=== PATIENT | female | born 1950 | race Caucasian/White ===

== ENCOUNTER 2018-05-28 09:29 | Outpatient (CLI) | payer OTHER, SELFPAY ==
[2018-05-28 10:07] LABS: Hemoglobin A1C 6.4 % (4.5-6.2)
[2018-05-28 11:22] LABS: Anion Gap 9.5 mmol/L (3-11); BUN 13 mg/dL (7-18); CO2 28.5 mmol/L (21.0-32.0); CREATININE 0.69 mg/dL (0.55-1.02); Calcium 9.1 mg/dL (8.5-10.1); Chloride 101 mmol/L (98-107); Cholesterol 228 mg/dL (50-200); Glucose 140 mg/dL (70-100); HDL Cholesterol 50 mg/dL (40-60); LDL CHOLESTEROL 138 mg/dL (<100); Sodium 139 mmol/L (136-145); Triglyceride 241 mg/dL (30-150)
[2018-05-28 11:40] LABS: FREE T4 1.01 ng/dL (0.76-1.46)
[2018-05-30 16:13] LABS: TSH 1.83 uIU/mL (0.358-3.74)
== END 2018-05-28 09:49 ==
PROVIDERS: PCP Nurse Practitioner Family; Visit Provider Nurse Practitioner Family
DX: I10 Essential (primary) hypertension (principal); E78.5 Hyperlipidemia, unspecified; E03.9 Hypothyroidism, unspecified; E11.9 Type 2 diabetes mellitus without complications
CPT/HCPCS: 36415; 80048; 80061; 83721; 83036; 84439; 84443

== ENCOUNTER 2018-05-31 00:29 | Outpatient (CLI) | payer OTHER, SELFPAY ==
--- NOTE | 2018-05-31 14:27 | DI.RAD_ITS ---
SYMPTOMS/DIAGNOSIS: OSTEOPOROSIS SCREENING, ASYMPTOMATIC POSTMENOPAUSAL STATE, Z78.0, Z13.820 DEXA SCAN: Routine examination. Evaluation of the lateral spine shows no compression deformities. Evaluation of the left hip shows a total T score of 0.8 and a Z score of 2.0. This is within normal limits. Evaluation of the lumbar spine shows a total T score of 0.9 and a Z score of 2.7. This is also within normal limits. No evidence of osteoporosis is seen. IMPRESSION: No evidence of osteopenia or osteoporosis.
--- NOTE | 2018-05-31 14:55 | DI.MAMMO_ITS ---
SYMPTOM/DIAGNOSIS: SCREENING, Z12.31 MAMMOGRAMS: Mammograms were interpreted according to the usual protocol including computer analysis with CAD system, tomosynthesis and C view imaging. The breast tissue is of moderate radiodensity. There is no evidence of a mass. There are no suspicious calcifications. There has been no significant interval change when compared with prior images. SUMMARY: No evidence of malignancy, category 1. Yearly screening mammography is recommended. Breast density, category B. SA ASSESSMENT OF FINDINGS: Negative. Category 1. Patient will receive a letter notifying them of these results. BI-RADS category B. There are scattered areas of fibroglandular density.
== END 2018-05-31 00:49 ==
PROVIDERS: PCP Nurse Practitioner Family; Visit Provider Nurse Practitioner Family
DX: Z12.31 Encounter for screening mammogram for malignant neoplasm of breast (principal); Z13.820 Encounter for screening for osteoporosis; Z78.0 Asymptomatic menopausal state
CPT/HCPCS: 77063; 77067; 77080

== ENCOUNTER 2018-06-13 00:36 | Outpatient (CLI) | payer OTHER, SELFPAY ==
--- NOTE | 2018-06-13 07:35 | DI.US_ITS ---
SYMPTOMS/DIAGNOSIS: NUMBNESS, TINGLING AT RIGHT LOWER EXTREMITY, R20.2, PARESTHESIA, R20.0 BILATERAL DUPLEX CAROTID ULTRASOUND: Duplex evaluation of the carotid circulation was performed according to the usual protocol. There is little if any visible plaque formation in the carotid circulation. The common, internal and external carotid arteries show normal flow velocities on Doppler evaluation bilaterally. CONCLUSION: No evidence of a hemodynamically significant carotid stenosis. Vertebral arteries show antegrade flow bilaterally.
== END 2018-06-13 00:56 ==
PROVIDERS: PCP Nurse Practitioner Family; Visit Provider Nurse Practitioner Family
DX: R20.2 Paresthesia of skin (principal); R20.0 Anesthesia of skin
CPT/HCPCS: 93880

== ENCOUNTER 2018-06-18 00:12 | Outpatient (CLI) | payer OTHER, SELFPAY ==
--- NOTE | 2018-06-18 06:29 | MERGEMPI_ITS ---
*[facility]* [address] [place] [address] Myocardial Perfusion Imaging - SPECT Luis protocol Date of study: 06/18/2018 *PATIENT PRESENTATION* Height: 165.1cm (65in) Blood Pressure: Weight: 106.8kg (235lb) BSA: 2.27m^2 Referring physician: Pancho Hartman MD Ordering physician: Kamla Zamora Impressions: Normal perfusion by Tc99m Sestamibi Imaging. Summary: 1. Myocardial perfusion imaging: No myocardial perfusion defects noted. 2. The calculated left ventricular ejection fraction after stress: 67%. No left ventricular regional motion abnormality. Indication: R07.9. History: Back , rated 8 out of 10. REASON FOR TESTING: SEEN AT DOCTOR'S FOR NUMBNESS AND TINGLING OF RIGHT UPPER EXTREMITY, WELL INTERMITTANT JAW PAIN. THESE SX HAVE NOT OCCURED TOGETHER.. PMH: HYPERLIPIDEMIA, DIABETES, HYPERTENSION, HYPOTHYROIDISM, GENERALIZED ANXIETY SIDOPRDER, MAJOR DEPRESSIVE DISORDER, ADHD, ESSENTIAL TREMOR, DIVERTICULOSIS OF AND POLYP OF COLON, BINGE EATING DISORDER, ARTHRITIS, CATARACT. FAMILY HX: CAD IN GRANDPARENTS ONLY. SMOKING: NEVER. EXCERCISE: NO REGULAR EXCERCISE. Risk factors: Hypertension. Diabetes mellitus. Obesity. Dyslipidemia. Cholesterol: 234mg/dl. HDL: 138mg/dl. LDL: 50mg/dl. Triglycerides: 241mg/dl. ALLERGIES: NKDA. MEDICATIONS: SERTRALINE 35 MG DIRECTED, PROPRANOLOL 10 MG BID, OMEGA-3 FATTY ACIDS 1 DAILY, MOMETASONE 30 ML TOPICALLY DAILY PRN, LEVOTHYROXINE 50 MCG DAILY, HYDROCHLOROTHIAZIDE 25 MG DAILY, RRMQYMQ-FNQFR-YFM COMPLEX 2 DAILY, CLOTRIMAZOLE 45 GM TOPICAL BID, CHOLECALCIFEROL 1000 UNITS DAILY, CLACIUM MAGNESIUM 1 DAILY. Imaging Technique: Protocol: Luis protocol. Acquisition: Gated SPECT; 1 day - rest/stress. The patient was imaged in the supine position. Attenuation correction used. Isotope administration: - Rest. Tc[99m]-sestamibi. Dose: 12.4mCi. Injection time: 08:40 AM. Injection to stress time: 00:45. - Stress. Tc[99m]-sestamibi. Dose: 36.4mCi. Injection time: 10:55 AM. 1-2 min before end of exercise Baseline ECG: LAST EKG 05/30/18- SINUS RHYTHM, HR 71. TODAY'S EKG-SINUS RHYTHM, HR 85 Stress protocol: + +---+ + !Stage !HR !BP (mmHg) ! + +---+ + !Baseline supine !85 !122/84 (97) ! + +---+ + !Baseline standing !80 !140/92 (108)! + +---+ + !Stage I; 1.7mph, 10degrees; 3 min !115!134/88 (103)! + +---+ + !Stage II; 2.5mph, 12degrees; 3 min!140!182/92 (122)! + +---+ + !Recovery; 1 min !132!180/84 (116)! + +---+ + !Recovery; 3 min !94 !170/88 (115)! + +---+ + !Recovery; 6 min !92 !128/78 (95) ! + +---+ + * Stress results: The rate-pressure product for the peak heart rate and blood pressure was 42579oh Hg/min. Stress ECG: EXCERCISE TESING ENDED IN 5 MINS, 29 SECS DUE TO FATIGUE. MAX HR WAS 141, 91% OF TARGET. BLOOD PRESSURE RESPONSE: HYPERTENSIVE REPONSE. METS: 7.05 ECTOPY: NONE NOTED ANGINA: NO CHEST PAIN OR PRESSURE REPORTED. ISCHEMIA: MINIMAL, TRANSIENT ST CHANGES NOTED, ALL RESOLVED TO BASELINE BY END OF RECOVERY. FUNCTIONAL CAPACITY: AVERAGE CAPACITY. Myocardial perfusion: Imaging information: gated. No myocardial perfusion defects noted. Ventricular Function (Wall Motion): The calculated left ventricular ejection fraction after stress: 67%. No left ventricular regional motion abnormality. Study data: Pancho Hartman MD supervised and was readily available during the procedure. This study was interpreted by [facility]. Study status: Routine. Consent: The risks, benefits, and alternatives to the procedure were explained to the patient and informed consent was obtained. Procedure: Initial setup. A baseline ECG was recorded. Surface ECG leads and manual cuff blood pressure measurements were monitored. Heart sounds: Normal. Lung sounds: Normal. Treadmill exercise testing was performed using the Luis protocol. Study completion: All catheters inserted during the procedure were removed. The patient tolerated the procedure well and was discharged from the lab. Discharge: The patient left the laboratory in stable condition. Birthdate: Patient birthdate: 1950. Sex: Gender: female. Study date: Study date: 06/18/2018. Study time: 06:29 AM. Electronically signed by Pancho Hartman MD 06/18/2018 17:56
== END 2018-06-18 00:32 ==
PROVIDERS: PCP Nurse Practitioner Family; Visit Provider Nurse Practitioner Family
DX: R07.9 Chest pain, unspecified (principal); I10 Essential (primary) hypertension; E03.9 Hypothyroidism, unspecified; E78.5 Hyperlipidemia, unspecified; E11.9 Type 2 diabetes mellitus without complications
CPT/HCPCS: 78452; 93016; 93018; 93017

== ENCOUNTER 2018-08-24 01:05 | Outpatient (CLI) | payer OTHER, SELFPAY ==
[2018-08-24 09:52] LABS: Hemoglobin A1C 7.1 % (4.5-6.2)
[2018-08-24 10:25] LABS: Anion Gap 7.6 mmol/L (3-11); BUN 16 mg/dL (7-18); CO2 29.4 mmol/L (21.0-32.0); CREATININE 0.78 mg/dL (0.55-1.02); Calcium 9.3 mg/dL (8.5-10.1); Chloride 102 mmol/L (98-107); Cholesterol 140 mg/dL (50-200); Glucose 163 mg/dL (70-100); HDL Cholesterol 52 mg/dL (40-60); LDL CHOLESTEROL 66 mg/dL (<100); Potassium 4.3 mmol/L (3.5-5.1); Sodium 139 mmol/L (136-145); TSH 2.48 uIU/mL (0.358-3.74); Triglyceride 169 mg/dL (30-150)
== END 2018-08-24 01:25 ==
PROVIDERS: PCP Nurse Practitioner Family; Visit Provider Nurse Practitioner Family
DX: E03.9 Hypothyroidism, unspecified (principal); E78.5 Hyperlipidemia, unspecified; E11.9 Type 2 diabetes mellitus without complications
CPT/HCPCS: 36415; 80048; 80061; 83721; 83036; 84443

== ENCOUNTER 2018-10-01 15:15 | Outpatient (CLI) | payer OTHER, SELFPAY ==
--- NOTE | 2018-10-01 15:09 | DI.RAD_ITS ---
SYMPTOM/DIAGNOSIS: LT KNEE PAIN LEFT KNEE: Comparison is made with 03/18/13. There is now moderate narrowing of the medial femoral tibial joint space. Radha-articular spurring is now seen throughout. There appears to be severe degenerative changes of the patellofemoral joint with some worsening when compared with the previous exam. IMPRESSION: Increased degenerative changes throughout the knee.
== END 2018-10-01 15:35 ==
PROVIDERS: PCP Nurse Practitioner Family; Visit Provider Physician Assistant
DX: M25.562 Pain in left knee (principal); M17.12 Unilateral primary osteoarthritis, left knee
CPT/HCPCS: 73562

== ENCOUNTER 2018-12-27 08:37 | Outpatient (CLI) | payer OTHER, SELFPAY ==
--- NOTE | 2018-12-27 11:34 | DI.RAD_ITS ---
SYMPTOMS/DIAGNOSIS: SURGICAL PLANNING LT TKA LEG LENGTH: The left leg measures 87 cm. The right leg measures 89 cm. There is bilateral DJD involving the knees more advanced on the left side.
--- NOTE | 2018-12-27 13:24 | HPE_ITS ---
Date of service: 12/27/18 Assessment and Plan (1) Primary osteoarthritis of left knee: Current visit: Yes Status: Chronic Left total knee replacement. Details of surgery were discussed with patient as well as risks and pertinent anatomy. All questions were answered. History of Present Illness Chief Complaint: Left knee pain Narrative: Cheryl is a 68-year-old female who comes in today for a preoperative visit for a left total knee replacement. She has had knee pain for more than 5 years, in fact went to go see [facility] 5 years ago for x-rays and evaluation. She states that she has been slowly decreasing her activity over time likely because of her knee pain, but is really she is dealing with flareups of her knee pain that occur a few times a year. She states that she is starting to develop a limp, and in fact her left knee does not straighten all the way. She also states that she is developing increasing back pain as well due to her gait. She states that she has pretty significant difficulty going up and down stairs. She avoids squatting due to knee pain. She previously walked for exercise, but is unable to do so now because of her knee pain. She has never tried an injection in the knee, but she does know that she has some arthritis in the knee which likely is going to be need of a knee replacement. Because of her significant decrease in activity she would like to discuss moving forward with a knee replacement versus other options. She denies any numbness and tingling down the leg. She does state that she has some there bilateral hip pain that occurs on the lateral aspect of both hips. This also coincides with her left knee flareups. She has had x-rays done which show pretty significant arthritis in all 3 compartments of her knee, with decreased joint space both medially and laterally. She also has pretty significant bone spurring throughout including the patellofemoral joint. She recently had an injection in the left knee, and she got very good relief but only for about 10 days. Now her left knee pain is back to where it was prior to the injection. At this point, since conservative treatment is not working, she would like to move forward with a left total knee replacement. Pertinent Surgical Information Cheryl does relate to me today that she has been told that she is very sensitive to anesthetic medications, and does not require much medication for anesthesia. She also states that she took a little longer to wake up at her previous surgery. Patient denies history of hypertension, CVA, NE, angina, asthma, COPD, renal or liver disorders, hepatitis, bleeding disorders, diabetes, immune or thyroid disorders. No complications from anesthesia. Review of Systems Constitutional Denies fever(s) ENT Denies dizziness and Denies sore throat Cardiovascular Denies chest pain, Denies palpitations and Denies dyspnea Respiratory Denies cough and Denies dyspnea Gastrointestinal Denies abdominal pain, Denies melena, Denies hematochezia, Denies diarrhea, Denies nausea and Denies vomiting Genitourinary Denies hematuria and Denies dysuria Neurologic Denies dizziness Endocrine Denies palpitations ON LICENSE OF [facility] Medical History Primary osteoarthritis of left knee (Chronic) Type 2 diabetes mellitus (Chronic ~04/2017) Essential hypertension (Chronic 06/14/13) Hyperlipidemia (Chronic 03/13/13) Hypothyroidism (Chronic 03/13/13) Generalized anxiety disorder (Chronic) Major depressive disorder (Chronic) ADHD, predominantly inattentive type (Chronic) Essential tremor (Chronic 03/02/15) Diverticulosis of colon (Chronic) Binge eating disorder (Inactive 10/05/15) Cataract, nuclear (Resolved 08/14/17) Polyp of colon (Resolved 06/29/06) Surgical History Hx of vaginal hysterectomy (Acute) Appendectomy Bilateral salpingectomy with oophorectomy Cervical Procedure Colonoscopy - IV Sedation (06/14/16) Extraction of cataract Family History Mother Colon cancer Father No problems noted. Sister No problems noted. Brother Pancreatic cancer metastasized to liver Brother Low back pain Alcohol abuse Son No problems noted. Daughter No problems noted. Daughter No problems noted. Daughter Type 1 diabetes mellitus Bipolar disorder Maternal Grandmother Stroke Maternal Grandfather Heart disease Myocardial infarction Paternal Grandfather No problems noted. 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 Pets and animals: No What type of physical activity do you participate in: none Mamie/Mosque: [facility] [place] Home Medications Medication Instructions Recorded Confirmed Type cholecalciferol (vitamin D3) 1,000 unit PO DAILY 03/25/15 12/27/18 History [Vitamin D3] Calcium Magnesium 1 ea PO DAILY #3 03/30/16 12/27/18 History One-Per-Day [place]-3 1 ea PO DAILY #1 03/30/16 12/27/18 History mometasone [Elocon] 1 % TOPICAL DAILY PRN #1 script 06/10/16 12/27/18 History dtrppdup-anciq-owa7-C-delbert-bor 2 ea PO DAILY #1 05/10/17 12/27/18 History [Woxtapr-Aapfq-Fxg Complex Cplt] garlic tablet 100 mg PO ONCE 05/14/18 12/27/18 History hydrochlorothiazide 25 mg tablet 25 mg PO DAILY #90 tab 09/13/18 12/27/18 Rx levothyroxine 50 mcg tablet 50 mcg PO DAILY #90 tab-cap 09/13/18 12/27/18 Rx propranolol 10 mg tablet 20 mg PO BID #360 tab 09/13/18 12/27/18 Rx escitalopram 10 mg tablet 15 mg PO DAILY #145 tab 11/19/18 12/27/18 Rx calcium carbonate [Tums] 200 mg PO PRN PRN 12/27/18 12/27/18 History clotrimazole 45 gm TOPICAL BID PRN 12/27/18 12/27/18 History ibuprofen [Advil] 400 mg PO HS 12/27/18 12/27/18 History Allergies Allergy/AdvReac Type Severity Reaction Status Date / Time milk AdvReac Intermediate Diarrhea Verified 12/27/18 11:40 sertraline AdvReac Intermediate per pt Verified 12/27/18 11:40 tingling in arm and jaw pain multivitamin AdvReac Intermediate causes Uncoded 12/27/18 11:40 chest pressure Exam HENMS Head: normocephalic and atraumatic General nose exam: no nasal discharge Throat: uvula midline and no uvular edema Other: soft palate rises symmetrically, no erythema Eyes Conjunctivae: conjunctivae normal Sclera: sclerae normal Pupils: PERRL Resp Effort & Inspection: normal respiratory effort Auscultation: clear to auscultation bilaterally and no wheezes Cardio Rate: regular rate Rhythm: regular rhythm Heart Sounds: S1 normal, S2 normal and no murmurs GI Palpation: soft, no hepatosplenomegaly and nontender Auscultation: normal bowel sounds
== END 2018-12-27 08:57 ==
PROVIDERS: PCP Nurse Practitioner Family; Visit Provider Physician Assistant
DX: M17.0 Bilateral primary osteoarthritis of knee (principal); M21.70 Unequal limb length (acquired), unspecified site
CPT/HCPCS: NC; 77073

== ENCOUNTER 2018-12-27 09:06 | Outpatient (CLI) | payer OTHER, SELFPAY ==
[2018-12-27 10:56] LABS: HCT 38.7 % (36.0-46.0); HGB 13.3 g/dL (12.0-15.5); Mean Corp. HGB Concentration 34.4 g/dL (32.0-36.0); Mean Corpuscular Hemoglobin 29.9 pg (27.0-33.0); Mean Platelet Volume 9.2 fL (8.0-11.0); Platelet Count 233 x1000/uL (130-400); RBC 4.45 m/cumm (4.00-5.20); RBC Distribution Width 12.6 % (11.7-14.6); White Blood Cell Count 6.05 k/cumm (4.4-10.8)
[2018-12-27 11:38] LABS: Anion Gap 11.3 mmol/L (3-11); BUN 15 mg/dL (7-18); CO2 27.7 mmol/L (21.0-32.0); CREATININE 0.88 mg/dL (0.55-1.02); Calcium 9.3 mg/dL (8.5-10.1); Chloride 100 mmol/L (98-107); Glucose 140 mg/dL (70-100); Potassium 3.9 mmol/L (3.5-5.1); Sodium 139 mmol/L (136-145)
== END 2018-12-27 09:26 ==
PROVIDERS: PCP Nurse Practitioner Family; Visit Provider Student in an Organized Health Care Education/Training Program
DX: M25.562 Pain in left knee (principal); M17.12 Unilateral primary osteoarthritis, left knee; Z01.818 Encounter for other preprocedural examination; Z01.812 Encounter for preprocedural laboratory examination; E11.9 Type 2 diabetes mellitus without complications
CPT/HCPCS: 36415; 80048; 85027

== ENCOUNTER 2019-01-01 08:23 | Inpatient (IN) | payer OTHER, SELFPAY ==
[2019-01-01] VITALS (18 sets, daily range): BP systolic 85–138; BP diastolic 42–80; PULSE 63–79; RESP 7–20; TEMP 36.2–36.7; O2SAT 93–97
[2019-01-01] MEDS: Celecoxib 200 MG CAP 400 MG PO (09:01)
[2019-01-01] MEDS: Acetaminophen 500 MG TAB 1000 MG PO ×3 (09:01→20:20)
[2019-01-01] MEDS: Gabapentin 300 MG CAP PO ×2 (09:02→21:32)
[2019-01-01] MEDS: Lactated Ringers 1,000 ML 80 ML IV ×3 (09:02→15:02)
[2019-01-01] MEDS: oxyCODONE-CR 10 MG TABCR PO (09:02)
[2019-01-01] MEDS: Bupivacaine LIPOSOME/PF 133 MG/10 ML VIAL IJ ×2 (10:35→11:36)
[2019-01-01] MEDS: ceFAZolin 2 GM/50 ML BAG IVPB (11:10)
[2019-01-01] MEDS: Ketorolac 30 MG/ML VIAL (11:36)
[2019-01-01] MEDS: Bupivacaine 0.25% Pres-Free 30 ML VIAL (11:36)
[2019-01-01] MEDS: Normal Saline 20 ML VIAL (11:36)
--- NOTE | 2019-01-01 13:38 | ROE_ITS ---
Date of service: 01/01/19 Time of Service: 13:35 Operative Note DATE OF PROCEDURE: 01/01/19 PRE-OP DIAGNOSIS: Left knee osteoarthritis POST-OP DIAGNOSIS: same PROCEDURE: Left Total Knee Replacement SURGEON: Virgilio Pederson DATA COMMUNICATIONS SOFTWARE CONSULTANT: Skye Bauman ANESTHESIA: regional and spinal ESTIMATED BLOOD LOSS: 100 PATHOLOGY: none sent TOURNIQUET TIME: 33 COMPLICATIONS: None Patient was transported to: PACU Patient's condition: stable Implants: 1. Depuy Attune Posterior Stabilized Femoral Component, Size 5 2. Depuy Attune Fixed Platform Tibial Component, Size 4 3. Depuy Attune 5 x 6mm fixed, Stabilized Poly 4. Depuy Attune Patellar Component, Size 32 mm Indications: I have seen Anna in clinic for symptoms of left knee arthritis, confirmed with radiographic findings. She has exhausted nonoperative methods and was having significant limitations in daily function and desired better function and less pain. I discussed the technical details of a knee replacement. I explained the risks of the procedure to include, but not limited to, bleeding, infection, pain, stiffness, fracture, damage to nerves and vessels, damage to muscles and tendons, loosening, need for repeat procedure, blood clot and cardiopulmonary demise. Despite these risks, she elected to proceed. Findings: There was significant signs of arthritis throughout the knee. All 3 compartments were involved. Osteophytes are present on each. There was more lateral disease anticipated. Procedure Description: Anna was greeted in the preoperative holding area where the correct side was identified and marked. The consent was reviewed with the patient and signed. The history and physical was updated. All questions were answered. Preoperative mediacations were administered: Acetaminophen 1000mg, Celebrex 400mg, Gabapentin 300mg, and Oxycontin 10mg. An adductor canal block was then administered by the anesthesia team in the PACU. She was taken back to the operating room. A spinal anesthestic was then administered. The patient was placed into the supine position on the operating room table. A nonsterile tourniquet was placed high onto the leg but only used for cementing. Posts were placed for positioning during the procedure. All bony prominences were well padded. Prophylactic antibiotics in the form of cefazolin were administered. 1g of Tranxemic Acid was given intravenously within 30 minutes of incision. The left leg was then prepped with Chloraprep and draped in a standard fashion with impervious stockinette and extremity drape with Iodine impregnated skin protection. A timeout to confirm correct identity, side and site, procedure, allergies, anesthesia, and medical concerns was performed. With the knee in some flexion, a midline incision was made overlying the knee. Full thickness skin flaps were raised once the extensor mechanism was encountered. These were raised medially and laterally. Any bleeding was controlled with electrocautery. Once the extensor mechanism was fully exposed, a medial parapatellar arthrotomy was performed in a flexed position. All bleeding from the arthrotomy and the geniculate arteries was coagulated. A medial subperiosteal peel was performed with electrocautery to the midcoronal plane. Due to the significant varus deformity the entire medial tibial plateau was exposed. The fat pad was removed while keeping the patellar tendon protected. The anterior distal femur synovium was removed for later visualization. The ACL and PCL were resected and the anterior horn of the lateral meniscus was transected. The knee was then flexed with the patella everted. Large osteophytes from the tibia were removed. Large osteophytes from the femur were removed. Using a step drill, and based on preoperative templating, the femoral canal was entered. This was done with a step drill without any difficulty. The intramedullary distal femoral cut guide was inserted, set to a 6 degree valgus cut and 9mm cut thickness. There was some hypoplasia of the lateral femoral condyle and any remnant cartilage of the medial femoral condyle was removed for appropriate thickness. The distal femoral cut guide was then held in position and pinned. With the soft tissues protected, the distal cut was performed. This was passed over a few times to ensure a planar cut. I then turned attention to the tibia. The extramedullary guide was placed onto the leg. The distal aspect was slid medial to adjust for position of center of ankle and stay in line with shaft of the tibia. Approximately 3-5 degrees of posterior slope was kept in the proximal cutting guide. The center of the guide was aligned with the PCL. The stylus was used to assess cut thickness. The medial side, most involved side, was set for a 4mm cut. This was then held in position and pinned into place with 2 additional pins and a cross pin for stability. The medial and lateral collateral ligaments were protected and the cut was performed. With this completed, it was assessed and noted to be of appropriate dimensions. The guide was removed. A spacer block was inserted and the knee was brought into extension. The 6mm spacer block provided full extension, without hyperextension and with stability of both the medial and lateral collateral ligaments was assessed. The pins from the femur and the tibia were then removed. The distal femur was then sized. The anterior stylus was placed onto the lateral ridge of the anterior femur. This indicated a size 5 femur. The external rotation of the guide was adjusted to 3 degrees to match the epicondylar axis, perpendicular to James?s line. The 4-in-1 cutting guide was the placed. The posterior medial femur cut was evaluated and appeared of good thickness. The spacer block was inserted underneath the cutting guide and stability was confirmed in 90 degrees of flexion. An jose wing was used to confirm appropriate position of the anterior cut to avoid notching. This cutting guide was ensured to be flush on the cut surface and then pinned into place with headed pins. While protecting the soft tissues, quad tendon, and collateral ligaments, the anterior and posterior cuts were performed with a saw. The central two pins were removed and the posterior and anterior chamfers were cut next. The notch-cutting guide was placed. This was pinned to lateralize the femoral component as much as possible while keeping it flush on the cut surface. This was then pinned into position. A reciprocating saw was used to make the notch cut. A rasp smoothed the cut surfaces. A trial posterior stabilized femoral component was then inserted, impacted down to the cut surfaces, and the lug holes were drilled. A provisional trial tibial component was placed and the knee was brought through range of motion. There was noted to be excellent extension and flexion. There was no significant instability. The patella was tracking without thumbs. The tibial cut surface was fully exposed. The medial and lateral menisci were r emoved. The tibia was then sized as a 4. The tibia had been previously marked during trialing to correspond to the center of the tibial component to help with rotation. The trial was aligned to this skye, approximately rotated to the medial 1/3rd of the tibial tubercle. The trial was pinned into place. The tibia was prepared with a reamer and a keel punch. The knee was then brought into extension and the patella was measured as 25 mm. Using the patellar clamp and cut guide, this was resected to a flat surface with at least 13mm of thickness remaining. The size 32 patella fit the best. This was oriented and then clamped into position. The lugs were drilled. The trial components were removed. The final components, except for the polyethylene were opened on the back table. The periosteal and capsular tissues, especially posteriorly, around the knee were then systematically injected with a periarticular cocktail consisting of 50cc 0.25% Marcaine, 30mg Ketorolac, 20cc of Exparal and 50cc of injectable saline. The tourniquet was then inflated to 275mmHg. The knee was thoroughly irrigated with a pulse lavage and dried. On the back table, with the implants opened, the cement was mixed. 2 batches of antibiotic laden cement were prepared with vacuum assistance. After the cement was ready a small amount was placed on to the back side of the tibial component at the keel. A small amount was placed onto the posterior flange of the femur. Cement was manual pressurized and impregnated into the cut surface of the tibia. The tibial component was then inserted into the cut surface and impacted into position. Excess cement was removed and the component was reimpacted. Again, excess cement was removed and our attention was then turned to the femur. The femoral cut surface was once again dried and cement was manually impacted into the cut surface. The femoral component was lined with the lug holes and impacted. Excess cement was removed. It was ensured to be down against the cut surface. The trial polyethylene was then inserted and the leg was brought out into full extension for the duration of the cement curing process, approximately 15min. Cement was lastly manually impacted into the cut surface of the patella and the patellar button was clamped into position and held. During this process attention was turned to the gutters of the knee and for all interfaces for any excess cement. After the cement had finally cured, approximately 15min, the clamp was removed from the patella and the knee was taken through range of motion. A size 6mm p olyethylene component provided the best range of motion and stability with less than 2mm gapping with medial and lateral stress and full extension without significant hyperextension. The patella was tracking with a no-thumbs technique. The trial poly was removed and once again the knee was checked for any loose, excess, or errant cement. The poly component was then inserted and impacted into position after cleaning and drying the tibial tray. The capsule was then reapproximated with a No. 1 Vicryl at multiple locations. The capsule was finally closed with a No. 2 Stratafix, barbed suture. The tourniquet was then released and the arthrotomy appeared watertight without significant bleeding. The second dosing of 1g TXA was started. Deep tissues were then reapproximated with 0 Vicryl and 2-0 Vicryl. The skin was closed with a running 3-0 Monocryl in a subcuticular fashion. This was reinforced with skin glue. A Mepilex silver dressing was applied along with a [id number] RICKEY wrap. A CryoCuff was applied. Anna was transferred to the hospital bed without difficulty an suffering no apparent complication. Anna has a good prognosis. Physical therapy will start today and without restrictions, weight-bearing as tolerated. Aspirin 81mg BID will be used for DVT prophylaxis.
--- NOTE | 2019-01-01 15:44 | NUR.NOTE ---
Nursing Note:01/01/19@1430-Admited from PACU to room 225 via stretcher. Hover mat used for transfer to bed. Well tolerated by patient. Oriented to room and call wan system. LS clear. Enc to take deep breaths & cough. Denies pain or nausea. BS +. Sipping on clears. Ordonez to gravity drainage. Abd large, soft & non tender. Small amount of clear urine in bag. LLE tony wrap in use over LTK dressing. No drainage noted on mepilex dressing. Cryo cuff in use for comfort. RLE No edema noted. Tomasz in use & SCD applied. PP+. Able to wiggle feet bilat, but has limited feeling in them from block. See VS and IV intervention.
--- NOTE | 2019-01-01 16:18 | PT.INIE ---
Date of service: 01/01/19 Time of Service: 15:50 PT Notes Inpatient Physical Therapy Evaluation Date: 01/01/19 Referring Doctor: Dr. Pederson PT Orders: PT CONSULT: s/p L TKA Precautions: fall, standard Patient Profile/Admitting Diagnosis: Patient admitted status post left TKA performed earlier today PMHX: Type 2 diabetes; hypertension; hypothyroidism; anxiety; depression; ADHD Social History/Home Situation: Patient lives independently in a multilevel home, where she cares for her 94-year-old father. 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 She has 3 steps to enter her home, and a full flight to her bedroom. She has had a bad move downstairs, where she can remain in the short-term. Her sister has also traveled up to assist with care for both Cheryl and her father for the next month. Her sister expresses concerns about a low toilet seat in the downstairs bathroom, questioning need for commode versus elevated seat. Equipment Owned/DME: None Subjective: Cheryl states that she is feeling groggy, but has no pain. She is agreeable to PT consult. Objective: General Observation: Resting in bed with IV in right upper extremity, Fermin wrap and Cryo/Cuff to left knee, Ordonez catheter in place. Mental Status: A and O x3 Pain: 0/10 ROM: Right Upper Extremity: WFL Left Upper Extremity: WFL Right Lower Extremity: WFL Left Lower Extremity: Patient demonstrates 0 to 80 degrees of knee flexion actively during functional movement. Strength: Right Upper Extremity: Grossly WFL Left Upper Extremity: Grossly WFL Right Lower Extremity: Hip flexion 5/5. Quads 5/5. Knee flexion 5/5. Ankle dorsiflexion 5/5. Left Lower Extremity: Patient is functionally able to demonstrate SLR without extension lag. Knee extension assessed in sitting is at least 3/5, although no resistance was applied due to postoperative status. Ankle dorsiflexion is 3/5 or greater. Sensation: Intact distally Bed Mobility/Transfers: supine->sit: supervision with HOB at 30 degrees sit->stand: supervision stand->sit: supervision bed->chair: CG with FWW Gait: Patient able to ambulate 6' with FWW. Balance: Static Sitting: Normal Dynamic Sitting: Normal Static Standing: Good Dynamic Standing: Fair Special Tests: Mobility Limitations Standardized Measure [employer] AM-PAC 6 clicks Basic Mobility Inpatient Short Form: Raw Score: 20 CMS Score: 36% deficit Informed Consent/Education: Patient instructed in purpose of PT consult and plan of care. Patient was instructed in quad setting activities for completion between PT sessions. Assessment: Patient is a 68 year old female referred to physical therapy services with the diagnosis of left knee OA, s/p TKA performed earlier today. Patient presents with clinical signs and symptoms consistent with post-op diagnosis, as demonstrated by the following impairment level findings: 1. Decreased left knee ROM 2. Decreased LLE strength 3. Decreased activity tolerance Impairments are contributing to the following functional limitations: 1. Decreased independence with bed mobility 2. Decreased independence with transfers 3. Decreased tolerance to household distance ambulation 4. Unable to manage stairs Patient is assessed as Low [id number] complexity based on the following: History: 68 year old female on post-op day 0 from left TKA Examination: functional limitations as noted above Presentation: evolving Decision Making: low complexity Goals: Goals X1 week 1. Supine-Sit : independent 2. Sit-Supine : independent 3. Sit-Stand: independent 4. Stand-Sit : independent 5. Bed-Chair : independent with FWW 6. Chair-Bed : independent with FWW 7. Gait : supervision with FWW x 100' 8. Stairs : supervision with FWW x 3 steps Plan of Care/Treatment Plan: 1-2x/day, 7 days/week x 1 week. Plan of care has been reviewed with the PRESCRIPTION CLERK providing the service under Physical Therapy direction. Initiate Physical Therapy intervention for strengthening, bed mobility, transfers, gait, stairs, balance training, use of assistive device. DISCHARGE RECOMMENDATIONS: home with FWW TREATMENT CODE/TIME: 3:50-4:10 ([id number]) Antonette Basilio, PT, DPT [facility]
--- NOTE | 2019-01-01 16:34 | IN_ITS ---
Date of service: 01/01/19 Time of Service: 15:50 PT Notes Inpatient Physical Therapy Evaluation Date: 01/01/19 Referring Doctor: Dr. Pederson PT Orders: PT CONSULT: s/p L TKA Precautions: fall, standard Patient Profile/Admitting Diagnosis: Patient admitted status post left TKA performed earlier today PMHX: Type 2 diabetes; hypertension; hypothyroidism; anxiety; depression; ADHD Social History/Home Situation: Patient lives independently in a multilevel home, where she cares for her 94-year-old father. 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 She has 3 steps to enter her home, and a full flight to her bedroom. She has had a bad move downstairs, where she can remain in the short-term. Her sister has also traveled up to assist with care for both Cheryl and her father for the next month. Her sister expresses concerns about a low toilet seat in the downstairs bathroom, questioning need for commode versus elevated seat. Equipment Owned/DME: None Subjective: Cheryl states that she is feeling groggy, but has no pain. She is agreeable to PT consult. Objective: General Observation: Resting in bed with IV in right upper extremity, Fermin wrap and Cryo/Cuff to left knee, Ordonez catheter in place. Mental Status: A and O x3 Pain: 0/10 ROM: Right Upper Extremity: WFL Left Upper Extremity: WFL Right Lower Extremity: WFL Left Lower Extremity: Patient demonstrates 0 to 80 degrees of knee flexion actively during functional movement. Strength: Right Upper Extremity: Grossly WFL Left Upper Extremity: Grossly WFL Right Lower Extremity: Hip flexion 5/5. Quads 5/5. Knee flexion 5/5. Ankle dorsiflexion 5/5. Left Lower Extremity: Patient is functionally able to demonstrate SLR without extension lag. Knee extension assessed in sitting is at least 3/5, although no resistance was applied due to postoperative status. Ankle dorsiflexion is 3/5 or greater. Sensation: Intact distally Bed Mobility/Transfers: supine->sit: supervision with HOB at 30 degrees sit->stand: supervision stand->sit: supervision bed->chair: CG with FWW Gait: Patient able to ambulate 6' with FWW. Balance: Static Sitting: Normal Dynamic Sitting: Normal Static Standing: Good Dynamic Standing: Fair Special Tests: Mobility Limitations Standardized Measure [employer] AM-PAC 6 clicks Basic Mobility Inpatient Short Form: Raw Score: 20 CMS Score: 36% deficit Informed Consent/Education: Patient instructed in purpose of PT consult and plan of care. Patient was instructed in quad setting activities for completion between PT sessions. Assessment: Patient is a 68 year old female referred to physical therapy services with the diagnosis of left knee OA, s/p TKA performed earlier today. Patient presents with clinical signs and symptoms consistent with post-op diagnosis, as demonstrated by the following impairment level findings: 1. Decreased left knee ROM 2. Decreased LLE strength 3. Decreased activity tolerance Impairments are contributing to the following functional limitations: 1. Decreased independence with bed mobility 2. Decreased independence with transfers 3. Decreased tolerance to household distance ambulation 4. Unable to manage stairs Patient is assessed as Low [id number] complexity based on the following: History: 68 year old female on post-op day 0 from left TKA Examination: functional limitations as noted above Presentation: evolving Decision Making: low complexity Goals: Goals X1 week 1. Supine-Sit : independent 2. Sit-Supine : independent 3. Sit-Stand: independent 4. Stand-Sit : independent 5. Bed-Chair : independent with FWW 6. Chair-Bed : independent with FWW 7. Gait : supervision with FWW x 100' 8. Stairs : supervision with FWW x 3 steps Plan of Care/Treatment Plan: 1-2x/day, 7 days/week x 1 week. Plan of care has been reviewed with the SALES FACILITATOR providing the service under Physical Therapy direction. Initiate Physical Therapy intervention for strengthening, bed mobility, transfers, gait, stairs, balance training, use of assistive device. DISCHARGE RECOMMENDATIONS: home with FWW TREATMENT CODE/TIME: 3:50-4:10 ([id number]) Antonette Basilio, PT, DPT [facility]
[2019-01-01] MEDS: Celecoxib 200 MG CAP PO (20:19)
[2019-01-01] MEDS: Aspirin E.C. 81 MG TABEC PO (20:19)
[2019-01-01] MEDS: Calcium Carbonate *TUMS* 500 MG CHEW PO (20:20)
[2019-01-01] MEDS: Propranolol 20 MG TAB PO (20:20)
[2019-01-02 04:08] VITALS: BP 122/79; PULSE 68; RESP 17; TEMP 36.4; O2SAT 98
[2019-01-02] MEDS: Lactated Ringers 1,000 ML 80 ML IV (04:14)
[2019-01-02] MEDS: Levothyroxine 50 MCG TAB PO (06:11)
[2019-01-02 06:39] VITALS: O2SAT 95
[2019-01-02 07:23] VITALS: BP 124/76; PULSE 68; RESP 15; TEMP 35.5; O2SAT 95
[2019-01-02] MEDS: Celecoxib 200 MG CAP PO (08:24)
[2019-01-02] MEDS: Acetaminophen 500 MG TAB 1000 MG PO ×2 (08:25→13:16)
[2019-01-02] MEDS: Calcium Carbonate *TUMS* 500 MG CHEW PO (08:25)
[2019-01-02] MEDS: Cholecalciferol (Vitamin D3) 1,000 UNIT TAB 1000 UNITS PO (08:25)
[2019-01-02] MEDS: Aspirin E.C. 81 MG TABEC PO (08:26)
[2019-01-02] MEDS: hydroCHLOROthiazide 25 MG TAB PO (08:26)
[2019-01-02] MEDS: Escitalopram 10 MG TAB 15 MG PO (08:26)
[2019-01-02] MEDS: Propranolol 20 MG TAB PO (08:26)
[2019-01-02] MEDS: Normal Saline Flush 10 ML SYR IV (09:46)
[2019-01-02 09:50] VITALS: O2SAT 95
--- NOTE | 2019-01-02 10:41 | PT.INTREAT ---
Date of service: 01/02/19 Time of Service: 10:41 PT Notes Inpatient Physical Therapy Treatment Note [facility] Date: 01/02/19 PRECAUTIONS: WBAT on L SUBJECTIVE: Anna states that she is feeling good this morning, although a little stiff in the L knee. OBJECTIVE: PAIN: No c/o pain BED MOBILITY/TRANSFERS Supine-sit: I with HOB flat Sit-supine: I with HOB flat Sit-stand: I Stand-sit: I GAIT Assistive Device: FWW Weight bearing: WBAT on L Assist: S Distance: 150' Deviation: Cueing for FWW mechanics THEREX: Patient completed a LE strengthening and stabilization program, as per flow sheet. She is able to perform active SLR x10. ASSESSMENT: Patient tolerated session without complaint. She was able to tolerate a progression in gait distance with FWW support and supervision, as well as cueing for FWW mechanics. Patient demonstrates independnece with transfers and bed mobility at this time. PLAN: Continue with PT's POC TREATMENT CODE/TIME: 30 minutes; [id number], [id number]
--- NOTE | 2019-01-02 11:24 | CHAPLAIN ---
Cheryl was sitting up in her chair when I visited. She said she had slept well and may be discharged today. She is a member of the [employer] and her field marketing coordinator is aware that she is here.
[2019-01-02 12:09] VITALS: BP 133/84; PULSE 71; RESP 15; TEMP 36.7; O2SAT 95
--- NOTE | 2019-01-02 12:52 | DSE_ITS ---
Date of service: 01/02/19 Time of Service: 12:51 DS: Diagnosis Discharge Diagnosis (1) Primary osteoarthritis of left knee: Status: Chronic Discharge Plan Disposition Patient Disposition: HOME Condition: Good Discharge Details Reason For Visit: LEFT KNEE DJD Admit Date/Time: 01/01/19 08:23 Admit Provider: Virgilio Pederson Attending Provider: Virgilio Pederson Primary Care Provider: Kamla Zamora [facility] Course Hospital Course: Patient was admitted to the medical/surgical floor following the procedure. It was tolerated well without any notable medical, surgical, or anesthetic complications. Mobilization began postoperatively. The lorenzo catheter was removed and voiding spontaneously. Vitals were stable. Physical therapy worked with the patient and was cleared for discharge home. No acute medical issues. Home Meds and New Rx's Prescriptions: New celecoxib 200 mg capsule 200 mg PO BID PRN (Reason: pain) Qty: 60 RF: 1 aspirin 81 mg tablet,delayed release (DR/EC) 81 mg PO BID Qty: 60 RF: 0 acetaminophen 500 mg tablet 1,000 mg PO Q8H PRN (Reason: pain) Qty: 90 RF: 3 pantoprazole 40 mg tablet,delayed release (DR/EC) 40 mg PO DAILY Qty: 30 RF: 0 oxycodone 5 mg tablet 2.5 - 5 mg PO Q4H Qty: 8 RF: 0 Continued garlic tablet 100 mg PO DAILY RF: 0 escitalopram oxalate 10 mg tablet 15 mg PO DAILY Qty: 145 RF: 0 cholecalciferol (vitamin D3) [Vitamin D3] 1,000 UNIT capsule 1,000 unit PO DAILY RF: 0 One-Per-Day [place]-3 1 EACH capsule,delayed release(DR/EC) 1 ea PO DAILY Qty: 1 RF: 0 Calcium Magnesium 1 EACH tablet 1 ea PO DAILY Qty: 3 RF: 0 mometasone [Elocon] 30 ML solution 1 % Topical DAILY PRNQty: 1 RF: 0 Melkrkhuedn-Jmprf-UCN Complex 1 EACH tablet 2 ea PO DAILY Qty: 1 RF: 0 hydrochlorothiazide 25 mg tablet 25 mg PO DAILY Qty: 90 RF: 4 levothyroxine 50 mcg tablet 50 mcg PO DAILY Qty: 90 RF: 4 propranolol 10 mg tablet 20 mg PO BID Qty: 360 RF: 4 ibuprofen [Advil] 200 mg Tablet 400 mg PO HS RF: 0 clotrimazole 45 GM cream 45 gm Topical BID PRNRF: 0 calcium carbonate [Tums] 200 mg calcium (500 mg) Tablet,Chewable 200 mg PO BID RF: 0 Discharge Instructions Additional Instructions: Dr. Pederson?s Total Knee Discharge Instructions Activity: The most important activity is to walk. You should try to take short walks a few times a day. It is important that when resting you work on keeping the knee straight. Avoid putting a pillow behind the knee as this will encourage flexion. Work on range of motion exercises as provided by Physical Therapy. - Start outpatient physical therapy within 2 weeks. - You should wear the APURVA hose on both legs for 2 weeks. Dressing: Keep the surgical dressing in place for at least one week. After the first week it may be removed and replace with light gauze and tape or nothing. It may get wet after 3 days but avoid soaking the dressing. If it gets wet, just lightly pat dry. Medications: - You should take Tylenol and anti-inflammatory (Celebrex) as your primary pain control medications - You have been prescribed a stronger pain medication (Oxycodone) for breakthrough pain, take as needed as prescribed. - You will be taking Aspirin 81mg twice a day for DVT prevention unless instructed otherwise. - You have Pantoprazole prescribed for stomach acid prevention while taking these newer post-operative medications. - If you have constipation you should take Colace or Miralax (both [id number]). It takes most people 3-4 days to have a bowel movement. Follow-up: 2 weeks Referrals: Virgilio Pederson MD [ [facility] STAFF PHYSICIAN] - Activity:: Activity as Tolerated Equipment/Supplies:: Walker Diet:: Carb Counting Discharge Orders Discharge Orders: Discharge Order (Routine); Ordered 01/02/19 Ordered By: Virgilio Pederson DS: Data Vitals/I&O Vitals and I&O: Vital Signs Temperature 36.7 C 01/02/19 12:09 Temperature Source Tympanic 01/02/19 12:09 Pulse 71 01/02/19 12:09 Pulse Rhythm Regular 01/02/19 08:00 Respiratory Rate 15 01/02/19 12:09 Respiratory Effort Non-Labored 01/02/19 08:00 Respiratory Depth Normal 01/02/19 08:00 Respiratory Pattern Normal 01/02/19 08:00 Blood Pressure 133/84 01/02/19 12:09 Pulse Oximetry 95 01/02/19 12:09 Respiratory End-tidal CO2 42 01/01/19 14:20 Oxygen Delivery Method Room Air 01/02/19 12:09 Oxygen Flow Rate 0 01/02/19 12:09 Pain Level 3 01/02/19 12:09 Intake & Output 01/01/19 01/02/19 01/02/19 23:59 11:59 23:59 Intake Total 2019.333 / 2129.333 1144.000 / 1144.000 Output Total 1250 / 1250 1600 / 1600 Balance 769.333 / 879.333 -456.000 / -456.000 Intake: IV 1779.333 / 1889.333 904.000 / 904.000 Oral 240 / 240 240 / 240 Output: Urine 1150 / 1150 1600 / 1600 Estimated Blood Loss 100 / 100 Other: Urine Color Yellow Yellow Urine Appearance Clear Cloudy Emesis Description None [facility] Medical History Primary osteoarthritis of left knee (Chronic) Type 2 diabetes mellitus (Chronic ~04/2017) Essential hypertension (Chronic 06/14/13) Hyperlipidemia (Chronic 03/13/13) Hypothyroidism (Chronic 03/13/13) Generalized anxiety disorder (Chronic) Major depressive disorder (Chronic) ADHD, predominantly inattentive type (Chronic) Essential tremor (Chronic 03/02/15) Diverticulosis of colon (Chronic) Binge eating disorder (Inactive 10/05/15) Cataract, nuclear (Resolved 08/14/17) Polyp of colon (Resolved 06/29/06) Surgical History Hx of vaginal hysterectomy (Acute) Appendectomy Bilateral salpingectomy with oophorectomy Cervical Procedure Colonoscopy - IV Sedation (06/14/16) Extraction of cataract Family History Mother Colon cancer Father No problems noted. Sister No problems noted. Brother Pancreatic cancer metastasized to liver Brother Low back pain Alcohol abuse Son No problems noted. Daughter No problems noted. Daughter No problems noted. Daughter Type 1 diabetes mellitus Bipolar disorder Maternal Grandmother Stroke Maternal Grandfather Heart disease Myocardial infarction Paternal Grandfather No problems noted. 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
--- NOTE | 2019-01-02 13:46 | INDS_ITS ---
Date of service: 01/02/19 Time of Service: 11:25 PT Notes Date: 01/02/19 Referring Doctor: Dr. Pederson PT Orders: PT CONSULT: s/p L TKA Precautions: WBAT (L) LE Treatment Dates: 01/01/2019 ? Patient Profile/Admitting Diagnosis: Patient admitted status post left TKA performed 01/01/2019 PMHX: Type 2 diabetes; hypertension; hypothyroidism; anxiety; depression; ADHD Social History/Home Situation: Patient lives independently in a multilevel home, where she cares for her 94-year-old father. 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 She has 3 steps to enter her home, and a full flight to her bedroom. She has had a bad move downstairs, where she can remain in the short-term. Her sister has also traveled up to assist with care for both Cheryl and her father for the next month. Her sister expresses concerns about a low toilet seat in the downstairs bathroom, questioning need for commode versus elevated seat. Equipment Owned/DME: None Subjective: Cheryl states that she is feeling good and is looking forward to going home later today. Objective: General Observation: Resting in recliner with cryocuff on (L) knee. Mental Status: A and O x3 Pain: 0/10 while resting, 4/10 while ambulating on level surfaces ROM: Right Upper Extremity: WFL Left Upper Extremity: WFL Right Lower Extremity: WFL Left Lower Extremity: Patient demonstrates 0 to 80 degrees of knee flexion actively during functional movement. Strength: Right Upper Extremity: Grossly WFL Left Upper Extremity: Grossly WFL Right Lower Extremity: Hip flexion 5/5. Quads 5/5. Knee flexion 5/5. Ankle dorsiflexion 5/5. Left Lower Extremity: Patient is functionally able to demonstrate SLR without extension lag. Knee extension assessed in sitting is at least 3+/5, although no resistance was applied due to postoperative status. Ankle dorsiflexion is 5/5. Sensation: Intact distally Bed Mobility/Transfers: supine->sit: Independent with HOB flat Sit ? supine: Independent with HOB flat sit->stand: Independent stand->sit: Independent bed->chair: Mod Independent with FWW Gait: Patient able to ambulate 200? with FWW and supervision, demonstrating a step-to gait pattern. Stairs: Patient declines stair training, stating she does not plan to manage stairs at home. Balance: Static Sitting: Normal Dynamic Sitting: Normal Static Standing: Good Dynamic Standing: Fair Special Tests: Mobility Limitations Standardized Measure [facility] AM-PAC 6 clicks Basic Mobility Inpatient Short Form: Raw Score: 22 CMS Score: 21% deficit Assessment: Patient is a 68 year old female referred to physical therapy services with the diagnosis of left knee OA, s/p TKA performed earlier today. Since surgery on 01/01/2019, pt participated in 3 PT sessions. She demonstrated improvements in functional activity tolerance including bed mobility, transfers, and gait. Pt is now safe for PT d/c from acute care setting due to good progress. Goals: Goals X1 week 1. Supine-Sit : independent (Met) 2. Sit-Supine : independent (Met) 3. Sit-Stand: independent (Met) 4. Stand-Sit : independent (Met) 5. Bed-Chair : independent with FWW (Met) 6. Chair-Bed : independent with FWW (Met) 7. Gait : supervision with FWW x 100' (Met) 8. Stairs : supervision with FWW x 3 steps (Goal eliminated- patient declines stair training, stating she has an alternate entrance to home without stairs) Plan of Care/Treatment Plan: Pt will be d/c from PT services today after participating through 3 PT sessions and making significant progress toward reaching set goals and returning to independent PLOF. Pt was provided information on where to purchase a commode for home use since pt expressed concern over low height of toilet seat. Requires FWW prior to D/C. DISCHARGE RECOMMENDATIONS: Home with FWW. TREATMENT CODE/TIME: 30 mins (11:25-11:50am) [id number], [id number] Cristin Ontiveros, SPT, under direct supervision of Antonette Basilio, PT, DPT
--- NOTE | 2019-01-02 16:08 | PDOC.CMPRO ---
Care Management Progress Note Cheryl resides with her father in [place], [place]. She reports her son is an elderly man, 94 years old. She shares he does well and manages most of his own care and utilizes a rollator at baseline and uses no prescription medication. Cheryl reports her sister, Gabriela came to [place] from [place] to support Cheryl and their father during Cheryl's recovery. She shares that she has prepared a space for herself so she is able to remain on one floor once she returns home. 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 She describes herself as semi-retired and reports she will likely never retire as she loves working with people and providing care. CM reviewed DME options for FWW and Cheryl opted to have CM fill prescription through [facility]. CM also reviewed commode options and cost recommendations. CM faxed orders to [facility] and provided FWW to Cheryl who shared no additional concerns at this time. She will transport home via private vehicle with her sister, Gabriela.
--- NOTE | 2019-01-02 16:35 | CMPROGNOTE_ITS ---
Care Management Progress Note Cheryl resides with her father in [place], [place]. She reports her son is an elderly man, 94 years old. She shares he does well and manages most of his own care and utilizes a rollator at baseline and uses no prescription medication. Cheryl reports her sister, Gabriela came to [place] from [place] to support Cheryl and their father during Cheryl's recovery. She shares that she has prepared a space for herself so she is able to remain on one floor once she returns home. 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 She describes herself as semi-retired and reports she will likely never retire as she loves working with people and providing care. CM reviewed DME options for FWW and Cheryl opted to have CM fill prescription through [facility]. CM also reviewed commode options and cost recommendations. CM faxed orders to [facility] and provided FWW to Cheryl who shared no additional concerns at this time. She will transport home via private vehicle with her sister, Gabriela.
== END 2019-01-02 14:39 | disposition home or self-care (01) | DRG 470 ==
LOC: PDS 08:25 → MS 13:38
PROVIDERS: Admitting Provider Student in an Organized Health Care Education/Training Program; PCP Nurse Practitioner Family; Visit Provider Student in an Organized Health Care Education/Training Program
PROC: 0SRD0J9 Replacement of Left Knee Joint with Synthetic Substitute, Cemented, Open Approach (ICD-10-PCS; CPT 27447; principal; 2019-01-01 11:15)
DX: M17.12 Unilateral primary osteoarthritis, left knee (principal); Z96.652 Presence of left artificial knee joint; G89.18 Other acute postprocedural pain; E11.9 Type 2 diabetes mellitus without complications; I10 Essential (primary) hypertension; E03.9 Hypothyroidism, unspecified; F41.8 Other specified anxiety disorders
CPT/HCPCS: 27447; 76942; 97110; 97161; 97530; NC; J0131; J0690; J1100; J1885; J2250; J2405; J3010

== ENCOUNTER 2019-01-06 16:49 | Emergency (ER) | payer OTHER, SELFPAY ==
[2019-01-06 16:52] VITALS: BP 151/93; PULSE 77; RESP 14; TEMP 36.6; O2SAT 95
--- NOTE | 2019-01-06 17:16 | W.ED.GENAD ---
Discharge Plan Disposition Patient Disposition: HOME Condition: Improving Discharge Details Chief Complaint: Orthopedic Clinical Impression: Status post knee replacement Primary Care Provider: Kamla Zamora ED Provider: Sean Edwards Home Meds and New Rx's Prescriptions: Continued garlic tablet 100 mg PO DAILY RF: 0 escitalopram oxalate 10 mg tablet 15 mg PO DAILY Qty: 145 RF: 0 cholecalciferol (vitamin D3) [Vitamin D3] 1,000 UNIT capsule 1,000 unit PO DAILY RF: 0 One-Per-Day [place]-3 1 EACH capsule,delayed release(DR/EC) 1 ea PO DAILY Qty: 1 RF: 0 Calcium Magnesium 1 EACH tablet 1 ea PO DAILY Qty: 3 RF: 0 mometasone [Elocon] 30 ML solution 1 % Topical DAILY PRNQty: 1 RF: 0 Sxkaajnxswc-Ckifv-NOM Complex 1 EACH tablet 2 ea PO DAILY Qty: 1 RF: 0 hydrochlorothiazide 25 mg tablet 25 mg PO DAILY Qty: 90 RF: 4 levothyroxine 50 mcg tablet 50 mcg PO DAILY Qty: 90 RF: 4 propranolol 10 mg tablet 20 mg PO BID Qty: 360 RF: 4 ibuprofen [Advil] 200 mg Tablet 400 mg PO HS RF: 0 clotrimazole 45 GM cream 45 gm Topical BID PRNRF: 0 calcium carbonate [Tums] 200 mg calcium (500 mg) Tablet,Chewable 200 mg PO BID RF: 0 celecoxib 200 mg capsule 200 mg PO BID PRN (Reason: pain) Qty: 60 RF: 1 aspirin 81 mg tablet,delayed release (DR/EC) 81 mg PO BID Qty: 60 RF: 0 acetaminophen 500 mg tablet 1,000 mg PO Q8H PRN (Reason: pain) Qty: 90 RF: 3 pantoprazole 40 mg tablet,delayed release (DR/EC) 40 mg PO DAILY Qty: 30 RF: 0 oxycodone 5 mg tablet 2.5 - 5 mg PO Q4H Qty: 8 RF: 0 Discharge Instructions Additional Instructions: I have ordered an outpatient ultrasound of your left leg to be performed tomorrow. Please call radiology tomorrow morning at 8 AM for an appointment time. The number is [phone] If unable to be seen in orthopedics clinic for recheck please return to the ER for results. Elevate the leg above the level of the heart to reduce pain and swelling. Continue all of your regular medications. Return sooner if you develop a fever, chest pain, shortness of breath, or any other concerns. Medical Decision Making 68-year-old female who is postop day #5 from left knee replacement. She has been sleeping primarily in a recliner with her legs below the level of the waist. She presents today with left knee swelling. She does not have pain. There is no numbness or tingling. No chest pain or shortness of breath. Her vital signs are unremarkable. She has been taking aspirin twice daily for DVT prophylaxis. Most likely this is swelling and edema secondary to her increased use of the joint over the past 2 days and subsequent edema secondary to it being dependent as she has been sleeping with her feet down. Must exclude DVT and will order outpatient ultrasound for tomorrow morning. We will ask the patient return to the ER following ultrasound if unable to be seen in orthopedic clinic for recheck. HPI General Mode of arrival: ambulatory. Date/Time Provider Initiated Documentation: 01/06/19 16:53. Limitations to Documentation: no limitations. Information obtained by: patient. History of Present Illness 68 year old F presents to the emergency department with the chief complaint of Left knee swelling over 24 hours, postop day 5 from knee replacement, described as mild, Quality is described as dull and constant, Patient reports no radiation. Patient started experiencing this hour(s) and it has been constant. No relieving factors improve symptom(s), No exacerbating factors reported . Patient notes no other symptoms.. Patient did receive the following treatments prior to arrival, none Related Data Home Medications Medication Instructions Recorded Confirmed cholecalciferol (vitamin D3) 1,000 unit PO DAILY 03/25/15 01/06/19 [Vitamin D3] Calcium Magnesium 1 ea PO DAILY #3 03/30/16 01/06/19 One-Per-Day [place]-3 1 ea PO DAILY #1 03/30/16 01/06/19 mometasone [Elocon] 1 % TOPICAL DAILY PRN #1 script 06/10/16 01/06/19 Qjsdnouuqaj-Ccwij-TEJ Complex 2 ea PO DAILY #1 05/10/17 01/06/19 garlic tablet 100 mg PO DAILY 05/14/18 01/06/19 hydrochlorothiazide 25 mg tablet 25 mg PO DAILY #90 tab 09/13/18 01/06/19 levothyroxine 50 mcg tablet 50 mcg PO DAILY #90 tab-cap 09/13/18 01/06/19 propranolol 10 mg tablet 20 mg PO BID #360 tab 09/13/18 01/06/19 escitalopram 10 mg tablet 15 mg PO DAILY #145 tab 11/19/18 01/06/19 calcium carbonate [Tums] 200 mg PO BID 12/27/18 01/06/19 clotrimazole 45 gm TOPICAL BID PRN 12/27/18 01/06/19 ibuprofen [Advil] 400 mg PO HS 12/27/18 01/06/19 acetaminophen 1,000 mg PO Q8H PRN #90 tab 01/02/19 01/06/19 aspirin 81 mg PO BID #60 tab 01/02/19 01/06/19 celecoxib 200 mg PO BID PRN #60 cap 01/02/19 01/06/19 oxycodone 2.5 - 5 mg PO Q4H #8 tab 01/02/19 01/06/19 pantoprazole 40 mg PO DAILY #30 tab 01/02/19 01/06/19 Previous Rx's Medication Instructions Recorded hydrochlorothiazide 25 mg tablet 25 mg PO DAILY #90 tab 09/13/18 levothyroxine 50 mcg tablet 50 mcg PO DAILY #90 tab-cap 09/13/18 propranolol 10 mg tablet 20 mg PO BID #360 tab 09/13/18 escitalopram 10 mg tablet 15 mg PO DAILY #145 tab 11/19/18 acetaminophen 1,000 mg PO Q8H PRN #90 tab 01/02/19 aspirin 81 mg PO BID #60 tab 01/02/19 celecoxib 200 mg PO BID PRN #60 cap 01/02/19 oxycodone 2.5 - 5 mg PO Q4H #8 tab 01/02/19 pantoprazole 40 mg PO DAILY #30 tab 01/02/19 Allergies Allergy/AdvReac Type Severity Reaction Status Date / Time milk AdvReac Intermediate Diarrhea Verified 01/06/19 16:57 sertraline AdvReac Intermediate per pt Verified 01/06/19 16:57 tingling in arm and jaw pain multivitamin AdvReac Intermediate causes Uncoded 01/06/19 16:57 chest pressure General Stated Complaint: Orthopedic BRIDGET: 3 Review of Systems Review of Systems No knee pain, no chest pain or shortness of breath. 6 systems reviewed and otherwise negative PENDING SALE TO [facility] Medical History Primary osteoarthritis of left knee (Chronic) Type 2 diabetes mellitus (Chronic ~04/2017) Essential hypertension (Chronic 06/14/13) Hyperlipidemia (Chronic 03/13/13) Hypothyroidism (Chronic 03/13/13) Generalized anxiety disorder (Chronic) Major depressive disorder (Chronic) ADHD, predominantly inattentive type (Chronic) Essential tremor (Chronic 03/02/15) Diverticulosis of colon (Chronic) Binge eating disorder (Inactive 10/05/15) Cataract, nuclear (Resolved 08/14/17) Polyp of colon (Resolved 06/29/06) Surgical History Appendectomy (Inactive) Bilateral salpingectomy with oophorectomy (Inactive) Cervical Procedure (Inactive) Colonoscopy - IV Sedation (Inactive 06/14/16) Extraction of cataract (Inactive) Hx of vaginal hysterectomy (Inactive) Status post total left knee replacement (Inactive 01/01/19) Family History Mother Colon cancer Father No problems noted. Sister No problems noted. Brother Pancreatic cancer metastasized to liver Brother Low back pain Alcohol abuse Son No problems noted. Daughter No problems noted. Daughter No problems noted. Daughter Type 1 diabetes mellitus Bipolar disorder Maternal Grandmother Stroke Maternal Grandfather Heart disease Myocardial infarction Paternal Grandfather No problems noted. 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 Pleasant, well groomed, interactive. HEAD: Normocephalic, atraumatic ENT: Mucous membranes moist, oropharynx unremarkable, External ear exam unremarkable EYES: PERRL, EOMI NECK: Full ROM, no THONY, no menigismus CHEST/RESP: Nontender, clear to auscultation bilateral, no wheeze/rhonchi/rales CARDIOVASCULAR: RRR, no murmur, rub halina. 2+ Rad pulse bilateral EXT: 5 out of 5 motor in the bilateral lower extremity. Left 2+ femoral pulse palpable. The left knee is ecchymotic and swollen there is anterior surgical site that is clean dry and intact and dressed. Neuro: Grossly normal neurologic exam, conversant, interactive. Psych: Speech fluent, thoughts congruent, affect normal Course Vital Signs Temperature 36.6 C 01/06/19 16:52 Pulse 77 01/06/19 16:52 Respiratory Rate 14 01/06/19 16:52 Blood Pressure 151/93 H 01/06/19 16:52 Pulse Oximetry 95 01/06/19 16:52 Temperature 36.6 C 01/06/19 16:52 Temperature Source Temporal Artery Scan 01/06/19 16:52 Pulse 77 01/06/19 16:52 Respiratory Rate 14 01/06/19 16:52 Respiratory Effort Non-Labored 01/06/19 16:55 Blood Pressure 151/93 H 01/06/19 16:52 Blood Pressure Position Sitting 01/06/19 16:52 Pulse Oximetry 95 01/06/19 16:52 Oxygen Delivery Method Room Air 01/06/19 16:52 Oxygen Flow Rate 0 01/06/19 16:52 Pain Level 1 01/06/19 16:52
--- NOTE | 2019-01-06 17:21 | ED.GENADUL_ITS ---
Discharge Plan Disposition Patient Disposition: HOME Condition: Improving Discharge Details Chief Complaint: Orthopedic Clinical Impression: Status post knee replacement Primary Care Provider: Kmala Zamora ED Provider: Sean Edwards Home Meds and New Rx's Prescriptions: Continued garlic tablet 100 mg PO DAILY RF: 0 escitalopram oxalate 10 mg tablet 15 mg PO DAILY Qty: 145 RF: 0 cholecalciferol (vitamin D3) [Vitamin D3] 1,000 UNIT capsule 1,000 unit PO DAILY RF: 0 One-Per-Day [place]-3 1 EACH capsule,delayed release(DR/EC) 1 ea PO DAILY Qty: 1 RF: 0 Calcium Magnesium 1 EACH tablet 1 ea PO DAILY Qty: 3 RF: 0 mometasone [Elocon] 30 ML solution 1 % Topical DAILY PRNQty: 1 RF: 0 Lkscpsaifne-Qzdcv-UDN Complex 1 EACH tablet 2 ea PO DAILY Qty: 1 RF: 0 hydrochlorothiazide 25 mg tablet 25 mg PO DAILY Qty: 90 RF: 4 levothyroxine 50 mcg tablet 50 mcg PO DAILY Qty: 90 RF: 4 propranolol 10 mg tablet 20 mg PO BID Qty: 360 RF: 4 ibuprofen [Advil] 200 mg Tablet 400 mg PO HS RF: 0 clotrimazole 45 GM cream 45 gm Topical BID PRNRF: 0 calcium carbonate [Tums] 200 mg calcium (500 mg) Tablet,Chewable 200 mg PO BID RF: 0 celecoxib 200 mg capsule 200 mg PO BID PRN (Reason: pain) Qty: 60 RF: 1 aspirin 81 mg tablet,delayed release (DR/EC) 81 mg PO BID Qty: 60 RF: 0 acetaminophen 500 mg tablet 1,000 mg PO Q8H PRN (Reason: pain) Qty: 90 RF: 3 pantoprazole 40 mg tablet,delayed release (DR/EC) 40 mg PO DAILY Qty: 30 RF: 0 oxycodone 5 mg tablet 2.5 - 5 mg PO Q4H Qty: 8 RF: 0 Discharge Instructions Additional Instructions: I have ordered an outpatient ultrasound of your left leg to be performed tomorrow. Please call radiology tomorrow morning at 8 AM for an appointment time. The number is [phone] If unable to be seen in orthopedics clinic for recheck please return to the ER for results. Elevate the leg above the level of the heart to reduce pain and swelling. Continue all of your regular medications. Return sooner if you develop a fever, chest pain, shortness of breath, or any other concerns. Medical Decision Making 68-year-old female who is postop day #5 from left knee replacement. She has been sleeping primarily in a recliner with her legs below the level of the waist. She presents today with left knee swelling. She does not have pain. There is no numbness or tingling. No chest pain or shortness of breath. Her vital signs are unremarkable. She has been taking aspirin twice daily for DVT prophylaxis. Most likely this is swelling and edema secondary to her increased use of the joint over the past 2 days and subsequent edema secondary to it being dependent as she has been sleeping with her feet down. Must exclude DVT and will order outpatient ultrasound for tomorrow morning. We will ask the patient return to the ER following ultrasound if unable to be seen in orthopedic clinic for recheck. HPI General Mode of arrival: ambulatory . Date/Time Provider Initiated Documentation: 01/06/19 16:53 . Limitations to Documentation: no limitations . Information obtained by: patient . History of Present Illness 68 year old F presents to the emergency department with the chief complaint of Left knee swelling over 24 hours, postop day 5 from knee replacement, described as mild, Quality is described as dull and constant, Patient reports no radiation. Patient started experiencing this hour(s) and it has been constant. No relieving factors improve symptom(s), No exacerbating factors reported . Patient notes no other symptoms.. Patient did receive the following treatments prior to arrival, none Related Data Home Medications Medication Instructions Recorded Confirmed cholecalciferol (vitamin D3) 1,000 unit PO DAILY 03/25/15 01/06/19 [Vitamin D3] Calcium Magnesium 1 ea PO DAILY #3 03/30/16 01/06/19 One-Per-Day [place]-3 1 ea PO DAILY #1 03/30/16 01/06/19 mometasone [Elocon] 1 % TOPICAL DAILY PRN #1 script 06/10/16 01/06/19 Klvpzujrghq-Hjxgw-RGL Complex 2 ea PO DAILY #1 05/10/17 01/06/19 garlic tablet 100 mg PO DAILY 05/14/18 01/06/19 hydrochlorothiazide 25 mg tablet 25 mg PO DAILY #90 tab 09/13/18 01/06/19 levothyroxine 50 mcg tablet 50 mcg PO DAILY #90 tab-cap 09/13/18 01/06/19 propranolol 10 mg tablet 20 mg PO BID #360 tab 09/13/18 01/06/19 escitalopram 10 mg tablet 15 mg PO DAILY #145 tab 11/19/18 01/06/19 calcium carbonate [Tums] 200 mg PO BID 12/27/18 01/06/19 clotrimazole 45 gm TOPICAL BID PRN 12/27/18 01/06/19 ibuprofen [Advil] 400 mg PO HS 12/27/18 01/06/19 acetaminophen 1,000 mg PO Q8H PRN #90 tab 01/02/19 01/06/19 aspirin 81 mg PO BID #60 tab 01/02/19 01/06/19 celecoxib 200 mg PO BID PRN #60 cap 01/02/19 01/06/19 oxycodone 2.5 - 5 mg PO Q4H #8 tab 01/02/19 01/06/19 pantoprazole 40 mg PO DAILY #30 tab 01/02/19 01/06/19 Previous Rx's Medication Instructions Recorded hydrochlorothiazide 25 mg tablet 25 mg PO DAILY #90 tab 09/13/18 levothyroxine 50 mcg tablet 50 mcg PO DAILY #90 tab-cap 09/13/18 propranolol 10 mg tablet 20 mg PO BID #360 tab 09/13/18 escitalopram 10 mg tablet 15 mg PO DAILY #145 tab 11/19/18 acetaminophen 1,000 mg PO Q8H PRN #90 tab 01/02/19 aspirin 81 mg PO BID #60 tab 01/02/19 celecoxib 200 mg PO BID PRN #60 cap 01/02/19 oxycodone 2.5 - 5 mg PO Q4H #8 tab 01/02/19 pantoprazole 40 mg PO DAILY #30 tab 01/02/19 Allergies Allergy/AdvReac Type Severity Reaction Status Date / Time milk AdvReac Intermediate Diarrhea Verified 01/06/19 16:57 sertraline AdvReac Intermediate per pt Verified 01/06/19 16:57 tingling in arm and jaw pain multivitamin AdvReac Intermediate causes Uncoded 01/06/19 16:57 chest pressure General Stated Complaint: Orthopedic BRIDGET: 3 Review of Systems Review of Systems No knee pain, no chest pain or shortness of breath. 6 systems reviewed and otherwise negative FOR[facility]LY [facility] Medical History Primary osteoarthritis of left knee (Chronic) Type 2 diabetes mellitus (Chronic ~04/2017) Essential hypertension (Chronic 06/14/13) Hyperlipidemia (Chronic 03/13/13) Hypothyroidism (Chronic 03/13/13) Generalized anxiety disorder (Chronic) Major depressive disorder (Chronic) ADHD, predominantly inattentive type (Chronic) Essential tremor (Chronic 03/02/15) Diverticulosis of colon (Chronic) Binge eating disorder (Inactive 10/05/15) Cataract, nuclear (Resolved 08/14/17) Polyp of colon (Resolved 06/29/06) Surgical History Appendectomy (Inactive) Bilateral salpingectomy with oophorectomy (Inactive) Cervical Procedure (Inactive) Colonoscopy - IV Sedation (Inactive 06/14/16) Extraction of cataract (Inactive) Hx of vaginal hysterectomy (Inactive) Status post total left knee replacement (Inactive 01/01/19) Family History Mother Colon cancer Father No problems noted. Sister No problems noted. Brother Pancreatic cancer metastasized to liver Brother Low back pain Alcohol abuse Son No problems noted. Daughter No problems noted. Daughter No problems noted. Daughter Type 1 diabetes mellitus Bipolar disorder Maternal Grandmother Stroke Maternal Grandfather Heart disease Myocardial infarction Paternal Grandfather No problems noted. 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 Pleasant, well groomed, interactive. HEAD: Normocephalic, atraumatic ENT: Mucous membranes moist, oropharynx unremarkable, External ear exam unremarkable EYES: PERRL, EOMI NECK: Full ROM, no THONY, no menigismus CHEST/RESP: Nontender, clear to auscultation bilateral, no wheeze/rhonchi/rales CARDIOVASCULAR: RRR, no murmur, rub halina. 2+ Rad pulse bilateral EXT: 5 out of 5 motor in the bilateral lower extremity. Left 2+ femoral pulse palpable. The left knee is ecchymotic and swollen there is anterior surgical site that is clean dry and intact and dressed. Neuro: Grossly normal neurologic exam, conversant, interactive. Psych: Speech fluent, thoughts congruent, affect normal Course Vital Signs Temperature 36.6 C 01/06/19 16:52 Pulse 77 01/06/19 16:52 Respiratory Rate 14 01/06/19 16:52 Blood Pressure 151/93 H 01/06/19 16:52 Pulse Oximetry 95 01/06/19 16:52 Temperature 36.6 C 01/06/19 16:52 Temperature Source Temporal Artery Scan 01/06/19 16:52 Pulse 77 01/06/19 16:52 Respiratory Rate 14 01/06/19 16:52 Respiratory Effort Non-Labored 01/06/19 16:55 Blood Pressure 151/93 H 01/06/19 16:52 Blood Pressure Position Sitting 01/06/19 16:52 Pulse Oximetry 95 01/06/19 16:52 Oxygen Delivery Method Room Air 01/06/19 16:52 Oxygen Flow Rate 0 01/06/19 16:52 Pain Level 1 01/06/19 16:52
[2019-01-06 17:30] VITALS: BP 151/93; PULSE 77; RESP 14; O2SAT 95
== END 2019-01-06 17:30 | disposition home or self-care (01) ==
PROVIDERS: Emergency Provider Emergency Medicine; PCP Nurse Practitioner Family
DX: R22.42 Localized swelling, mass and lump, left lower limb (principal); R60.0 Localized edema; Z79.82 Long term (current) use of aspirin; Z96.652 Presence of left artificial knee joint; I10 Essential (primary) hypertension; E11.9 Type 2 diabetes mellitus without complications
CPT/HCPCS: 99283

== ENCOUNTER 2019-01-07 13:15 | Outpatient (CLI) | payer OTHER, SELFPAY ==
--- NOTE | 2019-01-07 09:04 | DI.US_ITS ---
SYMPTOM/DIAGNOSIS: SWELLING, ? DVT, S/P LT TKA LEFT LOWER EXTREMITY ULTRASOUND: The deep veins of the left lower extremity show normal compression, augmentation and color flow. There is no evidence of a deep venous thrombus. No focal fluid collection is seen in the left lower extremity. IMPRESSION: No evidence of a left lower extremity deep venous thrombus.
== END 2019-01-07 13:35 ==
PROVIDERS: PCP Nurse Practitioner Family; Visit Provider Emergency Medicine
DX: M79.89 Other specified soft tissue disorders (principal); Z96.652 Presence of left artificial knee joint
CPT/HCPCS: 93971

== ENCOUNTER 2019-01-16 14:52 | Outpatient (CLI) | payer OTHER, SELFPAY ==
--- NOTE | 2019-01-16 14:49 | DI.RAD_ITS ---
SYMPTOMS/DIAGNOSIS: S/P LEFT TOTAL KNEE ARTHROPLASTY LEG LENGTH STUDY: The left leg measures 89 cm. The right leg measures 90 cm. Note is made of a left knee prosthesis in place. There are mild to moderate degenerative changes involving the right knee. LEFT KNEE: A single weightbearing lateral projection of the left knee reveals a TKA, the prosthesis in good position, surrounding bone intact.
== END 2019-01-16 15:12 ==
PROVIDERS: PCP Family Medicine; Visit Provider Student in an Organized Health Care Education/Training Program
DX: M17.12 Unilateral primary osteoarthritis, left knee (principal); Z96.652 Presence of left artificial knee joint; Z47.1 Aftercare following joint replacement surgery; M17.11 Unilateral primary osteoarthritis, right knee
CPT/HCPCS: 73560; 77073

== ENCOUNTER 2019-03-06 12:24 | Outpatient (CLI) | payer OTHER, SELFPAY ==
--- NOTE | 2019-03-06 12:44 | DI.RAD_ITS ---
SYMPTOMS/DIAGNOSIS: ACUTE ON CHRONIC LOW BACK PAIN, M54.5. G89.29 LUMBAR SPINE: The vertebral bodies are well maintained in height. There is a mild levoscoliosis. There is moderate narrowing of the L 4 - 5 disc space. There is prominent facet degenerative changes at this level causing mild spondylolisthesis. There is severe narrowing of the L 5 - S 1 disc space. The remaining disc spaces are well maintained. There are small endplate osteophytes, greater on the right side at L 3 - 4 through L 5 - S1. IMPRESSION: Degenerative changes greatest at L 4 - 5 and L 5 - S 1.
== END 2019-03-06 12:44 ==
PROVIDERS: PCP Family Medicine; Visit Provider Family Medicine
DX: M54.5 Low back pain (principal); G89.29 Other chronic pain; M51.37 Other intervertebral disc degeneration, lumbosacral region; M43.17 Spondylolisthesis, lumbosacral region; M47.817 Spondylosis without myelopathy or radiculopathy, lumbosacral region
CPT/HCPCS: 72110

== ENCOUNTER 2019-03-15 12:00 | Outpatient (CLI) | payer OTHER, SELFPAY ==
[2019-03-15 13:04] LABS: Hemoglobin A1C 6.8 % (4.5-6.2)
[2019-03-15 14:25] LABS: Calculated LDL 144 mg/dL; Cholesterol 256 mg/dL (50-200); HDL Cholesterol 46 mg/dL (40-60); Triglyceride 333 mg/dL (30-150)
[2019-03-15 14:33] LABS: Anion Gap 10.4 mmol/L (3-11); BUN 9 mg/dL (7-18); CO2 28.6 mmol/L (21.0-32.0); CREATININE 0.66 mg/dL (0.55-1.02); Calcium 9.4 mg/dL (8.5-10.1); Chloride 102 mmol/L (98-107); Glucose 126 mg/dL (70-100); Potassium 4.2 mmol/L (3.5-5.1); Sodium 141 mmol/L (136-145)
== END 2019-03-15 12:20 ==
PROVIDERS: Nurse Practitioner Family; PCP Family Medicine; Visit Provider Family Medicine
DX: E11.9 Type 2 diabetes mellitus without complications (principal); R73.9 Hyperglycemia, unspecified
CPT/HCPCS: 36415; 80048; 80061; 83721; 83036

== ENCOUNTER 2019-07-12 00:19 | Outpatient (CLI) | payer OTHER, SELFPAY ==
[2019-07-12 13:40] LABS: ALT 34 U/L (14-59); AST 37 U/L (15-37); Albumin 4.3 g/dL (3.4-5.0); Alkaline Phosphatase 61 U/L (46-116); Anion Gap 10.9 mmol/L (3-11); BUN 16 mg/dL (7-18); Bilirubin, Total 0.6 mg/dL (0.2-1.0); CO2 27.1 mmol/L (21.0-32.0); CREATININE 0.65 mg/dL (0.55-1.02); Calcium 9.2 mg/dL (8.5-10.1); Calculated LDL 73 mg/dL; Chloride 101 mmol/L (98-107); Cholesterol 170 mg/dL (<200); Glucose 133 mg/dL (74-106); HDL Cholesterol 47 mg/dL (40-60); Sodium 139 mmol/L (136-145); Total Protein 7.2 g/dL (6.4-8.2); Triglyceride 254 mg/dL (<150)
[2019-07-12 13:42] LABS: Hemoglobin A1C 6.5 % (4.5-6.2)
== END 2019-07-12 00:39 ==
PROVIDERS: PCP Family Medicine; Visit Provider Family Medicine
DX: E11.9 Type 2 diabetes mellitus without complications (principal); E78.5 Hyperlipidemia, unspecified
CPT/HCPCS: 36415; 80053; 80061; 83036

== ENCOUNTER 2019-08-19 00:46 | Outpatient (CLI) | payer OTHER, SELFPAY ==
--- NOTE | 2019-08-19 09:48 | DI.MAMMO_ITS ---
EXAM: MAMMO SCREENING CLINICAL HISTORY: screening, Z12.31 TECHNIQUE: Mammograms were interpreted according to the usual protocol including computer analysis w Location CAD system, tomosynthesis and C-view imaging. FINDINGS: The breasts are of moderate density with fairly symmetrical distribution of fibroglandular tissue. N o dominant mass or clumped microcalcification is identified in either breast. Current examination is compared with previous examinations including May 2018 and there has been no gross interval batsheva nge in appearance in comparison iwith the previous studies. IMPRESSION: No specific evidence of malignancy at this time. Routine screening examinations are suggested at year ly intervals in this age group according to the ACS ACR guidelines. Category 1. Breast density, cat egory B. BI-RADS Cat 1 - Negative. Breast Density - Category B - Scattered areas of fibroglandular density.
== END 2019-08-19 01:06 ==
PROVIDERS: PCP Family Medicine; Visit Provider Family Medicine
DX: Z12.31 Encounter for screening mammogram for malignant neoplasm of breast (principal)
CPT/HCPCS: 77063; 77067

== ENCOUNTER 2019-09-17 13:02 | Outpatient (CLI) | payer OTHER, SELFPAY ==
[2019-09-17 13:13] VITALS: BP 127/80; PULSE 83; RESP 17; TEMP 37.3; O2SAT 95
--- NOTE | 2019-09-17 13:13 | PDOC.PAIN_ITS ---
Pain Clinic Procedure Note Procedure Note Procedure Note: Lumbar/Sacral Medial Branch Blocks ROMEL BANERJEE has been referred to the [facility] for lumbar/sacral medial branch blocks. Pre-operative diagnosis: lumbar spondylosis Post-operative diagnosis: same as above COMMENTS: patient was evaluated by Ms Jonathon RIZZO in our pain clinic. patient has chronic axial back pain that is made worse with lumbar extension. She is referred for a trial of diagnostic lumbar medial branch nerve block. Patient was interviewed and the medical record reviewed. There were no medical, pharmacologic, radiographic or other structural contraindications to attempting fluoroscopically guided local anesthetic lumbar/sacral medial branch blocks. Risks and expected side effects as well as potential benefit of the procedure were reviewed and voiced concerns addressed. The printed consent form was signed and witnessed. Standard time-out procedure was performed. Patient was placed in the prone position on the fluoroscopy table and automated blood pressure cuff and pulse oximeter applied. The skin entry points for approaching the anatomic target points of the segmental medial branches of bilateral L3, L4, L5-DR were identified with anfluoroscopy and marked. Following thorough Chlorhexadine preparation of the skin and draping and 1% lidocaine infiltration of the skin entry points and subcutaneous tissues, a 22 gauge 5'' spinal needle was placed under fluoroscopic guidance down on to the target point for each respective segmental medial branch.Position was confirmed in A/P, oblique and lateral views with 0.25ml of omnipaque 240. Coult be this method .5ml 0.5% Bupivacaine was injected. Vital signs were stable throughout the procedure and were as recorded in the docflowsheet by the nursing staff. Follow up plans and appointments were discussed and was instructed to keep careful note of how the usual pain was modified by these injections. Specifically was asked to keep a pain diary for the next 24 hours using a numeric pain scale of 0-10 and report these results at the follow-up visit. Post procedure instruction was given as documented in the nursing documentation and having met discharge criteria. [facility] Based on the medial branches blocked today, if the patient has adequate relief and we are able to proceed to radiofrequency ablation, the treatment should result in the denervation of the bilateral L4-5 and L5-S1. We would expect to denervate a total of 4 facets during the radiofrequency ablation. COMMENTS:patient tolerated procedure well. due to body habitus, initial 25 gauge 3.5'' spinal needle was used for L5-DR with 5 degree caudal tilt, target was reached but needle was at hub, then needles was switched to 22 gauge 5'' spinal needle. Abelardo Prince MD Pain Management CC: Adeel Robertson MD
--- NOTE | 2019-09-17 13:50 | DI.RAD_ITS ---
EXAM: XR PAIN CLINIC LUMBAR SP 2V CLINICAL HISTORY: Dx: Lumbar Spondylosis TECHNIQUE: Realtime digital imaging was performed. CONTRAST MATERIAL: COMPARISON: No exams were available for comparison FINDINGS: Fluoroscopy was utilized by Dr. Prince during the performance of a lumbar medial branch block. Please re javier to the procedure report for complete details. IMPRESSION:
[2019-09-17 13:54] VITALS: BP 138/89; PULSE 83; RESP 19; O2SAT 95
[2019-09-17] MEDS: Bupivacaine 0.5% Pres-Free 10 ML VIAL IJ (14:04)
[2019-09-17] MEDS: Omnipaque 240 MG/ML 50 ML BTL IJ (14:04)
== END 2019-09-17 13:22 ==
PROVIDERS: PCP Family Medicine; Visit Provider Internal Medicine
DX: M47.816 Spondylosis without myelopathy or radiculopathy, lumbar region (principal)
CPT/HCPCS: 64493; 64494; 72100; Q9967

== ENCOUNTER 2019-10-15 01:52 | Outpatient (CLI) | payer OTHER, SELFPAY ==
--- NOTE | 2019-10-15 09:45 | DI.MRI_ITS ---
EXAM: MR LUMBAR SPINE WO CLINICAL HISTORY: DEGENERATIVE SPONDYLOLISTHESIS,chronic low back pain TECHNIQUE: Multiplanar multisequence MRI was performed. COMPARISON: No exams were available for comparison FINDINGS: The conus medullaris has a normal appearance and location. At L5-S1, there is disc desiccation. Degenerative changes of the facets are noted. There is a small central disc herniation. No significant central spinal canal stenosis is present. There is mild na rrowing of the neural foramen bilaterally. At L4-L5, there is grade 1 pseudo spondylolisthesis. There is disc desiccation. Hypertrophic change s of the facets and ligamentum flavum are noted. These all contribute to cause moderate central spin al canal stenosis. There is also vhzc-lx-rvhxmxlo bilateral neural foraminal narrowing. At L3-L4, there is a right paracentral disc herniation. There are hypertrophic changes of the facets and ligamentum flavum. There is disc desiccation. These all contribute to cause moderately severe central spinal canal stenosis. There is moderate right neural foraminal stenosis. No significant le ft neural foraminal stenosis is seen. There is compression of the right L4 nerve root. At L2-L3, there is disc desiccation. Degenerative changes of the facets are noted. Mild narrowing o f the central spinal canal is noted. No significant neural foraminal stenosis is seen. At L1-L2, there is disc desiccation. No focal disc herniation, central spinal canal or neural forami nal stenosis is present. Marrow signal is within normal limits given the degenerative changes. IMPRESSION: 1. Right paracentral disc herniation at L3-L4. This, in addition to the degenerative changes, causes moderately severe central spinal canal stenosis and moderate right neural foraminal stenosis. There is compression of the right L4 nerve root. 2. Multilevel degenerative changes throughout the lumbar spine resulting in central spinal canal and neural foraminal stenosis as described above. DATA REPOSITORY:
== END 2019-10-15 02:12 ==
PROVIDERS: PCP Family Medicine; Visit Provider Nurse Practitioner Family
DX: M54.5 Low back pain (principal); M43.17 Spondylolisthesis, lumbosacral region; M51.17 Intervertebral disc disorders with radiculopathy, lumbosacral region; M48.07 Spinal stenosis, lumbosacral region
CPT/HCPCS: 72148

== ENCOUNTER 2020-02-12 01:26 | Outpatient (CLI) | payer OTHER, SELFPAY ==
[2020-02-12 10:13] LABS: Hemoglobin A1C 6.9 % (3.8-5.6)
[2020-02-12 10:51] LABS: ALT 32 U/L (14-59); AST 38 U/L (15-37); Albumin 4.4 g/dL (3.4-5.0); Alkaline Phosphatase 61 U/L (46-116); Anion Gap 12.9 mmol/L (3-11); BUN 13 mg/dL (7-18); Bilirubin, Total 0.8 mg/dL (0.2-1.0); CO2 27.1 mmol/L (21.0-32.0); CREATININE 0.71 mg/dL (0.55-1.02); Calcium 10.1 mg/dL (8.5-10.1); Chloride 98 mmol/L (98-107); Glucose 179 mg/dL (74-106); Potassium 3.5 mmol/L (3.5-5.1); Sodium 138 mmol/L (136-145); TSH 2.36 uIU/mL (0.36-3.74); Total Protein 7.3 g/dL (6.4-8.2)
== END 2020-02-12 01:46 ==
PROVIDERS: PCP Family Medicine; Visit Provider Family Medicine
DX: E03.9 Hypothyroidism, unspecified (principal); E11.9 Type 2 diabetes mellitus without complications; I10 Essential (primary) hypertension; R53.83 Other fatigue
CPT/HCPCS: 36415; 80053; 83036; 84443

== ENCOUNTER 2020-08-21 02:47 | Outpatient (CLI) | payer OTHER, SELFPAY ==
[2020-08-21 13:49] LABS: COMMENT (LAB VIEW ONLY) 249.15 mg/dL; Microalb ug/mg Crea 16.3 ug/mg Cr
[2020-08-21 14:06] LABS: ALT 30 U/L (14-59); AST 28 U/L (15-37); Albumin 4.3 g/dL (3.4-5.0); Alkaline Phosphatase 61 U/L (46-116); Anion Gap 11.3 mmol/L (3-11); BUN 11 mg/dL (7-18); Bilirubin, Total 0.6 mg/dL (0.2-1.0); CO2 26.7 mmol/L (21.0-32.0); CREATININE 0.69 mg/dL (0.55-1.02); Calcium 9.1 mg/dL (8.5-10.1); Calculated LDL 72 mg/dL (<100); Chloride 101 mmol/L (98-107); Cholesterol 178 mg/dL (<200); Glucose 118 mg/dL (74-106); HDL Cholesterol 49 mg/dL (40-60); Sodium 139 mmol/L (136-145); TSH 2.09 uIU/mL (0.36-3.74); Total Protein 7.5 g/dL (6.4-8.2); Triglyceride 288 mg/dL (<150)
== END 2020-08-21 03:07 ==
PROVIDERS: PCP Family Medicine; Visit Provider Family Medicine
DX: E03.9 Hypothyroidism, unspecified (principal); E11.9 Type 2 diabetes mellitus without complications; E78.5 Hyperlipidemia, unspecified
CPT/HCPCS: 36415; 80053; 80061; 82043; 82570; 84443

== ENCOUNTER 2020-08-25 02:02 | Outpatient (CLI) | payer OTHER, SELFPAY ==
--- NOTE | 2020-08-25 07:15 | DI.MAMMO_ITS ---
EXAM: MAMMO SCREENING CLINICAL HISTORY: screening,Z12.31 TECHNIQUE: Mammograms were interpreted according to the usual protocol including computer analysis w [employer] CAD system, tomosynthesis and C-view imaging. COMPARISON: 2010 through 2019 FINDINGS: The breasts are composed of scattered fibroglandular densities, Breast Density category B. No suspicious masses or suspicious microcalcifications are seen. No skin thickening or abnormal axillary lymph nodes are seen. There has been no significant change from prior exams. IMPRESSION: BI-RADS Category 1, Negative mammogram Yearly screening mammography is recommended. Breast Density - Category B, scattered fibroglandular densities. A negative radiographic report should not delay biopsy if a dominant or clinically suspicious mass is present. Up to ten percent of cancers are not identified on mammography. A negative report may reinforce clinical impression. Adenosis and dense breasts may obscure an underlying neoplasm. False positive reports average 6 to 10%. Patient will receive a letter notifying them of these results.
== END 2020-08-25 02:22 ==
PROVIDERS: PCP Family Medicine; Visit Provider Family Medicine
DX: Z12.31 Encounter for screening mammogram for malignant neoplasm of breast (principal)
CPT/HCPCS: 77063; 77067

== ENCOUNTER → 2021-06-22 08:51 | Outpatient (BNVA) | payer OTHER, SELFPAY | PROVIDERS: PCP Student in an Organized Health Care Education/Training Program; Referring Provider Student in an Organized Health Care Education/Training Program; Visit Provider Psychiatry & Neurology Neurology | DX: G56.22 Lesion of ulnar nerve, left upper limb (principal); G56.03 Carpal tunnel syndrome, bilateral upper limbs; G25.0 Essential tremor; I10 Essential (primary) hypertension; E11.9 Type 2 diabetes mellitus without complications | CPT/HCPCS: 95910; 99213 ==

== ENCOUNTER → 2021-08-05 11:03 | Outpatient (BNVA) | payer MEDICARE, SELFPAY | PROVIDERS: PCP Student in an Organized Health Care Education/Training Program; Referring Provider Nurse Practitioner Family; Visit Provider Physical Therapy Assistant | DX: Z12.11 Encounter for screening for malignant neoplasm of colon (principal); Z80.0 Family history of malignant neoplasm of digestive organs; I10 Essential (primary) hypertension; E11.9 Type 2 diabetes mellitus without complications ==

== ENCOUNTER 2021-08-18 01:55 | Outpatient (CLI) | payer MEDICARE, SELFPAY ==
[2021-08-18 11:57] LABS: Source Nasal/Nares
[2021-08-18 16:14] LABS: COVID-19 PCR Negative (Negative)
== END 2021-08-18 01:56 | disposition home or self-care (01) ==
LOC: LBO 01:55
PROVIDERS: PCP Student in an Organized Health Care Education/Training Program; Visit Provider Surgery
DX: Z20.822 Contact with and (suspected) exposure to COVID-19 (principal)
CPT/HCPCS: 87635

== ENCOUNTER 2021-08-20 10:10 | Day surgery (SDC) | payer MEDICARE, SELFPAY ==
--- NOTE | 2021-08-19 18:35 | W.COLOREPORT ---
Colonoscopy Report Date of procedure: 08/20/21 Pre-op diagnosis general: mother had rectal CA Post-op diagnosis procedure note: other (polyps and diverticula) Surgeon: Judy Kim Anesthesia Type: General:No Airway Estimated blood loss (mL): 1 Pathology: other Complications: None Disposition: same day Prep: Miralax/Dulcolax Retraction Time: 15 Procedure Description: After informed consent was obtained the patient was taken to the procedure room and placed in a left decubitous position. Monitors were applied and a time out was done. The patients name, date of , procedure, allergies to medications and metal in their body was reviewed. The patient was then sedated. Once sedated and comfortable a rectal exam was done. External exam was normal. Internal exam revealed a normal sphincter tone and no palpable masses. The scope was then introduced and retrofelexed. She had 3 either internal hemorrhoidal remnants or hypertrophy papilla present. The scope was then advanced to the cecum w/out difficulty. The TI and appendiceal orifice were identified. The prep was good. The scope was then slowly retracted over 15 minutes back into the rectum. She had moderate diverticula confined to the sigmoid colon with no signs of active bleeding or infection. She had 3 polyps that we removed. The first 1 was a 1.3 cm pedunculated polyp at 90 cm. This was removed with a hot snare. All specimen is retrieved and no bleeding is noted. A clip is placed over the defect. She had x2 5 mm flat polyps that are removed with a cold forcep. 1 in the rectum and one at 20 cm. All specimen is retrieved and no bleeding is noted.. The scope was removed and the patient was woken up and taken back to Same day surgery in stable condition. The patient tolerated the procedure well and there were no immediate complications. Follow up: The patient should follow up in 5 years, path pending, unless they develop changes in bowel habits or other new gastrointestinal complaints.
--- NOTE | 2021-08-19 18:36 | PDOC.DSDIS_ITS ---
Discharge Plan Disposition Patient Disposition: HOME Condition: Good Discharge Details Reason For Visit: colon scope Attending Provider: Judy Kim Primary Care Provider: April Mason Meds and New Rx's Prescriptions: Continued garlic tablet 100 mg PO DAILY RF: 0 clotrimazole 1 % cream 1 applic Topical BID PRN (Reason: tessy dermatitis) Qty: 90 RF: 0 propranolol 160 mg capsule,extended release 24 hr 160 mg PO DAILY Qty: 90 RF: 3 (DME) blood-glucose meter Misc See Rx Instructions .ROUTE .MEDSUPPLY Qty: 1 RF: 0 (DME) Blood Glucose Test Strip See Rx Instructions .ROUTE .MEDSUPPLY Qty: 200 RF: 3 (DME) lancets 30 gauge misc See Rx Instructions .ROUTE .MEDSUPPLY Qty: 200 RF: 0 levothyroxine 50 mcg tablet 50 mcg PO DAILY Qty: 90 RF: 4 hydrochlorothiazide 25 mg tablet 25 mg PO DAILY Qty: 90 RF: 4 (DME) pen needle, diabetic [Comfort EZ Pen [place]] 32 gauge x 5/32 needle See Rx Instructions .ROUTE .MEDSUPPLY Qty: 50 RF: 0 liraglutide 0.6 mg/0.1 mL (18 mg/3 mL) pen injector 1.2 mg subcut DAILY 90 Days Qty: 27 RF: 3 metformin 500 mg tablet extended release 24 hr 500 mg PO DAILY Qty: 90 RF: 4 mometasone 0.1 % solution 1 applic Topical DAILY PRN (Reason: skin irritation) Qty: 1 RF: 1 cholecalciferol (vitamin D3) [Vitamin D3] 1,000 UNIT capsule 1,000 unit PO DAILY RF: 0 One-Per-Day [place]-3 1 EACH capsule,delayed release(DR/EC) 1 ea PO DAILY Qty: 1 RF: 0 Calcium Magnesium 1 EACH tablet 1 ea PO DAILY Qty: 3 RF: 0 rosuvastatin 5 mg tablet 5 mg PO DAILY Qty: 90 RF: 3 venlafaxine 75 mg capsule,extended release 24hr 75 mg PO DAILY Qty: 90 RF: 3 Discontinued bisacodyl [Dulcolax (bisacodyl)] 5 mg tablet,delayed release (DR/EC) 5 mg PO ONCE Qty: 4 RF: 0 polyethylene glycol 3350 17 gram/dose powder 17 g PO ONCE Qty: 238 RF: 0 Discharge Instructions Additional Instructions: DSU Colonoscopy Post- Op Instructions Instructions for Everyone who is given Anesthesia: For your safety, please do the following for the next twenty-four (24) hours: *Do Not operate a motor vehicle (car, truck, motorcycle, etc.) *Do Not drink alcoholic beverages or use any recreational drugs for the first 24 hours or while taking pain medications. The medications in your body may have a reaction that can be dangerous. *Do Not make any important decisions or sign any important papers. Findings:polyps x3 diverticula Follow up: My office will send a letter in 3 weeks time detailing as to what types of polyps they were, and when we want you to repeat the colonoscopy. Most likely again,in 5 years time. 1. No lifting over 20 pounds or strenuous activity for the first 24 hours after your procedure. After 24 hours there are no restrictions on your activity but you may feel fatigued for a few days. 2. After you arrive home you may have a light meal and return to your normal diet as you can tolerate it without feeling sick to your stomach. 3. You may have a bloated, gaseous feeling in your belly (abdomen) after a colonoscopy. Passing gas and belching will help. Walking or lying down on your left side with your knees flexed may relieve the discomfort. Call the office at [phone] (Office) or [phone] (Hospital) right away if you notice any of the following: a.Vomiting of blood or ?coffee ground stools?. b.Rectal bleeding 1Tbsp, blood clots or continuous bleeding. c.Severe belly (abdominal) pain. d.A hard distended belly (abdomen) and an inability to pass gas. 4. Please don?t expect to have a normal BM (bowel movement) for 2-3 days after your procedure. 5. If there are questions regarding the findings of your procedure, please contact your doctor 6. If you are unable to contact your doctor with a problem, contact the hospital at [phone]. 7. Continue all your regular medications unless directed otherwise. I understand the above instructions and have no questions. Signature of Patient or Adult Escort Name of Responsible Adult Escort Signature of Nurse Date/Time Activity:: see above Diet:: see above Discharge Orders Discharge Orders: Discharge Order (Routine); Ordered 08/20/21 Ordered By: Judy Kim DS: Diagnosis Discharge Diagnosis (1) Weight loss: Status: Acute (2) Colon cancer screening: Status: Acute (3) Diverticulosis of colon: Status: Chronic
[2021-08-20 10:27] VITALS: BP 113/98; PULSE 83; RESP 17; TEMP 36.4; O2SAT 96
--- NOTE | 2021-08-20 10:35 | W.ANESPRE ---
General Info Date of Service Date Performed: 08/20/21 Height: 5 ft 3 in Weight: 105.8 kg Body Mass Index (BMI): 41.3 Surgical Procedure: Operation Date: 08/20/21 11:05 Proposed Procedures Side Surgeon silverio Kim, DO Meds Allergies and Home Medications Allergies Allergy/AdvReac Type Severity Reaction Status Date / Time milk AdvReac Intermediate Diarrhea Verified 08/20/21 10:38 sertraline AdvReac Intermediate per pt Verified 08/20/21 10:38 tingling in arm and jaw pain multivitamin AdvReac Intermediate causes Uncoded 08/20/21 10:38 chest pressure Home Medication Medication Instructions Recorded cholecalciferol (vitamin D3) 1,000 unit PO DAILY 03/25/15 [Vitamin D3] Calcium Magnesium 1 ea PO DAILY #3 03/30/16 One-Per-Day [place]-3 1 ea PO DAILY #1 03/30/16 garlic 100 mg PO DAILY 05/14/18 clotrimazole 1 % topical cream 1 applic TOPICAL BID PRN #90 gm 07/16/19 Blood Glucose Test #200 each NS 10/29/19 blood-glucose meter #1 each 10/29/19 lancets 30 gauge #200 each 10/29/19 hydrochlorothiazide 25 mg tablet 25 mg PO DAILY #90 tab 07/01/20 levothyroxine 50 mcg tablet 50 mcg PO DAILY #90 tab-cap 07/01/20 pen needle, diabetic 32 gauge x #50 ea 07/01/20 liraglutide 0.6 mg/0.1 mL (18 mg/3 1.2 mg SUBCUT DAILY 90 Days #27 ml 12/17/20 mL) subcutaneous pen injector metformin 500 mg tablet,extended 500 mg PO DAILY #90 tab 12/17/20 release 24 hr mometasone 0.1 % topical solution 1 applic TOPICAL DAILY PRN #1 ml 04/23/21 rosuvastatin 5 mg tablet 5 mg PO DAILY #90 tab 06/20/21 venlafaxine 75 mg capsule,extended 75 mg PO DAILY #90 cap 06/20/21 release 24 hr propranolol 160 mg capsule,24 160 mg PO DAILY #90 cap 06/22/21 hr,extended release bisacodyl 5 mg tablet,delayed 5 mg PO ONCE #4 tab 08/05/21 release polyethylene glycol 3350 17 17 g PO ONCE #238 g 08/05/21 gram/dose oral powder Current Visit Medications: Current Medications Generic Name Dose Route Start Last Admin Trade Name Freherve PRN Reason Stop Dose Admin Ringer's Solution 1,000 mls @ 80 mls/hr 08/20/21 06:00 IV 08/30/21 23:59 INFUSION ALESSANDRO IV Miscellaneous Supplies 1 each 08/20/21 06:00 Iv Access IV 08/30/21 23:59 DIRECTED ALESSANDRO Sodium Chloride 0 ml 08/20/21 06:00 Normal Saline Flush 10 Ml Syr IV 08/30/21 23:59 PRN PRN Sodium Chloride 0 ml 08/20/21 06:00 Normal Saline 10 Ml Vial IJ 08/30/21 23:59 DIRECTED PRN Sterile Water 0 ml 08/20/21 06:00 Water,Injection,Sterile 10 Ml Vial IJ 08/30/21 23:59 DIRECTED PRN PFSH Active Problems Active Problems: Problem Status Onset Code Weight loss R63.4 Colon cancer screening Z12.11 Family history of colon cancer in mother Z80.0 Type 2 diabetes mellitus ~04/2017 E11.9 Essential hypertension 06/14/13 I10 Generalized anxiety disorder F41.1 Major depressive disorder F32.9 ADHD, predominantly inattentive type F90.0 Diverticulosis of colon K57.30 Medical History Medical History Actinic keratosis (~06/2021) 07/14/21 liquid nitrogen treament - forearms,R taoism,face Carpal tunnel syndrome of left wrist Carpal tunnel syndrome of right wrist Chronic low back pain Diabetic retinopathy of right eye (04/29/21) History of skin cancer in adulthood Hx lesion removed from cheek, [ ] notes/path. Hyperlipidemia (03/13/13) Hypothyroidism (03/13/13) Medication side effects SNRI increase (2020) seems to have brought on halluc (visual/audit).. [ ] add antipsych? mood stblzr? Multiple benign nevi 12/ Occipital headache New headache .. due to back pain? pillow? Pilar cyst Seborrheic keratoses Spinal stenosis of lumbar region MRI shows yarelis @ L3-L4, with mod-sev CTL SP CANAL STENOSIS (09/2019).. Rt L4 nerve root compression. Tremor Ulnar neuropathy at elbow of left upper extremity Surgical History Surgical History S/P appendectomy S/P cataract surgery (08/14/17) S/P colonoscopy (06/14/16) S/P FREDY-BSO (total abdominal hysterectomy and bilateral salpingo-oophorectomy) Status post total left knee replacement (01/01/19) Tobacco Smoking/Tobacco Use Status: Never Passive smoking exposure: No Second hand exposure: Yes Alcohol Alcohol Intake: never Substance Use Substance use: Never Substance use type: does not use Vital Signs and Lab Results Vital Signs Most Recent Vital Signs in EMR: Most Recent Vital Signs Temp Pulse Resp BP Pulse Ox 36.4 C L 83 17 113/98 H 96 08/20/21 10:27 08/20/21 10:27 08/20/21 10:27 08/20/21 10:27 08/20/21 10:27 Lab Results Blood Type / Crossmatch: No Data to Display Complete Blood Count: No Data to Display Complete Metabolic Panel: No Data to Display Liver Function Panel: No Data to Display Coagulation Panel: No Data to Display Cardiac Panel: No Data to Display Arterial Blood Gas: No Data to Display Venous Blood Gas: No Data to Display Pancreas Panel: No Data to Display Thyroid Panel: No Data to Display Infectious Disease: Coronavirus (COVID-19)(PCR) Negative (Negative) 08/18/21 09:27 08/18/21 Coronavirus 2019 Source Nasal/Nares 08/18/21 09:27 08/18/21 Blood Cultures: No Data to Display Toxicology Panel: No Data to Display Imaging and Studies Imaging and Studies Study information below may be from another EMR and interpreted by another provider. Please see original notes in EMR for more complete details. Stress Test Summary: Impressions: Normal perfusion by Tc99m Sestamibi Imaging. Summary: 1. Myocardial perfusion imaging: No myocardial perfusion defects noted. 2. The calculated left ventricular ejection fraction after stress: 67%. No left ventricular regional motion abnormality. 06/18/18 Carotid Artery Summary:: CONCLUSION: No evidence of a hemodynamically significant carotid stenosis. Vertebral arteries show antegrade flow bilaterally. 06/13/18 Anesthesia Assessment and Plan Anesthesia History Personal History: No History of Anesthesia Complications Family History: No Family History of Anesthesia Complications Exercise Tolerance Exercise Tolerance: Metabolic Equivalents>4 Pertinent Negatives Pertinent Negatives: No Symptoms of GERD, No Major Cardiovascular Symptoms or Complaints, No Major Pulmonary Symptoms or Complaints and No History of CVA/TIA Cardiac & Pulmonary Exam Cardiac Exam: Normal S1/S2 Heart Sounds Pulmonary Exam: Clear Bilateral Breath Sounds Implantable Cardiac Device Does patient have a Pacemaker or an ICD?: No Airway Exam Known Difficult Airway: No Mallampati Class: 2 Mouth Opening: Normal (> 3cm) Thyromental Distance: Greater than 3 cm Neck Range of Motion: Full ROM Neck Circumference: Normal Teeth Condition: Normal Dentition ASA Classification ASA Score: ASA 3 Emergency Case?: No NPO Status NPO Status: NPO Clears >2 hours, Solids >8 hours Anesthesia Plan Resuscitation Status: Full Code Anesthesia Technique: General Anesthesia Airway Planned: Natural Airway Monitors Used: Standard Monitors Preoperative Comments:: Blood sugar 178
[2021-08-20] MEDS: Lactated Ringers 1,000 ML 80 ML IV (10:51)
[2021-08-20 10:55] VITALS: BMI 41.3
--- NOTE | 2021-08-20 11:10 | BOWEL_PTH ---
PATIENT: Cheryl Zarate LOC: [facility] U#:[id number] AGE/SX: 71/F ROOM: RE08/20/[address]: Judy Kim : 1950 BED: DIS: 08/20/2021 SPEC #: [id number] RECD: 08/20/21 12:31 STATUS: JEROMY RE #: [id number] CHASTITY: 08/20/21 11:[address]: Judy Kim DEPT: Surgical Specimen RECD BY: Rafia Zaragoza ENTERED: 08/20/21 12:32 SP TYPE: Bowel OTHR DR: April Mason DO Tissues: 1 - BIOPSY BOWEL 2 - BIOPSY BOWEL 3 - BIOPSY BOWEL Procedures: GROSS AND MICRO LEVEL 4 Comments: [id number]
[2021-08-20 11:50] VITALS: BP 124/76; PULSE 78; RESP 16; TEMP 35.6; O2SAT 96
--- NOTE | 2021-08-20 12:21 | W.ANESPOSTOP ---
Postoperative Evaluation Date, Time and Location Date Performed: 08/20/21 Time Performed: 11:50 Patient Location: Day [facility] Unit Vital Signs Most Recent Imported Vital Signs: Most Recent Vital Signs Temp Pulse Resp BP Pulse Ox 35.6 C L 78 16 124/76 96 08/20/21 11:50 08/20/21 11:50 08/20/21 11:50 08/20/21 11:50 08/20/21 11:50 Pain Score Most Recent Pain Score: Most Recent Pain Score Pain Level 0 08/20/21 11:50 Assessment Mental Status: Awake (Alert & Oriented to Patient Baseline) Airway and Respiratory Function: Patent airway with normal (patient baseline) respiratory exam Cardiovascular Function: Hemodynamically Stable Hydration Status: Adequately Hydrated Nausea & Vomiting: No Nausea or Vomiting Pain: Pt. Denies Any Pain Peripheral Nerve Block: Patient did not receive a nerve block
[2021-08-20 12:52] VITALS: BP 133/75; PULSE 72; RESP 20; TEMP 35.9; O2SAT 96
== END 2021-08-20 12:40 | disposition home or self-care (01) ==
LOC: SUR 10:10
PROVIDERS: PCP Student in an Organized Health Care Education/Training Program; Visit Provider Surgery
PROC: 0DJD8ZZ Inspection of Lower Intestinal Tract, Via Natural or Artificial Opening Endoscopic (ICD-10-PCS; CPT 45378; principal; 2021-08-20 11:00)
DX: Z12.11 Encounter for screening for malignant neoplasm of colon (principal); K63.5 Polyp of colon; K62.1 Rectal polyp; K57.30 Diverticulosis of large intestine without perforation or abscess without bleeding; E11.319 Type 2 diabetes mellitus with unspecified diabetic retinopathy without macular edema; E78.5 Hyperlipidemia, unspecified; K51.40 Inflammatory polyps of colon without complications; Z80.0 Family history of malignant neoplasm of digestive organs
CPT/HCPCS: 45380; 88305; J2001; J2704

== ENCOUNTER → 2021-08-31 08:01 | Outpatient (BNVA) | payer MEDICARE, SELFPAY | PROVIDERS: PCP Student in an Organized Health Care Education/Training Program; Referring Provider Student in an Organized Health Care Education/Training Program; Visit Provider Student in an Organized Health Care Education/Training Program | DX: G56.03 Carpal tunnel syndrome, bilateral upper limbs (principal); G56.22 Lesion of ulnar nerve, left upper limb; E11.9 Type 2 diabetes mellitus without complications | CPT/HCPCS: 99214 ==

== ENCOUNTER 2021-09-27 02:14 | Outpatient (CLI) | payer MEDICARE, SELFPAY ==
[2021-09-27 10:48] LABS: Source Nasal/Nares
[2021-09-27 14:08] LABS: COVID-19 PCR Negative (Negative)
== END 2021-09-27 02:15 | disposition home or self-care (01) ==
LOC: LBO 02:15
PROVIDERS: PCP Student in an Organized Health Care Education/Training Program; Visit Provider Student in an Organized Health Care Education/Training Program
DX: Z20.822 Contact with and (suspected) exposure to COVID-19 (principal); Z01.818 Encounter for other preprocedural examination
CPT/HCPCS: 87635; U0005

== ENCOUNTER 2021-09-28 06:22 | Day surgery (SDC) | payer MEDICARE, SELFPAY ==
--- NOTE | 2021-09-28 06:14 | ANES.PREOP_ITS ---
General Info Date of Service Date Performed: 09/28/21 Height: 5 ft 3 in Weight: 107.955 kg Body Mass Index (BMI): 42.1 Surgical Procedure: Operation Date: 09/28/21 07:40 Proposed Procedure Side Surgeon p Wrist ECTR Left Virgilio Pederson MD Meds Allergies and Home Medications Allergies Allergy/AdvReac Type Severity Reaction Status Date / Time milk AdvReac Intermediate Diarrhea Verified 09/28/21 06:58 sertraline AdvReac Intermediate per pt Verified 09/28/21 06:58 tingling in arm and jaw pain multivitamin AdvReac Intermediate causes Uncoded 09/28/21 06:58 chest pressure Home Medication Medication Instructions Recorded cholecalciferol (vitamin D3) 25 1,000 unit PO DAILY 03/25/15 mcg (1,000 unit) capsule (Vitamin D3) calcium carb-Ca gluc 500 mg 1 ea PO DAILY #3 03/30/16 calcium-magnesium ox-Mg gluc 250 mg tablet (Calcium Magnesium) omega-3 fatty acids-fish oil 684 1 ea PO DAILY #1 03/30/16 mg-1,200 mg capsule,delayed release (One-Per-Day [place]-3) garlic 100 mg PO DAILY 05/14/18 clotrimazole 1 % topical cream 1 applic TOPICAL BID PRN #90 gm 07/16/19 Blood Glucose Test (blood sugar #200 each NS 10/29/19 diagnostic) blood-glucose meter #1 each 10/29/19 lancets 30 gauge #200 each 10/29/19 hydrochlorothiazide 25 mg tablet 25 mg PO DAILY #90 tab 07/01/20 levothyroxine 50 mcg tablet 50 mcg PO DAILY #90 tab-cap 07/01/20 pen needle, diabetic 32 gauge x #50 ea 07/01/20 (Comfort EZ Pen [place]) metformin 500 mg tablet,extended 500 mg PO DAILY #90 tab 12/17/20 release 24 hr mometasone 0.1 % topical solution 1 applic TOPICAL DAILY PRN #1 ml 04/23/21 rosuvastatin 5 mg tablet 5 mg PO DAILY #90 tab 06/20/21 venlafaxine 75 mg capsule,extended 75 mg PO DAILY #90 cap 06/20/21 release 24 hr propranolol 160 mg capsule,24 160 mg PO DAILY #90 cap 06/22/21 hr,extended release Current Visit Medications: Current Medications Generic Name Dose Route Start Last Admin Trade Name Farheen PRN Reason Stop Dose Admin Ringer's Solution 1,000 mls @ 80 mls/hr 09/28/21 06:00 IV 10/27/21 23:59 INFUSION ALESSANDRO Cefazolin Sodium/Dextrose 2 gm in 50 mls @ 100 mls/hr 09/28/21 06:00 Ancef Duplex IVPB 10/27/21 23:59 PREOP ALESSANDRO IV Miscellaneous Supplies 1 each 09/28/21 06:00 Iv Access IV 10/27/21 23:59 DIRECTED ALESSANDRO Sodium Chloride 0 ml 09/28/21 06:00 Normal Saline Flush 10 Ml Syr IV 10/27/21 23:59 PRN PRN Sodium Chloride 0 ml 09/28/21 06:00 Normal Saline 10 Ml Vial IJ 10/27/21 23:59 DIRECTED PRN Sterile Water 0 ml 09/28/21 06:00 Water,Injection,Sterile 10 Ml Vial IJ 10/27/21 23:59 DIRECTED PRN PFSH Active Problems Active Problems: Problem Status Onset Code Hyperplastic colon polyp K63.5 Cubital tunnel syndrome on left G56.22 Bilateral carpal tunnel syndrome G56.03 Melanoma in situ of back 07/2021 D03.59 Weight loss R63.4 Colon cancer screening Z12.11 Family history of colon cancer in mother Z80.0 Type 2 diabetes mellitus ~04/2017 E11.9 Essential hypertension 06/14/13 I10 Generalized anxiety disorder F41.1 Major depressive disorder F32.9 ADHD, predominantly inattentive type F90.0 Diverticulosis of colon K57.30 Medical History Medical History Actinic keratosis (~06/2021) 07/14/21 liquid nitrogen treament - forearms,R taoist,face Carpal tunnel syndrome of left wrist Carpal tunnel syndrome of right wrist Chronic low back pain Diabetic retinopathy of right eye (04/29/21) History of skin cancer in adulthood Hx lesion removed from cheek, [ ] notes/path. Hyperlipidemia (03/13/13) Hypothyroidism (03/13/13) Medication side effects SNRI increase (2020) seems to have brought on halluc (visual/audit).. [ ] add antipsych? mood stblzr? Multiple benign nevi 12/ Occipital headache New headache .. due to back pain? pillow? Pilar cyst Seborrheic keratoses Spinal stenosis of lumbar region MRI shows yarelis @ L3-L4, with mod-sev CTL SP CANAL STENOSIS (09/2019).. Rt L4 nerve root compression. Tremor Ulnar neuropathy at elbow of left upper extremity Surgical History Surgical History H/O melanoma excision (08/24/21) right upper back S/P appendectomy S/P cataract surgery (08/14/17) S/P colonoscopy (08/20/21) 06/14/16 S/P FREDY-BSO (total abdominal hysterectomy and bilateral salpingo-oophorectomy) Status post total left knee replacement (01/01/19) Tobacco Smoking/Tobacco Use Status: Never Passive smoking exposure: No Second hand exposure: Yes Alcohol Alcohol Intake: never Substance Use Substance use: Never Substance use type: does not use Vital Signs and Lab Results Vital Signs Most Recent Vital Signs in EMR: Temp Pulse Resp BP Pulse Ox 36.1 C L 75 16 141/88 H 97 09/28/21 06:42 09/28/21 06:42 09/28/21 06:42 09/28/21 06:42 09/28/21 06:42 Lab Results Blood Type / Crossmatch: No Data to Display Complete Blood Count: No Data to Display Complete Metabolic Panel: No Data to Display Liver Function Panel: No Data to Display Coagulation Panel: No Data to Display Cardiac Panel: No Data to Display Arterial Blood Gas: No Data to Display Venous Blood Gas: No Data to Display Pancreas Panel: No Data to Display Thyroid Panel: No Data to Display Infectious Disease: Coronavirus (COVID-19)(PCR) Negative (Negative) 09/27/21 09:29 09/27/21 Coronavirus 2019 Source Nasal/Nares 09/27/21 09:29 09/27/21 Blood Cultures: No Data to Display Toxicology Panel: No Data to Display Imaging and Studies Imaging and Studies Study information below may be from another EMR and interpreted by another provider. Please see original notes in EMR for more complete details. Stress Test Summary: Impressions: Normal perfusion by Tc99m Sestamibi Imaging. Summary: 1. Myocardial perfusion imaging: No myocardial perfusion defects noted. 2. The calculated left ventricular ejection fraction after stress: 67%. No left ventricular regional motion abnormality. 06/18/18 Carotid Artery Summary:: CONCLUSION: No evidence of a hemodynamically significant carotid stenosis. Vertebral arteries show antegrade flow bilaterally. 06/13/18 Anesthesia Assessment and Plan Anesthesia History Personal History: No History of Anesthesia Complications Family History: No Family History of Anesthesia Complications Exercise Tolerance Exercise Tolerance: Metabolic Equivalents>4 Cardiac & Pulmonary Exam Cardiac Exam: Normal S1/S2 Heart Sounds Pulmonary Exam: Clear Bilateral Breath Sounds Implantable Cardiac Device Does patient have a Pacemaker or an ICD?: No Airway Exam Known Difficult Airway: No Mallampati Class: 2 Mouth Opening: Normal (> 3cm) Thyromental Distance: Greater than 3 cm Neck Range of Motion: Full ROM Neck Circumference: Normal Teeth Condition: Normal Dentition ASA Classification ASA Score: ASA 3 Emergency Case?: No NPO Status NPO Status: NPO Clears >2 hours, Solids >8 hours Anesthesia Plan Resuscitation Status: Full Code Anesthesia Technique: General Anesthesia Airway Planned: Natural Airway Monitors Used: Standard Monitors Preoperative Comments:: 71 yo female for ECTR. Sig PMHx: DM2, anxiety/depression, never smoker, HTN (HCTZ), hypothyroid (on replacment) Previous Anes: without issues.
[2021-09-28 06:42] VITALS: BP 141/88; PULSE 75; RESP 16; TEMP 36.1; O2SAT 97
--- NOTE | 2021-09-28 06:57 | W.PREOPHP ---
Assessment and Plan Assessment and plan (1) Bilateral carpal tunnel syndrome: Status: Acute Assessment and plan: Anna is a 71-year-old female who has bilateral carpal tunnel syndrome, left side worse. She has failed nonoperative treatment given severity of no conduction studies I recommend carpal tunnel release. We will start the left side today follow-up with the right side at later date. Once again, I reviewed carpal tunnel release with her. I discussed the technical details of carpal tunnel release. I also discussed the risks of the procedure to include, but not limited to, bleeding, infection, palmar pain, stiffness, damage to nerves, damage to vessels, damage to tendons, weakness, recurrence, and incomplete release. Given these risks, Cheryl desires to proceed. History of Present Illness Narrative: Cheryl is a 71-year-old female who has known bilateral carpal tunnel syndrome diagnosed severe on the left and moderately severe on the right. Her left side bothers her the most. She also has cubital tunnel syndrome which does not seem to be clinically symptomatic. She was seen previously in the office for that pathology and treatment options were discussed with her. Please see the previous office note for complete detailed history. She is here today for carpal tunnel release on the left side, to be followed soon by the right side. She denies any acute medical changes. No chest pain or shortness of breath. She is COVID-19 negative. Review of Systems All systems reviewed & are unremarkable except as noted in HPI and below PFSH All Active Problems Hyperplastic colon polyp (Acute) Cubital tunnel syndrome on left (Acute) Bilateral carpal tunnel syndrome (Acute) Melanoma in situ of back (Acute 07/2021) Weight loss (Acute) Colon cancer screening (Acute) Mo rectal ca @ 60yo. Family history of colon cancer in mother (Acute) Type 2 diabetes mellitus (Chronic ~04/2017) Essential hypertension (Chronic 06/14/13) Generalized anxiety disorder (Chronic) Major depressive disorder (Chronic) ADHD, predominantly inattentive type (Chronic) Diverticulosis of colon (Chronic) Medical History Actinic keratosis (~06/2021) 07/14/21 liquid nitrogen treament - forearms,R holiness,face Carpal tunnel syndrome of left wrist Carpal tunnel syndrome of right wrist Chronic low back pain Diabetic retinopathy of right eye (04/29/21) History of skin cancer in adulthood Hx lesion removed from cheek, [ ] notes/path. Hyperlipidemia (03/13/13) Hypothyroidism (03/13/13) Medication side effects SNRI increase (2020) seems to have brought on halluc (visual/audit).. [ ] add antipsych? mood stblzr? Multiple benign nevi 12/ Occipital headache New headache .. due to back pain? pillow? Pilar cyst Seborrheic keratoses Spinal stenosis of lumbar region MRI shows yarelis @ L3-L4, with mod-sev CTL SP CANAL STENOSIS (09/2019).. Rt L4 nerve root compression. Tremor Ulnar neuropathy at elbow of left upper extremity Surgical History H/O melanoma excision (08/24/21) right upper back S/P appendectomy S/P cataract surgery (08/14/17) S/P colonoscopy (08/20/21) 06/14/16 S/P FREDY-BSO (total abdominal hysterectomy and bilateral salpingo-oophorectomy) Status post total left knee replacement (01/01/19) Family History Mother , at 58 Colon cancer Hypertension Father Depression Sister Alcohol abuse Brother , at 58 Pancreatic cancer metastasized to liver Brother Low back pain Alcohol abuse Son No problems noted. Daughter No problems noted. Daughter No problems noted. Daughter Type 1 diabetes mellitus Bipolar disorder Maternal Grandmother , at 80 Stroke Heart disease Maternal Grandfather , at 53 Heart disease Myocardial infarction Paternal Grandfather , at 87 No problems noted. Paternal Grandmother , at 80 of P.E. Pulmonary embolism Rheumatoid arthritis Maternal Aunt Colon cancer Diabetes Social History Smoking/Tobacco Use Status: Never Second Hand Exposure: Yes Smoking risk assessment performed?: Yes Alcohol Intake: never Drug use: Never Substance use type: does not use Adopted: No Caregiver/Support person: No Foster care: No Household members: family and other Details: 2 Housing: house Number of Children: 4 number of grandchildren: 9 Communication Needs: None Education Level: college Details: Bachelor's Degree Do you need help understanding health information?: Rarely current occupation: Retired Pets and animals: Yes Pets and animals: cat(s) Sexually active: No Do you think of yourself as: straight/heterosexual Current gender identity: female What is your relationship status?: How often do you talk on the phone with friends or family?: twice per week How often do you get together with friends or relatives?: once per week How often do you attend samaritan or judaism services?: 4 or more times per year Do you belong to any clubs or organized social groups?: yes Panel score (0-1 are the most socially isolated patients): 3 What type of physical activity do you participate in: none Frequency: does not exercise Mamie/Anabaptism: Muslim Special mamie needs: No Seatbelt use: sometimes Drive 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 w/intox auto 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: No Do you feel safe at home: Yes Do you feel safe in your relationship?: Yes Victim of physical abuse: No Victim of emotional abuse: Yes Victim of sexual abuse: No Would you like helpful sources: No Meds Allergies and Home Medications Allergies Allergy/AdvReac Type Severity Reaction Status Date / Time milk AdvReac Intermediate Diarrhea Verified 09/28/21 06:58 sertraline AdvReac Intermediate per pt Verified 09/28/21 06:58 tingling in arm and jaw pain multivitamin AdvReac Intermediate causes Uncoded 09/28/21 06:58 chest pressure Home Medications Medication Instructions Recorded Confirmed Type cholecalciferol (vitamin D3) 25 1,000 unit PO DAILY 03/25/15 09/27/21 History mcg (1,000 unit) capsule (Vitamin D3) calcium carb-Ca gluc 500 mg 1 ea PO DAILY #3 03/30/16 09/27/21 History calcium-magnesium ox-Mg gluc 250 mg tablet (Calcium Magnesium) omega-3 fatty acids-fish oil 684 1 ea PO DAILY #1 03/30/16 09/27/21 History mg-1,200 mg capsule,delayed release (One-Per-Day [place]-3) garlic 100 mg PO DAILY 05/14/18 09/27/21 History clotrimazole 1 % topical cream 1 applic TOPICAL BID PRN #90 gm 07/16/19 09/27/21 Rx Blood Glucose Test (blood sugar #200 each NS 10/29/19 08/31/21 Rx diagnostic) blood-glucose meter #1 each 10/29/19 08/31/21 Rx lancets 30 gauge #200 each 10/29/19 08/31/21 Rx hydrochlorothiazide 25 mg tablet 25 mg PO DAILY #90 tab 07/01/20 09/27/21 Rx levothyroxine 50 mcg tablet 50 mcg PO DAILY #90 tab-cap 07/01/20 09/27/21 Rx pen needle, diabetic 32 gauge x #50 ea 07/01/20 08/31/21 Rx /32 (Comfort EZ Pen [place]ball) metformin 500 mg tablet,extended 500 mg PO DAILY #90 tab 12/17/20 09/27/21 Rx release 24 hr mometasone 0.1 % topical solution 1 applic TOPICAL DAILY PRN #1 ml 04/23/21 09/27/21 Rx rosuvastatin 5 mg tablet 5 mg PO DAILY #90 tab 06/20/21 09/27/21 Rx venlafaxine 75 mg capsule,extended 75 mg PO DAILY #90 cap 06/20/21 09/27/21 Rx release 24 hr propranolol 160 mg capsule,24 160 mg PO DAILY #90 cap 06/22/21 09/27/21 Rx hr,extended release Exam Resp Auscultation: clear to auscultation bilaterally Cardio Rate: regular rate Rhythm: regular rhythm Results Last Vital Signs Temp 36.1 C L 09/28/21 06:42 Pulse 75 09/28/21 06:42 Resp 16 09/28/21 06:42 BP 141/88 H 09/28/21 06:42 Pulse Ox 97 09/28/21 06:42
[2021-09-28] MEDS: Lactated Ringers 1,000 ML 80 ML IV (07:12)
[2021-09-28 07:15] VITALS: BMI 42.1
--- NOTE | 2021-09-28 07:18 | PDOC.DSDIS_ITS ---
Discharge Plan Disposition Patient Disposition: HOME Condition: Good Discharge Details Reason For Visit: Left carpal tunnel syndrome Attending Provider: Virgilio Pederson Primary Care Provider: April Mason Meds and New Rx's Prescriptions: New hydrocodone-acetaminophen 5-325 mg tablet 1 tab PO Q6H PRN (Reason: severe pain) Qty: 4 0RF Rx Instructions: Take one tablet up to every 6 hours as needed for severe postoperative pain acetaminophen 500 mg tablet 500 mg PO Q6H PRN (Reason: pain) Qty: 60 2RF ibuprofen 600 mg tablet 600 mg PO TID PRN (Reason: pain) Qty: 60 0RF Continued garlic tablet 100 mg PO DAILY 0RF clotrimazole 1 % cream 1 applic Topical BID PRN (Reason: tessy dermatitis) Qty: 90 0RF Rx Instructions: Apply dime sized amount to left breast fold twice a day propranolol 160 mg capsule,extended release 24 hr 160 mg PO DAILY Qty: 90 3RF (DME) blood-glucose meter Misc See Rx Instructions .ROUTE .MEDSUPPLY Qty: 1 0RF Rx Instructions: As directed (DME) Blood Glucose Test Strip See Rx Instructions .ROUTE .MEDSUPPLY Qty: 200 3RF Rx Instructions: Twice daily (DME) lancets 30 gauge misc See Rx Instructions .ROUTE .MEDSUPPLY Qty: 200 0RF Rx Instructions: Twice daily levothyroxine 50 mcg tablet 50 mcg PO DAILY Qty: 90 4RF hydrochlorothiazide 25 mg tablet 25 mg PO DAILY Qty: 90 4RF (DME) pen needle, diabetic [Comfort EZ Pen [place]] 32 gauge x 5/32 needle See Rx Instructions .ROUTE .MEDSUPPLY Qty: 50 0RF Rx Instructions: Once daily metformin 500 mg tablet extended release 24 hr 500 mg PO DAILY Qty: 90 4RF mometasone 0.1 % solution 1 applic Topical DAILY PRN (Reason: skin irritation) Qty: 1 1RF cholecalciferol (vitamin D3) [Vitamin D3] 1,000 UNIT capsule 1,000 unit PO DAILY 0RF One-Per-Day [place]-3 1 EACH capsule,delayed release(DR/EC) 1 ea PO DAILY Qty: 1 0RF Calcium Magnesium 1 EACH tablet 1 ea PO DAILY Qty: 3 0RF rosuvastatin 5 mg tablet 5 mg PO DAILY Qty: 90 3RF venlafaxine 75 mg capsule,extended release 24hr 75 mg PO DAILY Qty: 90 3RF Discharge Instructions Stand Alone Forms: Bg Olmos Tunnel Release Referrals: Virgilio Pederson MD [ [facility] STAFF PHYSICIAN] - Activity:: Elevate Remove Dressings/Wound Care:: 72 hours Shower/Bathe:: 72 hours Diet:: As Tolerated Discharge Orders Discharge Orders: Discharge Order (Routine); Ordered 09/28/21 Ordered By: Judy Pena DS: Diagnosis Discharge Diagnosis (1) Bilateral carpal tunnel syndrome: Status: Acute
[2021-09-28] MEDS: ceFAZolin 2 GM/50 ML BAG IVPB (07:21)
[2021-09-28] MEDS: Sodium Bicarbonate 50 MEQ/50 ML VIAL (07:36)
[2021-09-28 07:42] VITALS: BP 114/72; PULSE 77; RESP 16; TEMP 36.2; O2SAT 95
--- NOTE | 2021-09-28 07:43 | ROE_ITS ---
Operative Note Operative Note PRE-OP DIAGNOSIS: Left Carpal Tunnel Syndrome POST-OP DIAGNOSIS: same PROCEDURE: Left Endoscopic Carpal Tunnel Release SURGEON: Virgilio Pederson ANESTHESIA TYPE: General:No Airway Refer to Anesthesia Record ESTIMATED BLOOD LOSS: 0 PATHOLOGY: none sent TOURNIQUET TIME: 5 COMPLICATIONS: None Patient was transported to: same day Patient's condition: stable Indications: I have seen Cheryl in clinic for symptoms of carpal tunnel syndrome. The numbness, tingling, and pain limited function. Clinical exam findings with nerve conduction tests confirmed the diagnosis of carpal tunnel syndrome. Nonoperative measures such as bracing, time, activity modifications had been tried but disability and pain persisted. I discussed carpal tunnel release with the patient. I reviewed the risks of the procedure to include, but not limited to, bleeding, infection, pain, stiffness, incomplete release, damage to nerves or vessels, persistent numbness, recurrence. Despite these risks, the patient elected to proceed. Findings: There was tightened carpal tunnel. This was dilated and released successfully with the endoscopic with increased space within the tunnel. The antebrachial fascia was released proximally freeing the median nerve at the wrist. Procedure Description: Cheryl was greeted in the preoperative holding area where the correct side was identified and marked. The consent was reviewed with the patient and signed. The history and physical was updated. All questions were answered. She was taken back to the operating room. The patient was placed into the supine position on the operating room table with the left arm on an arm board. A nonsterile tourniquet was placed high onto the arm. All bony prominences were well padded. Prophylactic antibiotics in the form of Cefazolin were administered. The left arm was then prepped with Chloraprep and draped in a standard fashion with stockinette and extremity drape. A timeout to confirm correct identity, side and site, procedure, allergies, anesthesia, and medical concerns was performed. The surgical site was marked in the volar wrist creases in line with the radial border of the fourth ray. This area was anesthetized with approximately 6cc of 1% Lidocaine. The limb was then exsanguinated with an Esmarch. The skin was incised with a 15 blade, approximately 1cm. The skin only was cut and the deeper tissue was dissected bluntly with a tenotomy scissor, avoiding passing nerve and venous structures. The fascia was penetrated and opened bluntly. A two-prong skin hook was placed under this proximal fascial edge. A series of hamate finders were used to identify and dilate the carpal tunnel. Synovial elevator was used to free synovial attachments to the underside of the transverse carpal ligament. My thumb was kept in the palm to skye the distal extent of the carpal tunnel and correctly position the hand. The Microaire endoscope was inserted without difficulty and without resistance. Excellent visualization showed horizontally running fibers of the transverse carpal liga ment (TCL). The distal extent of the TCL was visualized and the end of the scope palpated with the thumb. The blade was elevated and withdrawn from distal to proximal. The TCL was split into two flaps. The endoscope was reinserted to confirm complete release and any remnant ligament was incised. The scope was withdrawn and the proximal aspect of the carpal tunnel was grossly inspected and appeared release with the median nerve visible. The antebrachial fascia at the level of the wrist was then freed from the overlying skin and then the underlying median nerve with blunt dissection. This was transected longitudinally for about 3cm proximal to the wrist incision. The wound was then irrigated with easy flow of irrigant distally and proximally. The incision was closed with a single 4-0 Nylon suture. The wound was dressed with Xeroform, Gauze, Kerlix and Fermin. The tourniquet was deflated with the initial dressing and held with some pressure. Blood flow returned easily to all digits with capillary refill less than 2 seconds. The patient tolerated the procedure well and was returned to the Same Day Surgery area in a stable condition suffering no known complication.
--- NOTE | 2021-09-28 07:52 | W.ANESPOSTOP ---
Postoperative Evaluation Date, Time and Location Date Performed: 09/28/21 Time Performed: 07:53 Patient Location: Day Surgery Unit Vital Signs Most Recent Imported Vital Signs: Most Recent Vital Signs Temp Pulse Resp BP Pulse Ox 36.2 C L 77 16 114/72 95 09/28/21 07:42 09/28/21 07:42 09/28/21 07:42 09/28/21 07:42 09/28/21 07:42 Pain Score Most Recent Pain Score: Most Recent Pain Score Pain Level 0 09/28/21 07:42 Assessment Mental Status: Awake (Alert & Oriented to Patient Baseline) Airway and Respiratory Function: Patent airway with normal (patient baseline) respiratory exam Cardiovascular Function: Hemodynamically Stable Hydration Status: Adequately Hydrated Nausea & Vomiting: No Nausea or Vomiting Pain: Pt. Denies Any Pain Peripheral Nerve Block: Patient did not receive a nerve block
[2021-09-28 08:13] VITALS: BP 128/81; PULSE 66; RESP 16; TEMP 36.4; O2SAT 99
== END 2021-09-28 08:50 | disposition home or self-care (01) ==
PROVIDERS: PCP Student in an Organized Health Care Education/Training Program; Visit Provider Student in an Organized Health Care Education/Training Program
PROC: 01N54ZZ Release Median Nerve, Percutaneous Endoscopic Approach (ICD-10-PCS; CPT 29848; principal; 2021-09-28 07:30)
DX: G56.03 Carpal tunnel syndrome, bilateral upper limbs (principal); E11.9 Type 2 diabetes mellitus without complications; I10 Essential (primary) hypertension; F41.1 Generalized anxiety disorder; K57.30 Diverticulosis of large intestine without perforation or abscess without bleeding
CPT/HCPCS: 29848; J0690; J1100; J2001; J2405

== ENCOUNTER → 2021-10-07 09:21 | Outpatient (BNVA) | payer MEDICARE, SELFPAY | PROVIDERS: PCP Student in an Organized Health Care Education/Training Program; Referring Provider Student in an Organized Health Care Education/Training Program; Visit Provider Student in an Organized Health Care Education/Training Program | DX: G56.02 Carpal tunnel syndrome, left upper limb (principal) ==

== ENCOUNTER 2021-10-11 01:12 | Outpatient (CLI) | payer MEDICARE, SELFPAY ==
[2021-10-11 12:32] LABS: Source Nasal/Nares
[2021-10-11 18:06] LABS: COVID-19 PCR Negative (Negative)
== END 2021-10-11 01:13 | disposition home or self-care (01) ==
LOC: LBO 01:12
PROVIDERS: PCP Student in an Organized Health Care Education/Training Program; Visit Provider Student in an Organized Health Care Education/Training Program
DX: Z20.822 Contact with and (suspected) exposure to COVID-19 (principal); Z01.818 Encounter for other preprocedural examination
CPT/HCPCS: 87635

== ENCOUNTER → 2021-10-14 07:48 | Outpatient (BNVA) | payer MEDICARE, SELFPAY | PROVIDERS: PCP Student in an Organized Health Care Education/Training Program; Referring Provider Student in an Organized Health Care Education/Training Program; Visit Provider Psychiatry & Neurology Neurology | DX: G25.0 Essential tremor (principal) | CPT/HCPCS: 99443 ==

== ENCOUNTER 2021-10-25 03:19 | Outpatient (CLI) | payer MEDICARE, SELFPAY ==
[2021-10-25 10:35] LABS: Anion Gap 10.4 mmol/L (3-11); BUN 10 mg/dL (7-18); CO2 25.6 mmol/L (21.0-32.0); CREATININE 0.7 mg/dL (0.55-1.02); Calcium 9.1 mg/dL (8.5-10.1); Calculated LDL 68 mg/dL (<100); Chloride 105 mmol/L (98-107); Cholesterol 185 mg/dL (<200); Glucose 171 mg/dL (74-106); HDL Cholesterol 46 mg/dL (40-60); Potassium 4.3 mmol/L (3.5-5.1); Sodium 141 mmol/L (136-145); TSH (W/Ref FT4) 1.89 uIU/mL (0.36-3.74); Triglyceride 356 mg/dL (<150)
== END 2021-10-25 03:20 | disposition home or self-care (01) ==
PROVIDERS: PCP Student in an Organized Health Care Education/Training Program; Referring Provider Student in an Organized Health Care Education/Training Program; Visit Provider Student in an Organized Health Care Education/Training Program
DX: E11.9 Type 2 diabetes mellitus without complications (principal); I10 Essential (primary) hypertension
CPT/HCPCS: 36415; 80048; 80061; 84443

== ENCOUNTER → 2022-01-10 14:56 | Outpatient (BNVA) | payer MEDICARE, SELFPAY | PROVIDERS: PCP Student in an Organized Health Care Education/Training Program; Referring Provider Student in an Organized Health Care Education/Training Program; Visit Provider Psychiatry & Neurology Neurology | DX: G25.0 Essential tremor (principal); M48.062 Spinal stenosis, lumbar region with neurogenic claudication; G89.29 Other chronic pain; R51.9 Headache, unspecified | CPT/HCPCS: 99215 ==

== ENCOUNTER → 2022-02-03 01:23 | Outpatient (CLI) | payer MEDICARE, SELFPAY ==
--- NOTE | 2022-02-03 07:00 | DI.MRI_ITS ---
Exam(s) MR LUMBAR SPINE WO EXAM: MR LUMBAR SPINE WO CLINICAL HISTORY: neurogenic claudication,LUMBAR STENOSIS, M48.062. TECHNIQUE: Multiplanar multisequence MRI of the Lumbar spine was performed. COMPARISON: CR XR lumbar spine complete from 03/06/2019 MR MR LUMBAR SPINE WO from 10/15/2019 FINDINGS: Plain film films of February 2019 were reviewed. Also reviewed prior MRI September 2019 Conus medullaris is at normal level. There is no evidence of conus mass nor subjacent clumping of in trathecal nerve roots to suggest arachnoiditis. The distal thecal sac is at lower S2 level. 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 Bones:There are no fractures nor ominous osseous lesions in the lumbar vertebral bodies and visualize d sacrum. With respect to the individual levels... T12-L1: Unremarkable L1-2: Normal disc height and signal. No disc herniation nor central canal stenosis.No foraminal steno sis L2-3: Normal disc height. Relatively symmetrical annular bulging. No dominant disc herniation. Cent ral canal dimensions are lower.No foraminal stenosis.No prominent facet arthropathy. L3-4: Normal disc height. There is again noted a large central and right-sided disc herniation at th is level. This significantly compresses the thecal sac resulting in significant canal stenosis. Thi s has slightly increased in size. This disc protrusion extends posteriorly 5 millimeters and is appr oximately 2.4 cm wide, extending into the floor of the exiting right neural foramen. There is mild f oraminal stenosis on the right side at at this level. No foraminal stenosis on the left side. Modera te degenerative changes in the facet joints bilaterally at this level. L4-5: Preserved disc height. Degenerative anterolisthesis of L4 upon L5 again noted with approximate ly 4 millimeters unchanged anterolisthesis L4 upon L5. This listhesis is related to advanced facet a rthropathy bilaterally. There is severe central spinal canal stenosis at this level noted due to the degenerative listhesis. There is no significant foraminal stenosis on the left side. Mild foramina l stenosis on the right side due to mild annular bulging at this level. These findings at this level are unchanged from the prior study. L5-S1: Advanced disc space narrowing is again noted at this level. There is unchanged small central subligamentous disc protrusion which contacts the anterior aspect of the thecal sac. However, centra l canal dimensions are lower normal at this level. There is mild bilateral vertical foraminal stenos is which also appears unchanged. Mild degenerative facet arthropathy. Soft tissues: paraspinal soft tissues appear unremarkable. IMPRESSION: 1. Compared to the prior MRI study of September 2019 there is again noted a large disc herniation at L3-4 level which causes significant spinal canal stenosis and extends into the exiting right neural wu en resulting in element of right-sided foraminal stenosis. The size of this disc protrusion as perha ps slightly further increased from prior study. 2. There is severe spinal canal stenosis at L4-5 level again noted. This is due to degenerative ante rolisthesis of L4 upon L5. Severe degenerative changes in both facet joints. 3. Small unchanged central subligamentous disc protrusion again evident evident at L5-S1 level. DATA REPOSITORY:
== END ==
PROVIDERS: PCP Student in an Organized Health Care Education/Training Program; Visit Provider Psychiatry & Neurology Neurology
DX: M48.062 Spinal stenosis, lumbar region with neurogenic claudication (principal); M51.27 Other intervertebral disc displacement, lumbosacral region; M43.16 Spondylolisthesis, lumbar region; M47.817 Spondylosis without myelopathy or radiculopathy, lumbosacral region
CPT/HCPCS: 72148

== ENCOUNTER → 2022-03-24 00:37 | Outpatient (CLI) | payer MEDICARE, SELFPAY ==
--- NOTE | 2022-03-24 07:45 | DI.MRI_ITS ---
Exam(s) MR BRAIN WO EXAM: MR BRAIN WO MR BRAIN WO is CLINICAL HISTORY: new onset headaches,R51.9 TECHNIQUE: Multiplanar multisequence MRI of the brain was performed. COMPARISON: No exams were available for comparison FINDINGS: The ventricular system is normal in appearance. No signal abnormality identified in the brain. The orbital and temporal bone structures appear intact as does the pituitary. Diffusion weighted imaging shows no evidence of infarction. Susceptibility weighted imaging shows no evidence of intracranial hemorrhage. There is normal flow void in the wrangell of Krueger vasculature. IMPRESSION: Normal brain MRI. DATA REPOSITORY:
== END ==
PROVIDERS: PCP Student in an Organized Health Care Education/Training Program; Visit Provider Psychiatry & Neurology Neurology
DX: R51.9 Headache, unspecified (principal)
CPT/HCPCS: 70551

== ENCOUNTER 2022-04-08 01:23 | Outpatient (CLI) | payer MEDICARE, SELFPAY ==
--- OUTSIDE RECORDS SUMMARY | 2022-04-08 01:26 | XMS_ITS | Encounter Summary ---
:1950 Author Organization [facility] Address [address] [place] [address] Care Team Providers Name Role Phone Unavailable Primary Care Provider Unavailable Encounter Details Date Type Department Care Team Description 01/03/2011 Results Only [facility] Mark Grossman MD Laboratory Services - [address] [place] [address] [place] [address] [place] [address] [phone] Social History Tobacco Use Types Packs/Day Years Used Date Never Assessed Sex Assigned at Date Recorded Not on file documented as of this encounter Plan of Treatment Not on filedocumented as of this encounter Procedures Procedure Name Priority Date/Time Associated Diagnosis [facility] SURGICAL PATHOLOGY Routine 01/03/2011 0:00 EDT Re sults for this procedure are i n the results section. documented in this encounter Results SURGICAL PATHOLOGY (01/03/2011 0:00 EDT) Pathology Report: SURGICAL PATHOLOGY REPORT ? [facility] Reports generated via electr EventCombo interface contain original data; ? LAB however they are lacking the format of the original report. ? Caution should be taken when reading/interpreting unformatted reports. ? Name: ? ELLIOT, ROMEL A ? Accession #: ? [id number] ? : ? 1950 (Age: 60) ??F ? Collec t Date: ? 01/03/2011 ? Location: ? [facility] ? R eceive Date: ? 01/03/2011 ? Provider: MARK WALKO MD ? Copy to: DEMARCUS POWELL MD ? Final Pathologic Diagnosis: ? A. ?Colon, asce nding, polyp, biopsy: ? 1. ?? Colonic mucosa with no specific histopathologic features. ??See ? comment. ? B. ?Colon, sigm oid, polyp, biopsy: ? 1. ?? Colonic mucosa with lymphoid aggregate. ??See comment. ? Comment: ? Deeper levels were ex amined on parts (A) and (B). ??(Dr. Erickson)/lgk ? Document reviewed and electr onically signed by: ? PATRICIA SOLIS MBCHB ? Report ??Date: 01/05/2011 15 :42 ? By the signature above, the attending physician certifies that he/she has ? personally conducted a gross and/or microscopic examination of the described ? specimens and rendered or co nfirmed the above diagnosis. ? Specimen(s) Received: ? A. ?Ascending colon polyp vs lymphoid aggregate (#1) ? B. ?Sigmoid polyp (#2) ? Clinical History: ? H/O colon adenoma, F/ H colon cancer ? Gross Description: ? Received in formalin labelled Elliot, Romel and #1 ? ascending colon ?? polyp vs lymphoid aggregate is a light vilchis biopsy measuring 0.3 x 0.2 x 0.2 cm. The specimen is submitted i ntact as (A). ? Received in formalin aileen d Elliot, Romel and #2 ? sigmoid polyp is a ? light vilchis biopsy measuring 0 .4 x 0.3 x 0.2 cm. ??The specimen is submitted intact as (B). ([place] Ac)/mpl ? End of Report ? Specimen Performing Organization Address City/State/ZIP Code Phon e Number [facility] [address] [place] [address] [facility] [address] [place] [address] documented in this encounter Visit Diagnoses Not on filedocumented in this encounter
--- OUTSIDE RECORDS SUMMARY | 2022-04-08 01:26 | XMS_ITS | Encounter Summary ---
:1950 Author Organization [place] [address] Care Team Providers Name Role Phone April Mason DO Primary Care Provider Encounter Details Date Type Department Care Team Description 08/26/2021 Telephone Dermatology at [facility] Candi Moreno MD [address] [facility] [place] [address] [facility] [phone] [place], [place] [address] (Wo rk) Social History Tobacco Use Types Packs/Day Years Used Date Never Smoker Smokeless Tobacco: Never Used Sex Assigned at Date Recorded Not on file documented as of this encounter Miscellaneous Notes Telephone Encounter - Mechelle Hart LPN - 08/27/2021 11:43 AM EST I called and confirmed with pt about and appt for today at 2:45. Pt declined and will wait it out. She said she feels it looks better. She will follow up with a photo and call or message with photo on how she is doing on Monday. She is using Vaseline to the area. She had a brief fever or so she thinkslast evening, Very little to no drainage. Needle type of pain when moves a certain way. Message from Dr. Suh below. I reviewed the picture and I do not see evidence of infection however I am more than happy to see her today if she would like to confirm this before we hit the weekend. It looks like she is having somereaction to the bandage and sutures. However, I don???t like the pain she is having. Mechelle, would you mind reaching out to her to ask if she has any fevers or if there is any drainage or other concernsthat would suggest otherwise? Also can you make sure she is only using Vaseline and not Neosporin/bacitracin? She can take acetaminophen (follow instructions on label) for her pain and use a cold compress as needed. Telephone Encounter - Mechelle Hart LPN - 08/27/2021 11:31 AM EST Called and spoke with Cheryl. She mentioned the dressing was changed today and it looks better. I mentioned to her there is still no photo's yet. She said she sent it to the [employer] site. Nothing in the media of the chart as of this time and day. Telephone Encounter - Mechelle Hart LPN - 08/26/2021 2:00 PM EST Reached out to Cheryl. She mentioned her cousin came over and they changed the dressing on her backand a photo was taken. She said the area is sore when moving it is high on the # scale from 0-10. She does not get bothered with it when sitting. She did say it is red and slightly swollen. There is nodrainage. She is going to send in the photo though the [employer] site. Telephone Encounter - Sada Valdez - 08/26/2021 1:29 PM EST Cheryl Zarate called to let Dr Suh know that her incision is sore, red and very swollen was told to call with concerns. Best number to reach the patient back is [phone]. documented in this encounter Plan of Treatment Upcoming Encounters Date Type Specialty Care Team Description 04/26/2022 Office Visit Dermatology Cnadi Suh MD [facility] DERMATOLOGY [place], [place] [address] (Wo rk) 07/19/2022 Office Visit Dermatology Candi Suh MD [facility] DERMATOLOG[facility] [place], [place] [address] (Wo rk) documented as of this encounter Visit Diagnoses Not on filedocumented in this encounter Care Teams Coding Compliance Specialist Relationship Specialty Start Date End Date April Mason DO PCP - General Family Medicine 05/01/[address] [place] [address] documented as of this encounter
--- OUTSIDE RECORDS SUMMARY | 2022-04-08 01:26 | XMS_ITS | Encounter Summary ---
:1950 Author Organization [facility] Address [address] [place] [address] Care Team Providers Name Role Phone Sada Martinez MD Primary Care Provider Encounter Details Date Type Department Care Team Description 08/20/2021 Lab Requisition [facility] Judy Kim for Pathology & M, DO screening for Laboratory Medicine - [address] neoplasm [facility] [address] colon [address] [place] [phone] Social History Tobacco Use Types Packs/Day Years Used Date Never Assessed Sex Assigned at Date Recorded Not on file documented as of this encounter Plan of Treatment Not on filedocumented as of this encounter Procedures Procedure Name Priority Date/Time Associated Diagnosis Comme nts SURGICAL PATHOLOGY Today 08/20/2021 11:10 Encounter for Resu lts for this EST screening for procedure are in malignant neoplasm the resul ts of colon section. documented in this encounter Results SURGICAL PATHOLOGY (08/20/2021 11:10 EST) Note to Patient The following [facility] MEDICAL pathology results CENTER have been interpreted LABORATORY by your pathologist SERVICES and may be available to you before your health provider has had the opportunity to review them. Please allow time for your provider to receive these results and explore management options, if applicable. Final Diagnosis A. RECTUM, POLYP, BIOPSY: [facility] MEDICAL - Hyperplastic polyp. CENTER LABORATORY B. COLON, 20 CMS, POLYP, BIOPSY: SERVICES - Hyperplastic polyp. C. COLON, 90 CMS, POLYP, BIOPSY: - Inflammatory polyp, completely excised. - Mild epithelial inflammatory atypia; negative for dy splasia. Attestation By the signature [facility] MEDICAL Electronica lly below, the attending CENTER signed by Kam Weldon, physician certifies LABORATORY Taty Encinas MD on that they have 1) SERVICES 08/24/2021 at 0923 personally conducted a gross and/or microscopic examination of the described specimen(s), and/or personally interpreted the results of laboratory testing of the described specimen(s), and 2) personally rendered or confirmed the above diagnosis. Clinical History Family history of [facility] colon cancer; CENTER screening; gibbs LABORATORY diverticula SERVICES Gross Description A. [facility] MED[facility] Received in formalin aileen d with proper patient identification (initials D, C) and rectal polyp is a vilchis nodular tissue, 0.3 x 0.2 x 0.1 cm. Entirely submitted in A1. CENTER LABORATORY B. SERVICES Received in formalin aileen d with proper patient identification (initials D, C) and 20 cm polyp is a vilchis elongated tissue, 0.8 x 0.1 x 0.1 cm. Entirely submitted in B1. C. Received in formalin aileen d with proper patient identification (initials D, C) and 90 cm polyp are two vilchis red polyps, 0.3 x 0.2 x 0.2 cm and 0.5 x 0.4 x 0.4 cm. Entirely submitted in C1. CHAZ BERMEO(ASCP) 08/20/2021 16:35 Performing Lab [facility] SERVICES Scanned Images [facility] SERVICES Specimen Tissue - Entire colon (body structure) Tissue specimen (specimen) - Entire colo n (body structure) Tissue specimen (specimen) - Entire colo n (body structure) Performing Organization Address City/State/ZIP Code Phon e Number [facility] [address] [place] [address] SERVICES documented in this encounter Visit Diagnoses Diagnosis Encounter for screening for malignant ne oplasm of colon Special screening for malignant neoplasm s, colon documented in this encounter Care Teams Quill Cleaner Relationship Specialty Start Date End Date Sada Martinez MD PCP - General 01/05/11 [address] [place], [place] [address] documented as of this encounter
--- OUTSIDE RECORDS SUMMARY | 2022-04-08 01:26 | XMS_ITS | Clinical Summary ---
:1950 Author Organization [place] [address] Care Team Providers Name Role Phone Isabella April B DO Primary Care Provider Allergies Active Allergy Reactions Severity Noted Date Comments Milk Containing Products 08/24/2021 Medications Medication Sig Dispensed Refills Start Date End Date Status levothyroxine (SYNTHROID) Take 75 mcg by 0 Active 75 mcg tablet mouth daily. hydrochlorothiazide Take 25 mg by 0 Active (HYDRODIURIL) 25 mg tablet mouth daily. propranolol (INDERAL) 20 Take 120 mg by 0 Active mg tablet mouth daily. VYVANSE 10 mg Capsule 0 09/08/2015 Active OneTouch Verio test strips TEST TWO TIMES 0 10/30/19 20 Active Strip A DAY OneTouch Verio Flex meter TEST TWO TIMES 0 0 Active Misc A DAY DIRECTED celecoxib (CeleBREX) 200 TAKE 1 CAPSULE 0 01/16/2020 Active mg Capsule BY MOUTH TWICE DAILY NEEDED FOR PAIN OneTouch Delica Plus TEST TWO TIMES 0 10/30/2019 Active Lancet 33 gauge Misc A DAY metFORMIN XR (Glucophage daily. 0 03/23/2020 Active XR) 500 mg Tablet Sustained Release 24 hr rosuvastatin (Crestor) 5 0 03/12/2020 Active mg Tablet venlafaxine XR daily. 0 2020 Acti ve (Effexor-XR) 75 mg Capsule, Sust. Release 24 hr Victoza 3-Frankie 0.6 mg/0.1 daily. 0 07/05/2021 Active mL (18 mg/3 mL) Pen Injector fish oil-omega-3 fatty Take by mouth. 0 Active acids 500 mg Capsule Active Problems Problem Noted Date Intertrigo 03/27/2018 Seborrheic keratosis 04/07/2014 History of basal cell carcinoma 04/07/2014 Nevus 04/07/2014 Visit for suture removal 07/16/2012 Basal cell carcinoma 07/03/2012 Skin lesion of chest wall 05/15/2012 Seborrheic keratosis, inflamed 05/15/2012 AK (actinic keratosis) 05/15/2012 Encounters Date Type Specialty Care Team Description 03/24/2022 Ancillary Procedure Radiology April Mason, DO 02/03/2022 Ancillary Procedure Radiology April Mason, DO 01/21/2022 Office Visit Dermatology Candi Suh, Encounter for cosmetic procedure; MD Bety mcfadden 01/21/2022 Office Visit Dermatology Candi Suh, History o f melanoma; History of basa l cell carcinoma (BCC); Bety enamorado tosis; Skin tag; Huntley angioma; Melanocytic nev us, unspecified location; Lentigines; Pilar cyst; Seborrheic derm atitis; Skin cancer scr eening from Last 3 Months Social History Tobacco Use Types Packs/Day Years Used Date Never Smoker Smokeless Tobacco: Never Used Sex Assigned at Date Recorded Not on file Last Filed Vital Signs Vital Sign Reading Time Taken Comments Blood Pressure 133/92 08/24/2021 10:37 AM EST Pulse 86 08/24/2021 10:37 AM EST Temperature - - Respiratory Rate - - Oxygen Saturation - - Inhaled Oxygen Concentration - - Weight - - Height - - Body Mass Index - - Plan of Treatment Upcoming Encounters Date Type Specialty Care Team Description 04/26/2022 Office Visit Dermatology Candi Suh MD [facility] [address] [place], [place] [address] (Wo rk) 07/19/2022 Office Visit Dermatology Candi Suh MD [facility] [address] [place], [place] [address] (Wo rk) Health Maintenance Due Date Last Done Comments Covid-19 Vaccine (#1) 1957 Hepatitis C Screening 1970 Tdap adult 1971 Tetanus vaccine 1971 Breast Cancer Share Decision Needed 1992 Colonoscopy 1997 Breast Cancer screening 2002 Zoster vaccine (1 of 2) 2002 Advance Directive 2007 Bone Density Scan 2017 Pneumoccocal Vaccine: 65+ (1 - PCV) 2017 Influenza (Flu) vaccine (1 of 1 - Influenza standard 03/31/2022 series) Procedures Procedure Name Priority Date/Time Associated Diagnosis Comme nts FILM LIBRARY Routine 03/24/2022 4:27 PM Results f or this STORAGE ONLY MR EDT procedure ar e in HEAD the results section. MRI/MRA SCAN 03/24/2022 12:00 AM Results for this EDT procedure are i n the results section. FILM LIBRARY Routine 02/03/2022 12:00 AM Results for this STORAGE ONLY MR EDT procedure ar e in SPINE the results section. from Last 3 Months Results Film Library- Storage Only MR Head (03/24/2022 4:27 PM EDT) Specimen (Source) Anatomical Location Collection Method / Collectio n Time Received Time / Laterality Volume Narrative RAD - 03/24/2022 4:27 PM EDT This exam is auto-finalizing. It's purpo se is for storage only. April Mason DO [facility] FILM LIBRARY ORDERABLES Performing Organization Address City/[facility]/ZIP Code Phon e Number [place], [place] SCAN DOC: MRI/MRA (03/24/2022 12:00 AM EDT) Narrative 03/24/2022 12:00 AM EDT This result has an attachment that is no t available. Ordered by an unspecified provider. Scanning Provider MEDIA MGR SCAN EXT ORDR/RSLT Film Library- Storage Only MR Spine (02/03/2022 12:00 AM EDT) Specimen (Source) Anatomical Location Collection Method / Collectio n Time Received Time / Laterality Volume Narrative RAD - 02/08/2022 10:12 AM EDT This exam is auto-finalizing. It's purpo se is for storage only. April Mason DO IMG FILM LIBRARY ORDERABLES Performing Organization Address City/State/ZIP Code Phon e Number RAD [place], [place] from Last 3 Months Insurance Payer Benefit Plan / Subscriber ID Effective Dates Phone Addre ss Type Group MVP MANAGED MVP MANAGED [id number] 2021-Jimmy [phone] [address] MEDICARE MEDICARE nt [address] [place] [address] Care Teams Network Systems Integrator Relationship Specialty Start Date End Date April Mason DO PCP - General Family Medicine 05/01/[address] [place] [address]
--- OUTSIDE RECORDS SUMMARY | 2022-04-08 01:26 | XMS_ITS | Encounter Summary ---
:1950 Author Organization [facility] [place] [address] Care Team Providers Name Role Phone April Mason Primary Care Provider Encounter Details Date Type Department Care Team Description 09/07/2021 Clinical Support Dermatology at [facility] Candi Suh Visit for be Villeda MD removal [address] [facility] [address] DERMATOLOGY [phone] [place] [address] Social History Tobacco Use Types Packs/Day Years Used Date Never Smoker Smokeless Tobacco: Never Used Sex Assigned at Date Recorded Not on file documented as of this encounter Progress Notes Tonya Mora LPN - 09/07/2021 11:45 AM EST Images from the original note were not included. DEPARTMENT OF DERMATOLOGY Procedural Dermatology Clinic Provider: Candi Suh MD at Dermatology at [facility] History of Present Illness: Cheryl Zarate is 71 y.o. and here for the following: ??? Suture removal. No complaints. Healing well. Date of Procedure 08/24/2021 Medications: Reviewed in eD-H Allergies: Reviewed in eD-H Skin Examination Well developed, well-nourished in no apparent distress, alert and oriented to time, person, place and situation. Focused examination of the skin of the right upper back significant for the following: Exam Findings/Assessment/Plan Wound Check / Suture Removal Healing well with no evidence of infection, hematoma or dehiscence. Sutures intact. [x] Sutures removed [] Steristrips placed. ? ? Wound care: vaseline or antibiotic ointment & bandaid or bandage once or twice a day for a few more days. Allow soapy water to wash over wound daily. Remove steristrips, if still present in 7 days, remove remaining steristrips. Follow-up: as previously discussed. Return sooner as needed for suspicious lesion, new or worsening dermatitis. [x] Recall placed [] Forwarded to fundraising sale representative [] Patient scheduled before exiting Figure 1 Photo(s) taken and charted with patient's verbal consent. Note initiated and completed by Tonya Mora LPN Reviewed and signed by: Candi Suh MD Dermatology [facility] documented in this encounter Plan of Treatment Upcoming Encounters Date Type Specialty Care Team Description 04/26/2022 Office Visit Dermatology Candi Suh MD [facility] DERMATOLOGY [place], [place] [address] (Wo rk) 07/19/2022 Office Visit Dermatology Candi Suh MD [facility] DERMATOLOGY [place], [place] [address] (Wo rk) documented as of this encounter Visit Diagnoses Diagnosis Visit for suture removal Encounter for removal of sutures documented in this encounter Care Teams Public Relations Assistant Relationship Specialty Start Date End Date April Mason DO PCP - General Family Medicine 05/01/[address] [place] [id number] documented as of this encounter
--- OUTSIDE RECORDS SUMMARY | 2022-04-08 01:26 | XMS_ITS | Encounter Summary ---
:1950 Author Organization [facility] [place] [address] Care Team Providers Name Role Phone April Mason DO Primary Care Provider Encounter Details Date Type Department Care Team Description 09/03/2021 Telephone Dermatology at [facility] Candi Suh MD [address] [facility] [place] [address] DERMATOLOGY [phone] [place], [place] [address] (Wo rk) Social History Tobacco Use Types Packs/Day Years Used Date Never Smoker Smokeless Tobacco: Never Used Sex Assigned at Date Recorded Not on file documented as of this encounter Miscellaneous Notes Telephone Encounter - Candi Suh MD - 09/03/2021 11:12 AM EST Called patient to check in post-operatively and report excision pathology (below). No further tx needed. Patient reports small amount of redness at excision site but no pain, drainage, or warmth. Priorsymptoms have resolved. Scheduled for suture removal 09/07 and FSE 10/26. [id number] ? Location: HDM The signing pathologist has (i) examined the relevant preparation(s) for the specimen(s) and (ii) rendered or confirmed the diagnosis(es). ? Surgical Pathology DIAGNOSIS Right upper back, skin excision: - Negative for residual melanoma - Dermal scar and procedure site changes documented in this encounter Plan of Treatment Upcoming Encounters Date Type Specialty Care Team Description 04/26/2022 Office Visit Dermatology Candi Suh MD [facility] [address] [place], [place] [address] (Wo rk) 07/19/2022 Office Visit Dermatology Candi Suh MD [facility] [address] [place], [place] [address] (Wo rk) documented as of this encounter Visit Diagnoses Not on filedocumented in this encounter Care Teams Carriage Rider Relationship Specialty Start Date End Date April Mason DO PCP - General Family Medicine 05/01/[address] [place] [address] documented as of this encounter
--- OUTSIDE RECORDS SUMMARY | 2022-04-08 01:26 | XMS_ITS | Encounter Summary ---
:1950 Author Organization [facility] [place] [address] Care Team Providers Name Role Phone April Mason Primary Care Provider Encounter Details Date Type Department Care Team Description 01/[facility] for [facility] procedure; Deon SUMNER Seborrheic keratosis [address] [place] [address] DERMATOLOGY [place], [place] [address] Social History Tobacco Use Types Packs/Day Years Used Date Never Smoker Smokeless Tobacco: Never Used Sex Assigned at Date Recorded Not on file documented as of this encounter Progress Notes Candi Suh MD - 01/21/2022 3:45 PM EDT Dermatology Cosmetic visit: SK & Skin tag Removal Patient here for cosmetic treatment of SKs. Location: Neck - Discussed cosmetic removal with cryotherapy. Patient was quoted $100 for removal of 1-10, which was paid at the time of checkout. - Liquid Nitrogen Procedure - two freeze thaw cycles Number of lesions - 10 The patient's consent for liquid nitrogen was obtained. Risks and benefits were explained. The possible need for additional liquid nitrogen was reviewed. Risks of increased pigmentation, decreased pigmentation, blister formation, infection, pain, and recurrence were all discussed. The patient tolerated the procedure well. Wound care was reviewed. - Call within 30 days if not resolved for no charge touch up visit Note initiated by JARETT Nicole LPN has performed the documentation for this encounter in the presence of and acting as a scribe for Dr. Candi Suh. I performed the above scribed service and agree with the accuracy of the documentation in this encounter. Reviewed and signed by: Candi Suh MD Dermatology [facility] documented in this encounter Plan of Treatment Upcoming Encounters Date Type Specialty Care Team Description 04/26/2022 Office Visit Dermatology Candi Suh MD [facility] DERMATOLOGY [place], [place] [address] (Wo rk) 07/19/2022 Office Visit Dermatology Candi Suh MD [facility] DERMATOLOGY [place], [place] [address] (Wo rk) documented as of this encounter Visit Diagnoses Diagnosis Encounter for cosmetic procedure Seborrheic keratosis Other seborrheic keratosis documented in this encounter Care Teams Tufting Machine Operator Single Needle Relationship Specialty Start Date End Date April Mason DO PCP - General Family Medicine 05/01/21 [address] [facility] [place] [address] documented as of this encounter
--- OUTSIDE RECORDS SUMMARY | 2022-04-08 01:26 | XMS_ITS | Encounter Summary ---
:1950 Author Organization [facility] Address [address] [place] [address] Care Team Providers Name Role Phone April Mason Primary Care Provider Encounter Details Date Type Department Care Team Description 08/24/2021 Clinical Support Dermatology at Candi Suh for [facility] Deon Villeda MD preoperative [address] [facility] examination for [place], [place] [facility]ENTER DR general surgical [phone] DERMATOLOGY procedure [phone] [place] [address] Social History Tobacco Use Types Packs/Day Years Used Date Never Smoker Smokeless Tobacco: Never Used Sex Assigned at Date Recorded Not on file documented as of this encounter Last Filed Vital Signs Vital Sign Reading Time Taken Comments Blood Pressure 133/92 08/24/2021 10:37 AM EST Pulse 86 08/24/2021 10:37 AM EST Temperature - - Respiratory Rate - - Oxygen Saturation - - Inhaled Oxygen Concentration - - Weight - - Height - - Body Mass Index - - documented in this encounter Progress Notes Lluvia Muhammad CCMA - 08/24/2021 10:00 AM EST Pre Procedure Nurse Intake: Provider: Candi Suh MD Cheryl Zarate is a 71 y.o. female presents to the clinic today for a procedure visit. Pre surgery Vital signs: Patient Vitals for the past 24 hrs: Pulse BP 08/24/21 1037 86 (!) 133/92 Reviewed surgery expectations and after visit wound care instructions with patient. Patient verbalized understanding. Confirmed location with patient. Prepared patient for surgery. Candi Suh MD documented in this encounter Plan of Treatment Upcoming Encounters Date Type Specialty Care Team Description 04/26/2022 Office Visit Dermatology Candi Suh MD [facility] [address] [place], [place] [address] (Wo rk) 07/19/2022 Office Visit Dermatology Candi Suh MD [facility] DERMATOLOGY [place], [place] [address] (Wo rk) documented as of this encounter Visit Diagnoses Diagnosis Encounter for preoperative examination f or general surgical procedure documented in this encounter Care Teams Skate Maker Relationship Specialty Start Date End Date April Mason DO PCP - General Family Medicine 05/01/21 [address] [place] [address] documented as of this encounter
--- OUTSIDE RECORDS SUMMARY | 2022-04-08 01:26 | XMS_ITS | Encounter Summary ---
:1950 Author Organization [facility] [place] [address] Care Team Providers Name Role Phone TinoHerlinda fatimajoshua Ponce DO Primary Care Provider Encounter Details Date Type Department Care Team Description 03/24/2022 Ancillary Procedure Radiology Library at Doug Mason [facility] B, DO [facility] [address] [place] [phone] (Wo rk) Social History Tobacco Use Types Packs/Day Years Used Date Never Smoker Smokeless Tobacco: Never Used Sex Assigned at Date Recorded Not on file documented as of this encounter Plan of Treatment Upcoming Encounters Date Type Specialty Care Team Description 04/26/2022 Office Visit Dermatology Candi Suh MD [facility] [address] [place], [place] [address] (Wo rk) 07/19/2022 Office Visit Dermatology Candi Suh MD [facility] [address] [place], [place] [address] (Wo rk) documented as of this encounter Procedures Procedure Name Priority Date/Time Associated Diagnosis Comme nts FILM LIBRARY Routine 03/24/2022 4:27 PM Results f or this STORAGE ONLY MR EDT procedure ar e in HEAD the results section. documented in this encounter Results Film Library- Storage Only MR Head (03/24/2022 4:27 PM EDT) Specimen (Source) Anatomical Location Collection Method / Collectio n Time Received Time / Laterality Volume Narrative RAD - 03/24/2022 4:27 PM EDT This exam is auto-finalizing. It's purpo se is for storage only. April Mason DO IM FILM LIBRARY ORDERABLES Performing Organization Address City/State/ZIP Code Phon e Number [place], [place] documented in this encounter Visit Diagnoses Not on filedocumented in this encounter Care Teams Sewer System Supervisor Relationship Specialty Start Date End Date April Mason DO PCP - General Family Medicine 05/01/[address] [place] [address] [place] [address] documented as of this encounter
--- OUTSIDE RECORDS SUMMARY | 2022-04-08 01:26 | XMS_ITS | Encounter Summary ---
:1950 Author Organization [facility] Address [address] [place] [address] Care Team Providers Name Role Phone April Mason DO Primary Care Provider Encounter Details Date Type Department Care Team Description 01/[facility] of [facility]; Deon SUMNER History of basal cell carcinoma (BCC); [address] [facility] Seborrheic keratosis; [place] [address] [address] Skin tag; [phone] DERMATOLOGY Hunt[place] angioma; [place], [place] [address] Melanocytic nevus, unspecified location; [phone] Lentigines; (Work) Pilar cyst; Seborrhei c dermatitis; Skin cancer scr eening Social History Tobacco Use Types Packs/Day Years Used Date Never Smoker Smokeless Tobacco: Never Used Sex Assigned at Date Recorded Not on file documented as of this encounter Progress Notes Candi Suh MD - 01/21/2022 3:30 PM EDT Images from the original note were not included. DEPARTMENT OF DERMATOLOGY Medical D[facility]atology [facility] Provider: Candi Suh MD Patient's preferred name Cheryl Preferred contact method for results [x]??Phone []??myD-H []??Letter Detailed phone message OK? Yes Are there any other people with whom we may discuss your care? Son, Vasquez Zarate ?? Past Medical History Date, location, treatment Melanoma 07/14/2021, Right upper back, Melanoma, predominantly ??in situ, with focal superficial invasion, 0.3 mm; WLE 08/24/21 Dysplastic nevi N SCC N BCC Right forearm and chest - BCC AKs Y UV Exposure & Protection N ?? N Family History Details Melanoma N NMSC N Other relevant family history N Social History Occupation: Hobbies: Other: ?? Pre-Procedure Questions Details Allergy to lidocaine, epinephrine, Dermabond, chlorhexidine, or adhesives N Bleeding disorder or blood thinners N Pacemaker, defibrillator, deep brain stimulator, cochlear implant N History of Present Illness: Cheryl Zarate is a 71 y.o. Patient returns to clinic today for a full skin cancer screening. Patient denies any specific skin concerns today; no lesions that are new, changing or symptomatic. Last visit at Dermatology: 10/26/2021 Last visit with this provider: 10/26/2021 Medications: Reviewed in eD-H Allergies: Reviewed in eD-H Skin Examination: Full skin examination: Patient asked to undress to their comfort level. Verbalized that the provider's preference is that patient remove all clothing and that the provider will not examine areas patient elects to keep covered. Examination of the scalp, hair, head, face, ears, neck, chest, axillae, abdomen, back, buttocks, and upper and lower extremities was normal with the exception of the findings below. Genitalia not examined. - Lymph nodes: no occipital, pre- or post auricular, cervical, submandibular, submental, supraclavicular, axillary LAD Assessment/Plan # Seborrheic keratoses - vilchis/brown waxy stuck-on papules and plaques on the trunk and extremities. - Reassured of the benign nature of these lesions - No treatment needed # Skin Tags - skin colored pedunculated papules on the neck -Advised benign lesions, no tx needed # Huntley angiomas - scattered on the trunk and extremities are bright red smooth papules. - Reassured of the benign nature of these lesions. No treatment needed. # Melanocytic nevi - Scattered medium-brown macules and papules on the head, trunk, and extremities. - Morphology reassuring for benign nevi. - Reassured of benign appearance on exam today. - Reviewed warning signs of skin cancer - Recommend daily sun protection with protective clothing and SPF 30+ # Solar lentigines - 0.3-0.6cm light-brown evenly pigmented, well-demarcated macules in a photodistributed pattern on the face, trunk and extremities. - Recommend diligent sun protection (hats/shade/clothing/sunscreen) - Discussed warning signs of skin cancer # Seborrheic dermatitis - scattered yellow greasy scaly patches on the scalp & ears -advised this is a chronic condition 2nd to [place]. [place] that can be controlled. If worsens or becomes more symptomatic can offer alternative treatments - Rec: Head & Shoulder with Zinc pyrithione or Selsun Blue with Selinum sulfide, leave on for 5 minutes prior to rinsing - OK to uset Rx: mometasone apply topically to scalp & ears for up to 2 weeks during flares, then reduce to 1-2 times per week as needed for maintenance (pt has script at home) ?? # Pilar Cyst -??Soft subcutaneous??nodule??measuring 2cm??on the left occipital??scalp - Discussed benign nature of cyst. No further intervention required unless symptomatic - Pt will call to be??scheduled for surgery??if she??would like to have cyst excised. # History of BCC - Well healed scar(s) as listed above. - NER; will continue to clinically monitor # History of Melanoma - Well healed scar on the right upper back with NER and no LAD as above - Continue diligent sun protection - Continue clinical monitoring with 3 month full skin exams. Other: ??? Sun protection discussed (protective clothing and SPF30+ broad-spectrum sunscreen) RTC: 3 month FSE or PRN []Note routed to traveling secretary []Recall placed in scheduling system [x]Appointment scheduled at checkout Scribe attestation: Tonya Mora LPN performed the documentation for this encounter in the presence of and acting as a scribe for Candi Suh MD. I performed the above scribed service and agree with the accuracy of the documentation in this encounter. Reviewed and signed by: Candi Suh MD Dermatology [facility] documented in this encounter Plan of Treatment Upcoming Encounters Date Type Specialty Care Team Description 04/26/2022 Office Visit Dermatology Candi Suh MD [facility] [address] [place], [place] [address] (Wo rk) 07/19/2022 Office Visit Dermatology Candi Suh MD [facility] DERMATOLOGY [place], [place] [address] (Wo rk) documented as of this encounter Visit Diagnoses Diagnosis History of melanoma Personal history of malignant melanoma o f skin History of basal cell carcinoma (BCC) Seborrheic keratosis Other seborrheic keratosis Skin tag Unspecified hypertrophic and atrophic co ndition of skin Huntley angioma Nevus, non-neoplastic Melanocytic nevus, unspecified location Lentigines Other dyschromia Pilar cyst Seborrheic dermatitis Seborrheic dermatitis, unspecified Skin cancer screening Screening for malignant neoplasm of the skin documented in this encounter Care Teams Stretch Box Tender Relationship Specialty Start Date End Date April Mason DO PCP - General Family Medicine 05/01/[address] [place] [place] [address] documented as of this encounter
--- OUTSIDE RECORDS SUMMARY | 2022-04-08 01:26 | XMS_ITS | Clinical Summary ---
:1950 Author Organization [facility] Address [address] [place] [id number] Care Team Providers Name Role Phone Sada Martinez MD Primary Care Provider Social History Tobacco Use Types Packs/Day Years Used Date Never Assessed Sex Assigned at Date Recorded Not on file Plan of Treatment Health Maintenance Due Date Last Done Comments Hepatitis C Screen 1950 COVID-19 Vaccine (1) 1957 Fall Risk Screening 2017 Insurance Payer Benefit Plan / Subscriber ID Effective Dates Phone Addre ss Type Group MVP MVP [facility] [id number] 2021-Present [phone] [id number] [place] [address] Cheryl Zarate Personal/Family Self 1950 [address] [place] [address] Cheryl Zarate Personal/Family Self 1950 [address] [place] [address] Care Teams Machine Operator Slitter Technician Relationship Specialty Start Date End Date Sada Martinez MD PCP - General 01/05/11 [address] [place] [address]
--- OUTSIDE RECORDS SUMMARY | 2022-04-08 01:27 | XMS_ITS | Encounter Summary ---
:1950 Author Organization [facility] [place] [place] [address] Care Team Providers Name Role Phone Adeel Robertson MD Primary Care Provider Reason for Visit Reason Comments Skin Check Encounter Details Date Type Department Care Team Description 03/31/2020 Office Visit Dermatology at [facility], History of SCC (squamous cell carcinoma) of skin; Zafar SUMNER Seborrheic keratosis [address] [facility] Faizan B DERMATOLOGY [place], [place] [id number] [phone] Social History Tobacco Use Types Packs/Day Years Used Date Never Smoker Smokeless Tobacco: Never Used Sex Assigned at Date Recorded Not on file documented as of this encounter Progress Notes [facility] Moncada MD - 03/31/2020 10:15 AM EDT Problem: 1. Skin lesion of concern left antecubital fossa 2. 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 It is been red and has not healed now for many months. Physical examination shows excellent healing and no evidence of recurrence at the right mid dorsal forearm SCCA treatment site from February 2018. This came back as a squamous cell carcinoma in site 2. She has an elongated erythematous linear macule on the left antecubital fossa 3 x 7 mm in size which might also represent squamous of carcinoma in situ. Otherwise examination of the head and neck the chest the back the hands the arms forearms is benign. Assessment plan: Rule out SCC in situ left antecubital fossa 1. After obtaining full consent site was anesthetized and removed shave biopsy C&D x3 2. Triple antibiotic ointment and Band-Aid placed. After curettage site measured 8 mm in diameter. 3. Wound care instructions given 4. Return to clinic PRN for new lesions concerns. History of prior non-melanoma cutaneous malignancies 1. No evidence of recurrence at the above-noted prior treatment sites. CC: Adeel Robertson MD documented in this encounter Plan of Treatment Upcoming Encounters Date Type Specialty Care Team Description 04/26/2022 Office Visit Dermatology Candi Suh MD [facility] DERMATOLOGY [place], [place] [address] (Wo rk) 07/19/2022 Office Visit Dermatology Candi Suh MD [facility] DERMATOLOGY [place], [place] [address] (Wo rk) documented as of this encounter Visit Diagnoses Diagnosis History of SCC (squamous cell carcinoma) of skin Personal history of other malignant neop lasm of skin Seborrheic keratosis Other seborrheic keratosis documented in this encounter Care Teams Space Technologist Relationship Specialty Start Date End Date Adeel Robertson MD PCP - General General Internal Medicine 03/31/[address] [place] [address] documented as of this encounter
--- OUTSIDE RECORDS SUMMARY | 2022-04-08 01:27 | XMS_ITS | Encounter Summary ---
:1950 Author Organization [facility] Address [address] [place] [address] Care Team Providers Name Role Phone April Mason DO Primary Care Provider Reason for Visit Consultation (Routine) - Authorized Specialty Diagnoses / Procedures Referred By Contact Refer red To Contact Dermatology Diagnoses Personal history of other malignant neoplasm of skin SKIN EVAL, HX REMOVAL OF LESION AT CHEEK April Mason DO [facility] Dermatology [address] [place] [id number] Referral ID Status Reason Start Expiration Visits Visits Date Date Requested Authorized [id number] Authorized Consult, 04/26/2021 04/26/2022 6 6 [facility] PCP Updated and/or Approved Encounter Details Date Type Department Care Team Description 07/14/2021 Office Visit Dermatology at Candi Diaz, History of nonmelanoma skin cancer; Deon SUMNER Pilar cyst; [address] [facility] Seborrheic keratoses; [place] [address] Multiple benign nevi of upper extremity, lower extremity, and trunk; [phone] DERMATOLOGY Neoplasm of unspecified behavior of bone , soft tissue, and skin; [place], [place] [address] Actinic keratoses; [phone] Inflamed seborr heic keratosis; (Work) Skin cancer screening Social History Tobacco Use Types Packs/Day Years Used Date Never Smoker Smokeless Tobacco: Never Used Sex Assigned at Date Recorded Not on file documented as of this encounter Progress Notes Candi Suh MD - 07/14/2021 9:30 AM EST Images from the original note were not included. DEPARTMENT OF DERMATOLOGY Medical Dermatology Clinic Provider: Candi Suh MD Patient's preferred name Cheryl Preferred contact method for results [x]Phone []myD-H []Letter Detailed phone message OK? Yes Are there any other people with whom we may discuss your care? Son, Vasquez Zarate Past Medical History Date, location, treatment Melanoma N Dysplastic nevi N SCC N BCC Right forearm and chest - BCC AKs N UV Exposure & Protection N N Family History Details Melanoma N NMSC N Other relevant family history N Social History Occupation: Hobbies: Other: History of Present Illness: Cheryl Zarate is a 71 y.o. Patient is referred to the clinic at the request of April Mason for a full skin exam. - Spot on the scalp that has been present for quite a while however she believes it is growing in size which applies pressure. - Scaly spots on bilateral temples. Review of Systems: General: Feeling well. Skin: No other skin concerns. Medications: Reviewed in eD-H Allergies: Reviewed in eD-H Skin Examination: Waist-up skin examination: Patient was asked to disrobe to the level of their comfort. Patient elected to remain clothed below the waist. Examination of the scalp, hair, face, ears, neck, back, chest, abdomen, and upper extremities was normal with the exception of the findings below. - Lymph nodes: no occipital, pre- or post auricular, cervical, submandibular, submental, supraclavicular, axillary LAD Assessment/Plan #. Pilar Cyst - Soft subcutaneous nodule measuring 2cm on the left occipital scalp - Discussed benign nature of cyst. No further intervention required unless symptomatic - Pt will call to be scheduled for surgery if she would like to have cyst excised. # Seborrheic keratoses - vilchis/brown waxy stuck-on papules and plaques on the trunk and arms. - Reassured of the benign nature of these lesions - No treatment needed; discussed cosmetic treatment if desired; quoted $100 for tx of 1-10 lesions; $200 for tx of 11-20 lesions # Benign nevi - Scattered medium-brown macules and papules on the head, trunk, and extremities. - Reassured of benign appearance on exam today. - Reviewed warning signs of skin cancer - Recommend daily sun protection with protective clothing and SPF 30+ #. Actinic keratoses - ill-defined scaly pink papules on the right forearm x 1, left forearm x 1, left brow x 1, nose x 3, right tenriism x 2, upper cutaneous lip x 2. - Reviewed diagnosis with patient, premalignant potential, and treatment options including clinical monitoring (risks include progression), LN2 (risks including discoloration, discomfort, and possible recurrence) - Joint decision to proceed with LN2. - Procedure: Liquid Nitrogen Cryotherapy Number of lesions - 10 The patient's verbal consent for liquid nitrogen treatment was obtained. Risks and benefits were explained. The possible need for additional liquid nitrogen was reviewed. Risks of discoloration, blister formation, discomfort, and recurrence discussed. Lesions were treated with LN2 x15-30 second freeze-thaw cycle. The patient tolerated the procedure well. Wound care was reviewed. # Inflamed seborrheic keratosis - stuck-on brown/amaya waxy papule with erythema located on the left forehead x 1 - Reassured of the benign nature of these lesions - Given irritated nature, joint decision to proceed with treatment with LN2 today - Procedure: Destruction with Liquid Nitrogen Cryotherapy Number of lesions - 1 The patient's verbal consent for liquid nitrogen was obtained. Risks and benefits were explained. The possible need for additional liquid nitrogen was reviewed. Lesion(s) were treated with LN2 x15-30 second freeze-thaw cycle. The patient tolerated the procedure well. Wound care was reviewed. # Neoplasm of uncertain behavior of skin (Figure 1) - 1.1cm bright pink and brown irregular plaque - DDx: Irritated Nevus rule out Atypia - Joint decision to pursue shave biopsy today - Shave biopsy procedure note: Location: Right upper back The patient's consent was obtained. Risk of incomplete removal, scarring, bleeding, infection, and pain were reviewed. Alcohol preparation was used. Anesthesia was obtained with 1.0% lidocaine with epinephrine. A shave biopsy was obtained and the specimen was sent to pathology for histologic evaluation. Hemostasis was obtained with AlCl and/or electrocautery. Vaseline and bandage were applied. Wound care was reviewed. There were no complications; the patient tolerated the procedure well. # Hx NMSC - at site(s) listed above, well-healed scar(s) with no evidence of recurrence - continue regular skin exams and diligent sun protection Figure 1 Photo(s) taken and charted with patient's verbal consent. Other: ??? N/A RTC: Return in about 1 year (around 07/14/2022), or if symptoms worsen or fail to improve, for FSE. []Note routed to audio visual secretary [x]Recall placed in scheduling system []Appointment scheduled at checkout Scribe attestation: Lluvia Muhammad [facility]anksha has performed the documentation for this encounter in the presence of and acting as a scribe for Candi Suh MD. I performed the above scribed service and agree with the accuracy of the documentation in this encounter. Reviewed and signed by: Candi Suh MD Dermatology [facility] documented in this encounter Plan of Treatment Upcoming Encounters Date Type Specialty Care Team Description 04/26/2022 Office Visit Dermatology Candi Suh MD [facility] DERMATOLOGY [place], [place] [address] (Wo rk) 07/19/2022 Office Visit Dermatology Candi Suh MD [facility] DERMATOLOGY [place], [place] [address] (Wo rk) documented as of this encounter Procedures Procedure Name Priority Date/Time Associated Diagnosis Comme nts SPECIMEN TO Routine 07/14/2021 10:09 AM Neoplasm of Results for this PATHOLOGY EST unspecified behavior procedu re are in of bone, soft the results tissue, and skin section. SURGICAL PATHOLOGY Routine 07/14/2021 9:57 AM Res ults for this REPORT EST procedure are i n the results section. documented in this encounter Results Specimen to Pathology (07/14/2021 10:09 AM EST) Specimen Anatomical Collection Method Collection Time Receive d Time (Source) Location / / Volume Laterality AP Specimen 07/14/2021 10:09 07/14/2021 AM EST 10:09 AM EST Narrative [facility] - 07/14/2021 10:09 AM EST Specimen requisition ordered. ??Separate Pathology report to follow Candi Suh MD PATHOLOGY/CYTOLOGY ORDERABLE S Performing Organization Address City/State/[place] [address] Surgical Pathology Report (07/14/2021 9:57 AM EST) Component Value Ref Test Analysis Performed At [facility] gist Range Method Time Signature Surgical [id number] ? Location: [facility] Report The signing pathologist has (i) examined the relevant preparation(s) for the [facility] specimen(s) and (ii) rendered or confirmed the diagnosis(es) . HOSPITAL LABORATORY . ?Surgic al Pathology DIAGNOSIS Right upper back, skin shave biopsy: - ??Melanoma, predominantly ??in situ, with focal superficial invasion, 0.3 mm, without ulceration (see synoptic) - Associated features of compound dysplastic nevus Electronically signed by: ?Laura Gordon MD Verified: ??07/27/2021 12:16 ??Dermatopathologist Performed at: ??-[facility] Dept. of Pathology, [place], [place] SYNOPTIC Specimen ? Procedure: ??Biopsy, shave ? Specimen Laterality: ??Right Tumor ? Tumor Site: ??Skin of trunk - Right upper back ? Histologic Type: ??Superficial spreading type ? Maximum Tumor (Breslow) Thickness (Millimeters) : ??0.3 mm ? Ulceration: ??Not identified ? Regression: Present ? Mitotic Rate: ??None identified ? Microsatellite(s): ??Cannot be determined ? Lymphovascular Invasion: ??Not identified ? Neurotropism: ??Not identified ? Margins ?Margin Status for Invasive Melanoma: ??Not involved ?Margin Sta tus for Melanoma in situ: ??Atypical junctional melanocytes with ? PRAME exp ression focally extend to the peripheral tissue edge ? Pathologic Stage Classification (pTNM, AJCC 8th Edition) ?pT Category: ??pT1a CAP eCC December 2020 Release ADDITIONAL STUDIES Interpretation of multiple s tep-leveled slide sections, a Melan-A stain and a PRAME stain confirms the diagnosi s above. ?? Lesional ??melanocytes show positive staining with PRAME. SPECIMEN(S) SUBMITTED A - Right upper back, skin shave biopsy (1) CLINICAL INFORMATION 1.1 cm bright pink and brown irregular p laque. DDX: Irritated nevus R/O atypia SPECIMEN PROCESSING A - Labeled/Fixative: Patient demographics, formalin. Quantity/Size: ??Single, 1.3 x 1.0 cm. Tissue Description: Nonoriented, ovoid white skin shave of a 0.8 x 0.7 cm vilchis irregular macule with scattered, peripheral 0.1 c m foci of darker brown pigmentation. Sections/Processing: Inked, serially sectioned and entirely submitted in 2 osmar ettes as follows: ?A1: ??Tips . SPECIMEN PROCESSING ?A2: ??Central macule ??shb Specimen (Source) Anatomical Collection Method Collection Time Re ceived Time Location / / Volume Laterality 07/14/2021 9:57 AM EST Candi Suh MD PATHOLOGY/CYTOLOGY ORDERABLE S Performing Organization Address City/State/[place] [address] documented in this encounter Visit Diagnoses Diagnosis History of nonmelanoma skin cancer Personal history of other malignant neop lasm of skin Pilar cyst Seborrheic keratoses Multiple benign nevi of upper extremity, lower extremity, and trunk Neoplasm of unspecified behavior of bone , soft tissue, and skin Actinic keratoses Actinic keratosis Inflamed seborrheic keratosis Skin cancer screening Screening for malignant neoplasm of the skin documented in this encounter Care Teams High Density Finishing Operator Relationship Specialty Start Date End Date April Mason DO PCP - General Family Medicine 05/01/[address] [place] [address] documented as of this encounter
--- OUTSIDE RECORDS SUMMARY | 2022-04-08 01:27 | XMS_ITS | Encounter Summary ---
:1950 Author Organization [facility] [place] [address] Care Team Providers Name Role Phone Sada Martinez MD Primary Care Provider Reason for Visit Reason Comments Follow-up Encounter Details Date Type Department Care Team Description 07/16/2012 Office Visit Dermatology Farhad Moncada, Visit for suture [address] [facility] MD removal (Primary Dx) [address] [place], [place] DERMATOLOGY [address] [place] [address] [phone] (Wo rk) Social History Tobacco Use Types Packs/Day Years Used Date Never Smoker Sex Assigned at Date Recorded Not on file documented as of this encounter Progress Notes Farhad Moncada MD - 07/16/2012 3:16 PM EST Problem: Followup for suture removal and biopsy results. Cheryl follows up and the biopsy showed no residual BCCA. Physical examination shows good healing of this site. Assessment and Plan: History of sclerosing BCCA, right upper chest, status post re-excision. a. Sutures removed. b. Steri-Strips placed. c. May resume aspirin, ibuprofen. d. Return to clinic p.r.n. for new lesions/concerns. Copy: Sada Martinez M.D. documented in this encounter Plan of Treatment Upcoming Encounters Date Type Specialty Care Team Description 04/26/2022 Office Visit Dermatology Candi Suh MD [facility] DERMATOLOGY [place], [place] [address] (Wo rk) 07/19/2022 Office Visit Dermatology Candi Suh MD [facility] DERMATOLOGY [place], [place] [address] (Wo rk) documented as of this encounter Visit Diagnoses Diagnosis Visit for suture removal - Primary Encounter for removal of sutures documented in this encounter Care Teams Fountain Supervisor Relationship Specialty Start Date End Date Sada Martinez MD PCP - General 08/25/10 09/23/15 [address] [place] [address] documented as of this encounter
--- OUTSIDE RECORDS SUMMARY | 2022-04-08 01:27 | XMS_ITS | Encounter Summary ---
:1950 Author Organization [facility] Address [facility] [address] [place] [address] Care Team Providers Name Role Phone Sada Martinez MD Primary Care Provider Reason for Visit Reason Comments Follow-up Encounter Details Date Type Department Care Team Description 07/03/2012 Office Visit Dermatology Farhad Moncada, Basal cell carcinoma [address] [facility] (Primary Dx) [address] [place], [place] DERMATOLOGY [address] [place] [address] [phone] (Wo rk) Social History Tobacco Use Types Packs/Day Years Used Date Never Smoker Sex Assigned at Date Recorded Not on file documented as of this encounter Progress Notes Farhad Moncada MD - 07/03/2012 1:53 PM EST Problem: Skin lesion of concern. Cheryl follows up with me today after seeing Dr. Rehan Damon on May 15 and having had a suspicious lesion on the right upper chest biopsy. It came back showing BCCA, sclerosing. At the time of that same visit, she had an actinic treated on the right upper lip, and that has resolved. The patient's exam is otherwise benign. Physical examination reveals a 1-cm erythematous plaque on the right upper chest, the site of the biopsy-proven sclerosing BCCA. She has numerous seborrheic keratoses on her back. No evidence of actinic keratosis recurring on the right upper lip nor does she have any other lesions of concern on examination from the waist up. Assessment and Plan: BCCA, right upper chest. a. We will schedule a 30-minute appointment for excision of this in the near future. b. Discussed the procedure with patient and asked her not to take aspirin or ibuprofen/NSAIDs a week prior to procedure. c. Reassured about remainder of benign skin examination. Copy: Sada Martinez M.D. documented in this encounter Plan of Treatment Upcoming Encounters Date Type Specialty Care Team Description 04/26/2022 Office Visit Dermatology Candi Suh MD [facility] DERMATOLOGY [place], [place] [address] (Wo rk) 07/19/2022 Office Visit Dermatology Candi Suh MD [facility] DERMATOLOGY [place], [place] [address] (Wo rk) documented as of this encounter Visit Diagnoses Diagnosis Basal cell carcinoma - Primary Basal cell carcinoma of skin, site unspe cified documented in this encounter Care Teams Marketing Project Specialist Relationship Specialty Start Date End Date Sada Martinez MD PCP - General 08/25/10 09/23/15 [address] [place] [address] documented as of this encounter
--- OUTSIDE RECORDS SUMMARY | 2022-04-08 01:27 | XMS_ITS | Encounter Summary ---
:1950 Author Organization [facility] [place] [address] Care Team Providers Name Role Phone Ulisesjob Diamond Encinas APRN Primary Care Provider Reason for Visit Reason Comments Follow-up Skin Check Encounter Details Date Type Department Care Team Description 03/27/2018 Office Visit Dermatology at Farhad Moncada, Seborrh eic keratosis, inflamed; Zafar SUMNER History of basal cell carcinoma; [address] [facility] Faizan B DERMATOLOGY [place], [place] [id number] [phone] Social History Tobacco Use Types Packs/Day Years Used Date Never Smoker Smokeless Tobacco: Never Used Sex Assigned at Date Recorded Not on file documented as of this encounter Progress Notes Farhad Moncada MD - 03/27/2018 3:30 PM EDT Problem: 1. Skin lesion of concern 2. 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 Lesion of concern right arm Cheryl follows up and is concerned about a growing erythematous patch in the right mid dorsal forearm. She reminds me that she had a sclerosing BCCA some 6 years ago on her upper chest. This area remains well-healed Physical examination reveals a pleasant 67-year-old woman who has an erythematous somewhat ill-defined 1 cm patch on the right dorsal forearm at about the midpoint. Otherwise examination of the head and neck the face the chest and the back hands arms and forearms is benign. She is numerous seborrheic areas on her back. She is a slight irritant breast dermatitis underneath her left breast which is exacerbated by several seborrheic keratoses in this location. She been using clotrimazole cream for about 5 weeks to this with only partial improvement Assessment plan: Rule out SCC versus BCCA superficial type right dorsal forearm 1. After obtaining informed consent site was anesthetized and shave biopsy C&D performed 2. Size of treatment site after curettage was 1 cm 3. Wound care instructions supplies given 4. Return to clinic prn. History of SCCA with sclerosing features right upper chest March 2012 1. No evidence of recurrence 2. Patient reassured Left submammary breast intertrigo 1. Add 1% hydrocortisone cream to this area along with clotrimazole Seborrheic dermatitis facial 1. Continue use of medicated shampoo and hydrocortisone cream for scalp and facial involvement. Cc: Diamond Hahn [employer] PORTF[employer]IO LEADER documented in this encounter Plan of Treatment Upcoming Encounters Date Type Specialty Care Team Description 04/26/2022 Office Visit Dermatology Candi Suh MD [facility] DERMATOLOGY [place], [place] [address] (Wo rk) 07/19/2022 Office Visit Dermatology Candi Suh MD [facility] DERMATOLOGY [place], [place] [address] (Wo rk) documented as of this encounter Visit Diagnoses Diagnosis Seborrheic keratosis, inflamed Inflamed seborrheic keratosis History of basal cell carcinoma Personal history of other malignant neop lasm of skin Intertrigo Other specified erythematous condition documented in this encounter Care Teams Grainer Machine Relationship Specialty Start Date End Date Diamond Hahn APRN PCP - General Family Medicine 09/24/15 03/30/20 documented as of this encounter
--- OUTSIDE RECORDS SUMMARY | 2022-04-08 01:27 | XMS_ITS | Encounter Summary ---
:1950 Author Organization [facility] [place] [address] Care Team Providers Name Role Phone Sada Martinez MD Primary Care Provider Reason for Visit Reason Comments Procedure Encounter Details Date Type Department Care Team Description 05/19/2014 Office Visit Dermatology at Farhad Moncada Nevus ( Primary Dx) Zafar SUMNER [address] Faizan B DERMATOLOGY [place], [place] [id number] [phone] Social History Tobacco Use Types Packs/Day Years Used Date Never Smoker Sex Assigned at Date Recorded Not on file documented as of this encounter Progress Notes Farhad Moncada MD - 05/19/2014 2:38 PM EDT Clinical Impression: Nevus, often irritated, left malar prominence. Size: 7 mm. Deep suture: 5-0 Vicryl. Surface suture: 5-0 Ethilon. Followup: In one week for suture removal and biopsy results. Indications for surgery, possible adverse outcomes, and activity restrictions were discussed. Informed verbal consent was obtained. Skin surface was prepared with 4% chlorhexidine and draped in the usual sterile manner. Local anesthesia with 1% lidocaine, 1:100,000 epinephrine, and 0.1 mEq/mL bicarbonate. Using a #15 blade, and 1 mm margins, an elliptical excision was carried out around the new lesion. Undermining performed peripherally. Hemostasis with electrodesiccation. Layered closure performed, with specimen to Pathology. Wound dressed, wound care reviewed. End length of suture line was 1.2 cm. Follow up in one week for suture removal by Dr. Moncada in [place]. COPY: Sada Martinez M.D. documented in this encounter Plan of Treatment Upcoming Encounters Date Type Specialty Care Team Description 04/26/2022 Office Visit Dermatology Candi Suh MD [facility] DERMATOLOGY [place], [place] [address] (Wo rk) 07/19/2022 Office Visit Dermatology Candi Suh MD [facility] DERMATOLOGY [place], [place] [address] (Wo rk) documented as of this encounter Visit Diagnoses Diagnosis Nevus - Primary Benign neoplasm of skin, site unspecifie d documented in this encounter Care Teams Inclusion Special Educator Relationship Specialty Start Date End Date Sada Martinez MD PCP - General 08/25/10 09/23/15 [address] [place] [address] documented as of this encounter
--- OUTSIDE RECORDS SUMMARY | 2022-04-08 01:27 | XMS_ITS | Encounter Summary ---
:1950 Author Organization [facility] [place] [address] Care Team Providers Name Role Phone April Mason Primary Care Provider Encounter Details Date Type Department Care Team Description 08/24/2021 Procedure visit Dermatology at Candi Diaz Malignant melanoma, Deon Villeda MD unspecified site [address] [facility] [address] DERMATOLOGY [phone] [place], [place] [address] Social History Tobacco Use Types Packs/Day Years Used Date Never Smoker Smokeless Tobacco: Never Used Sex Assigned at Date Recorded Not on file documented as of this encounter Patient Instructions Patient Sylvester Flores CCMA - 08/24/2021 10:30 AM EST Post-Operative Instructions Wound care: The bandage applied today should remain dry and intact for approximately 48 hours. When it is time to remove the bandage, wash your hands, wet the area, and gently remove the dressing. Afterward perform the following daily wound care: 1. Clean the wound with mild soap and warm water, and gently pat dry. 2. Apply Vaseline, Aquaphor or another brand of plain petroleum jelly. Do NOT use peroxide or antibiotic ointment/cream (Neosporin or Bacitracin) on the wound. 3. Cover the wound with a new bandage, such as non-stick Telfa pad and paper tape, or a Band-Aid. 4. Repeat this regimen every day until your sutures are removed. A small amount of yellow drainage is part of the normal healing process. The wound is not consideredhealed until the drainage stops. It may take up to 3-4 weeks depending on the surgical site. Signs of infection include: increasing redness, drainage, swelling, tenderness, or pain. If you notice any of those symptoms, please contact the clinic. For bleeding or discomfort: If bleeding should occur, hold firm, constant pressure against the wound for 15- 20 minutes (with no peeking). If bleeding continues, repeat for another 15-20 minutes. If that does not stop the bleeding, call the clinic or go to your local emergency department. For discomfort, you may take acetaminophen (Tylenol), according to package directions. For the first48 hours, avoid aspirin and ibuprofen (Advil, Motrin), as they increase the risk of bleeding. After 48 hours, it is okay to switch to aspirin or ibuprofen as needed. Activity restrictions: It is important that you avoid strenuous and/or vigorous activities, heavy lifting (more than 5-10 pounds, the equivalent of 1 gallon of milk) and bending for a period of 3 weeks. Suture removal: The sutures should be removed in 12-14 days. Contact information: If you have any questions or concerns, please call the clinic at [phone] on weekdays from 8 AM to 5 PM After 5 PM, and on weekends and holidays, please call the hospital at [phone] and ask for the Electrical Maintenance Technician On-Call. Provider: Candi Suh MD Career Manager: DIANA Verdugo documented in this encounter Progress Notes Candi Suh MD - 08/24/2021 10:30 AM EST Images from the original note were not included. Dermatologic Surgery Operative Report (Procedure: Excision with Intermediate Layered Closure) Patient Name: Cheryl Zarate Date of : 1950 Visit date: 08/24/2021 STAFF SURGEON: Candi Suh MD, SIRI ASSISTANTS: Sylvester Gonzales Preoperative Diagnosis: Melanoma, predominantly ??in situ, with focal superficial invasion, 0.3 mm, without??ulceration (see prior bx [id number]) Postoperative Diagnosis: Same as above Pathology: Submitted for permanent pathology. Pending. Lesion Site (location): Right upper back Pre-operative size (cm): 1.2 x 1 cm Circumferential Margins Obtained: 1 cm Final Defect size or Total Excision Diameter (the lesion plus margins): 3.2 cm x 3 cm Final Length of closure: 9 cm Total anesthesia volume used for today: 10 cc INDICATION REMOVAL. PROCEDURE >Excision with intermediate layered closure. PREOPERATIVE MEDICATION: [x] None Prior to the procedure, final verification of the patient identity and correct marked surgical site was performed. Timeout was performed. Anesthesia used was 1% lidocaine with 1:100,000 epinephrine. The skin was prepped in a sterile fashion with with 2% chlorhexidine. The lesion was excised with clinically tumor-free margins in a fusiform fashion through the skin and through the subcutaneous tissue. The specimen was tagged with suture at the superior tip. The wound edges were trimmed as needed, and hemostasis was obtained with electrocoagulation. Due to wound size, the wound edges were closed in a layered fashion with 3-0 PDS and 3-0 monocryl subcutaneous sutures and 4-0 prolene skin sutures. Postoperative length: 9 cm. Estimated blood loss: Minimal. Complications: None. Wound care: Routine. Specimen sent to Dermatopathology. Pathology report is pending. Suture removal in 14 days. POST-OPERATIVE MEDICATIONS: [x] NONE Photo(s) were taken and charted with patient consent: Candi Suh MD, SIRI Department of Dermatology [facility] documented in this encounter Plan of Treatment Upcoming Encounters Date Type Specialty Care Team Description 04/26/2022 Office Visit Dermatology Candi Suh MD [facility] MEDICAL [facility] [address] [place], [place] [address] (Wo melanie) 07/19/2022 Office Visit Dermatology Candi Suh MD [facility] MEDICAL [facility] [address] [place], [place] [address] (Wo rk) documented as of this encounter Procedures Procedure Name Priority Date/Time Associated Diagnosis Comme nts SPECIMEN TO Routine 08/24/2021 11:50 AM Malignant melanoma, R esults for this PATHOLOGY EST unspecified site procedure a re in the results section. SURGICAL PATHOLOGY Routine 08/24/2021 10:30 AM Re sults for this REPORT EST procedure are i n the results section. documented in this encounter Results Specimen to Pathology (08/24/2021 11:50 AM EST) Specimen Anatomical Collection Method Collection Time Receive d Time (Source) Location / / Volume Laterality AP Specimen 08/24/2021 11:50 08/24/2021 AM EST 11:50 AM EST Narrative [facility] - 08/24/2021 11:50 AM EST Specimen requisition ordered. ??Separate Pathology report to follow Candi Suh MD PATHOLOGY/CYTOLOGY ORDERABLE S Performing Organization Address City/State/ZIP [place] [address] Surgical Pathology Report (08/24/2021 10:30 AM EST) Component Value Ref Test Analysis Performed At [facility] gist Range Method Time Signature Surgical [id number] ? Location: [facility] Report The signing pathologist has (i) examined the relevant preparation(s) for the [facility] specimen(s) and (ii) rendered or confirmed the diagnosis(es) . HOSPITAL LABORATORY . ?Surgic al Pathology DIAGNOSIS Right upper back, skin excision: - Negative for residual melanoma - ??Dermal scar and procedure site changes Electronically signed by: ?Nga SUMNER, Adan Hicks Verified: ??08/31/2021 13:48 ??Dermatopathologist Performed at: ??-[facility] [place]. [place], [place], [place] SPECIMEN(S) SUBMITTED A - Right upper back, skin excision (1) CLINICAL INFORMATION Healing biopsy scar of melanoma (see previous path [id number]) SPECIMEN PROCESSING A - Labeled/Fixative: Patient demographics, formalin. Quantity/Size: ??Single, 7.5 x 2.3 x 1.4 cm. Tissue Description: Wrinkled , vilchis-white, unoriented elliptical skin excision with a 0.8 x 0.5 x 0.2 cm centrally brown an d crusted scar/previous biopsy site. A single suture is present at one end. No designation for the suture is provided, and subsequently prosector designated as 12 o'clock. Inkin-3-6 o'clock is marked black. ??6-9-12 o'clock is marked blue. Sections/Processing: Serially sectioned and entirely submitted in 14 cassettes as follows: ?A1: ??12 o'clock tip ?A2-A13: ??Body, 12-6 o 'clock (A6-A10 = central scar/previous biopsy site) ?A14: ??6 o'clock tip ??shb Specimen (Source) Anatomical Collection Method Collection Time Re ceived Time Location / / Volume Laterality 08/24/2021 10:30 AM EST Candi Suh MD PATHOLOGY/CYTOLOGY ORDERABLE S Performing Organization Address City/State/[place] [address] documented in this encounter Visit Diagnoses Diagnosis Malignant melanoma, unspecified site documented in this encounter Care Teams Live Source Operator Relationship Specialty Start Date End Date April Mason DO PCP - General Family Medicine 05/01/21 [address] [place] [address] documented as of this encounter
--- OUTSIDE RECORDS SUMMARY | 2022-04-08 01:27 | XMS_ITS | Encounter Summary ---
:1950 Author Organization [facility] [place] [address] Care Team Providers Name Role Phone Sada Martinez MD Primary Care Provider Encounter Details Date Type Department Care Team Description 08/25/2010 Office Visit Dermatology Farhad Moncada MD [address] [facility] [address] DERMATOLOGY [place], [place] [address] [place] [address] [phone] (Wo rk) Social History Tobacco Use Types Packs/Day Years Used Date Never Assessed Sex Assigned at Date Recorded Not on file documented as of this encounter Plan of Treatment Upcoming Encounters Date Type Specialty Care Team Description 04/26/2022 Office Visit Dermatology Candi Suh MD [facility] MEDICAL [facility] DERMATOLOGY [place], [place] [address] (Wo rk) 07/19/2022 Office Visit Dermatology Candi Suh MD [facility] ER DERMATOLOGY [place], [place] [address] (Wo rk) documented as of this encounter Visit Diagnoses Not on filedocumented in this encounter Care Teams Director Appointment Relationship Specialty Start Date End Date Sada Martinez MD PCP - General 08/25/10 09/23/15 [address] [place] [address] documented as of this encounter
--- OUTSIDE RECORDS SUMMARY | 2022-04-08 01:27 | XMS_ITS | Encounter Summary ---
:1950 Author Organization [facility] [place] [address] Care Team Providers Name Role Phone Diamond Hahn Huang RIZZO Primary Care Provider Encounter Details Date Type Department Care Team Description 10/16/2015 Procedure visit Dermatology at Farhad Moncada Sebo rrheic [place] MD keratosis, inflamed [address] [facility] [address] [place], [place] DERMATOLOGY [address] [place], [place] [phone] Social History Tobacco Use Types Packs/Day Years Used Date Never Smoker Sex Assigned at Date Recorded Not on file documented as of this encounter Patient Instructions Patient InstructionsCoteRafia LPN - 10/16/2015 9:48 AM EDT Treatment and Wound Care Instructions Your treatment today: You have had an Electrodessication and Curretage (ED&C) of your skin, which is a method to remove seborrheic keratoses Allow 2-4 weeks for the wound to heal. If bleeding occurs, hold firm pressure against the wound for 15 minutes. If bleeding continues, calls the office or go to your local emergency room. Wound Care Instructions: You will need to keep the dressing placed over the wound dry and intact for 24 hours. Afterwards, perform the following wound care daily: ?? Wash your hands before changing the dressing. ?? Remove the bandage and clean the area with mild soap and water, then gently pat the area dry. ?? Apply a small amount of Antibiotic ointment to the area, then cover the wound with a band-aid. Change your dressing daily until the wound is fully healed. ?? A small amount of yellow drainage is part of normal healing. The area might appear as a small depression with redness around the edge of the wound. This is normal. ?? Please contact the office you you notice any of the following signs of infection: increased tenderness, pain, drainage, or redness that becomes hot or hard around the wound. If you have further questions or concerns, please call the office at [phone]. documented in this encounter Progress Notes Farhad Moncada MD - 10/16/2015 10:05 AM EDT Problem: 1. Irritated seborrheic keratoses. 2. 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 Cheryl follows up and is here today to have numerous seborrheic keratoses removed. They itch and bother her. They are often irritated. Physical examination reveals numerous seborrheic keratoses, the largest on her upper back, several on the upper shoulders as well. Assessment and Plan: Seborrheic keratoses, irritated. a. Today sites were anesthetized and removed with light C and D, and the smaller sites were removed with liquid nitrogen. b. Patient tolerated well. c. Wound care instructions and supplies given. d. Recommend return to clinic p.r.n. for new lesions/concerns. COPY: Scar SchwartzP.R.NMarie documented in this encounter Plan of Treatment Upcoming Encounters Date Type Specialty Care Team Description 04/26/2022 Office Visit Dermatology Candi Suh MD [facility] [address] [place], [place] [address] (Wo rk) 07/19/2022 Office Visit Candi Cheng MD [facility] [address] [place] [address] (Wo rk) documented as of this encounter Visit Diagnoses Diagnosis Seborrheic keratosis, inflamed Inflamed seborrheic keratosis documented in this encounter Care Teams Area Coordinator Relationship Specialty Start Date End Date Diamond Hahn APRN PCP - General Family Medicine 09/24/15 03/30/20 documented as of this encounter
--- OUTSIDE RECORDS SUMMARY | 2022-04-08 01:27 | XMS_ITS | Encounter Summary ---
:1950 Author Organization [facility] Address [address] [place] [address] Care Team Providers Name Role Phone Diamond Hahn SO Primary Care Provider Reason for Visit Reason Comments Skin Check Consultation (Routine) - Closed Specialty Diagnoses / Procedures Referred By Contact Refer red To Contact Dermatology Diagnoses Keratosis on back - CA? Skin lesions concerning for non-melanoma skin cancer Semi urgent (within 2 weeks) - past pt Pt has seen Dr. Moncada before - please schedule with him. Lucius Ness MD Hammer, Charles J, MD [address] [place], [place] [address] [place] [address] Phone: Fax: Referral ID Status Reason Start Date Expiration Date Visits V isits Requested Authorized [id number] Closed Consult, 09/08/2015 09/07/2016 1 1 [facility] Encounter Details Date Type Department Care Team Description 09/24/2015 Office Visit Dermatology at Farhad Moncada, Seborrh eic keratosis Zafar SUMNER [address] [facility] [address] DERMATOLOGY [place], [place] [id number] [phone] Social History Tobacco Use Types Packs/Day Years Used Date Never Smoker Sex Assigned at Date Recorded Not on file documented as of this encounter Progress Notes Farhad Moncada MD - 09/24/2015 3:36 PM EST Problem: 1. Skin lesions on back. 2. History of sclerosing BCCA, right upper chest, excised with clear margins, March 2012. Cheryl follows up and is developing numerous seborrheic keratoses. Many of these itch and bother her. She wonders if they can be removed. Physical examination reveals some large hyperkeratotic ones on her back, one or two left and right, and probably a total of 25 in all on her upper back, mostly above the bra strap. Most of these are relatively small and asymptomatic. She also has a number that are more hyperkeratotic on the upper shoulders and around the base of the neck, left and right, or laterally, and bilaterally symmetrically. She has a number of skin tags there, too. Assessment and Plan: 1. Irritated seborrheic keratoses and tags, back and lateral neck. a. Recommend that patient set aside a half an hour appointment for light C and D removal of these in the near future. b. Discussed procedure with patient. Discussed the need for postoperative wound care, and discussed patient expectations. c. Discussed the possibility of recurrence following their removal. d. We will only be removing symptomatic lesions, and patient understands that. Return to clinic at her convenience for a half an hour appointment. COPY: Diamond Hahn N.P. documented in this encounter Plan of Treatment Upcoming Encounters Date Type Specialty Care Team Description 04/26/2022 Office Visit Dermatology Candi Suh MD [facility] DERMATOLOGY [place], [place] [address] (Wo rk) 07/19/2022 Office Visit Dermatology Candi Suh MD [facility] [address], [place] [address] (Wo rk) documented as of this encounter Visit Diagnoses Diagnosis Seborrheic keratosis Other seborrheic keratosis documented in this encounter Care Teams Parasitology Teacher Relationship Specialty Start Date End Date Diamond Hahn APRN PCP - General Family Medicine 09/24/15 03/30/20 documented as of this encounter
--- OUTSIDE RECORDS SUMMARY | 2022-04-08 01:27 | XMS_ITS | Encounter Summary ---
:1950 Author Organization [facility] [place] [address] Care Team Providers Name Role Phone Sada Martinez MD Primary Care Provider Encounter Details Date Type Department Care Team Description 04/07/2014 Office Visit Dermatology at Farhad Olivas, Seborrh eic keratosis (Primary Dx); Zafar SUMNER History of basal cell carcinoma; [address] DERMATOLOGY [place], [place] [id number] [phone] Social History Tobacco Use Types Packs/Day Years Used Date Never Smoker Sex Assigned at Date Recorded Not on file documented as of this encounter Progress Notes Farhad Olivas MD - 04/07/2014 2:38 PM EDT Problem: 1. Mole check. 2. History of sclerosing BCCA, right upper chest, excised with clear margins June 2012. Cheryl follows up and would like to have a general check. Also she has a growing mole on the left malar prominence that she would like to have excised. Physical examination reveals a pleasant 64-year-old woman who has a number of small seborrheic keratoses present about the base of her neck and on the left and right base of her neck. She has several seborrheic keratoses over her back. She has a 7-mm fleshy compound versus intradermal nevus of the left medial cheek. There is no evidence of recurrent sclerosing BCCA on the right upper chest. Assessment and Plan: 1. History of sclerosing BCCA, right upper chest. a. No evidence of recurrence. b. Patient reassured. 2. Seborrheic keratoses. a. Patient reassured about benign nature. b. As these are asymptomatic, no treatment was requested nor provided today for these. 3. Growing changing nevus, left malar prominence. a. We will schedule a 30-minute appointment for excision of this in the near future. b. Discussed procedure with patient. Answered questions. COPY: Sada Martinez M.D. documented in this encounter Miscellaneous Notes Addendum Note - Farhad Olivas MD - 04/08/2014 5:55 PM EDT Addended by: FARHAD OLIVAS on: 04/08/2014 05:55 PM Modules accepted: Level of Service documented in this encounter Plan of Treatment Upcoming Encounters Date Type Specialty Care Team Description 04/26/2022 Office Visit Dermatology Candi Suh MD [facility] DERMATOLOGY [place], [place] [address] (Wo rk) 07/19/2022 Office Visit Dermatology Candi Suh MD [facility] DERMATOLOGY [place], [place] [address] (Wo rk) documented as of this encounter Visit Diagnoses Diagnosis Seborrheic keratosis - Primary Other seborrheic keratosis History of basal cell carcinoma Personal history of other malignant neop lasm of skin Nevus Benign neoplasm of skin, site unspecifie d documented in this encounter Care Teams Communications Intern Relationship Specialty Start Date End Date Sada Martinez MD PCP - General 08/25/10 09/23/15 [address] [place] [address] documented as of this encounter
--- OUTSIDE RECORDS SUMMARY | 2022-04-08 01:27 | XMS_ITS | Encounter Summary ---
:1950 Author Organization [facility] [place] [address] Care Team Providers Name Role Phone Diamond Hahn SO Primary Care Provider Encounter Details Date Type Department Care Team Description 10/15/2019 Ancillary Procedure Radiology Library at Doug Mason [facility], DO [facility] [address] [place] [address] [phone] (Wo rk) Social History Tobacco Use Types Packs/Day Years Used Date Never Smoker Smokeless Tobacco: Never Used Sex Assigned at Date Recorded Not on file documented as of this encounter Plan of Treatment Upcoming Encounters Date Type Specialty Care Team Description 04/26/2022 Office Visit Dermatology Candi Suh MD [facility] [address] [place], [place] [address] (Wo rk) 07/19/2022 Office Visit Dermatology Candi Suh MD [facility] [address] [place], [place] [address] (Wo rk) documented as of this encounter Procedures Procedure Name Priority Date/Time Associated Diagnosis Comme nts FILM LIBRARY Routine 10/15/2019 12:00 AM Results for this STORAGE ONLY MR EDT procedure ar e in SPINE the results section. documented in this encounter Results Film Library- Storage Only MR Spine (10/15/2019 12:00 AM EDT) Specimen (Source) Anatomical Location Collection Method / Collectio n Time Received Time / Laterality Volume Narrative DH RAD - 02/08/2022 10:06 AM EDT This exam is auto-finalizing. It's purpo se is for storage only. April Mason DO IMG FILM LIBRARY ORDERABLES Performing Organization Address City/State/ZIP Code Phon e Number [place], [place] documented in this encounter Visit Diagnoses Not on filedocumented in this encounter Care Teams Boiler Repairman Relationship Specialty Start Date End Date Diamond Hahn, SO PCP - General Family Medicine 09/24/15 documented as of this encounter
--- OUTSIDE RECORDS SUMMARY | 2022-04-08 01:27 | XMS_ITS | Encounter Summary ---
:1950 Author Organization [facility] [place] [address] Care Team Providers Name Role Phone Sada Martinez MD Primary Care Provider Reason for Visit Reason Comments Follow-up Encounter Details Date Type Department Care Team Description 07/09/2012 Office Visit Dermatology Farhad Moncada, Basal cell carcinoma [address] [facility] (Primary Dx) [address] [place], [place] DERMATOLOGY [address] [place] [address] [phone] (Wo rk) Social History Tobacco Use Types Packs/Day Years Used Date Never Smoker Sex Assigned at Date Recorded Not on file documented as of this encounter Progress Notes Farhad Moncada MD - 07/09/2012 3:42 PM EST Clinical impression is sclerosing BCCA, right upper presternal chest. Size is 1.5 cm. Deep suture is 3-0 Vicryl. Surface suture is 4-0 Ethilon. Followup will be in one week for suture removal and biopsy results. Indications for surgery, possible adverse outcomes, and activity restrictions discussed. Informed verbal consent was obtained. The skin surface was prepared with 4% chlorhexidine and draped in the usual sterile manner. Local anesthesia with 1% lidocaine, 1:100,000 epinephrine, and 0.1 mEq/mL bicarbonate. Using a #15 blade and 3-mm margins, an elliptical excision was carried out around the lesion. Undermining performed peripherally. Layered closure performed with specimen to Pathology. Wound dressed, wound care reviewed. End length of suture line was 3 cm. Follow up in seven days for suture removal by Dr. Moncada in [facility]. documented in this encounter Procedure Notes Provider, Scanning - 07/17/2012 9:45 AM ESTAssociated Order(s): SCAN DOC: SURGICAL PATHOLOGY documented in this encounter Plan of Treatment Upcoming Encounters Date Type Specialty Care Team Description 04/26/2022 Office Visit Dermatology Candi Suh MD [facility] DERMATOLOGY [place], [place] [address] (Wo rk) 07/19/2022 Office Visit Dermatology Candi Suh MD [facility] ER [address], [place] [address] (Wo rk) documented as of this encounter Procedures Procedure Name Priority Date/Time Associated Diagnosis Comme nts SURGICAL PATHOLOGY 07/17/2012 9:45 AM Res ults for this SCAN EST procedure are i n the results section. documented in this encounter Results SCAN DOC: SURGICAL PATHOLOGY (07/17/2012 9:45 AM EST) Narrative This result has an attachment that is no t available. Transcriptions Provider, Scanning - 07/17/2012 9:45 AM EST Scanning Provider MEDIA MGR SCAN EXT ORDR/RSLT documented in this encounter Visit Diagnoses Diagnosis Basal cell carcinoma - Primary Basal cell carcinoma of skin, site unspe cified documented in this encounter Care Teams Press [employer] B[employer] Machine Tender Relationship Specialty Start Date End Date Sada Martinez MD PCP - General 08/25/10 09/23/15 [address] [place] [address] documented as of this encounter
[2022-04-08 11:17] LABS: Anion Gap 11.6 mmol/L (3-11); BUN 14 mg/dL (7-18); CO2 25.4 mmol/L (21.0-32.0); CREATININE 0.7 mg/dL (0.55-1.02); Calcium 8.9 mg/dL (8.5-10.1); Calculated LDL 58 mg/dL (<100); Chloride 104 mmol/L (98-107); Cholesterol 146 mg/dL (<200); Estimated GFR 92.98 (mL/min/1.73m2); Glucose 144 mg/dL (74-106); HDL Cholesterol 54 mg/dL (40-60); Potassium 4.1 mmol/L (3.5-5.1); Sodium 141 mmol/L (136-145); Triglyceride 170 mg/dL (<150)
== END 2022-04-08 01:24 | disposition home or self-care (01) ==
PROVIDERS: PCP Student in an Organized Health Care Education/Training Program; Visit Provider Student in an Organized Health Care Education/Training Program
DX: R79.89 Other specified abnormal findings of blood chemistry (principal)
CPT/HCPCS: 36415; 80048; 80061

== ENCOUNTER → 2022-04-25 11:00 | Outpatient (BNVA) | payer MEDICARE, SELFPAY | PROVIDERS: PCP Student in an Organized Health Care Education/Training Program; Referring Provider Student in an Organized Health Care Education/Training Program; Visit Provider Psychiatry & Neurology Neurology | DX: G89.29 Other chronic pain (principal); I10 Essential (primary) hypertension; G25.0 Essential tremor; M48.062 Spinal stenosis, lumbar region with neurogenic claudication; R51.9 Headache, unspecified | CPT/HCPCS: 99214 ==

== ENCOUNTER → 2022-05-30 01:51 | Outpatient (CLI) | payer MEDICARE, SELFPAY ==
--- NOTE | 2022-05-30 07:00 | DI.RAD_ITS ---
Exam(s) XR SACROILIAC JOINTS EXAM: XR SACROILIAC JOINTS CLINICAL HISTORY: eval SI Joint Space (lumb surg vs SI injection),si joint dysfunction,lumbar. TECHNIQUE: 2D digital imaging was performed. COMPARISON: MR MR LUMBAR SPINE WO from 02/03/2022 FINDINGS: Bones: No fracture is present. No bony destructive lesion is seen. Alignment is satisfactory. SI Joint: No fusion or erosions are seen. No SI joint widening. Mild spurring at the SI joints. En thesophytes are noted at the iliac wings. There is severe narrowing of the L5-S1 disc space and mild narrowing of the L4-5 disc space. Soft Tissue: Normal. IMPRESSION: Mild degenerative changes of the SI joints. DATA REPOSITORY: RADIATION DOSE DELIVERED:
== END ==
PROVIDERS: PCP Student in an Organized Health Care Education/Training Program; Visit Provider Student in an Organized Health Care Education/Training Program
DX: M53.3 Sacrococcygeal disorders, not elsewhere classified (principal); M48.062 Spinal stenosis, lumbar region with neurogenic claudication
CPT/HCPCS: 72202

== ENCOUNTER → 2022-06-20 09:37 | Outpatient (BNVA) | payer MEDICARE, SELFPAY | PROVIDERS: PCP Student in an Organized Health Care Education/Training Program; Referring Provider Student in an Organized Health Care Education/Training Program; Visit Provider Student in an Organized Health Care Education/Training Program | DX: G56.02 Carpal tunnel syndrome, left upper limb (principal); G56.01 Carpal tunnel syndrome, right upper limb | CPT/HCPCS: 99213 ==

== ENCOUNTER 2022-07-10 09:12 | Emergency (ER) | payer MEDICARE, SELFPAY ==
--- NOTE | 2022-07-10 09:15 | DI.CT_ITS ---
Exam(s) CT ABDOMEN PELVIS W EXAM: CT ABDOMEN PELVIS W CLINICAL HISTORY: left sided abdominal pain TECHNIQUE: Imaging Protocol: Axial computed tomography images with coronal and sagittal reformatted images were created and reviewed CONTRAST MATERIAL: Intravenous: Omnipaque 350 Contrast volume:100 mL Oral: No COMPARISON: No exams were available for comparison FINDINGS: ABDOMEN: Lung Bases: Coronary artery calcifications are present. Pulmonary nodules are present. There is a l obulated 2.7 x 1.9 cm mass in the left lower lobe. There is a 5 mm nodule in the right lower lobe. Liver: Normal density. No measurable mass. Portal, Superior Mesenteric, and Splenic Veins: Unremarkable. Gallbladder and Biliary Tract: Cholelithiasis is present. There is no biliary ductal dilatation. Pancreas: Normal density, no abnormal calcifications or inflammatory process. Spleen: Normal. Adrenals: No masses seen. Kidneys: Normal size, contour and axis. No radiodense stones or obstructive uropathy. No masses seen. Abdominal Aorta: Abdominal portion non-dilated. Atherosclerosis is present. Bowel: There is diverticulosis seen throughout the colon. There is bowel wall thickening seen in the distal descending colon near the sigmoid junction. Inflammatory changes are seen in the surrounding soft tissues. Findings are suggestive of acute diverticulitis. No evidence of appendicitis. Peritoneal Cavity: No ascites, collection or mesenteric inflammatory response. No free air. Lymph Nodes: Within normal limits. Bones: Within normal limits for the patient's age. Soft Tissues: Unremarkable. PELVIS: Bladder: Symmetric distention, no gross wall thickening. Reproductive Organs: Status post hysterectomy. Lymph Nodes: Within normal limits. Bones: Within normal limits for the patient's age. IMPRESSION: 1. Findings suspicious for acute diverticulitis involving the descending colon. No abscess or free a ir. A CT scan following treatment should be obtained to document resolution and exclude possible lakesha plasm. 2. 2.7 cm left lower lobe mass and 5 mm right lower lobe pulmonary nodule. There are no priors for c omparison. If there are priors at an outside institution, they may be submitted and an addendum will be issued. PET-CT and/or biopsy, otherwise should be considered in this patient. 3. Cholelithiasis. 4. Findings were discussed with Dr. Puri at 11 a.m. on 07/10/2022. RADIATION DOSE DELIVERED: 1,470.74mGy.cm Total DLP DATA REPOSITORY: All CT scans at this facility are submitted to the National Radiology Data Registry (NRDR) Dose Index Registry (DIR) with the [employer] (ACR). RADIATION OPTIMIZATION: All CT scans at this facility use at least one of these dose optimization te chniques: automated exposure control; mA and/or kV adjustment per patient size (includes targeted exa ms where dose is matched to clinical indication); or iterative reconstruction.
[2022-07-10 09:19] VITALS: BP 172/94; PULSE 83; RESP 18; TEMP 36.7; O2SAT 96
--- NOTE | 2022-07-10 09:27 | ED.GENADUL_ITS ---
Discharge Plan Disposition Patient Disposition: Home Condition: Stable Discharge Details Clinical Impression: Abdominal pain, Diverticulitis Primary Care Provider: April Mason ED Provider: Pancho Puri [place] Meds and New Rx's Prescriptions: New amoxicillin-pot clavulanate 875-125 mg tablet 1 tab PO BID Qty: 14 0RF Continued clotrimazole 1 % cream 1 applic Topical BID PRN (Reason: tessy dermatitis) Qty: 90 0RF Rx Instructions: Apply dime sized amount to left breast fold twice a day levothyroxine 50 mcg tablet 50 mcg PO DAILY Qty: 90 3RF paroxetine HCl 10 mg tablet 10 mg PO DAILY Qty: 90 1RF Rx Instructions: Retrial (DME) pen needle, diabetic [Comfort EZ Pen [place]] 31 gauge x 5/16 needle See Rx Instructions .Route Qty: 100 3RF Rx Instructions: to administer victoza injections daily, please use only needle pt prefers or insurance pays for. DX DM E11.9 (DME) blood-glucose meter Misc See Rx Instructions .ROUTE .MEDSUPPLY Qty: 1 0RF Rx Instructions: As directed (DME) lancets 30 gauge misc See Rx Instructions .ROUTE .MEDSUPPLY Qty: 200 0RF Rx Instructions: Twice daily mometasone 0.1 % solution 1 applic Topical DAILY PRN (Reason: skin irritation) Qty: 1 1RF (DME) Blood Glucose Test Strip See Rx Instructions .ROUTE .MEDSUPPLY Qty: 200 3RF Rx Instructions: Twice daily propranolol 160 mg capsule,extended release 24 hr 160 mg PO DAILY Qty: 90 3RF cholecalciferol (vitamin D3) [Vitamin D3] 1,000 UNIT capsule 1,000 unit PO DAILY One-Per-Day Rule-3 1 EACH capsule,delayed release(DR/EC) 1 ea PO DAILY Qty: 1 Calcium Magnesium 1 EACH tablet 1 ea PO DAILY Qty: 3 liraglutide 0.6 mg/0.1 mL (18 mg/3 mL) pen injector 1.8 mg subcut DAILY Qty: 27 3RF Rx Instructions: Increasing dose, due to good initial results and tolerance. losartan 25 mg tablet 25 mg PO DAILY Qty: 90 1RF Rx Instructions: Continue rosuvastatin 5 mg tablet See Rx Instructions .ROUTE .COMPLEX Qty: 90 3RF Dose Instruction: TAKE 1 TABLET DAILY Rx Instructions: TAKE 1 TABLET DAILY acetaminophen 500 mg tablet 500 mg PO Q6H PRN (Reason: pain) Qty: 60 2RF ibuprofen 600 mg tablet 600 mg PO TID PRN (Reason: pain) Qty: 60 0RF Discharge Instructions Instructions: Diverticulitis (ED) Additional Instructions: Your cat scan showed you have diverticulitis. You also had nodules in your lung which you should make your primary care provider aware of as you will need additional testing to follow up on these. You should follow up with your primary care provider within 1-2 weeks if you develop severe worsening pain, persistent vomiting or feel more ill return to the emergency department Medical Decision Making 72 yo female with hx of dm, htn, hld comes in with 3 days of constant left lower abdomen pain. She also reports diarrhea, denies fevers, chills, n/v, urinry symptoms. Denies having pain like this in the past. She can't think of anything that makes it better or worse. She arrives stable and appears well in no d istress. She has no upper abdominal tenderness or rlq, has tenderness to deep palpation in the llq, no guarding or rebound. Given location of pain suspect diverticulitis, will obtain cbc, cmp, lipase and ct abd/pelvis. Pain is not out of proportion to exam so doubt mesenteric ischemia. labs unremarkable, ct shows simple diverticulitis, will place on augmentin, she is feeling better not requiring pain medicine and tolerating po. Received call from Dr. Kwon and advised patient does have lung nodules which she will need to f/u with her pcp for and she was told this. She is stable for d/c, advised to f/u with pcp and return precautions given Differential Diagnosis Differential Diagnosis: diverticulitis, colitis, pancreatitis Medical Records Medical records reviewed: Yes I reviewed the patient's medical records. Imaging Data Radiologic Study: Attestation: I personally reviewed and interpreted this imaging study as follows: Imaging: CT Scan My impression: Radiologist's impression: diverticulitis Lab Data Lab results reviewed: Yes I reviewed the patient's lab results. Sign Out No HPI General Mode of arrival: ambulatory . Date/Time Provider Initiated Documentation: 07/10/22 09:15 . Limitations to Documentation: no limitations . Information obtained by: patient . History of Present Illness 72 year old F presents to the emergency department with the chief complaint of left lower abdominal pain, described as moderate, Quality is described as stabbing, and is localized to the abdomen. Patient reports no radiation. Patient started experiencing this day(s) (3) and it has been constant. No relieving factors improve symptom(s), No exacerbating factors reported . Patient notes other (diarrhea). Patient did receive the following treatments prior to arrival, none Related Data Home Medications Medication Instructions Recorded Confirmed cholecalciferol (vitamin D3) 25 1,000 unit PO DAILY 03/25/15 07/10/22 mcg (1,000 unit) capsule (Vitamin D3) calcium carb-Ca gluc 500 mg 1 ea PO DAILY ##3 03/30/16 07/10/22 calcium-magnesium ox-Mg gluc 250 mg tablet (Calcium Magnesium) omega-3 fatty acids-fish oil 684 1 ea PO DAILY ##1 03/30/16 07/10/22 mg-1,200 mg capsule,delayed release (One-Per-Day Rule-3) clotrimazole 1 % topical cream 1 applic topical BID PRN tessy 07/16/19 07/10/22 dermatitis #90 grams blood-glucose meter #1 ea 10/29/19 07/10/22 lancets 30 gauge #200 ea 10/29/19 07/10/22 mometasone 0.1 % topical solution 1 applic topical DAILY PRN skin 04/23/21 07/10/22 irritation #1 mL acetaminophen 500 mg tablet 500 mg PO Q6H PRN pain #60 tabs 09/28/21 07/10/22 ibuprofen 600 mg tablet 600 mg PO TID PRN pain #60 tabs 09/28/21 07/10/22 levothyroxine 50 mcg tablet 50 mcg PO DAILY #90 tab-caps 10/01/21 07/10/22 Blood Glucose Test (blood sugar #200 ea 10/29/21 07/10/22 diagnostic) propranolol 160 mg capsule,24 160 mg PO DAILY #90 caps 04/25/22 07/10/22 hr,extended release paroxetine HCl 10 mg tablet 10 mg PO DAILY #90 tabs 05/05/22 07/10/22 liraglutide 0.6 mg/0.1 mL (18 mg/3 1.8 mg (0.3 mL) subcut DAILY for 10/07/22 12/11/22 mL) subcutaneous pen injector DM, E11.9, to maintain A1C < 8 #27 mL losartan 25 mg tablet 25 mg PO DAILY #90 tabs 05/12/22 07/10/22 pen needle, diabetic 31 gauge x #100 ea 06/10/22 07/10/22 5/16 (Comfort EZ Pen [place]) rosuvastatin 5 mg tablet See Rx Instructions .Route 07/02/22 07/10/22 .COMPLEX #90 tabs amoxicillin 875 mg-potassium 1 tab PO BID #14 tabs 07/10/22 clavulanate 125 mg tablet Previous Rx's Medication Instructions Recorded clotrimazole 1 % topical cream 1 applic topical BID PRN tessy 07/16/19 dermatitis #90 grams blood-glucose meter #1 ea 10/29/19 lancets 30 gauge #200 ea 10/29/19 mometasone 0.1 % topical solution 1 applic topical DAILY PRN skin 04/23/21 irritation #1 mL acetaminophen 500 mg tablet 500 mg PO Q6H PRN pain #60 tabs 09/28/21 ibuprofen 600 mg tablet 600 mg PO TID PRN pain #60 tabs 09/28/21 levothyroxine 50 mcg tablet 50 mcg PO DAILY #90 tab-caps 10/01/21 Blood Glucose Test (blood sugar #200 ea 10/29/21 diagnostic) propranolol 160 mg capsule,24 160 mg PO DAILY #90 caps 04/25/22 hr,extended release paroxetine HCl 10 mg tablet 10 mg PO DAILY #90 tabs 05/05/22 liraglutide 0.6 mg/0.1 mL (18 mg/3 1.8 mg (0.3 mL) subcut DAILY for 05/06/22 mL) subcutaneous pen injector DM, E11.9, to maintain A1C < 8 #27 mL losartan 25 mg tablet 25 mg PO DAILY #90 tabs 05/12/22 pen needle, diabetic 31 gauge x #100 ea 06/10/22 5/16 (Comfort EZ Pen [place]) rosuvastatin 5 mg tablet See Rx Instructions .Route 07/02/22 .COMPLEX #90 tabs amoxicillin 875 mg-potassium 1 tab PO BID #14 tabs 07/10/22 clavulanate 125 mg tablet Allergies Allergy/AdvReac Type Severity Reaction Status Date / Time venlafaxine Allergy Verified 07/10/22 09:23 milk AdvReac Intermediate Diarrhea Verified 07/10/22 09:23 sertraline AdvReac Intermediate per pt Verified 07/10/22 09:23 tingling in arm and jaw pain goldenrod Allergy Uncoded 07/10/22 09:23 multivitamin AdvReac Intermediate causes Uncoded 07/10/22 09:23 chest pressure General Stated Complaint: Abd Prob BRIDGET: 3 Review of Systems All systems reviewed & are unremarkable except as noted in HPI and below Constitutional Constitutional: Denies chills, Denies fever(s) and Denies weakness Cardiovascular Cardiovascular: Denies chest pain and Denies dyspnea Respiratory Respiratory: Denies cough and Denies dyspnea Gastrointestinal Gastrointestinal: Denies nausea and Denies vomiting Integumentary/Breasts Skin/Breast: Denies rash Neurologic Neurologic: Denies weakness PFSH All Active Problems (Updated 07/10/22 @ 11:08 by Pancho Puri MD) Abdominal pain (Acute) Diverticulitis (Chronic) Nail dystrophy (Acute) Spinal stenosis of lumbar region (Acute) MRI shows yarelis @ L3-L4, with mod-sev CTL SP CANAL STENOSIS (09/2019).. Rt L4 nerve root compression. Lumbar stenosis with neurogenic claudication (Acute) Sacroiliac joint dysfunction of both sides (Acute) Impairment of speech discrimination (Acute) Asymmetrical sensorineural hearing loss (Acute) Impacted cerumen, bilateral (Acute) New onset headache (Acute) Frequent headaches (Acute) Hypothyroidism (Chronic 03/13/13) Occipital headache (Acute) New headache .. due to back pain? pillow? 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 Cubital tunnel syndrome on left (Acute) Bilateral carpal tunnel syndrome (Acute) Left CTR. [ ] Rt CTR?? Melanoma in situ of back (Acute 07/2021) Weight loss (Acute) Diverticulosis of colon (Chronic) Hyperplastic colon polyp (Acute) Family history of colon cancer in mother (Acute) Mo rectal ca @ 60yo... Generalized anxiety disorder (Chronic) Major depressive disorder (Chronic) ADHD, predominantly inattentive type (Chronic) Medical History (Updated 07/10/22 @ 11:08 by Pancho Puri MD) Actinic keratitis Left forehead, nose .. s/p Cryo. Blistered, but improving. Actinic keratosis (~06/2021) 07/14/21 liquid nitrogen treament - forearms,R protestant,face Carpal tunnel syndrome of right wrist Chronic low back pain Conductive hearing loss, external ear (10/03/13) Diabetic retinopathy of right eye (04/29/21) History of basal cell carcinoma (BCC) History of skin cancer in adulthood Hx lesion removed from cheek, [ ] notes/path. History of multiple benign nevi Hyperlipidemia (03/13/13) Independent for activity Cheryl values her independence .. discussed @ 10/01/21 OV 2' CTR surgery (urged her to cont with plan for rt hand now that lft is done.. mild, so she was wondering) .. back pain with (+) mri findings show eval/Tx is worthwhile earlier than later .. Exercising despite pain (stairs ok) helps DM, Vasc, HTN ++ Medication side effects SNRI increase (2020) seems to have brought on halluc (visual/audit).. [ ] add antipsych? mood stblzr? Pilar cyst SARS-CoV-2 positive (~12/03/21) Seborrheic keratoses Tremor Ulnar neuropathy at elbow of left upper extremity Surgical History Carpal tunnel syndrome of left wrist s/p left ECTR DOS: 09/28/2021 H/O melanoma excision (08/24/21) right upper back S/P appendectomy S/P cataract surgery (08/14/17) S/P colonoscopy (08/20/21) 06/14/16 S/P FREDY-BSO (total abdominal hysterectomy and bilateral salpingo-oophorectomy) Status post total left knee replacement (01/01/19) Family History Mother , at 58 Colon cancer Hypertension Father Depression Sister Alcohol abuse Brother , at 58 Pancreatic cancer metastasized to liver Brother Low back pain Alcohol abuse Son No problems noted. Daughter No problems noted. Daughter No problems noted. Daughter Type 1 diabetes mellitus Bipolar disorder Maternal Grandmother , at 80 Stroke Heart disease Maternal Grandfather , at 53 Heart disease Myocardial infarction Paternal Grandfather , at 87 No problems noted. Paternal Grandmother , at 80 of P.E. Pulmonary embolism Rheumatoid arthritis Maternal Aunt Colon cancer Diabetes Social History Smoking/Tobacco Use Status: Never Second Hand Exposure: Yes Smoking risk assessment performed?: Yes Alcohol Intake: never Drug use: Never Substance use type: does not use Adopted: No Caregiver/Support person: No Foster care: No Household members: family and other Details: 2 Housing: house Number of Children: 4 number of grandchildren: 9 Communication Needs: None Education Level: college Details: Bachelor's Degree Do you need help understanding health information?: Rarely current occupation: Retired Pets and animals: Yes Pets and animals: cat(s) Sexually active: No Do you think of yourself as: straight/heterosexual Current gender identity: female What is your relationship status?: How often do you talk on the phone with friends or family?: twice per week How often do you get together with friends or relatives?: once per week How often do you attend pentecostal or episcopal services?: 4 or more times per year Do you belong to any clubs or organized social groups?: yes Panel score (0-1 are the most socially isolated patients): 3 What type of physical activity do you participate in: none Frequency: does not exercise Mamie/Anabaptism: Jainism Special mamie needs: No Seatbelt use: sometimes Drive 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 w/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 motorcycle driver: No Do you feel safe at home: Yes Do you feel safe in your relationship?: Yes Victim of physical abuse: No Victim of emotional abuse: Yes Victim of sexual abuse: No Would you like helpful sources: No Exam Const General: no acute distress Orientation: alert [facility] Head: normal to inspection Ears: external ears normal General nose exam: external nose normal Mouth: moist mucous membranes Eyes General: appearance normal, both eyes and all related structures Neck Neck: normal visual inspection Resp Effort & Inspection: normal respiratory effort and able to speak in complete sentences Cardio Rate: regular rate GI Palpation: soft, no guarding and tender Skin General skin exam: no rashes or lesions noted Neuro General: patient alert and patient oriented x3 Extrem General: normal to inspection Psych Mental Status: mental status grossly normal Course Vital Signs Vital signs: Vital Signs Temperature 36.7 C 07/10/22 09:19 Pulse 83 07/10/22 09:19 Respiratory Rate 18 07/10/22 09:19 Blood Pressure 172/94 H 07/10/22 09:19 Pulse Oximetry 96 07/10/22 09:19 Temperature 36.7 C 07/10/22 09:19 Temperature Source Oral 07/10/22 09:19 Pulse 83 07/10/22 09:19 Respiratory Rate 18 07/10/22 09:19 Blood Pressure 172/94 H 07/10/22 09:19 Blood Pressure Position Sitting 07/10/22 09:19 Pulse Oximetry 96 07/10/22 09:19 Oxygen Delivery Method Room Air 07/10/22 09:19 Oxygen Flow Rate 0 07/10/22 09:19
[2022-07-10] MEDS: Normal Saline 1,000 ML 1000 ML IV (09:35)
[2022-07-10 09:40] LABS: Abs Immature Grans 0.04 10^3/uL (0.0-0.06); Absolute Basophil Count 0.09 10^3/uL (0.0-0.2); Absolute Eosinophil Count 0.22 10^3/uL (0.0-0.7); Absolute Lymphocyte Count 2.56 10^3/uL (1.2-3.4); Absolute Monocyte Count 0.78 10^3/uL (0.1-0.8); Absolute Neutrophil Count 7.11 10^3/uL (1.2-6.7); Basophils % 0.8; HCT 42.6 % (36.0-46.0); HGB 14.2 g/dL (11.2-15.7); Immature Grans % 0.4; Lymphocytes % 23.7; MCH 28.4 pg (27.0-33.0); MCHC 33.3 % (32.0-36.0); MCV 85 fL (80-95); MPV 9.1 fL (8.0-11.0); Monocytes % 7.2; Neutrophils % 65.9; Platelet Count 236 10^3/uL (130-400); RDW-SD 36.9 fL
[2022-07-10 09:55] LABS: ALT 28 U/L (14-59); AST 27 U/L (15-37); Albumin 4.2 g/dL (3.4-5.0); Alkaline Phosphatase 89 U/L (46-116); Anion Gap 8.4 mmol/L (3-11); BUN 12 mg/dL (7-18); Bilirubin, Total 1.1 mg/dL (0.2-1.0); CO2 28.6 mmol/L (21.0-32.0); CREATININE 0.7 mg/dL (0.55-1.02); Calcium 9.5 mg/dL (8.5-10.1); Chloride 99 mmol/L (98-107); Estimated GFR 92.98 (mL/min/1.73m2); Glucose 163 mg/dL (74-106); Lipase 101 U/L (73-393); Potassium 4.1 mmol/L (3.5-5.1); Sodium 136 mmol/L (136-145); Total Protein 7.9 g/dL (6.4-8.2)
[2022-07-10] MEDS: Normal Saline - Diluent 50 ML VIAL IV ×2 (10:07→10:08)
[2022-07-10] MEDS: Omnipaque 350 MG/ML 100 ML BTL IJ (10:07)
[2022-07-10] MEDS: Normal Saline Flush 10 ML SYR IVP (10:09)
--- NOTE | 2022-07-10 10:47 | DI.VRAD_ITS ---
PROCEDURE INFORMATION: Exam: CT Abdomen And Pelvis With Contrast Exam date and time: 07/10/2022 9:58 AM Age: 72 years old Clinical indication: Other: Left sided abdominal pain TECHNIQUE: Imaging protocol: Computed tomography of the abdomen and pelvis with contrast. Radiation optimization: All CT scans at this facility use at least one of these dose optimization techniques: automated exposure control; mA and/or kV adjustment per patient size (includes targeted exams where dose is matched to clinical indication); or iterative reconstruction. Contrast material: OMNIPAQUE 350; Contrast volume: 100 ml; Contrast route: INTRAVENOUS (IV); COMPARISON: XR SACROILIAC JOINTS 05/30/2022 11:18 AM FINDINGS: Liver: Normal. No mass. Gallbladder and bile ducts: There are layering gallstones in the gallbladder. Pancreas: Normal. No ductal dilation. Spleen: Normal. No splenomegaly. Adrenal glands: Normal. No mass. Kidneys and ureters: Normal. No hydronephrosis. Stomach and bowel: There are multiple diverticula throughout the colon. In the distal descending colon, there is significant wall thickening and pericolonic inflammatory change, representing acute diverticulitis. Appendix: No evidence of appendicitis. Intraperitoneal space: There is no intra-abdominal free air. There is no extraluminal fluid collection. Vasculature: Unremarkable. No abdominal aortic aneurysm. Lymph nodes: Unremarkable. No enlarged lymph nodes. Urinary bladder: Unremarkable as visualized. Reproductive: The uterus is surgically absent. Bones/joints: There are multilevel degenerative changes of the visualized thoracolumbar spine. The there is a 7 mm grade 1 anterolisthesis of L4 on L5. There is no acute osseous pathology. Soft tissues: Unremarkable. IMPRESSION: 1. Findings consistent with acute diverticulitis. No evidence of free intraperitoneal air or loculated extraluminal fluid collection to suggest perforation or abscess. 2. Cholelithiasis. 3. Post hysterectomy. 4. Degenerative changes, L4-L5 spondylolisthesis. Dictated and Authenticated by: Grover Kan MD. Ordering:GEORGINA Deleon MD
[2022-07-10 11:33] VITALS: BP 140/74; PULSE 71; RESP 18; TEMP 37.1; O2SAT 95
== END 2022-07-10 11:39 | disposition home or self-care (01) ==
PROVIDERS: Emergency Provider Emergency Medicine; PCP Student in an Organized Health Care Education/Training Program
DX: K57.92 Diverticulitis of intestine, part unspecified, without perforation or abscess without bleeding (principal); I10 Essential (primary) hypertension; E78.5 Hyperlipidemia, unspecified; E11.319 Type 2 diabetes mellitus with unspecified diabetic retinopathy without macular edema; Z86.16 Personal history of COVID-19
CPT/HCPCS: 36415; 80053; 83690; 96360; 99285; 74177; 85025; 99284; J3490

== ENCOUNTER 2022-07-29 06:19 | Day surgery (SDC) | payer MEDICARE, SELFPAY ==
[2022-07-29 06:20] VITALS: BP 129/92; PULSE 91; RESP 18; TEMP 36.4; O2SAT 96
[2022-07-29] MEDS: Lactated Ringers 1,000 ML 80 ML IV (06:35)
--- NOTE | 2022-07-29 06:44 | ANES.PREOP_ITS ---
General Info Date of Service Date Performed: 07/29/22 Height: 5 ft 4 in Weight: 107.9 kg Body Mass Index (BMI): 40.8 Surgical Procedure: Operation Date: 07/29/22 07:40 Proposed Procedure Side Surgeon p Wrist ECTR Right Virgilio Pederson MD Meds Allergies and Home Medications Allergies Allergy/AdvReac Type Severity Reaction Status Date / Time venlafaxine Allergy Verified 07/29/22 06:26 milk AdvReac Intermediate Diarrhea Verified 07/29/22 06:26 sertraline AdvReac Intermediate per pt Verified 07/29/22 06:26 tingling in arm and jaw pain goldenrod Allergy Uncoded 07/29/22 06:26 multivitamin AdvReac Intermediate causes Uncoded 07/29/22 06:26 chest pressure Home Medication Medication Instructions Recorded cholecalciferol (vitamin D3) 25 1,000 unit PO DAILY 03/25/15 mcg (1,000 unit) capsule (Vitamin D3) calcium carb-Ca gluc 500 mg 1 ea PO DAILY ##3 03/30/16 calcium-magnesium ox-Mg gluc 250 mg tablet (Calcium Magnesium) omega-3 fatty acids-fish oil 684 1 ea PO DAILY ##1 03/30/16 mg-1,200 mg capsule,delayed release (One-Per-Day [place]-3) clotrimazole 1 % topical cream 1 applic topical BID PRN tessy 07/16/19 dermatitis #90 grams blood-glucose meter #1 ea 10/29/19 lancets 30 gauge #200 ea 10/29/19 mometasone 0.1 % topical solution 1 applic topical DAILY PRN skin 04/23/21 irritation #1 mL acetaminophen 500 mg tablet 500 mg PO Q6H PRN pain #60 tabs 09/28/21 ibuprofen 600 mg tablet 600 mg PO TID PRN pain #60 tabs 09/28/21 levothyroxine 50 mcg tablet 50 mcg PO DAILY #90 tab-caps 10/01/21 Blood Glucose Test (blood sugar #200 ea 10/29/21 diagnostic) propranolol 160 mg capsule,24 160 mg PO DAILY #90 caps 04/25/22 hr,extended release pen needle, diabetic 31 gauge x #100 ea 06/10/2212/13 (Comfort EZ Pen [place]) rosuvastatin 5 mg tablet See Rx Instructions .Route 07/02/22 .COMPLEX #90 tabs insulin glargine 100 unit/mL (3 10 unit (0.1 mL) subcut DAILY #15 07/15/22 mL) subcutaneous pen mL garlic 300 mg tablet 300 mg PO DAILY 07/27/22 liraglutide 0.6 mg/0.1 mL (18 mg/3 1.8 mg subcut DAILY for DM, E11.9, 07/27/22 mL) subcutaneous pen injector to maintain A1C < 8 (Victoza 2-Frankie) losartan 25 mg tablet 25 mg PO HS 07/27/22 Current Visit Medications: Current Medications Generic Name Dose Route Start Last Admin Trade Name Freq PRN Reason Stop Dose Admin Ringer's Solution 1,000 mls @ 80 mls/hr 07/29/22 06:00 IV 08/27/22 23:59 INFUSION ALESSANDRO Cefazolin Sodium/Dextrose 2 gm in 50 mls @ 100 mls/hr 07/29/22 06:00 Ancef Duplex IVPB 08/27/22 23:59 PREOP ALESSANDRO IV Miscellaneous Supplies 1 each 07/29/22 06:00 Iv Access IV 08/27/22 23:59 DIRECTED ALESSANDRO Sodium Chloride 0 ml 07/29/22 06:00 Normal Saline Flush 10 Ml Syr IV 08/27/22 23:59 PRN PRN Sodium Chloride 0 ml 07/29/22 06:00 Normal Saline 10 Ml Vial IJ 08/27/22 23:59 DIRECTED PRN Sterile Water 0 ml 07/29/22 06:00 Water,Injection,Sterile 10 Ml Vial IJ 08/27/22 23:59 DIRECTED PRN PFSH Active Problems Active Problems: Problem Status Onset Code Lung nodule seen on imaging study R91.1 Abdominal pain R10.9 Diverticulitis K57.92 Nail dystrophy L60.3 Spinal stenosis of lumbar region M48.061 Lumbar stenosis with neurogenic claudication M48.062 Sacroiliac joint dysfunction of both sides M53.3 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0 Medical History Medical History Actinic keratitis Left forehead, nose .. s/p Cryo. Blistered, but improving. Actinic keratosis (~06/2021) 07/14/21 liquid nitrogen treament - forearms,R quaker,face Carpal tunnel syndrome of right wrist Chronic low back pain Conductive hearing loss, external ear (10/03/13) Diabetic retinopathy of right eye (04/29/21) History of basal cell carcinoma (BCC) History of skin cancer in adulthood Hx lesion removed from cheek, [ ] notes/path. History of multiple benign nevi Hyperlipidemia (03/13/13) Independent for activity Cheryl values her independence .. discussed @ 10/01/21 OV 2' CTR surgery (urged her to cont with plan for rt hand now that lft is done.. mild, so she was wondering) .. back pain with (+) mri findings show eval/Tx is worthwhile earlier than later .. Exercising despite pain (stairs ok) helps DM, Vasc, HTN ++ Medication side effects SNRI increase (2020) seems to have brought on halluc (visual/audit).. [ ] add antipsych? mood stblzr? Pilar cyst SARS-CoV-2 positive (~12/03/21) Seborrheic keratoses Tremor Ulnar neuropathy at elbow of left upper extremity Medical History Comments:: Medication sensitive Surgical History Surgical History Carpal tunnel syndrome of left wrist s/p left ECTR DOS: 09/28/2021 H/O melanoma excision (08/24/21) right upper back S/P appendectomy S/P cataract surgery (08/14/17) S/P colonoscopy (08/20/21) 06/14/16 S/P FREDY-BSO (total abdominal hysterectomy and bilateral salpingo-oophorectomy) Status post total left knee replacement (01/01/19) Tobacco Smoking/Tobacco Use Status: Never Passive smoking exposure: No Second hand exposure: Yes Alcohol Alcohol Intake: never Substance Use Substance use: Never Substance use type: does not use Vital Signs and Lab Results Vital Signs Most Recent Vital Signs in EMR: Most Recent Vital Signs Temp Pulse Resp BP Pulse Ox 36.4 C L 91 H 18 129/92 H 96 07/29/22 06:20 07/29/22 06:20 07/29/22 06:20 07/29/22 06:20 07/29/22 06:20 Point of Care Results Point of Care Results: Finger Stick Blood Glucose 152 07/29/22 06:35 Lab Results Blood Type / Crossmatch: No Data to Display Complete Blood Count: White Blood Count 10.80 10^3/uL (4.4-10.8) 07/10/22 09:30 Red Blood Count 5.00 10^6/uL (3.93-5.22) 07/10/22 09:30 Hemoglobin 14.2 g/dL (11.2-15.7) 07/10/22 09:30 Hematocrit 42.6 % (36.0-46.0) 07/10/22 09:30 Platelet Count 236 10^3/uL (130-400) 07/10/22 09:30 Complete Metabolic Panel: Sodium 136 mmol/L (136-145) 07/10/22 09:30 Potassium 4.1 mmol/L (3.5-5.1) 07/10/22 09:30 Chloride 99 mmol/L (98-107) 07/10/22 09:30 Carbon Dioxide 28.6 mmol/L (21.0-32.0) 07/10/22 09:30 BUN 12 mg/dL (7-18) 07/10/22 09:30 Creatinine 0.7 mg/dL (0.55-1.02) 07/10/22 09:30 Est GFR (CKD-EPI 2020) 92.98 (mL/min/1.73m2) 07/10/22 09:30 Calcium 9.5 mg/dL (8.5-10.1) 07/10/22 09:30 Albumin 4.2 g/dL (3.4-5.0) 07/10/22 09:30 Glucose 163 mg/dL (74-106) H 07/10/22 09:30 Liver Function Panel: Alanine Aminotransferase (ALT/SGPT) 28 U/L (14-59) 07/10/22 09: 30 Aspartate Amino Transf (AST/SGOT) 27 U/L (15-37) 07/10/22 09:30 Coagulation Panel: No Data to Display Cardiac Panel: No Data to Display Arterial Blood Gas: No Data to Display Venous Blood Gas: No Data to Display Pancreas Panel: Lipase 101 U/L (73-393) 07/10/22 09:30 Thyroid Panel: No Data to Display Infectious Disease: No Data to Display Blood Cultures: No Data to Display Toxicology Panel: No Data to Display Imaging and Studies Imaging and Studies Study information below may be from another EMR and interpreted by another provider. Please see original notes in EMR for more complete details. Stress Test Summary: Impressions: Normal perfusion by [id number] Sestamibi Imaging. Summary: 1. Myocardial perfusion imaging: No myocardial perfusion defects noted. 2. The calculated left ventricular ejection fraction after stress: 67%. No left ventricular regional motion abnormality. 06/18/18 Carotid Artery Summary:: CONCLUSION: No evidence of a hemodynamically significant carotid stenosis. Vertebral arteries show antegrade flow bilaterally. 06/13/18 Anesthesia Assessment and Plan Anesthesia History Personal History: No History of Anesthesia Complications Family History: No Family History of Anesthesia Complications Exercise Tolerance Exercise Tolerance: Metabolic Equivalents>4 Pertinent Negatives Pertinent Negatives: No Symptoms of GERD, No Major Cardiovascular Symptoms or Complaints, No Major Pulmonary Symptoms or Complaints and No History of CVA/TIA Cardiac & Pulmonary Exam Cardiac Exam: Normal S1/S2 Heart Sounds Pulmonary Exam: Clear Bilateral Breath Sounds Implantable Cardiac Device Does patient have a Pacemaker or an ICD?: No Airway Exam Known Difficult Airway: No Mallampati Class: 2 Mouth Opening: Normal (> 3cm) Thyromental Distance: Greater than 3 cm Neck Range of Motion: Full ROM Neck Circumference: Normal Teeth Condition: Normal Dentition ASA Classification ASA Score: ASA 3 Emergency Case?: No NPO Status NPO Status: NPO Clears >2 hours, Solids >8 hours Anesthesia Plan Resuscitation Status: Full Code Anesthesia Technique: General Anesthesia Airway Planned: Natural Airway Monitors Used: Standard Monitors
[2022-07-29 07:16] VITALS: BMI 40.8
--- NOTE | 2022-07-29 07:20 | W.PREOPHP ---
Assessment and Plan Assessment and plan (1) Bilateral carpal tunnel syndrome: Status: Acute Assessment and plan: Cheryl is a 72-year-old with right-sided carpal tunnel syndrome. She is here today for carpal tunnel release. I discussed the technical details of carpal tunnel release and that I perform an endoscopic release, but would make a larger, open, incision if necessary for visualization. I discussed the risks of the procedure to include, but not limited to, bleeding, infection, palmar pain, stiffness, damage to nerves, damage to vessels, damage to tendons, weakness, recurrence, and incomplete release. Given these risks, Cheryl desires to proceed. History of Present Illness History of Present Illness Chief Complaint: Right carpal tunnel syndrome Narrative: Cheryl presents today for her right carpal tunnel. See the previous office note on 1120 for complete detailed history. She has study proven carpal tunnel syndrome on the right side. She has failed other nonoperative options. She is here today for carpal tunnel release. Her initial surgical date was postponed due to a bout of suspected diverticulitis which has resolved. She has completed antibiotics. She has no further abdominal pain she has no fevers no chills. She has no shortness of breath or chest pain. She continues have numbness and tingling about the median nerve distribution of the right hand. Review of Systems All systems reviewed & are unremarkable except as noted in HPI and below PFSH All Active Problems Lung nodule seen on imaging study (Acute) Abdominal pain (Acute) Diverticulitis (Chronic) Nail dystrophy (Acute) Spinal stenosis of lumbar region (Acute) MRI shows yarelis @ L3-L4, with mod-sev CTL SP CANAL STENOSIS (09/2019).. Rt L4 nerve root compression. Lumbar stenosis with neurogenic claudication (Acute) Sacroiliac joint dysfunction of both sides (Acute) Impairment of speech discrimination (Acute) Asymmetrical sensorineural hearing loss (Acute) Impacted cerumen, bilateral (Acute) New onset headache (Acute) Frequent headaches (Acute) Hypothyroidism (Chronic 03/13/13) Occipital headache (Acute) New headache .. due to back pain? pillow? 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 Cubital tunnel syndrome on left (Acute) Bilateral carpal tunnel syndrome (Acute) Left CTR. [ ] Rt CTR?? Melanoma in situ of back (Acute 07/2021) Weight loss (Acute) Diverticulosis of colon (Chronic) Hyperplastic colon polyp (Acute) Family history of colon cancer in mother (Acute) Mo rectal ca @ 58yo... Generalized anxiety disorder (Chronic) Major depressive disorder (Chronic) ADHD, predominantly inattentive type (Chronic) Medical History Actinic keratitis Left forehead, nose .. s/p Cryo. Blistered, but improving. Actinic keratosis (~06/2021) 07/14/21 liquid nitrogen treament - forearms,R congregation,face Carpal tunnel syndrome of right wrist Chronic low back pain Conductive hearing loss, external ear (10/03/13) Diabetic retinopathy of right eye (04/29/21) History of basal cell carcinoma (BCC) History of skin cancer in adulthood Hx lesion removed from cheek, [ ] notes/path. History of multiple benign nevi Hyperlipidemia (03/13/13) Independent for activity Cheryl values her independence .. discussed @ 10/01/21 OV 2' CTR surgery (urged her to cont with plan for rt hand now that lft is done.. mild, so she was wondering) .. back pain with (+) mri findings show eval/Tx is worthwhile earlier than later .. Exercising despite pain (stairs ok) helps DM, Vasc, HTN ++ Medication side effects SNRI increase (2020) seems to have brought on halluc (visual/audit).. [ ] add antipsych? mood stblzr? Pilar cyst SARS-CoV-2 positive (~12/03/21) Seborrheic keratoses Tremor Ulnar neuropathy at elbow of left upper extremity Surgical History Carpal tunnel syndrome of left wrist s/p left ECTR DOS: 09/28/2021 H/O melanoma excision (08/24/21) right upper back S/P appendectomy S/P cataract surgery (08/14/17) S/P colonoscopy (08/20/21) 06/14/16 S/P FREDY-BSO (total abdominal hysterectomy and bilateral salpingo-oophorectomy) Status post total left knee replacement (01/01/19) Family History Mother , at 58 Colon cancer Hypertension Father Depression Sister Alcohol abuse Brother , at 58 Pancreatic cancer metastasized to liver Brother Low back pain Alcohol abuse Son No problems noted. Daughter No problems noted. Daughter No problems noted. Daughter Type 1 diabetes mellitus Bipolar disorder Maternal Grandmother , at 80 Stroke Heart disease Maternal Grandfather , at 53 Heart disease Myocardial infarction Paternal Grandfather , at 87 No problems noted. Paternal Grandmother , at 80 of P.E. Pulmonary embolism Rheumatoid arthritis Maternal Aunt Colon cancer Diabetes Social History Smoking/Tobacco Use Status: Never Second Hand Exposure: Yes Smoking risk assessment performed?: Yes Alcohol Intake: never Drug use: Never Substance use type: does not use Adopted: No Caregiver/Support person: No Foster care: No Household members: family and other Details: 2 Housing: house Number of Children: 4 number of grandchildren: 9 Communication Needs: None Education Level: college Details: Bachelor's Degree Do you need help understanding health information?: Rarely current occupation: Retired Pets and animals: Yes Pets and animals: cat(s) Sexually active: No Do you think of yourself as: straight/heterosexual Current gender identity: female What is your relationship status?: How often do you talk on the phone with friends or family?: twice per week How often do you get together with friends or relatives?: once per week How often do you attend christian or holiness services?: 4 or more times per year Do you belong to any clubs or organized social groups?: yes Panel score (0-1 are the most socially isolated patients): 3 What type of physical activity do you participate in: none Frequency: does not exercise Mamie/Shinto: Episcopal Special mamie needs: No Seatbelt use: sometimes 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: No Do you feel safe at home: Yes Do you feel safe in your relationship?: Yes Victim of physical abuse: No Victim of emotional abuse: Yes Victim of sexual abuse: No Would you like helpful sources: No Meds Allergies and Home Medications Allergies Allergy/AdvReac Type Severity Reaction Status Date / Time venlafaxine Allergy Verified 07/29/22 06:26 milk AdvReac Intermediate Diarrhea Verified 07/29/22 06:26 sertraline AdvReac Intermediate per pt Verified 07/29/22 06:26 tingling in arm and jaw pain goldenrod Allergy Uncoded 07/29/22 06:26 multivitamin AdvReac Intermediate causes Uncoded 07/29/22 06:26 chest pressure Home Medications Medication Instructions Recorded Confirmed Type cholecalciferol (vitamin D3) 25 1,000 unit PO DAILY 03/25/15 07/29/22 History mcg (1,000 unit) capsule (Vitamin D3) calcium carb-Ca gluc 500 mg 1 ea PO DAILY ##3 03/30/16 07/29/22 History calcium-magnesium ox-Mg gluc 250 mg tablet (Calcium Magnesium) omega-3 fatty acids-fish oil 684 1 ea PO DAILY ##1 03/30/16 07/29/22 History mg-1,200 mg capsule,delayed release (One-Per-Day [place]-3) clotrimazole 1 % topical cream 1 applic topical BID PRN tessy 07/16/19 07/29/22 Rx dermatitis #90 grams blood-glucose meter #1 ea 10/29/19 07/27/22 Rx lancets 30 gauge #200 ea 10/29/19 07/27/22 Rx mometasone 0.1 % topical solution 1 applic topical DAILY PRN skin 04/23/21 07/29/22 Rx irritation #1 mL acetaminophen 500 mg tablet 500 mg PO Q6H PRN pain #60 tabs 09/28/21 07/29/22 Rx ibuprofen 600 mg tablet 600 mg PO TID PRN pain #60 tabs 09/28/21 07/29/22 Rx levothyroxine 50 mcg tablet 50 mcg PO DAILY #90 tab-caps 10/01/21 07/29/22 Rx Blood Glucose Test (blood sugar #200 ea 10/29/21 07/27/22 Rx diagnostic) propranolol 160 mg capsule,24 160 mg PO DAILY #90 caps 04/25/22 07/29/22 Rx hr,extended release pen needle, diabetic 31 gauge x #100 ea 11/11/22 12/28/22 Rx 5/16 (Comfort EZ Pen [place]) rosuvastatin 5 mg tablet See Rx Instructions .Route 07/02/22 07/29/22 Rx .COMPLEX #90 tabs insulin glargine 100 unit/mL (3 10 unit (0.1 mL) subcut DAILY #15 07/15/22 07/15/22 Rx mL) subcutaneous pen mL garlic 300 mg tablet 300 mg PO DAILY 07/27/22 07/29/22 History liraglutide 0.6 mg/0.1 mL (18 mg/3 1.8 mg subcut DAILY for DM, E11.9, 07/27/22 07/29/22 History mL) subcutaneous pen injector to maintain A1C < 8 (Victoza 2-Frankie) losartan 25 mg tablet 25 mg PO HS 07/27/22 07/29/22 History Exam Const General: cooperative, healthy appearing, comfortable and no acute distress Resp Auscultation: clear to auscultation bilaterally Cardio Rate: regular rate Rhythm: regular rhythm Results Last Vital Signs Temp 36.4 C L 07/29/22 06:20 Pulse 91 H 07/29/22 06:20 Resp 18 07/29/22 06:20 BP 129/92 H 07/29/22 06:20 Pulse Ox 96 07/29/22 06:20
--- NOTE | 2022-07-29 07:22 | W.PM.DSUDISC ---
Date of service: 07/29/22 Time of Service: 07:23 Discharge Plan Disposition Patient Disposition: Home Condition: Good Discharge Details Reason For Visit: Right carpal tunnel syndrome Attending Provider: Virgilio Pederson Primary Care Provider: April Mason Home Meds and New Rx's Prescriptions: Continued clotrimazole 1 % cream 1 applic Topical BID PRN (Reason: tessy dermatitis) Qty: 90 0RF Rx Instructions: Apply dime sized amount to left breast fold twice a day levothyroxine 50 mcg tablet 50 mcg PO DAILY Qty: 90 3RF (DME) pen needle, diabetic [Comfort EZ Pen [place]] 31 gauge x 5/16 needle See Rx Instructions .Route Qty: 100 3RF Rx Instructions: to administer victoza injections daily, please use only needle pt prefers or insurance pays for. DX DM E11.9 insulin glargine 100 unit/mL (3 mL) insulin pen 10 unit subcut DAILY Qty: 15 1RF (DME) blood-glucose meter Misc See Rx Instructions .ROUTE .MEDSUPPLY Qty: 1 0RF Rx Instructions: As directed (DME) lancets 30 gauge misc See Rx Instructions .ROUTE .MEDSUPPLY Qty: 200 0RF Rx Instructions: Twice daily mometasone 0.1 % solution 1 applic Topical DAILY PRN (Reason: skin irritation) Qty: 1 1RF (DME) Blood Glucose Test Strip See Rx Instructions .ROUTE .MEDSUPPLY Qty: 200 3RF Rx Instructions: Twice daily propranolol 160 mg capsule,extended release 24 hr 160 mg PO DAILY Qty: 90 3RF cholecalciferol (vitamin D3) [Vitamin D3] 1,000 UNIT capsule 1,000 unit PO DAILY One-Per-Day [place]-3 1 EACH capsule,delayed release(DR/EC) 1 ea PO DAILY Qty: 1 Calcium Magnesium 1 EACH tablet 1 ea PO DAILY Qty: 3 rosuvastatin 5 mg tablet See Rx Instructions .ROUTE .COMPLEX Qty: 90 3RF Dose Instruction: TAKE 1 TABLET DAILY Rx Instructions: TAKE 1 TABLET DAILY acetaminophen 500 mg tablet 500 mg PO Q6H PRN (Reason: pain) Qty: 60 2RF ibuprofen 600 mg tablet 600 mg PO TID PRN (Reason: pain) Qty: 60 0RF Victoza 2-Frankie 0.6 mg/0.1 mL (18 mg/3 mL) pen injector 1.8 mg subcut DAILY Rx Instructions: Increasing dose, due to good initial results and tolerance. garlic 300 mg Tablet 300 mg PO DAILY losartan 25 mg tablet 25 mg PO HS Rx Instructions: Continue Discharge Instructions Stand Alone Forms: Bg Olmos Tunnel Release Referrals: Virgilio Pederson MD [ [facility] STAFF PHYSICIAN] - Activity:: Elevate Remove Dressings/Wound Care:: 48 hours Shower/Bathe:: 48 hours Diet:: As Tolerated Discharge Orders Discharge Orders: Discharge Order (Routine); Ordered 07/29/22 Ordered By: Judy Pena
[2022-07-29] MEDS: ceFAZolin 2 GM/50 ML BAG IVPB (07:26)
[2022-07-29] MEDS: Lidocaine 1% Pres-Free W/EPI 1/200,000 10 ML VIAL (07:33)
[2022-07-29 07:43] VITALS: BP 114/76; PULSE 86; RESP 20; TEMP 36.4; O2SAT 94
--- NOTE | 2022-07-29 08:23 | W.ANESPOSTOP ---
Postoperative Evaluation Date, Time and Location Date Performed: 07/29/22 Time Performed: 08:15 Patient Location: Day Surgery Unit Vital Signs Most Recent Imported Vital Signs: Most Recent Vital Signs Temp Pulse Resp BP Pulse Ox 36.4 C L 86 20 114/76 94 07/29/22 07:43 07/29/22 07:43 07/29/22 07:43 07/29/22 07:43 07/29/22 07:43 Pain Score Most Recent Pain Score: Most Recent Pain Score Pain Level 0 07/29/22 07:43 Assessment Mental Status: Awake (Alert & Oriented to Patient Baseline) Airway and Respiratory Function: Patent airway with normal (patient baseline) respiratory exam Cardiovascular Function: Hemodynamically Stable Hydration Status: Adequately Hydrated Nausea & Vomiting: No Nausea or Vomiting Pain: Pt. Denies Any Pain Peripheral Nerve Block: Patient did not receive a nerve block
[2022-07-29 08:30] VITALS: BP 124/83; PULSE 82; RESP 18; TEMP 36.4; O2SAT 95
--- NOTE | 2022-07-29 11:24 | ROE_ITS ---
Date of service: 07/29/22 Time of Service: 11:24 Operative Note Operative Note DATE OF PROCEDURE: 07/29/22 PRE-OP DIAGNOSIS: Right Carpal Tunnel Syndrome POST-OP DIAGNOSIS: same PROCEDURE: Right Endoscopic Carpal Tunnel Release SURGEON: Virgilio Pederson ANESTHESIA TYPE: General:No Airway Refer to Anesthesia Record ESTIMATED BLOOD LOSS: 0 PATHOLOGY: none sent TOURNIQUET TIME: 6 COMPLICATIONS: None Patient was transported to: same day Patient's condition: stable Indications: I have seen Cheryl in clinic for symptoms of carpal tunnel syndrome. The numbness, tingling, and pain limited function. Clinical exam findings with nerve conduction tests confirmed the diagnosis of carpal tunnel syndrome. Nonoperative measures such as bracing, time, activity modifications had been tried but disability and pain persisted. I discussed carpal tunnel release with the patient. I reviewed the risks of the procedure to include, but not limited to, bleeding, infection, pain, stiffness, incomplete release, damage to nerves or vessels, persistent numbness, recurrence. Despite these risks, the patient elected to proceed. Findings: There was tightened carpal tunnel. This was dilated and released successfully with the endoscopic with increased space within the tunnel. The antebrachial fascia was released proximally freeing the median nerve at the wrist. Procedure Description: Cheryl was greeted in the preoperative holding area where the correct side was identified and marked. The consent was reviewed with the patient and signed. The history and physical was updated. All questions were answered. She was taken back to the operating room. The patient was placed into the supine position on the operating room table with the right arm on an arm board. A nonsterile tourniquet was placed high onto the arm. All bony prominences were well padded. Prophylactic antibiotics in the form of Cefazolin were administered. The right arm was then prepped with Chloraprep and draped in a standard fashion with stockinette and extremity drape. A timeout to confirm correct identity, side and site, procedure, allergies, anesthesia, and medical concerns was performed. The surgical site was marked in the volar wrist creases in line with the radial border of the fourth ray. This area was anesthetized with approximately 6cc of 1% Lidocaine. The limb was then exsanguinated with an Esmarch. The skin was incised with a 15 blade, approximately 1cm. The skin only was cut and the deeper tissue was dissected bluntly with a tenotomy scissor, avoiding passing nerve and venous structures. The fascia was penetrated and opened bluntly. A two-prong skin hook was placed under this proximal fascial edge. A series of hamate finders were used to identify and dilate the carpal tunnel. Synovial elevator was used to free synovial attachments to the underside of the transverse carpal ligament. My thumb was kept in the palm to skye the distal extent of the carpal tunnel and correctly position the hand. The Microaire e ndoscope was inserted without difficulty and without resistance. Excellent visualization showed horizontally running fibers of the transverse carpal ligament (TCL). The distal extent of the TCL was visualized and the end of the scope palpated with the thumb. The blade was elevated and withdrawn from distal to proximal. The TCL was split into two flaps. The endoscope was reinserted to confirm complete release and any remnant ligament was incised. The scope was withdrawn and the proximal aspect of the carpal tunnel was grossly inspected and appeared release with the median nerve visible. The antebrachial fascia at the level of the wrist was then freed from the overlying skin and then the underlying median nerve with blunt dissection. This was transected longitudinally for about 3cm proximal to the wrist incision. The wound was then irrigated with easy flow of irrigant distally and proximally. The incision was closed with a single 4-0 Nylon suture. The wound was dressed with Xeroform, Gauze, Kerlix and Fermin. The tourniquet was deflated with the initial dressing and held with some pressure. Blood flow returned easily to all digits with capillary refill less than 2 seconds. The patient tolerated the procedure well and was returned to the Same Day Surgery area in a stable condition suffering no known complication.
== END 2022-07-29 08:50 | disposition home or self-care (01) ==
PROVIDERS: PCP Student in an Organized Health Care Education/Training Program; Visit Provider Student in an Organized Health Care Education/Training Program
PROC: 01N54ZZ Release Median Nerve, Percutaneous Endoscopic Approach (ICD-10-PCS; CPT 29848; principal; 2022-07-29 07:30)
DX: G56.01 Carpal tunnel syndrome, right upper limb (principal); I10 Essential (primary) hypertension; E11.9 Type 2 diabetes mellitus without complications; Z79.4 Long term (current) use of insulin
CPT/HCPCS: 29848; J0690; J1100; J1885; J2405

== ENCOUNTER 2022-08-02 01:27 | Outpatient (CLI) | payer MEDICARE, SELFPAY ==
--- NOTE | 2022-08-02 07:00 | DI.CT_ITS ---
Exam(s) CT CHEST WO EXAM: CT CHEST WO CLINICAL HISTORY: evaluate size/location of node for biopsy,lung nodule, r91.1. TECHNIQUE: Multi planar reconstructions were performed. CONTRAST MATERIAL: None COMPARISON: CT CT ABDOMEN PELVIS W from 07/10/2022 FINDINGS: CHEST: LUNGS: The left lung the recently described left lower lobe lobulated 2.7 x 1.9 cm mass is again note d, unchanged, and 5 millimeter nodule in right lower lobe is also unchanged. There are no new additi onal nodules in either lung field. No pleural effusions. No confluent infiltrates. No focal findin gs in the trachea and mainstem bronchi. MEDIASTINUM: There is no obvious hilar nor mediastinal adenopathy. Visualized thyroid unremarkable.No obvious axillary adenopathy CARDIAC: Heart size is normal. There is no pericardial effusion.Caliber of the thoracic aorta is wit hin normal limits. VISUALIZED UPPER ABDOMEN:Cholelithiasis again noted. No adrenal masses. Pancreatic calcifications a re noted OSSEOUS: No significant osseous lesions.No fractures. IMPRESSION: 1. There is again noted a lobulated 2.7 x 1.9 cm noncalcified nodule in the left lower located approx imately 2 cm in from the pleural surface, unchanged in size and configuration from the uppermost imag es of the abdominal CT scan of 07/10/2022. There are no other nodules in the left lung. 2. There is a smaller 5 millimeter noncalcified nodule in the right lower lobe again noted with no n ew additional right lung findings. 3. No pleural effusions nor obvious intrathoracic adenopathy. No significant osseous lesions identified. RADIATION DOSE DELIVERED: 727.43mGy.cm Total DLP DATA REPOSITORY: All CT scans at this facility are submitted to the National Radiology Data Registry (NRDR) Dose Index Registry (DIR) with the [employer] ([employer]). RADIATION OPTIMIZATION: All CT scans at this facility use at least one of these dose optimization te chniques: automated exposure control; mA and/or kV adjustment per patient size (includes targeted exa ms where dose is matched to clinical indication); or iterative reconstruction.
== END 2022-08-02 01:47 ==
PROVIDERS: PCP Student in an Organized Health Care Education/Training Program; Visit Provider Student in an Organized Health Care Education/Training Program
DX: R91.1 Solitary pulmonary nodule (principal)
CPT/HCPCS: 71250

== ENCOUNTER → 2022-08-03 11:09 | Outpatient (BNVA) | payer MEDICARE, SELFPAY | PROVIDERS: PCP Student in an Organized Health Care Education/Training Program; Referring Provider Student in an Organized Health Care Education/Training Program; Visit Provider Psychiatry & Neurology Neurology | DX: G25.0 Essential tremor (principal); M48.062 Spinal stenosis, lumbar region with neurogenic claudication; R51.9 Headache, unspecified | CPT/HCPCS: 99214 ==

== ENCOUNTER → 2022-08-05 11:38 | Outpatient (BNVA) | payer MEDICARE, SELFPAY | PROVIDERS: PCP Student in an Organized Health Care Education/Training Program; Referring Provider Student in an Organized Health Care Education/Training Program; Visit Provider Student in an Organized Health Care Education/Training Program | DX: Z47.89 Encounter for other orthopedic aftercare (principal); G56.01 Carpal tunnel syndrome, right upper limb ==

== ENCOUNTER 2022-08-25 10:29 | Outpatient (CLI) | payer MEDICARE, SELFPAY ==
--- NOTE | 2022-08-25 06:00 | DI.RAD_ITS ---
Exam(s) XR PAIN CLINIC SACRIOILIAC 2V EXAM: XR PAIN CLINIC SACRIOILIAC 2V CLINICAL HISTORY: Dx: Sacroiliac Joint Dysfunction TECHNIQUE: 2D and realtime digital imaging was performed. Radiologist not present. CONTRAST MATERIAL: None. COMPARISON: No exams were available for comparison FINDINGS: Fluoroscopy was provided for pain management therapy. Please refer to procedure report or details. Sacroiliac joint injections Radiation Exposure Index: Ka,r=13.40 mGy IMPRESSION: As above. RADIATION DOSE DELIVERED:
[2022-08-25 10:58] VITALS: BP 141/87; PULSE 86; RESP 20; TEMP 36.9; O2SAT 97
[2022-08-25 11:35] VITALS: BP 132/83; PULSE 81; RESP 15; O2SAT 96
[2022-08-25] MEDS: Omnipaque 240 MG/ML 50 ML BTL IJ (11:43)
[2022-08-25] MEDS: methylPREDNISolone ACETATE 80 MG/ML VIAL IJ (11:43)
--- NOTE | 2022-08-25 11:48 | PDOC.PAIN ---
Date of service: 08/25/22 Time of Service: 11:51 Pain Clinic Procedure Note Procedure Note Procedure Note: INTRA-ARTICULAR SI JOINT INJECTION Cheryl Zarate has been referred to the [facility] for intra-articular SI joint injection. COMMENTS: She was previously evaluated in our clinic. Pre-procedure pain VAS was 2/10. Dx: Bilateral sacroiliac joint dysfunction Patient was interviewed and the medical record reviewed. There were no medical, pharmacologic, radiographic or other structural contraindications to attempting fluoroscopically guided intra-articular SI joint injection. Risks and expected side effects as well as potential benefit of the procedure were reviewed and voiced concerns addressed. The printed consent form was signed and witnessed. Standard time-out procedure was performed. Patient was placed in the prone position on the fluoroscopy table and automated blood pressure cuff and pulse oximeter applied. The skin entry point for approaching the bilateral SI joints was identified under the most advantageous fluoroscopic view and marked. Following thorough Chlorhexadine preparation of the skin and draping and 1% lidocaine infiltration of the skin entry point and subcutaneous tissues, a 22 gauge spinal needle was placed under fluoroscopic guidance into the bilateral SI joints was identified under the most advantageous fluoroscopic view and marked. Intra-articular placement was confirmed by a clear arthrogram resulting from the injection of 0.25ml Omnipaque 240, 1ml 1% lidocaine, and 40mg Depomedrol were injected intra-articularily with an initial reproduction of a significant component of the usual pain. Vital signs were stable throughout the procedure and were as recorded in the docflowsheet by the nursing staff. If given, dosages of intravenous drugs for anxiolysis and analgesia were documented in MAR. Follow up plans and appointments were discussed with the patient. Post procedure instruction was given as documented in nursing documentation and having met discharge criteria, and was discharged from the [facility]. COMMENTS: Post-procedure pain VAS was 0/10. Nolan Lindsey DO, MPH [facility] CC: April Mason DO
== END 2022-08-25 10:30 | disposition home or self-care (01) ==
LOC: PC 10:29
PROVIDERS: PCP Student in an Organized Health Care Education/Training Program; Visit Provider Preventive Medicine Occupational Medicine
DX: M53.3 Sacrococcygeal disorders, not elsewhere classified (principal); M54.50 Low back pain, unspecified
CPT/HCPCS: 27096; 72200; J1040; Q9967

== ENCOUNTER 2022-10-06 01:28 | Outpatient (CLI) | payer MEDICARE, SELFPAY ==
--- NOTE | 2022-10-06 11:57 | DI.MAMMO_ITS ---
Exam(s) MAMMO SCREENING EXAM: MAMMO SCREENING CLINICAL HISTORY: screening,z12.39 TECHNIQUE: Mammograms were interpreted according to the usual protocol including computer analysis w [employer] CAD system, tomosynthesis and C-view imaging. COMPARISON: 2012 through 2020 FINDINGS: The breasts are composed of mainly fatty density , Breast Density category A. No suspicious masses or suspicious microcalcifications are seen. No skin thickening or abnormal axillary lymph nodes are seen. There has been no significant change from prior exams. IMPRESSION: BI-RADS Category 1, Negative mammogram Yearly screening mammography is recommended. Breast Density - Category A, fatty density. A negative radiographic report should not delay biopsy if a dominant or clinically suspicious mass is present. Up to ten percent of cancers are not identified on mammography. A negative report may reinforce clinical impression. Adenosis and dense breasts may obscure an underlying neoplasm. False positive reports average 6 to 10%. Patient will receive a letter notifying them of these results.
== END 2022-10-06 01:48 ==
LOC: DI 01:28
PROVIDERS: PCP Student in an Organized Health Care Education/Training Program; Visit Provider Student in an Organized Health Care Education/Training Program
DX: Z12.31 Encounter for screening mammogram for malignant neoplasm of breast (principal); R92.8 Other abnormal and inconclusive findings on diagnostic imaging of breast
CPT/HCPCS: 77063; 77067

== ENCOUNTER 2023-01-01 11:31 | Emergency (ER) | payer MEDICARE, SELFPAY ==
[2023-01-01 11:34] VITALS: BP 135/87; PULSE 82; RESP 14; TEMP 36.7; O2SAT 96
--- NOTE | 2023-01-01 12:11 | W.ED.GENAD ---
Discharge Plan Disposition Patient Disposition: Home Condition: Stable Discharge Details Clinical Impression: Tick bite of left foot, Tick bite of right thigh, Erythema migrans (Lyme disease) Primary Care Provider: April Mason ED Provider: Geovani Frank Home Meds and New Rx's Prescriptions: New doxycycline hyclate 100 mg tablet 100 mg PO BID Qty: 40 0RF Continued clotrimazole 1 % cream 1 applic Topical BID PRN (Reason: tessy dermatitis) Qty: 90 0RF Rx Instructions: Apply dime sized amount to left breast fold twice a day (DME) pen needle, diabetic [Comfort EZ Pen Tony] 31 gauge x 5/16 needle See Rx Instructions .Route Qty: 100 3RF Rx Instructions: to administer victoza injections daily, please use only needle pt prefers or insurance pays for. DX DM E11.9 dietary supplement Capsule PO Patient Comments: Pt states she is taking Jim for allergies.HE berberine-herbal comb no.18 Capsule PO BID Patient Comments: blood sugar.HE gabapentin 300 mg capsule 300 mg PO QHS Qty: 90 1RF Rx Instructions: Trial increased dose, 300mg capsule (DME) blood-glucose meter Mis See Rx Instructions .ROUTE .MEDSUPPLY Qty: 1 0RF Rx Instructions: As directed mometasone 0.1 % solution 1 applic Topical DAILY PRN (Reason: skin irritation) Qty: 1 1RF (DME) Blood Glucose Test Strip See Rx Instructions .ROUTE .MEDSUPPLY Qty: 200 3RF Rx Instructions: Twice daily propranolol 160 mg capsule,extended release 24 hr 160 mg PO DAILY Qty: 90 3RF cholecalciferol (vitamin D3) [Vitamin D3] 1,000 UNIT capsule 1,000 unit PO DAILY One-Per-Day [place]-3 1 EACH capsule,delayed release(DR/EC) 1 ea PO DAILY Qty: 1 Calcium Magnesium 1 EACH tablet 1 ea PO DAILY Qty: 3 levothyroxine 50 mcg tablet 50 mcg PO DAILY Qty: 90 3RF losartan 25 mg tablet 25 mg PO HS Qty: 90 3RF Rx Instructions: Continue for BP rosuvastatin 5 mg tablet See Rx Instructions .ROUTE .COMPLEX Qty: 90 3RF Dose Instruction: TAKE 1 TABLET DAILY Rx Instructions: TAKE 1 TABLET DAILY acetaminophen 500 mg tablet 500 mg PO Q6H PRN (Reason: pain) Qty: 60 2RF ibuprofen 600 mg tablet 600 mg PO TID PRN (Reason: pain) Qty: 60 0RF Victoza 2-Frankie 0.6 mg/0.1 mL (18 mg/3 mL) pen injector 1.8 mg subcut DAILY Rx Instructions: Increasing dose, due to good initial results and tolerance. garlic 300 mg Tablet 300 mg PO DAILY [id number] 160 mg-1,700 mcg DFE-60 mcg Tablet PO Discharge Instructions Instructions: Lyme Disease (ED), Tick Bite (ED) Additional Instructions: I am concerned that your tick bite rash is a result of Lyme disease. Please continue full course of antibiotic as prescribed. Please follow-up with your primary care physician and return to the ER immediately should you have any worsening or new concerning symptoms. Referrals: April Mason DO [Primary Care Provider] - Discharge Data Discharge Date/Time-TO BE ENTERED AT DEPARTURE: 01/01/23 13:25 Medical Decision Making 72-year-old female here after multiple tick bites, tick was biting right inner thigh for at least 3 days, now with rash consistent with erythema migrans. Concern for early Lyme's disease. EKG was reviewed and interpreted by me: Please see report, sinus rhythm 78 beats per minute, normal intervals with no block. Consider other tickborne disease. I will send tick panel. Plan to initiate treatment with doxycycline. Usual customary discharge instructions were reviewed. HPI General Mode of arrival: ambulatory. Date/Time Provider Initiated Documentation: 01/01/23 11:57. Limitations to Documentation: no limitations. Information obtained by: patient. HPI Narrative: 72-year-old female presents with chief complaint of tick bite. Patient notes multiple tick bites recently. She notes she removed a tick that was biting her left foot. She also notes tick that was biting her right proximal thigh. She states this tick was biting her for approximately 3 days before she was able to secure a tool to remove the tick. Patient now notes developing rash over the past couple days at thigh tick bite site. She also notes rash on her left low back that is itchy. She is concerned that she may have had a tick biting her there although she did not see one. She also raises concern for potential shingles as she has had this before. She denies associated paresthesias. No fever. No headache or neck stiffness. Related Data Home Medications Medication Instructions Recorded Confirmed cholecalciferol (vitamin D3) 25 1,000 unit PO DAILY 03/25/15 01/01/23 mcg (1,000 unit) capsule (Vitamin D3) calcium carb-Ca gluc 500 mg 1 ea PO DAILY ##3 03/30/16 01/01/23 calcium-magnesium ox-Mg gluc 250 mg tablet (Calcium Magnesium) omega-3 fatty acids-fish oil 684 1 ea PO DAILY ##1 03/30/16 01/01/23 mg-1,200 mg capsule,delayed release (One-Per-Day [place]-3) clotrimazole 1 % topical cream 1 applic topical BID PRN tessy 07/16/19 01/01/23 dermatitis #90 grams blood-glucose meter #1 ea 10/29/19 01/01/23 mometasone 0.1 % topical solution 1 applic topical DAILY PRN skin 04/23/21 01/01/23 irritation #1 mL acetaminophen 500 mg tablet 500 mg PO Q6H PRN pain #60 tabs 09/28/21 11/07/22 ibuprofen 600 mg tablet 600 mg PO TID PRN pain #60 tabs 09/28/21 01/01/23 Blood Glucose Test (blood sugar #200 ea 10/29/21 01/01/23 diagnostic) pen needle, diabetic 31 gauge x #100 ea 06/10/22 01/01/2312/13 (Comfort EZ Pen Tony) garlic 300 mg tablet 300 mg PO DAILY 07/27/22 01/01/23 liraglutide 0.6 mg/0.1 mL (18 mg/3 1.8 mg subcut DAILY for DM, E11.9, 07/27/22 01/01/23 mL) subcutaneous pen injector to maintain A1C < 8 (Victoza 2-Frankie) propranolol 160 mg capsule,24 160 mg PO DAILY #90 caps 08/03/22 01/01/23 hr,extended release iron 160 mg-folate 1,700 mcg tab PO 08/25/22 11/07/22 DFE-B12 60 mcg-vit G-sisdhr-bcwb tablet berberine-herbal comb no.18 capsule cap PO BID 10/13/22 11/07/22 dietary supplement cap PO allergy 10/13/22 11/07/22 gabapentin 300 mg capsule 300 mg PO QHS #90 caps 10/13/22 01/01/23 levothyroxine 50 mcg tablet 50 mcg PO DAILY #90 tab-caps 10/27/22 01/01/23 losartan 25 mg tablet 25 mg PO HS #90 tabs 10/27/22 01/01/23 rosuvastatin 5 mg tablet See Rx Instructions .Route 10/27/22 01/01/23 .COMPLEX #90 tabs doxycycline hyclate 100 mg tablet 100 mg PO BID #40 tabs 01/01/23 Previous Rx's Medication Instructions Recorded clotrimazole 1 % topical cream 1 applic topical BID PRN tessy 07/16/19 dermatitis #90 grams blood-glucose meter #1 ea 10/29/19 mometasone 0.1 % topical solution 1 applic topical DAILY PRN skin 04/23/21 irritation #1 mL acetaminophen 500 mg tablet 500 mg PO Q6H PRN pain #60 tabs 09/28/21 ibuprofen 600 mg tablet 600 mg PO TID PRN pain #60 tabs 09/28/21 Blood Glucose Test (blood sugar #200 ea 10/29/21 diagnostic) pen needle, diabetic 31 gauge x #100 ea 06/10/2212/13 (Comfort EZ Pen Tony) propranolol 160 mg capsule,24 160 mg PO DAILY #90 caps 08/03/22 hr,extended release gabapentin 300 mg capsule 300 mg PO QHS #90 caps 10/13/22 levothyroxine 50 mcg tablet 50 mcg PO DAILY #90 tab-caps 10/27/22 losartan 25 mg tablet 25 mg PO HS #90 tabs 10/27/22 rosuvastatin 5 mg tablet See Rx Instructions .Route 10/27/22 .COMPLEX #90 tabs doxycycline hyclate 100 mg tablet 100 mg PO BID #40 tabs 01/01/23 Allergies Allergy/AdvReac Type Severity Reaction Status Date / Time venlafaxine Allergy Verified 01/01/23 11:37 milk AdvReac Intermediate Diarrhea Verified 01/01/23 11:37 sertraline AdvReac Intermediate per pt Verified 01/01/23 11:37 tingling in arm and jaw pain goldenrod Allergy Uncoded 01/01/23 11:37 multivitamin AdvReac Intermediate causes Uncoded 01/01/23 11:37 chest pressure General Stated Complaint: RashLesion BRIDGET: 4 Review of Systems All systems reviewed & are unremarkable except as noted in HPI and below Constitutional Constitutional: Denies fever(s) PFSH All Active Problems (Updated 01/01/23 @ 12:52 by Geovani Frank MD) Tick bite of left foot (Acute) Tick bite of right thigh (Acute) Erythema migrans (Lyme disease) (Acute) Allergies (Acute) Chronic eczematous otitis externa of both ears (Acute) Per 07/19/22 [facility] [place] Otolaryngology note Lung nodule seen on imaging study (Acute) per PET 08/2022, possible hemartoma; per CT 07/2022 Nail dystrophy (Acute) Spinal stenosis of lumbar region (Acute) MRI shows yarelis @ L3-L4, with mod-sev CTL SP CANAL STENOSIS (09/2019).. Rt L4 nerve root compression. Lumbar stenosis with neurogenic claudication (Acute) Sacroiliac joint dysfunction of both sides (Acute) Impairment of speech discrimination (Acute) Asymmetrical sensorineural hearing loss (Acute) Impacted cerumen, bilateral (Acute) New onset headache (Acute) Frequent headaches (Acute) Hypothyroidism (Chronic 03/13/13) Occipital headache (Acute) New headache .. due to back pain? pillow? 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 Generalized anxiety disorder (Chronic) Major depressive disorder (Chronic) ADHD, predominantly inattentive type (Chronic) Medical History Actinic keratitis Left forehead, nose .. s/p Cryo. Blistered, but improving. Actinic keratosis (~06/2021) 07/14/21 liquid nitrogen treament - forearms,R orthodoxy,face Chronic low back pain Conductive hearing loss, external ear (10/03/13) Diabetic retinopathy of right eye (04/29/21) History of basal cell carcinoma (BCC) History of skin cancer in adulthood Hx lesion removed from cheek, [ ] notes/path. History of multiple benign nevi Hyperlipidemia (03/13/13) Independent for activity Cheryl values her independence .. discussed @ 10/01/21 OV 2' CTR surgery (urged her to cont with plan for rt hand now that lft is done.. mild, so she was wondering) .. back pain with (+) mri findings show eval/Tx is worthwhile earlier than later .. Exercising despite pain (stairs ok) helps DM, Vasc, HTN ++ Medication side effects SNRI increase (2020) seems to have brought on halluc (visual/audit).. [ ] add antipsych? mood stblzr? Pilar cyst SARS-CoV-2 positive (~12/03/21) Seborrheic keratoses Tremor Ulnar neuropathy at elbow of left upper extremity Surgical History Carpal tunnel syndrome of left wrist s/p left ECTR DOS: 09/28/2021 Carpal tunnel syndrome of right wrist S/P right ECTR: 07/29/2022 H/O melanoma excision (08/24/21) right upper back S/P appendectomy S/P cataract surgery (08/14/17) S/P colonoscopy (08/20/21) 06/14/16 S/P FREDY-BSO (total abdominal hysterectomy and bilateral salpingo-oophorectomy) Status post total left knee replacement (01/01/19) Family History Mother , at 58 Colon cancer Hypertension Father Depression Sister Alcohol abuse Brother , at 58 Pancreatic cancer metastasized to liver Brother Low back pain Alcohol abuse Son No problems noted. Daughter No problems noted. Daughter No problems noted. Daughter Type 1 diabetes mellitus Bipolar disorder Maternal Grandmother , at 80 Stroke Heart disease Maternal Grandfather , at 53 Heart disease Myocardial infarction Paternal Grandfather , at 87 No problems noted. Paternal Grandmother , at 80 of P.E. Pulmonary embolism Rheumatoid arthritis Maternal Aunt Colon cancer Diabetes Social History Smoking/Tobacco Use Status: Never Second Hand Exposure: Yes Smoking risk assessment performed?: Yes Alcohol Intake: never Drug use: Never Substance use type: does not use Adopted: No Caregiver/Support person: No Foster care: No Household members: family and other Details: 2 Housing: house Number of Children: 4 number of grandchildren: 9 Communication Needs: None Education Level: college Details: Bachelor's Degree Do you need help understanding health information?: Rarely current occupation: Retired Pets and animals: Yes Pets and animals: cat(s) Sexually active: No Do you think of yourself as: straight/heterosexual Current gender identity: female What is your relationship status?: How often do you talk on the phone with friends or family?: twice per week How often do you get together with friends or relatives?: once per week How often do you attend presybeterian or spiritism services?: 4 or more times per year Do you belong to any clubs or organized social groups?: yes Panel score (0-1 are the most socially isolated patients): 3 What type of physical activity do you participate in: none Frequency: does not exercise Mamie/Lutheran: Synagogue Special mamie needs: No Seatbelt use: sometimes Drive 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 w/intox local bulk driver: No Do you feel safe at home: Yes Do you feel safe in your relationship?: Yes Victim of physical abuse: No Victim of emotional abuse: Yes Victim of sexual abuse: No Would you like helpful sources: No Exam Const General: cooperative and no acute distress HENMT Mouth: moist mucous membranes Eyes Conjunctivae: normal conjunctivae Sclera: normal sclerae Resp Auscultation: clear to auscultation bilaterally, no rales, no rhonchi and no wheezes Cardio Rate: regular rate and not tachycardic Rhythm: regular rhythm Skin Rashes: rashes noted Other: Erythema migrans right proximal inner thigh small bite left foot with no inflammation Erythema migrans with central erythema and excoriation left low back Neuro General: patient alert, patient awake and tone normal Course Vital Signs Vital signs: Vital Signs Temperature 36.7 C 01/01/23 11:34 Pulse 82 01/01/23 11:34 Respiratory Rate 14 01/01/23 11:34 Blood Pressure 135/87 01/01/23 11:34 Pulse Oximetry 96 01/01/23 11:34 Temperature 36.7 C 01/01/23 11:34 Temperature Source Oral 01/01/23 11:34 Pulse 82 01/01/23 11:34 Respiratory Rate 14 01/01/23 11:34 Respiratory Effort Normal, Non-Labored 01/01/23 11:38 Blood Pressure 135/87 01/01/23 11:34 Blood Pressure Position Sitting 01/01/23 11:34 Pulse Oximetry 96 01/01/23 11:34 Oxygen Delivery Method Room Air 01/01/23 11:34 Oxygen Flow Rate 0 01/01/23 11:34 Pain Level 2 01/01/23 11:34
--- NOTE | 2023-01-01 12:15 | RT.EKG_ITS ---
APPROVED REPORT Exam: Resting ECG Reason for Exam: medications Patient Location: E HR:78 bpm ECG Measurements Heart Rate 78 AXIS DC 184 P 18 QRSd 80 QRS -14 QT 406 T 9 QTc 461 Conclusion Sinus rhythm...normal P axis, V-rate 60- 99 Left ventricular hypertrophy...multiple voltage criteria
[2023-01-01 12:50] LABS: Abs Immature Grans 0.04 10^3/uL (0.0-0.06); Absolute Basophil Count 0.07 10^3/uL (0.0-0.2); Absolute Eosinophil Count 0.27 10^3/uL (0.0-0.7); Absolute Lymphocyte Count 2.91 10^3/uL (1.2-3.4); Absolute Monocyte Count 0.58 10^3/uL (0.1-0.8); Absolute Neutrophil Count 3.91 10^3/uL (1.2-6.7); Basophils % 0.9; Eosinophils % 3.5; HCT 41.5 % (36.0-46.0); HGB 14.3 g/dL (11.2-15.7); Immature Grans % 0.5; Lymphocytes % 37.4; MCH 29.4 pg (27.0-33.0); MCHC 34.5 % (32.0-36.0); MCV 85 fL (80-95); MPV 9.3 fL (8.0-11.0); Monocytes % 7.5; Neutrophils % 50.2; Platelet Count 209 10^3/uL (130-400); RBC 4.87 10^6/uL (3.93-5.22); RDW 11.9 % (11.7-14.6); RDW-SD 36.4 fL; WBC 7.78 10^3/uL (4.4-10.8)
[2023-01-01 13:02] LABS: ALT 23 U/L (14-59); AST 20 U/L (15-37); Albumin 4.2 g/dL (3.4-5.0); Alkaline Phosphatase 81 U/L (46-116); Anion Gap 8.3 mmol/L (3-11); BUN 12 mg/dL (7-18); Bilirubin, Total 0.9 mg/dL (0.2-1.0); CO2 26.7 mmol/L (21.0-32.0); CREATININE 0.7 mg/dL (0.55-1.02); Calcium 9.3 mg/dL (8.5-10.1); Chloride 105 mmol/L (98-107); Estimated GFR 92.98 (mL/min/1.73m2); Glucose 109 mg/dL (74-106); Potassium 4.2 mmol/L (3.5-5.1); Sodium 140 mmol/L (136-145); Total Protein 7.3 g/dL (6.4-8.2)
[2023-01-01] MEDS: Doxycycline Hyclate 100 MG CAP PO (13:08)
[2023-01-01 13:24] VITALS: BP 124/79; PULSE 86; RESP 14; O2SAT 98
[2023-01-03 10:44] LABS: Lyme Ab w Rflx to Lyme Confirm Negative (Negative)
[2023-01-04 21:30] LABS: Anaplasma phagocytophilum Negative (Negative); B. miyamotoi PCR Negative (Negative); Babesia divergens/MO-1 Negative (Negative); Babesia duncani Negative (Negative); Babesia microti Negative (Negative); Ehrlichia chaffeensis Negative (Negative); Ehrlichia ewingii/canis Negative (Negative); Ehrlichia muris eauclairensis Negative (Negative)
== END 2023-01-01 13:25 | disposition home or self-care (01) ==
PROVIDERS: Emergency Provider Student in an Organized Health Care Education/Training Program; PCP Student in an Organized Health Care Education/Training Program
DX: S90.862A Insect bite (nonvenomous), left foot, initial encounter (principal); S70.362A Insect bite (nonvenomous), left thigh, initial encounter; W57.XXXA Bitten or stung by nonvenomous insect and other nonvenomous arthropods, initial encounter; A69.20 Lyme disease, unspecified
CPT/HCPCS: 36415; 80053; 87798; 93005; 99283; 85025; 86618; 93010; 99284

== ENCOUNTER 2023-01-06 02:10 | Outpatient (CLI) | payer MEDICARE, SELFPAY ==
[2023-01-06 13:30] LABS: TSH (W/Ref FT4) 1.56 uIU/mL (0.36-3.74)
== END 2023-01-06 02:11 | disposition home or self-care (01) ==
LOC: LBO 02:10
PROVIDERS: PCP Student in an Organized Health Care Education/Training Program; Visit Provider Student in an Organized Health Care Education/Training Program
DX: E03.9 Hypothyroidism, unspecified (principal); E11.9 Type 2 diabetes mellitus without complications; Z79.4 Long term (current) use of insulin
CPT/HCPCS: 36415; 84443

== ENCOUNTER → 2023-02-06 11:15 | Outpatient (BNVA) | payer MEDICARE, SELFPAY | PROVIDERS: PCP Student in an Organized Health Care Education/Training Program; Visit Provider Psychiatry & Neurology Neurology | DX: G25.0 Essential tremor (principal); M48.062 Spinal stenosis, lumbar region with neurogenic claudication; R51.9 Headache, unspecified; I10 Essential (primary) hypertension; E11.9 Type 2 diabetes mellitus without complications | CPT/HCPCS: 99214 ==

== ENCOUNTER 2023-03-06 00:36 | Outpatient (CLI) | payer MEDICARE, SELFPAY ==
--- NOTE | 2023-03-06 08:00 | DI.CT_ITS ---
Exam(s) CT CHEST WO EXAM: CT CHEST WO CLINICAL HISTORY: f/u lung nodule, r91.1. TECHNIQUE: Imaging protocol: Axial computed tomography images were obtained and coronal and sagittal reformatted images were created and reviewed. CONTRAST MATERIAL: Noncontrast COMPARISON: CT CT CHEST WO from 08/02/2022 FINDINGS: Pulmonary parenchyma: No consolidation. No significant increase in size of smoothly marginated lobul ated ovoid mass at the left lower lobe. Stable tiny nodules right lower lobe. No new additional nadine s. Emphysema: None. Tracheobronchial tree: No mucous plugging. No bronchiectasis . Interstitial changes: None. Pleura: No effusion or pneumothorax. Heart: The heart is mildly dilated. The coronary arteries show mildcalcifications. Aorta: Thoracic aorta non-dilated. Minimalatherosclerotic changes. Lymph nodes: No enlarged lymph nodes. Bones: Degenerative changes are seen. No evidence of compression fracture. Upper abdomen: Unremarkable. Soft tissues: Unremarkable. IMPRESSION: Stable size and appearance of left lower lobe mass. RADIATION DOSE DELIVERED: 644.57mGy.cm Total DLP 644.57mGy.cm Total DLP DATA REPOSITORY: All CT scans at this facility are submitted to the National Radiology Data Registry (NRDR) Dose Index Registry (DIR) with the [employer] (ACR). RADIATION OPTIMIZATION: All CT scans at this facility use at least one of these dose optimization te chniques: automated exposure control; mA and/or kV adjustment per patient size (includes targeted exa ms where dose is matched to clinical indication); or iterative reconstruction. Whole what is listed in the mass
== END 2023-03-06 00:56 ==
LOC: DI 00:36
PROVIDERS: PCP Student in an Organized Health Care Education/Training Program; Visit Provider Physician Assistant Surgical
DX: R91.1 Solitary pulmonary nodule (principal)
CPT/HCPCS: 71250

== ENCOUNTER → 2023-04-11 00:54 | Outpatient (CLI) | payer MEDICARE, SELFPAY ==
--- NOTE | 2023-04-11 07:15 | DI.US_ITS ---
Exam(s) US ABDOMEN LIMITED EXAM: US ABDOMEN LIMITED CLINICAL HISTORY: eval for gallstones,colicky ruq abd pain,r10.11 TECHNIQUE: Ultrasound abdomen performed using standard protocol. COMPARISON: No exams were available for comparison FINDINGS: LIVER: Enlarged at 19.6 cm in length. Increased echogenicity can't consistent with [id number] hepatic steatosis. No focal liver lesions are seen. GALLBLADDER: Multiple mobile gallstones. No evidence of wall thickening. No pericholecystic fluid id entified. BANSAL'S SIGN: Negative. BILIARY SYSTEM: No intrahepatic or extrahepatic biliary ductal dilation. Right KIDNEY: No evidence of renal calculi. No evidence of hydronephrosis. No renal mass or cyst iden tified. PANCREAS: Normal where visualized. ABDOMINAL AORTA AND IVC: Visualized portions normal caliber. ASCITES: None seen. IMPRESSION: Cholelithiasis. Hepatic steatosis. DATA REPOSITORY:
--- NOTE | 2023-04-11 09:19 | DI.RAD_ITS ---
Exam(s) XR CERVICAL SPINE COMP 4-5V EXAM: XR CERVICAL SPINE COMP 4-5V CLINICAL HISTORY: evaluate vert ht, spacing 2' radicular symptoms,neck pain,radiculopathy. TECHNIQUE: 2D digital imaging was performed. COMPARISON: No exams were available for comparison FINDINGS: BONES: No fracture or destructive lesion. Vertebral bodies are unremarkable. Facet degenerative batsheva nges are present throughout. Mild bilateral neural foraminal narrowing is seen at C5-6 and C6-7. DISKS: The C2-3 and C3-4 intervertebral disc spaces are maintained. There is mild narrowing of the C4-5 disc space and small endplate osteophytes. There is moderate to severe narrowing of the C5-6 an d C6-7 disc spaces with endplate osteophytes. ALIGNMENT: Some straightening of the normal cervical lordosis secondary to facet degenerative changes peer the odontoid and atlantoaxial articulations are normal. SOFT TISSUE: Normal. The lung apices are clear. IMPRESSION: Degenerative changes, greatest at C5-6 and C 6-7. DATA REPOSITORY: RADIATION DOSE DELIVERED:
== END ==
PROVIDERS: PCP Student in an Organized Health Care Education/Training Program; Visit Provider Student in an Organized Health Care Education/Training Program
DX: M50.322 Other cervical disc degeneration at C5-C6 level (principal); K76.0 Fatty (change of) liver, not elsewhere classified; K80.00 Calculus of gallbladder with acute cholecystitis without obstruction
CPT/HCPCS: 72050; 76705

== ENCOUNTER 2023-04-11 08:17 | Outpatient (CLI) | payer MEDICARE, SELFPAY ==
[2023-04-11 07:35] LABS: HGB 13.5 g/dL (11.2-15.7)
[2023-04-11 08:18] LABS: ALT 21 U/L (14-59); AST 17 U/L (15-37); Alkaline Phosphatase 74 U/L (46-116); Anion Gap 11.6 mmol/L (3-11); BUN 13 mg/dL (7-18); Bilirubin, Total 0.7 mg/dL (0.2-1.0); CO2 26.4 mmol/L (21.0-32.0); CREATININE 0.7 mg/dL (0.55-1.02); Calculated LDL 54 mg/dL (<100); Chloride 103 mmol/L (98-107); Cholesterol 140 mg/dL (<200); Estimated GFR 92.41 (mL/min/1.73m2); Glucose 143 mg/dL (74-106); HDL Cholesterol 51 mg/dL (40-60); Potassium 4.1 mmol/L (3.5-5.1); Sodium 141 mmol/L (136-145); Total Protein 6.9 g/dL (6.4-8.2); Triglyceride 175 mg/dL (<150)
[2023-04-11 08:24] LABS: Lipase 93 U/L (16-77)
[2023-04-11 08:37] LABS: Vitamin D 25 Total 20.2 ng/mL (30-100)
== END 2023-04-11 08:18 | disposition home or self-care (01) ==
LOC: LBO 08:17
PROVIDERS: PCP Student in an Organized Health Care Education/Training Program; Visit Provider Student in an Organized Health Care Education/Training Program
DX: E11.9 Type 2 diabetes mellitus without complications (principal); Z79.4 Long term (current) use of insulin; K81.9 Cholecystitis, unspecified; M25.511 Pain in right shoulder; M25.512 Pain in left shoulder; M54.12 Radiculopathy, cervical region; M54.2 Cervicalgia; Z13.220 Encounter for screening for lipoid disorders
CPT/HCPCS: 36415; 80053; 80061; 82306; 83690; 85018

== ENCOUNTER → 2023-05-10 09:46 | Outpatient (BNVA) | payer MEDICARE, SELFPAY | PROVIDERS: PCP Student in an Organized Health Care Education/Training Program; Visit Provider Psychiatry & Neurology Neurology | DX: G25.0 Essential tremor (principal); M48.062 Spinal stenosis, lumbar region with neurogenic claudication; G89.29 Other chronic pain; R51.9 Headache, unspecified; I10 Essential (primary) hypertension | CPT/HCPCS: 99214 ==

== ENCOUNTER → 2023-05-30 11:04 | Outpatient (BNVA) | payer MEDICARE, SELFPAY | PROVIDERS: PCP Student in an Organized Health Care Education/Training Program; Referring Provider Student in an Organized Health Care Education/Training Program; Visit Provider Surgery | DX: K80.50 Calculus of bile duct without cholangitis or cholecystitis without obstruction (principal); E78.5 Hyperlipidemia, unspecified; E11.9 Type 2 diabetes mellitus without complications | CPT/HCPCS: 99215 ==

== ENCOUNTER 2023-06-28 10:03 | Outpatient (CLI) | payer MEDICARE, SELFPAY ==
[2023-06-28 10:40] LABS: Hemoglobin A1C 6.1 % (<5.7)
[2023-06-28 10:48] LABS: Anion Gap 8.8 mmol/L (3-11); BUN 10 mg/dL (7-18); CO2 27.2 mmol/L (21.0-32.0); CREATININE 0.7 mg/dL (0.55-1.02); Calcium 9.1 mg/dL (8.5-10.1); Calculated LDL 65 mg/dL (<100); Chloride 105 mmol/L (98-107); Cholesterol 158 mg/dL (<200); Estimated GFR 92.41 (mL/min/1.73m2); Glucose 155 mg/dL (74-106); HDL Cholesterol 53 mg/dL (40-60); Sodium 141 mmol/L (136-145); Triglyceride 204 mg/dL (<150)
== END 2023-06-28 10:04 | disposition home or self-care (01) ==
PROVIDERS: PCP Student in an Organized Health Care Education/Training Program; Visit Provider Student in an Organized Health Care Education/Training Program
DX: E87.8 Other disorders of electrolyte and fluid balance, not elsewhere classified (principal); R73.09 Other abnormal glucose
CPT/HCPCS: 36415; 80048; 80061; 83036

== ENCOUNTER → 2023-08-16 09:33 | Outpatient (BNVA) | payer MEDICARE, SELFPAY | PROVIDERS: PCP Student in an Organized Health Care Education/Training Program; Referring Provider Student in an Organized Health Care Education/Training Program; Visit Provider Surgery | DX: K80.50 Calculus of bile duct without cholangitis or cholecystitis without obstruction (principal) | CPT/HCPCS: 99213 ==

== ENCOUNTER 2023-08-18 10:00 | Day surgery (SDC) | payer MEDICARE, SELFPAY ==
--- NOTE | 2023-08-17 14:34 | PDOC.DSDIS_ITS ---
Date of service: 08/18/23 Time of Service: 12:40 Discharge Plan Disposition Patient Disposition: Home Condition: Good Discharge Details Reason For Visit: Cholecystectomy Attending Provider: Abel Kwon Primary Care Provider: April Mason Home Meds and New Rx's Prescriptions: New tramadol 50 mg tablet 50 mg PO Q8H PRNQty: 12 0RF Rx Instructions: Take 1 tablet by mouth up to every 8 hours if needed for severe pain. Continued berberine-herbal comb no.18 Capsule 1 cap PO BID Patient Comments: blood sugar.HE (DME) blood-glucose meter Mis See Rx Instructions .ROUTE .MEDSUPPLY Qty: 1 0RF Rx Instructions: As directed mometasone 0.1 % solution 1 applic Topical DAILY PRN (Reason: skin irritation) Qty: 1 1RF (DME) Blood Glucose Test Strip See Rx Instructions .ROUTE .MEDSUPPLY Qty: 200 3RF Rx Instructions: Twice daily Liver Complex 250-250 mg tablet 1 tab PO BID clotrimazole 1 % cream 1 applic Topical BID PRN (Reason: tessy dermatitis) Qty: 90 0RF Rx Instructions: Apply dime sized amount to left breast fold twice a day cholecalciferol (vitamin D3) [Vitamin D3] 1,000 UNIT capsule 1,000 unit PO DAILY One-Per-Day [place]-3 1 EACH capsule,delayed release(DR/EC) 1 ea PO DAILY Qty: 1 Calcium Magnesium 1 EACH tablet 1 ea PO DAILY Qty: 3 levothyroxine 50 mcg tablet 50 mcg PO DAILY Qty: 90 3RF losartan 25 mg tablet 25 mg PO HS Qty: 90 3RF Rx Instructions: Continue for BP rosuvastatin 5 mg tablet See Rx Instructions .ROUTE .COMPLEX Qty: 90 3RF Dose Instruction: TAKE 1 TABLET DAILY Rx Instructions: TAKE 1 TABLET DAILY gabapentin 300 mg capsule 300 mg PO QHS Qty: 90 1RF Rx Instructions: Trial increased dose, 300mg capsule Victoza 2-Frankie 0.6 mg/0.1 mL (18 mg/3 mL) pen injector 1.8 mg subcut DAILY Qty: 6 3RF Patient Comments: 08/18/23: pt unsure how much Victoza she is taking, Medardo RN Rx Instructions: Increasing dose, due to good initial results and tolerance. (DME) pen needle, diabetic [Comfort EZ Pen [place]] 31 gauge x 5/16 needle See Rx Instructions .Route Qty: 100 3RF Rx Instructions: to administer victoza injections daily, please use only needle pt prefers or insurance pays for. DX DM E11.9 propranolol 60 mg capsule,extended release 24 hr 60 mg PO DAILY Qty: 30 5RF propranolol 160 mg capsule,extended release 24 hr 160 mg PO DAILY Qty: 90 3RF acetaminophen 500 mg tablet 500 mg PO Q6H PRN (Reason: pain) Qty: 60 2RF ibuprofen 600 mg tablet 600 mg PO TID PRN (Reason: pain) Qty: 60 0RF garlic 300 mg Tablet 300 mg PO DAILY Discharge Instructions Instructions: Laparoscopic Cholecystectomy (GEN) Additional Instructions: Cheryl, we were able to take out your gallbladder today just as we planned without any issues. Everything went very smoothly. Like we talked about beforehand, he did have quite a few stones. Hopefully this will provide some relief for you. Expect to have a little pain, which is typically most intense at the bellybutton, or sometimes up in the right upper part of your abdomen or right shoulder over the next few days. You should be using Tylenol and ibuprofen fairly aggressively for the next 48 to 72 hours. I also provided a prescription for a medication called tramadol if you need it. Do not be surprised if you develop some bruising around the incision sites, that is quite common. Please let me know if there is any worrisome discharge from the incisions, or if the skin surrounding the incisions starts to turn bright red. Like we talked about beforehand, some patients will have some diarrhea in the early days after surgery. If that is the case, cut out the dietary fat. Hopefully, however, you would have any side effects. If you need anything at all, please do not hesitate to call, otherwise I look forward to seeing you in the office for your routine postoperative visit. 1. Resume all of your medications. 2. Heating pads and ice packs can be used over your incisions to help with discomfort. 3. Okay to use tylenol and ibuprofen over the counter as needed. Use tramadol for more severe pain. 4. Leave bandages in place for 24 hours, then remove. 5. Shower with warm soapy water. Pat dry. Use a bandaid if needed to protect your clothing. 6. No soaking or tub baths until I see you in the office. 7. No heavy lifting until I see you in the office. 8. Call the office (or go directly to the emergency room after hours) if you notice any of the following: Develop chills (warm to touch), or if you have a thermometer and your temperature is above 101 Difficulty breathing or difficultly swallowing Persistent vomiting Any bleeding ? exceeding one tablespoon 9. Call your physician if the site where your intravenous was started becomes red, swollen, painful, and warm to touch. Stand Alone Forms: Anesthesia Discharge Inst[facility] [place] ([facility]) Referrals: Abel Kwon MD [ [facility] STAFF PHYSICIAN] - 08/30/23 9:30 am Activity:: Activity as Tolerated Remove Dressings/Wound Care:: 24 hours Shower/Bathe:: 24 hours Diet:: As Tolerated Discharge Orders Discharge Orders: Discharge Order (Routine); Ordered 08/17/23 Ordered By: Abel Kwon DS: Diagnosis Discharge Diagnosis (1) Biliary colic: Status: Acute Asessment and Plan: Status postcholecystectomy; routine postoperative follow-up
--- NOTE | 2023-08-17 14:36 | W.PM.OP ---
Date of service: 08/18/23 Time of Service: 12:44 Operative Note Operative Note DATE OF PROCEDURE: 08/18/23 PRE-OP DIAGNOSIS: Biliary colic POST-OP DIAGNOSIS: same PROCEDURE: Laparoscopic cholecsytectomy SURGEON: Abel Kwon SEASONAL TAX PREPARER: Lilliam Briseno ANESTHESIA TYPE: General LMA/ETT Refer to Anesthesia Record ESTIMATED BLOOD LOSS: 20 PATHOLOGY: other (Gallbladder) COMPLICATIONS: None Patient was transported to: PACU Patient's condition: stable Indications: Cheryl is a 73-year-old woman with symptomatic biliary colic Procedure Description: After satisfactory induction of general anesthesia, I prepped and draped the abdomen in usual fashion. Next, I began with a periumbilical incision. I dissected down to the fascia and elevated it with Eric clamps. I incised it sharply. Next, I passed a 12 mm operating port in the umbilical site. I secured it to the fascia with 0 Vicryl stitches. I then insufflated the peritoneal cavity. Next I inserted a 5 mm 30 degree scope and examined the underlying viscera. There was no evidence of injury created upon entry. I then placed the patient in some reverse Trendelenburg and left side down positioning. Then, with the assistance of the laparoscope, I used local anesthetic to anesthetize the midepigastric and 2 right upper quadrant port sites. Under the vision of the laparoscope, I passed 3 more 5 mm ports. I then grasped the gallbladder fundus and elevated cephalad. With the assistance of indocyanine green visualization, I began by dissecting the gallbladder infundibulum. I worked in a lateral to medial fashion. Once I skeletonized the cystic duct and cystic artery, with a satisfactory critical view of safety, I doubly clipped and divided them. I then used electrocautery to dissect the gallbladder off the gallbladder fossa. I passed the gallbladder into an Endo Catch bag and removed it by way of the umbilical site. I examined the surgical field. It was hemostatic. I then removed the 5 mm ports under the vision of the laparoscope. Finally, I removed the umbilical port site and closed the fascia with Vicryl stitches. Sites were irrigated, and the skin was closed with subcuticular stitches. Bandages were applied, patient was awakened from anesthesia, and transferred to the recovery unit.
[2023-08-18] VITALS (9 sets, daily range): BP systolic 107–147; BP diastolic 63–94; PULSE 65–78; RESP 10–16; TEMP 36.1–36.3; O2SAT 93–97; BMI 37.8
--- NOTE | 2023-08-18 08:52 | ANES.PREOP_ITS ---
General Info Date of Service Date Performed: 08/18/23 Height: 5 ft 5 in Weight: 102.965 kg Body Mass Index (BMI): 37.8 Surgical Procedure: Operation Date: 08/18/23 10:10 Proposed Procedure Side Surgeon p Cholecystectomy Laparoscopic Abel Kwon MD Meds Allergies and Home Medications Allergies Allergy/AdvReac Type Severity Reaction Status Date / Time primidone Allergy Itching Verified 08/18/23 10:40 and loud banging noise in head venlafaxine Allergy Verified 08/18/23 10:40 milk AdvReac Intermediate Diarrhea Verified 08/18/23 10:40 sertraline AdvReac Intermediate per pt Verified 08/18/23 10:40 tingling in arm and jaw pain goldenrod Allergy Uncoded 08/18/23 10:40 multivitamin AdvReac Intermediate causes Uncoded 08/18/23 10:40 chest pressure Home Medication Medication Instructions Recorded cholecalciferol (vitamin D3) 25 1,000 unit PO DAILY 03/25/15 mcg (1,000 unit) capsule (Vitamin D3) calcium carb-Ca gluc 500 mg 1 ea PO DAILY ##3 03/30/16 calcium-magnesium ox-Mg gluc 250 mg tablet (Calcium Magnesium) omega-3 fatty acids-fish oil 684 1 ea PO DAILY ##1 03/30/16 mg-1,200 mg capsule,delayed release (One-Per-Day Endeavor-3) blood-glucose meter #1 ea 10/29/19 mometasone 0.1 % topical solution 1 applic topical DAILY PRN skin 04/23/21 irritation #1 mL acetaminophen 500 mg tablet 500 mg PO Q6H PRN pain #60 tabs 09/28/21 ibuprofen 600 mg tablet 600 mg PO TID PRN pain #60 tabs 09/28/21 Blood Glucose Test (blood sugar #200 ea 10/29/21 diagnostic) garlic 300 mg tablet 300 mg PO DAILY 07/27/22 berberine-herbal comb no.18 capsule 1 cap PO BID 10/13/22 levothyroxine 50 mcg tablet 50 mcg PO DAILY #90 tab-caps 10/27/22 losartan 25 mg tablet 25 mg PO HS #90 tabs 10/27/22 rosuvastatin 5 mg tablet See Rx Instructions .Route 10/27/22 .COMPLEX #90 tabs gabapentin 300 mg capsule 300 mg PO QHS #90 caps 04/11/23 liraglutide 0.6 mg/0.1 mL (18 mg/3 1.8 mg (0.3 mL) subcut DAILY for 04/13/23 mL) subcutaneous pen injector DM, E11.9, to maintain A1C < 8 #6 (Victoza 2-Frankie) mL pen needle, diabetic 31 gauge x #100 ea 04/13/23 5/16 (Comfort EZ Pen Slaton) propranolol 160 mg capsule,24 160 mg PO DAILY #90 caps 08/02/23 hr,extended release propranolol 60 mg capsule,24 60 mg PO DAILY #30 caps 08/02/23 hr,extended release milk thistle seed 1 tab PO BID 08/16/23 fv-cjamqcpkhy-zhlznebjt-turmeri 250 mg-250 mg tablet (Liver Complex) clotrimazole 1 % topical cream 1 applic topical BID PRN tessy 08/17/23 dermatitis #90 grams Current Visit Medications: Current Medications Generic Name Dose Route Start Last Admin Trade Name Freq PRN Reason Stop Dose Admin Acetaminophen 1,000 mg 08/18/23 06:00 Acetaminophen 500 Mg Tab PO 08/18/23 23:59 PREOP ALESSANDRO Celecoxib 200 mg 08/18/23 06:00 Celecoxib 200 Mg Cap PO 08/18/23 23:59 PREOP ALESSANDRO Gabapentin 300 mg 08/18/23 06:00 Gabapentin 300 Mg Cap PO 08/18/23 23:59 PREOP ALESSANDRO Hydromorphone HCl 0.2 mg 08/17/23 14:37 Hydromorphone 2 Mg/Ml Syr IVP 09/16/23 14:36 Q1H PRN PRN Ringer's Solution 1,000 mls @ 80 mls/hr 08/18/23 06:00 IV 08/18/23 23:59 INFUSION ALESSANDRO Cefazolin Sodium/Dextrose 2 gm in 50 mls @ 100 mls/hr 08/18/23 06:00 Ancef Duplex IVPB 08/18/23 23:59 PREOP ALESSANDRO IV Miscellaneous Supplies 1 each 08/18/23 06:00 Iv Access IV 08/18/23 23:59 DIRECTED ALESSANDRO Sodium Chloride 0 ml 08/18/23 06:00 Normal Saline Flush 10 Ml Syr IV 08/18/23 23:59 PRN PRN Sodium Chloride 0 ml 08/18/23 06:00 Normal Saline 10 Ml Vial IJ 08/18/23 23:59 DIRECTED PRN Sterile Water 0 ml 08/18/23 06:00 Water,Injection,Sterile 10 Ml Vial IJ 08/18/23 23:59 DIRECTED PRN Tramadol HCl 50 mg 08/17/23 14:37 Tramadol 50 Mg Tab PO 09/16/23 14:36 Q6H PRN PRN Pain PFSH Active Problems Active Problems: Problem Status Onset Code Biliary colic K80.50 Gallstones K80.20 Cervical radiculopathy M54.12 Acute pain of both shoulders M25.511, M25.512 Neck pain M54.2 Colicky RUQ abdominal pain R10.11 Sensorineural hearing loss, bilateral H90.3 Lung nodule seen on imaging study R91.1 Nail dystrophy L60.3 Spinal stenosis of lumbar region M48.061 Lumbar stenosis with neurogenic claudication M48.062 Sacroiliac joint dysfunction of both sides M53.3 Hypothyroidism 03/13/13 E03.9 Type 2 diabetes mellitus ~04/2017 E11.9 Essential hypertension 06/14/13 I10 Caregiver burden Z63.6 Diverticulosis of colon K57.30 Hyperplastic colon polyp K63.5 Family history of colon cancer in mother Z80.0 Generalized anxiety disorder F41.1 Major depressive disorder F32.9 ADHD, predominantly inattentive type F90.0 Medical History Medical History Pilar cyst of scalp Soft subcutaneous nodule measuring 2cm on left occipital scalp-[place] of [place] [place] [facility] [place] Excision with intermediate layered closure at [facility] 08/01/23 Allergies Chronic eczematous otitis externa of both ears Per 07[place]19/22 [facility] [place] [place] History of skin cancer in adulthood BCC. Melanoma in situ. Hx lesion removed from cheek, [ ] notes/path. Hx multiple benign nevi Actinic keratoses Ill defined scaly pink papules on each buddhism--[id number]--DZWV Derm note01/17/23 Melanoma Abnormal auditory function study [facility] [place]23 Negative middle easr pressure of right ear w/ type C tympanogram curve.HE History of basal cell carcinoma (BCC) Impairment of speech discrimination Asymmetrical sensorineural hearing loss Frequent headaches SARS-CoV-2 positive (~12/03/21) Actinic keratitis Left forehead, nose .. s/p Cryo. Blistered, but improving. Independent for activity Cheryl values her independence .. discussed @ 10/01/21 OV 2' CTR surgery (urged her to cont with plan for rt hand now that lft is done.. mild, so she was wondering) .. back pain with (+) mri findings show eval/Tx is worthwhile earlier than later .. Exercising despite pain (stairs ok) helps DM, Vasc, HTN ++ Cubital tunnel syndrome on left Melanoma in situ of back (07/2021) Actinic keratosis (~06/2021) 07/14/21 liquid nitrogen treament - forearms,R buddhism,face Seborrheic keratoses Pilar cyst Ulnar neuropathy at elbow of left upper extremity Diabetic retinopathy of right eye (04/29/21) Occipital headache New headache .. due to back pain? pillow? Tremor Medication side effects SNRI increase (2020) seems to have brought on halluc (visual/audit).. [ ] add antipsych? mood stblzr? Chronic low back pain Hyperlipidemia (03/13/13) Conductive hearing loss, external ear (10/03/13) Surgical History Surgical History H/O melanoma excision (08/24/21) right upper back Carpal tunnel syndrome of right wrist S/P right ECTR: 07/29/2022 Carpal tunnel syndrome of left wrist s/p left ECTR DOS: 09/28/2021 S/P colonoscopy (08/20/21) 06/14/16 S/P cataract surgery (08/14/17) S/P FREDY-BSO (total abdominal hysterectomy and bilateral salpingo-oophorectomy) S/P appendectomy Status post total left knee replacement (01/01/19) Tobacco Smoking/Tobacco Use Status: Never Passive smoking exposure: No Second hand exposure: Yes Alcohol Alcohol Intake: never Substance Use Substance use: Never Substance use type: does not use Vital Signs and Lab Results Lab Results Blood Type / Crossmatch: No Data to Display Complete Blood Count: No Data to Display Complete Metabolic Panel: No Data to Display Liver Function Panel: No Data to Display Coagulation Panel: No Data to Display Cardiac Panel: No Data to Display Arterial Blood Gas: No Data to Display Venous Blood Gas: No Data to Display Pancreas Panel: No Data to Display Thyroid Panel: No Data to Display Infectious Disease: No Data to Display Blood Cultures: No Data to Display Toxicology Panel: No Data to Display Imaging and Studies Imaging and Studies Study information below may be from another EMR and interpreted by another provider. Please see original notes in EMR for more complete details. EKG Summary: EKG PATIENT NAME: Cheryl Zarate UNIT #: [id number] ORDERING PROVIDER: Magen Frank M.D. PRIMARY CARE PROVIDER: EASTON BARTON DO DATE/TIME OF SERVICE: 01/01/23 1227 : 1950 PERFORMING LOCATION: ER APPROVED REPORT Exam: Resting ECG Reason for Exam: medications Patient Location: E HR:78 bpm ECG Measurements Heart Rate 78 AXIS WA 184 P 18 QRSd 80 QRS -14 QT 406 T9 QTc 461 Conclusion Sinus rhythm...normal P axis, V-rate 60- 99 Left ventricular hypertrophy...multiple voltage criteria <Electronically signed by MAGEN FRANK MD in OV> E-Sign Date: 01/01/23 E-Sign Time: 1441 ADDENDUM APPROVED REPORT Exam: Resting ECG Reason for Exam: medications Patient Location: E HR:78 bpm ECG Measurements Heart Rate 78 AXIS WA 184 P 18 QRSd 80 QRS -14 QT 406 T9 QTc 461 Conclusion Sinus rhythm...normal P axis, V-rate 60- 99 Left ventricular hypertrophy...multiple voltage criteria I have reviewed and I agree with the emergency room physician's ECG interpretation. Electronically signed by: <Electronically signed by Nicole Ocampo M.D. in OV> 01/02/23 0808 Cosigned by: Stress Test Summary: Impressions: Normal perfusion by [id number] Sestamibi Imaging. Summary: 1. Myocardial perfusion imaging: No myocardial perfusion defects noted. 2. The calculated left ventricular ejection fraction after stress: 67%. No left ventricular regional motion abnormality. 06/18/18 Carotid Artery Summary:: CONCLUSION: No evidence of a hemodynamically significant carotid stenosis. Vertebral arteries show antegrade flow bilaterally. 06/13/18 Other Study Summary:: CT chest, c spine xr and abd u/s reviewed and results in chart Anesthesia Assessment and Plan Anesthesia History Personal History: No History of Anesthesia Complications Family History: No Family History of Anesthesia Complications Exercise Tolerance Exercise Tolerance: Metabolic Equivalents>4 Pertinent Negatives Pertinent Negatives: No Major Cardiovascular Symptoms or Complaints, No Major Pulmonary Symptoms or Complaints and No History of CVA/TIA Cardiac & Pulmonary Exam Cardiac Exam: Normal S1/S2 Heart Sounds Pulmonary Exam: Clear Bilateral Breath Sounds Implantable Cardiac Device Does patient have a Pacemaker or an ICD?: No Airway Exam Known Difficult Airway: No Mallampati Class: 3 Mouth Opening: Normal (> 3cm) Thyromental Distance: Less than 3 cm Neck Range of Motion: Limited ROM and Known Cervical Instability or radiculopathy Neck Circumference: Thick Teeth Condition: Normal Dentition Airway Comments: pt reported some missing teeth ASA Classification ASA Score: ASA 3 Emergency Case?: No NPO Status NPO Status: NPO Clears >2 hours, Solids >8 hours Anesthesia Plan Resuscitation Status: Full Code Anesthesia Technique: General Anesthesia Airway Planned: Endotracheal Tube Monitors Used: Standard Monitors and SedLine Preoperative Comments:: pt reports occasional reflux with use of TUMs but no s/s today
[2023-08-18] MEDS: Lactated Ringers 1,000 ML 80 ML IV (10:27)
[2023-08-18] MEDS: Celecoxib 200 MG CAP PO (10:51)
[2023-08-18] MEDS: Acetaminophen 500 MG TAB 1000 MG PO (10:52)
[2023-08-18] MEDS: Gabapentin 300 MG CAP PO (10:52)
[2023-08-18] MEDS: Normal Saline Flush 10 ML SYR IV ×2 (11:08→11:11)
[2023-08-18] MEDS: Indocyanine green 25 MG VIAL 5 MG IVP (11:09)
[2023-08-18] MEDS: Water,Injection,Sterile 10 ML VIAL IJ (11:09)
[2023-08-18] MEDS: ceFAZolin 2 GM/50 ML BAG IVPB (11:36)
[2023-08-18] MEDS: Bupivacaine 0.25% Pres-Free 30 ML VIAL (12:02)
--- NOTE | 2023-08-18 12:33 | GB_PTH ---
PATIENT: Cheryl Zarate LOC: [facility] U#:[id number] AGE/SX: 73/F ROOM: RE08/18/[address]: Abel Kwon MD : 1950 BED: DIS: 08/18/2023 SPEC #: [id number] RECD: 08/18/23 16:54 STATUS: JEROMY REQ #: [id number] CHASTITY: 08/18/23 12:[address]: Abel Kwon DEPT: Surgical Specimen RECD BY: Rafia Zaragoza ENTERED: 08/18/23 16:54 SP TYPE: GB OTHR DR: April Mason DO Tissues: 1 - GALLBLADDER Procedures: GROSS AND MICRO LEVEL 3 Comments: [id number]
[2023-08-18] MEDS: fentaNYL 100 MCG/2 ML VIAL IVP ×2 (13:15→13:31)
--- NOTE | 2023-08-18 14:07 | W.ANESPOSTOP ---
Postoperative Evaluation Date, Time and Location Date Performed: 08/18/23 Time Performed: 14:11 Patient Location: Day Surgery Unit Vital Signs Most Recent Imported Vital Signs: Most Recent Vital Signs Temp Pulse Resp BP Pulse Ox 36.2 C L 70 16 131/74 94 08/18/23 13:46 08/18/23 13:46 08/18/23 13:46 08/18/23 13:46 08/18/23 13:46 Pain Score Most Recent Pain Score: Most Recent Pain Score Pain Level 4 08/18/23 13:46 Assessment Mental Status: Awake (Alert & Oriented to Patient Baseline) Airway and Respiratory Function: Patent airway with normal (patient baseline) respiratory exam Cardiovascular Function: Hemodynamically Stable Hydration Status: Adequately Hydrated Nausea & Vomiting: No Nausea or Vomiting Pain: Pt. Denies Any Pain Peripheral Nerve Block: Patient did not receive a nerve block
== END 2023-08-18 14:40 | disposition home or self-care (01) ==
LOC: SUR 10:00
PROVIDERS: PCP Student in an Organized Health Care Education/Training Program; Visit Provider Surgery
PROC: 0FT44ZZ Resection of Gallbladder, Percutaneous Endoscopic Approach (ICD-10-PCS; CPT 47562; principal; 2023-08-18 10:00)
DX: K80.10 Calculus of gallbladder with chronic cholecystitis without obstruction (principal); E11.9 Type 2 diabetes mellitus without complications; I10 Essential (primary) hypertension
CPT/HCPCS: 47562; 88304; J0665; J0690; J1100; J2371; J2405; J2704; J3010; J3475

== ENCOUNTER → 2023-08-30 09:34 | Outpatient (BNVA) | payer MEDICARE, SELFPAY | PROVIDERS: PCP Student in an Organized Health Care Education/Training Program; Referring Provider Student in an Organized Health Care Education/Training Program; Visit Provider Surgery | DX: Z48.815 Encounter for surgical aftercare following surgery on the digestive system (principal) ==

== ENCOUNTER → 2023-09-05 11:23 | Outpatient (BNVA) | payer MEDICARE, SELFPAY | PROVIDERS: PCP Student in an Organized Health Care Education/Training Program; Referring Provider Student in an Organized Health Care Education/Training Program; Visit Provider Podiatrist | DX: E11.9 Type 2 diabetes mellitus without complications (principal); Z79.4 Long term (current) use of insulin; R09.89 Other specified symptoms and signs involving the circulatory and respiratory systems; R23.4 Changes in skin texture | CPT/HCPCS: 99213 ==

== ENCOUNTER → 2023-09-13 11:22 | Outpatient (BNVA) | payer MEDICARE, SELFPAY | PROVIDERS: PCP Student in an Organized Health Care Education/Training Program; Referring Provider Student in an Organized Health Care Education/Training Program; Visit Provider Psychiatry & Neurology Neurology | DX: G25.0 Essential tremor (principal); M48.062 Spinal stenosis, lumbar region with neurogenic claudication; R51.9 Headache, unspecified | CPT/HCPCS: 99214 ==

== ENCOUNTER → 2023-09-14 03:01 | Outpatient (CLI) | payer MEDICARE, SELFPAY ==
--- NOTE | 2023-09-14 10:39 | DI.CT_ITS ---
Exam(s) CT CHEST WO EXAM: CT CHEST WO CLINICAL HISTORY: f/u lung nodule, growth,r91.1 TECHNIQUE: Imaging Protocol: Axial computed tomography images with coronal and sagittal reformatted images were created and reviewed CONTRAST MATERIAL: Intravenous: Omnipaque 350 Contrast volume:structured data ml. COMPARISON: CT CT ABDOMEN PELVIS W from 07/10/[address] CHEST WO from 08/02/[address] CHEST WO from 03/06/2023 FINDINGS: Pulmonary parenchyma: No consolidation. Stable size and appearance of previously noted lobulated smoo thly marginated mass in the left lower lobe, measuring 2.9 x 1.7 cm. Stable 5 millimeter right lower lobe nodule. Other scattered tiny nodules also appear stable. Tracheobronchial tree: No bronchiectasis or mucous plugging. Mediastinum and Susannah: No dominant adenopathy or fluid collection. Pleura: No effusion. No pneumothorax. Heart: The heart is not dilated. Mild coronary artery calcifications are seen. Aorta: Thoracic aorta non-dilated. Mild atherosclerotic changes. Upper abdomen: No acute findings.. Bones: Degenerative changes in the spine. Soft tissues: Unremarkable. IMPRESSION: Stable size and appearance of previously noted 2.9 centimeter nodule left lower lobe. RADIATION DOSE DELIVERED: 568.83mGy.cm Total DLP DATA REPOSITORY: All CT scans at this facility are submitted to the National Radiology Data Registry (NRDR) Dose Index Registry (DIR) with the [employer] (ACR). RADIATION OPTIMIZATION: All CT scans at this facility use at least one of these dose optimization te chniques: automated exposure control; mA and/or kV adjustment per patient size (includes targeted exa ms where dose is matched to clinical indication); or iterative reconstruction.
== END ==
PROVIDERS: PCP Student in an Organized Health Care Education/Training Program; Visit Provider Student in an Organized Health Care Education/Training Program
DX: R91.1 Solitary pulmonary nodule (principal)
CPT/HCPCS: 71250

== ENCOUNTER → 2023-12-07 13:56 | Outpatient (BNVA) | payer MEDICARE, SELFPAY | PROVIDERS: PCP Student in an Organized Health Care Education/Training Program; Referring Provider Student in an Organized Health Care Education/Training Program; Visit Provider Psychiatry & Neurology Neurology | DX: G25.0 Essential tremor (principal); M48.062 Spinal stenosis, lumbar region with neurogenic claudication; R51.9 Headache, unspecified | CPT/HCPCS: 99214 ==

== ENCOUNTER 2024-03-12 02:41 | Outpatient (CLI) | payer MEDICARE, SELFPAY ==
--- OUTSIDE RECORDS SUMMARY | 2024-03-12 02:42 | XMS_ITS | Encounter Summary ---
Author Organization [facility] [place] [address] Care Team Providers Care Supervisor Felling Bucking Name Role Phone April Mason DO Primary Care Provider [phone]- [phone] Encounter Details Date Type Department Care Team (Latest Contact Info) Description 01/18/2024 Travel Social History Tobacco Use Types Packs/Day Years Used Date Smoking Tobacco: Never Smokeless Tobacco: Never Sex and Gender Information Value Date Recorded Sex Assigned at Not on file Gender Identity Not on file Sexual Orientation Not on file documented as of this encounter Plan of Treatment Upcoming Encounters Date Type Department Care Team (Late st Contact Info) Description 03/18/2025 2:30 PM EDT Office Visit Dermatology at [address] [place] [address] Candi Suh MD [facility] [place] [address] documented as of this encounter Visit Diagnoses Not on filedocumented in this encounter Care Teams Supervisor Felling Bucking Relationship Specialty Start Date End Date April Mason DO [address], [place] [id number] PCP - General Family Medicine 05/01/21 documented as of this encounter
--- OUTSIDE RECORDS SUMMARY | 2024-03-12 02:42 | XMS_ITS | Encounter Summary ---
Author Organization [facility] Address [facility] [place] [address] Care Team Providers Care Bessemer Regulator Name Role Phone April Mason DO Primary Care Provider [phone]- [phone] Encounter Details Date Type Department Care Team (Late st Contact Info) Description 02/05/2024 Telephone Dermatology at [facility] [address] [place] [address] Virgilio Landry MD [facility] [address] [place] [address] Social History Tobacco Use Types Packs/Day Years Used Date Smoking Tobacco: Never Smokeless Tobacco: Never Sex and Gender Information Value Date Recorded Sex Assigned at Not on file Gender Identity Not on file Sexual Orientation Not on file documented as of this encounter Miscellaneous Notes * Telephone Encounter - Reyna Anderson LPN - 02/05/2024 8:26 AM EDT Mohs consultation and preoperative note (H&P) Patient Name: Cheryl Zarate Age: 73 y.o. Date of : 1950 Today's Date: 02/05/2024 REFERRING PROVIDER: Dr. Suh CC: Mohs micrographic surgery for treatment of a cutaneous tumor HPI: Cheryl Zarate is a 73 y.o. female presenting for biopsy-proven Basal Cell Carcinoma location on the Left Nasal Ala. . The dermatologic preoperative information sheet was reviewed with pertinent positive and negativeas below. DERMATOLOGIC PRE-OPERATIVE EVALUATION AND REVIEW OF SYSTEMS History of Mohs surgery-No Pacemaker/Defibrillator-No Joint replacement or other implantable devices (e.g. Cochlear implant)- Yes Knee Do you take a blood thinner-No History of organ transplant-No History of artificial valve or stroke-No History of liver disease or bleeding disorder-No Do you have any medical problems that may affect your upcoming surgery-No Do you have any concerns regarding your upcoming surgery-No We ask patients to discontinue Fish oil/Multivitamin/Vit E/?? supplements and natural medicines not prescribed by a physician 1 week prior to surgery. SOCIAL HISTORY: Makes Own Decisions Yes Hearing aid or other devices: No Relevant travel history No Tobacco use (amount per day, type of tobacco):No Do you have any physical limitations that may affect your surgery-No ALLERGIES: Allergies reviewed MEDICATIONS: Medications reviewed documented in this encounter Plan of Treatment Upcoming Encounters Date Type Department Care Team (Late st Contact Info) Description 03/18/2025 2:30 PM EDT Office Visit Dermatology at [facility] [address] [place] [address] Candi Suh MD [facility] [place] [address] documented as of this encounter Visit Diagnoses Not on filedocumented in this encounter Care Teams Bessemer Regulator Relationship Specialty Start Date End Date April Mason DO [address] [place] [address] PCP - General Family Medicine 05/01/21 documented as of this encounter
--- OUTSIDE RECORDS SUMMARY | 2024-03-12 02:42 | XMS_ITS | Encounter Summary ---
Author Organization [facility] [place] [address] Care Team Providers Care Mechanical Designer Name Role Phone April Mason DO Primary Care Provider [phone]- [phone] Reason for Referral * Consultation (Routine) - Closed Specialty Diagnoses / Procedures Referred By Olivier mccracken Referred To Contact Dermatology Diagnoses Pilar cyst of scalp Candi Suh MD [facility] [place] [address] Margarita Winslow RN Referral ID Status Reason Start Date Expiration Date V isits Requested Visits Authorized [id number] Closed Consult, Test & Treat 01/17/2023 01/17/2024 1 1 Encounter Details Date Type Department Care Team (Late st Contact Info) Description 01/17/2023 11:00 AM EDT Office Visit Dermatology at [facility] [address] [place] [address] aCndi Suh MD [facility] [place] [address] Skin cancer screening; History of melanoma; History of dysplastic nevus; History of basal cell carcinoma (BCC); Pilar cyst of scalp; Actinic keratoses; Telogen effluvium Social History Tobacco Use Types Packs/Day Years Used Date Smoking Tobacco: Never Smokeless Tobacco: Never Sex and Gender Information Value Date Recorded Sex Assigned at Not on file Gender Identity Not on file Sexual Orientation Not on file documented as of this encounter Progress Notes * Candi Suh MD - 01/17/2023 11:00 AM EDT Images from the original note were not included. DEPARTMENT OF DERMATOLOGY Medical D[facility]atology [facility] Provider: Candi Suh MD Patient's preferred name Cheryl Preferred contact method for results [x]Phone []myD-H []Letter Detailed phone message OK? Yes Are there any other people with whom we may discuss your care? SonVasquez Past Medical History Date, location, treatment Melanoma 07/14/2021, Right upper back, Melanoma, predominantly in situ, with focal superficial invasion, 0.3 mm; WLE 08/24/21 Dysplastic nevi 04/26/2022: central back, DN with mild atypia SCC N BCC Right forearm and chest - BCC AKs Y UV Exposure & Protection N Seborrheic dermatitis Pilar cyst Family History Details Melanoma N NMSC N Other relevant family history N Social History Occupation: Hobbies: Other: Pre-Procedure Questions Details Allergy to lidocaine, epinephrine, Dermabond, chlorhexidine, or adhesives N Bleeding disorder or blood thinners N Pacemaker, defibrillator, deep brain stimulator, cochlear implant N History of Present Illness: Cheryl Zarate is a 72 y.o. Patient returns to clinic today for a fullskin exam with the following concerns: Patient denies any specific skin concerns today; no lesions that are new, changing or symptomatic. Last visit at Dermatology: 07/19/2022 Last visit with this provider: 07/19/2022 Medications: Reviewed in eD-H Allergies: Reviewed in [...] of the findings below. Genitalia not examined. Assessment/Plan #. History of Melanoma - Well-healed scar on the right upper back per skin history. - No evidence of recurrence; will continue to monitor. # History of BCC & DN - Well healed scar(s) as listed above. - NER; will continue to clinically monitor\\ #.Actinic keratoses - ill-defined scaly pink papule(s) on the right jewish(x1), left jewish (x1) - Reviewed diagnosis with patient, premalignant potential, and treatment options including clinicalmonitoring (risks include progression), LN2 (risks including discoloration, discomfort, and possible recurrence) - Joint decision to proceed with LN2 - Procedure: Liquid Nitrogen Cryotherapy Number of lesions - 2 The patient's verbal consent for liquid nitrogen treatment was obtained. Risks and benefits were explained. The possible need for additional liquid nitrogen was reviewed. Risks of discoloration, blister formation, discomfort, and recurrence discussed. Lesions were treated with LN2 x15-30 second freeze-thaw cycle. The patient tolerated the procedure well. Wound care was reviewed. - RTC for any lesions that do not resolve with treatment #. Hair loss, favor telogen effluvium with androgenetic alopecia - diffuse thinning of the vertex scalp, negative pull test, but patient describes increased shedding. - female pattern hair loss in mother and grandmother - recent shedding occurring with ongoing stressors - Discussed that this often appears a few months following acute stress (emotional stress, surgery,illness, etc.). No treatment necessary, as it resolves with time. It usually takes 3-6 months to improve. # Pilar Cyst - Soft subcutaneous nodule measuring 2cm on the left occipital scalp (figure 1) - Discussed benign nature of cyst. No further intervention required unless symptomatic - Patient elects for excision of cyst # Solar lentigines - 0.3-0.6cm light-brown evenly pigmented, well-demarcated macules in a photodistributed pattern on the face, trunk and extremities. - Recommend diligent sun protection (hats/shade/clothing/sunscreen) - Discussed warning signs of skin cancer # Seborrheic keratoses - vilchis/brown waxy stuck-on papules and plaques on the trunk and extremities. - Reassured of the benign nature of these lesions - No treatment needed # Melanocytic nevi - Scattered medium-brown macules and papules on the head, trunk, and extremities. - Morphology reassuring for benign nevi. - Reassured of benign appearance on exam today. - Reviewed warning signs of skin cancer - Recommend daily sun protection with protective clothing and SPF 30+ # Huntley angiomas - scattered on the trunk and extremities are bright red smooth papules. - Reassured of the benign nature of these lesions. No treatment needed. Figure 1 Photo(s) taken and charted with patient's verbal consent. Other: Sun protection discussed (protective clothing and SPF30+ broad-spectrum sunscreen) RTC: Pt scheduled appointment for cyst excision upon exiting and 1 year for FSE otherwise PRN []Note routed to secretary of state [x]Recall placed in scheduling system [x]Appointment scheduled at checkout Scribe attestation: DIANA Singh has performed the documentation for this encounter in the presence of and acting as a scribe for Candi Suh MD. I performed the above scribed service and agree with the accuracy of the documentation in this encounter. Reviewed and signed by: Candi Suh MD Dermatology [facility] documented in this encounter Plan of Treatment Upcoming Encounters Date Type Department Care Team (Late st Contact Info) Description 03/18/2025 2:30 PM EDT Office Visit Dermatology at [facility] [address] [place] [address] Candi Suh MD [facility] [place] [address] Scheduled Referrals Name Type Priority Associated Diagnoses Order Schedule Referral to Dermatology Outpatient Referral Routine Pilar cyst of scalp Ordered: 01/17/2023 documented as of this encounter Visit Diagnoses Diagnosis Skin cancer screening Screening for malignant neoplasm of the skin History of melanoma Personal history of malignant melanoma of skin History of dysplastic nevus Personal history of diseases of skin and subcutaneous tissue History of basal cell carcinoma (BCC) Pilar cyst of scalp Actinic keratoses Actinic keratosis Telogen effluvium documented in this encounter Care Teams Mechanical Designer Relationship Specialty Start Date End Date April Mason DO [address] [place] [address] PCP - General Family Medicine 05/01/21 documented as of this encounter
--- OUTSIDE RECORDS SUMMARY | 2024-03-12 02:42 | XMS_ITS | Encounter Summary ---
Author Organization [facility] [place] [place] [address] Care Team Providers Care Stable Cleaner Name Role Phone April Mason DO Primary Care Provider [phone]- [phone] Encounter Details Date Type Department Care Team (Late st Contact Info) Description 01/18/2024 10:00 AM EDT Office Visit Dermatology at [facility] [address] [place] [address] Candi Suh MD [facility] [address] [address] Skin cancer screening; History of melanoma; History of nonmelanoma skin cancer; SK (seborrheic keratosis); Huntley angioma; Lentigines; Melanocytic nevus, congenital; AK (actinic keratosis); Neoplasm of unspecified behavior of bone, soft tissue, and skin; History of dysplastic nevus Social History Tobacco Use Types Packs/Day Years Used Date Smoking Tobacco: Never Smokeless Tobacco: Never Sex and Gender Information Value Date Recorded Sex Assigned at Not on file Gender Identity Not on file Sexual Orientation Not on file documented as of this encounter Progress Notes * Candi Suh MD - 01/18/2024 10:00 AM EDT Images from the original note [...] Exposure & Protection N Seborrheic dermatitis Pilar cyst- removed 08/01/23 Family History Details Melanoma N NMSC N Other relevant family history N Social History Occupation: Hobbies: Other: Pre-Procedure Questions Details Allergy to lidocaine, epinephrine, Dermabond, chlorhexidine, or adhesives N Bleeding disorder or blood thinners N Pacemaker, defibrillator, deep brain stimulator, cochlear implant N History of Present Illness: Cheryl Zarate is a 73 y.o. Patient returns to clinic today for a fullskin exam with the following concerns: - spots on the left side of nose that won't go away and are getting bigger, can bleed. Noticed themawhile ago. - red spot on the bridge of the nose that recently appeared -spot on the left caodaism seems to be getting bigger, has had it for awhile. Last visit at Dermatology: 01/17/2023 Last visit with this provider: 01/17/2023 Medications: Reviewed in eD-H Allergies: Reviewed in [...] the findings below. Genitalia not examined. Assessment/Plan # Neoplasm of unspecified behavior of skin, ddx Inflammatory papule vs ISK R/O BCC - 3.0mm pink slightly eroded papule on the left nasal ala (figure 1) - joint decision to pursue shave biopsy today to clarify nature of lesion - Shave biopsy procedure note: The patient's consent was obtained. Risk of [...] the patient tolerated the procedure well. # Actinic keratoses - ill-defined scaly pink papule(s) on the nose x3, right caodaism x1 - Reviewed diagnosis with patient, premalignant potential, and treatment options including clinicalmonitoring (risks include progression), LN2 (risks including discoloration, discomfort, and possible recurrence) - Joint decision to proceed with LN2 - Procedure: Liquid Nitrogen Cryotherapy Number of lesions - 4 The patient's verbal consent for liquid nitrogen [...] that do not resolve with treatment #. Solar lentigines - 0.3-0.6cm light-brown evenly pigmented, well-demarcated macules in a photodistributed pattern on the face, trunk and extremities. - Recommend diligent sun protection (hats/shade/clothing/sunscreen) - Discussed warning signs of skin cancer #. Seborrheic keratoses - vilchis/brown waxy stuck-on papules and plaques on the trunk and extremities. - Reassured of the benign nature of these lesions - No treatment needed #. Melanocytic nevi - Scattered medium-brown macules and papules on the head, trunk, and extremities. - Morphology reassuring for benign nevi. - Reassured of benign appearance on exam today. - Reviewed warning signs of skin cancer - Recommend daily sun protection with protective clothing and SPF 30+ #. Huntley angiomas - scattered on the trunk and extremities are bright red smooth papules. - Reassured of the benign nature of these lesions. No treatment needed. #. History of Pilar Cyst, Melanoma, DN, and BCC - Well-healed scars per skin history. - No evidence of recurrence; will continue to monitor. Figure 1 Photo(s) taken and charted with patient's verbal consent. Other: N/A RTC: 1 year for FSE // sooner as needed []Note routed to administrative secretary []Recall placed in scheduling system [x]Appointment scheduled at checkout Scribe attestation: DIANA Quintanilla has performed the documentation for this encounter in the presence of and acting as a scribe for Candi Suh MD. I performed the above scribed service and agree with the accuracy of the documentation in this encounter. Reviewed and signed by: Candi Suh MD Dermatology [facility] * Candi Suh MD - 01/18/2024 10:00 AM EDT Skin biopsy results reviewed. Recommend Mohs surgery for this BCC. [id number] Location: [facility] The signing pathologist has (i) examined the relevant preparation(s) for the specimen(s) and (ii) rendered or confirmed the diagnosis(es). Surgical Pathology DIAGNOSIS Left nasal ala, skin shave biopsy: - Basal cell carcinoma, nodular type, present at the peripheral and deep specimen edges documented in this encounter Plan of Treatment Upcoming Encounters Date Type Department Care Team (Late st Contact Info) Description 03/18/2025 2:30 PM EDT Office Visit Dermatology at [facility] [address] [place] [address] Candi Suh MD [facility] [place] [address] documented as of this encounter Procedures Procedure Name Priority Date/Time Associated Diagnosis Comments SPECIMEN TO PATHOLOGY Routine 01/18/2024 10:51 AM EDT Neoplasm of unspecified behavior of bone, soft tissue, and skin SURGICAL PATHOLOGY REPORT Routine 01/18/2024 10:44 AM EDT documented in this encounter Results * Specimen to Pathology (01/18/2024 10:51 AM EDT) AP Specimen 01/18/2024 10:5 1 AM EDT 01/18/2024 10:51 AM EDT Narrative [facility] - 01/18/2024 10:51 AM EDT Specimen requisition ordered. ??Separate Pathology report to follow Candi Suh MD PATHOLOGY/CYTOLOGY [address] [facility] [place] [address] * (ABNORMAL) Surgical Pathology Report (01/18/2024 10:44 AM EDT) Final Diagnosis [id number] ? Location: [facility] The signing pathologist has (i) examined the relevant preparation(s) for the specimen(s) and (ii) rendered or confirmed the diagnosis(es). . ?Surgical Pathology DIAGNOSIS L eft nasal ala, skin shave biopsy: - ??Basal cell carcinoma, nodular type, ??present at the peripheral and deep specimen edges Electronically signed by: ?Adan Sylvester MD Verified: ??01/23/2024 12:31 ??Dermatopathol ogist Performed at: ??-[facility] [place] Dept. of Pathology, [place] [address] Feeder Tender: Rebeca Rodriguez MD, AP, ??CLIA Certificate: [id number] DISCUSSION THIS RESULT REQUIRES PHYSICIAN/A.P.P . FOLLOW UP SPECIMEN(S) SUBMITTED A - left nasal ala, skin shave biopsy (1) CLINICAL INFORMATION Inflammatory papule versus ISK rule out BCC-3 mm pink slightly eroded papule SPECIMEN PROCESSING A - Labeled/Fixativ e: Patient demographics, formalin. Quantity/Size: ??Single, 0.4 x 0.4 x 0.1 cm. Tissue Description: Shave of white skin. Sections/Proces sing: Inked, bisected and entirely submitted in 1 cassette labeled A1. ??sdy(A) 01/23/2024 12:31 PM EDT [facility] SPECIMEN FROM SKIN / Unknown 01/18/2024 10:44 AM EDT 01/18/2024 10:44 AM EDT Candi Suh MD PATHOLOGY/CYTOLOGY [facility] [place] [address] documented in this encounter Visit Diagnoses Diagnosis Skin cancer screening Screening for malignant neoplasm of the skin History of melanoma Personal history of malignant melanoma of skin History of nonmelanoma skin cancer Personal history of other malignant neoplasm of skin SK (seborrheic keratosis) Other seborrheic keratosis Huntley angioma Nevus, non-neoplastic Lentigines Other dyschromia Melanocytic nevus, congenital Benign neoplasm of skin, site unspecified AK (actinic keratosis) Actinic keratosis Neoplasm of unspecified behavior of bone, soft tissue, and skin History of dysplastic nevus Personal history of diseases of skin and subcutaneous tissue documented in this encounter Care Teams Stable Cleaner Relationship Specialty Start Date End Date April Mason DO [address] [place] [address] PCP - General Family Medicine 05/01/21 documented as of this encounter
--- OUTSIDE RECORDS SUMMARY | 2024-03-12 02:42 | XMS_ITS | Encounter Summary ---
Author Organization [facility] [place] [address] Care Team Providers Care Blow Machine Tender Starch Spraying Name Role Phone April Mason DO Primary Care Provider [phone]- [phone] Encounter Details Date Type Department Care Team (Latest Contact Info) Description 02/06/2024 Travel Social History Tobacco Use Types Packs/Day [...] Visit Dermatology at [address] [place] [address] Candi Suh MD [facility] [place] [address] documented as of this encounter Visit Diagnoses Not on filedocumented in this encounter Care Teams Blow Machine Tender Starch Spraying Relationship Specialty Start Date End Date April Mason DO [address] [place], [place] [id number] PCP - General Family Medicine 05/01/21 documented as of this encounter
--- OUTSIDE RECORDS SUMMARY | 2024-03-12 02:42 | XMS_ITS | Encounter Summary ---
Author Organization [facility] [place] [address] Care Team Providers Care Construction Equipment Overhauler Name Role Phone April Mason DO Primary Care Provider +1- [phone] Encounter Details Date Type Department Care Team (Latest Contact Info) Description 09/16/2022 Travel Social History Tobacco Use Types Packs/Day [...] Visit Dermatology at [address] [place] [address] Candi Suh MD [facility] [place] [address] documented as of this encounter Visit Diagnoses Not on filedocumented in this encounter Care Teams Construction Equipment Overhauler Relationship Specialty Start Date End Date April Mason DO [address] [place], [place] [id number] PCP - General Family Medicine 05/01/21 documented as of this encounter
--- OUTSIDE RECORDS SUMMARY | 2024-03-12 02:42 | XMS_ITS | Encounter Summary ---
Author Organization [facility] Address [facility] [place] [address] Care Team Providers Care Perl Developer Name Role Phone April Mason DO Primary Care Provider [phone] Reason for Visit * Reason Comments Basal Cell Carcinoma * Consultation (Routine) - Closed Specialty Diagnoses / Procedures Referred By Olivier mccracken Referred To Contact Dermatology Diagnoses Basal cell carcinoma (BCC) of left ala nasi Candi Suh MD [facility] [place] [address] Virgilio Landry MD [facility] [address] [place] [address] Referral ID Status Reason Start Date Expiration Date V isits Requested Visits Authorized [id number] Closed Consult, Test & Treat 01/26/2024 01/25/2025 1 1 Encounter Details Date Type Department Care Team (Latest Contact Info) Description 02/06/2024 8:00 AM EDT Procedure visit Dermatology at [facility] [address] [place] [address] Virgilio Landry MD [facility] [address] [place] [address] Basal cell carcinoma (BCC) of left ala nasi Social History Tobacco Use Types Packs/Day Years Used Date Smoking Tobacco: Never Smokeless Tobacco: Never Sex and Gender Information Value Date Recorded Sex Assigned at Not on file Gender Identity Not on file Sexual Orientation Not on file documented as of this encounter Last Filed Vital Signs Vital Sign Reading Time Taken Comments Blood Pressure 133/79 02/06/2024 8:16 AM EDT Pulse 73 02/06/2024 8:16 AM EDT Temperature - - Respiratory Rate - - Oxygen Saturation - - Inhaled Oxygen Concentration - - Weight - - Height - - Body Mass Index - - documented in this encounter Progress Notes * Virgilio Landry MD - 02/06/2024 8:00 AM EDT Images from the original note were not included. Summary of Procedure(s): Site: left nasal ala Tumor Type: Basal Cell Carcinoma nodular Stages to clear tumor: 2 Repair: granulation Images: The patient was asked to call with any issues and is aware that I am available 20/02 should questions arise. Virgilio Landry MD PhD Mohs Micrographic Surgery and Dermatologic Oncology Department of Dermatology Please note that I have reviewed the preoperative checklist from today's nursing visit including relevant social history and medications. I have reviewed the preoperative photos if available and the biopsy report. VITAL SIGNS: BP 133/79 (BP Location (NBP): Right arm, Patient Position: Sitting) Pulse 73 PHYSICAL EXAMINATION: General: patient is awake, alert, oriented and in no acute distress. Skin: Focused examination of surgical site(s) performed which shows a well healed biopsy site with surrounding poorly defined pearly plaque. PHYSICIAN REVIEW OF REPORTS, RECORDS, IMAGES: 1) The accompanying pathology report(s) associated with aforementioned biopsy slide(s) were/was also reviewed. Assessment: Cheryl Zarate is a 73 y.o. female presenting for: 1. Biopsy-proven basal cell carcinoma nodular located on the left nasal ala . Plan: 1. Findings from the biopsy report, today's clinical exam, and other pertinent details were reviewed with patient today. All questions were answered. 2. Discussed treatment options based on the above findings. We recommended Mohs micrographic surgery for treatment of this tumor. Mohs micrographic surgery was indicated due to patient, site and/or tumor characteristics (see operative report for specific indication). 3. We discussed risks, benefits, and alternative treatment options to the Mohs micrographic surgeryprocedure and pertinent information including but not limited to the following: Risks include bleeding, infection, scar, recurrence, incomplete tumor removal or inability to cure with surgery alone if the tumor features are more aggressive than the initial pathology indicates. Occasionally, additional adjuvant treatments may be recommended. Additional risks include large wound, prolonged wound and healing, pain, swelling, bruising, increased appearance of vessels or worsening erythema of baseline skin; more rarely risks include damage to underlying structures such as nerves, cartilage, or muscle which could lead to temporary or permanent loss of sensation or motor function. Benefit is precise tumor removal If reconstruction is performed, it is specific to the patient and defect. Discussed that the shape, size, depth of the wound is often not known until the tumor is cleared and thus the reconstruction options are sometimes not known until after tumor clearance. Occasionally,referrals to other providers may be recommended for reconstruction based on patient preference and need. Reviewed the pros and cons of common reconstructions used for this tumor type, size, and location, and that reconstruction may lead to change in appearance. Natural history of scar was discussed, including that the scar will continue to mature for 1-2 years. Recommended avoidance of special ointments or scar creams, and avoidance of direct sun exposure to the scar for optimal recovery. Reviewed that there are some aspects of cosmesis that are dependent on patient's characteristics such as age, skin laxity/texture factors, inflammatory skin diseases such as rosacea, prior surgery/radiation, degree of actinic damage, smoking status, strength of the patient's immune system, diligentwound care, medications, and genetics. Having Mohs surgery may lead to physical limitations for optimal healing, such as restricted physical activity and heavy lifting. 4. Signs and symptoms of skin cancer reviewed. Patient to report any new, changing, or symptomatic lesions and follow up with his or her induction machine setter or other skin provider. 5. Discussed avoiding direct sun exposure to scars for best cosmetic result. Note initiated by JARETT Argueta LPN has performed the documentation for this encounter in the presence of and acting as a scribe for Dr. Landry I performed the above scribed service and agree with the accuracy of the documentation in this encounter. Reviewed and signed by: Virgilio Landry Dermatology [facility] * Virgilio Landry MD - 02/06/2024 8:00 AM EDT Mohs micrographic Surgery Operative Report Patient name: Cheryl Zarate : 1950 Date: 02/06/2024 Staff Surgeon and Pathologist: Virgilio Landry MD PhD Nursing/Improvement Advisor(s): Diamond Veras RN, Radha Jacobo [facility], Reyna Gross-Stephen UPPER LINING CEMENTER, Juan José Tyson [facility], Elizabeth [place] UPPER LINING CEMENTER, Veena Greene [place], Cayla Richards UPPER LINING CEMENTER, Wet Cleaner Machine (s): Juan José Devlin CMA Pre-operative diagnosis: Basal Cell Carcinoma nodular Post-operative diagnosis: Basal Cell Carcinoma superficial nodular Location/Site: left nasal ala Procedure: Mohs micrographic surgery Indication(s) for Mohs micrographic surgery: Anatomic location for tissue conservation and Histopathology Stages: 2 Preoperative size of tumor: 0.4 x 0.4 cm Stage I The nature and purpose of the procedure, associated risks, possible consequences and complications,and alternative forms of treatment were explained in detail. We reviewed the possible repairs basedon the clinical appearance of tumor but discussed that often the repair options may not be known until the tumor has jackelin extirpated. Informed consent and permission to take photographs were obtained. The site was confirmed with the patient/authorized apprenticeship training representative/referring physician and/or a photograph form time of biopsy. A pre-operative time-out (procedural pause) was conducted with no unresolved discrepancies noted. Local anesthesia was obtained with 0.5 % lidocaine with 1:200,000 epinephrine. The surgical site was prepped and draped in the usual sterile manner. A 1-2 mm margin was excised around clinically evident tumor as a complete layer. Hemostasis was achieved by electrocoagulation. The excised tissue was oriented and divided into 2 sections, chromacoded, and submitted for frozen sections. The patient tolerated the procedure well and without complications. On my personal microscopic evaluation of the frozen sections, residual tumor was identified as SUPERFICIAL BASAL CELL CARCINOMA - Extending from the epidermis and superficial hair follicles are multicentric buds of basaloid keratinocytes. The nuclei at the periphery of the islands have a palisaded arrangement. The tumor islands are associated with a fibromyxoid stroma and there is cleft formationbetween some of the islands and stroma. and NODULAR BASAL CELL CARCINOMA - Arising from the epidermis and extending into the dermis are irregularly shaped islands of basaloid keratinocytes. The cellshave scant cytoplasm and round dark nuclei. The cells at the periphery of the islands display a palisaded arrangement. The islands are associated with a fibromyxoid stroma and there is cleft formation between some of the islands and stroma. on section A1 (see section number on map). Stage II The surgical site was re-anesthetized with 0.5 % lidocaine with 1:200,000 epinephrine, re-prepped and redraped in a sterile manner. The residual tumor was re-excised as a complete layer 2-3mm in thickness using the Mohs map to delineate area of residual tumor. Hemostasis was achieved with electrocoa gulation. The tissue was oriented and divided into 1 sections, chromacoded, and submitted for frozen sections. The patient tolerated the procedure well and without complications. On my personal microscopic evaluation of the frozen sections, no residual tumor was identified on the deep or outer border of the sections. Depth of excision subcutaneous tissue Final defect size: 1.0 x 0.8 cm Virgilio Landry MD PhD Mohs Micrographic Surgery and Dermatologic Oncology Department of Dermatology [address] [place] [address] Repair Operative Report (Second intention) Patient name: Cheryl Zarate : 1950 Date: 02/06/2024 Staff Surgeon: Virgilio Landry MD PhD Laborer Wharf(s): Same as above Clinical Diagnosis: 1.0 x 0.8 cm surgical defect secondary to Mohs micrographic surgery Location/Site: left nasal ala Procedure: Second intention After reviewing the reconstruction options including primary closure, local flaps, skin graft, and second intention healing, the patient elected to have the post Mohs defect heal by second intention. The surgical site was cleaned and any bleeding hemostasis achieved with electrosurgery. White petrolatum with a nonstick gauze pressure dressing was applied. The patient tolerated the procedure well and without complications and was given both verbal and written instruction on postoperative wound care. The patient was discharged in good condition. Patient verbalized no questions at this time. Follow up: in two weeks for a wound check Total local anesthesia with 0.5 % lidocaine with 1:200,000 epinephrine used: 6cc I, Cayla Richards LPN, have performed the documentation for this encounter in the presence of and acting as a scribe for Virgilio Landry MD. I performed the services which were documented by the scribe, and I agree with the accuracy of the documentation in this encounter. JARETT Argueta MD PhD Mohs Micrographic Surgery and Dermatologic Oncology Department of Dermatology [address] [place] [address] documented in this encounter Plan of Treatment Upcoming Encounters Date Type Department Care Team (Late st Contact Info) Description 03/18/2025 2:30 PM EDT Office Visit Dermatology at [address] [phone] Candi Suh MD [facility] [place] [address] Scheduled Referrals Name Type Priority Associated Diagnoses Order Schedule Referral to Dermatology Outpatient Referral Routine Basal cell carcinoma (BCC) of left ala nasi Ordered: 01/26/2024 documented as of this encounter Visit Diagnoses Diagnosis Basal cell carcinoma (BCC) of left ala nasi documented in this encounter Care Teams Perl Developer Relationship Specialty Start Date End Date April Mason DO [address] [place] [address] PCP - General Family Medicine 05/01/21 documented as of this encounter
--- OUTSIDE RECORDS SUMMARY | 2024-03-12 02:42 | XMS_ITS | Encounter Summary ---
Author Organization [facility] [place] [address] Care Team Providers Care Parts Room Clerk Name Role Phone April Mason DO Primary Care Provider +1- [phone] Reason for Visit * Reason Comments Follow-up Things are ok. She t hought that she was hearing better but the test says she is not. Encounter Details Date Type Department Care Team (Latest Contact Info) Description 01/17/2023 11:40 AM EDT Office [place] [address] [facility] [place] [address] Asymmetrical sensorineural hearing loss; Chronic eczematous otitis externa of both ears Social History Tobacco Use Types Packs/Day Years Used Date Smoking Tobacco: Never Smokeless Tobacco: Never Sex and Gender Information Value Date Recorded Sex Assigned at Not on file Gender Identity Not on file Sexual Orientation Not on file documented as of this encounter Last Filed Vital Signs Vital Sign Reading Time Taken Comments Blood Pressure - - Pulse - - Temperature - - Respiratory Rate - - Oxygen Saturation - - Inhaled Oxygen Concentration - - Weight 106.3 kg (234 lb 6.4 oz) 023 12:10 PM EDT Height 162.6 cm (5' 4) 01/17/2023 12:1 0 PM EDT Body Mass Index 40.23 01/17/2023 12:10 PM EDT documented in this encounter Progress Notes * Eliseo Ambrocio MD - 01/17/2023 11:40 AM EDT [facility] Otolaryngology - Head and Neck Surgery Eliseo Ambrocio MD 01/17/23 7:57 AM [place], [place] [address] Office Patient Name: Cheryl Zarate Date of : 1950 PCP: April Mason DO Chief Complaint: hearing loss Interval History: 01/17/2023: H/o asymmetric sensorineural hearing loss, with asymmetry possibly correlating with acute acoustic trauma. Also with h/o chronic eczematous otitis externa bilaterally. Presented initially 07/19/2022. Patient reports hearing has remained subjectively stable. Denies any fluctuating hearing. Denies limiting tinnitus. No significant dizziness or vertigo concerns. Continues use of topical Elocon both ears once every two weeks. Reports that this works well for her in controlling her recurrent ear pruritus. Denies interval otalgia, otorrhea or ear infection concerns. Repeat audiogram 01/17/2023 reviewed. Normal sloping to moderate sensorineural hearing loss left. Mild sloping to moderate severe sensorineural hearing loss right. SRT's DNT. Discrimination 84% at 80 dB bilaterally. Normal bilateral tympanometry. Findings not significantly changed as compared to prior audiogram 07/19/2022. History of Present Illness: Cheryl Zarate is a 72 y.o. year old female with history of HTN, HPL, hypothyroidism, DM II, chronic LBP, tremor, depression and anxiety who was seen today for follow up of asymmetrical HL and bilateral chronic eczematous OE on Elocon. She reports better subjective hearing in L. Denies pruritus inEAC. Reports taking [place] supplement and use of Elocon ointment once every 2 weeks. Denies otalgia, otorrhea. Denies hx of hearing aids use. Patient reporting past history of chronic eczematous otitis externa for the past 25 years. She undergoes regular cleaning of her ears approximately every 6 months to annually with Dr. Soriano. Symptoms typically worse with the apple blossoms. Treats ALCIDES with intermittent topical Elocon which seems to work well for her by report. She additionally reports a longstanding history of slowly progressive hearing decline bilaterally. She has never worn hearing aids. She reports a family history of age-related hearing loss, and both her mother and brother began wearing hearing aids in their 70s. Denies history of significant hazardous noise exposure. She reports that this past March, she was undergoing a routine cleaning of her ears. During suctioning, she experienced a loud shrieking sound in the left ear and had some associated pain. [place] asubjective decline in hearing. Denies any associated dizziness or vertigo. Pain soon resolved, but hearing loss seemed to persist for several days. Reports sound in the left ear when talking with people on the phone sounded like [place]. Seen again in ENT approximately 4 days later. Underwent repeat audiogram, and was empirically treated with a course of oral prednisone. Hearingdid subjectively improve over time, but remains somewhat diminished subjectively on the left. Denies fluctuating hearing loss concerns. Acknowledges a long history of intermittent non-pulsatile subjective tinnitus bilaterally. Symptoms more noticeable in quiet, but reports tinnitus has not been particularly bothersome or limiting. Denies any recent changes in tinnitus. Review of prior records reveals past diagnosis asymmetric sensorineural hearing loss. Denies history of recurrent otalgia, otorrhea, history of recurrent ear infections or prior ear surgery. No knownpast ototoxic medication exposures. Denies significant head trauma history. Denies any significant dizziness or vertigo history. Reports recent melanoma diagnosis, right upper back. Has Derm f/u scheduled for later today. Also reports pulmonary nodule, currently undergoing assessment by report. Audiogram 07/19/2022 reviewed. Mild sloping to moderate SNHL hearing loss bilaterally. Threshold asymmetry from 5011-9849 Hz, and at 4K Hz, worse left. SRT 35dB right and 40dB left. WDS 92% 80dB right and 88% at 80dB left. Type A tymp and type C tymp AD. MRI brain without contrast 03/24/2022 reviewed. Indication new onset headaches. Normal findings. 10 point Review of Systems was normal except for pertinent positives and negatives included in the History of Present Illness. Past Medical and Surgical History Patient Active Problem List Diagnosis Code Skin lesion of chest wall L98.9 Seborrheic keratosis, inflamed L82.0 AK (actinic keratosis) L57.0 Basal cell carcinoma C44.91 Visit for suture removal Z48.02 Seborrheic keratosis L82.1 History of basal cell carcinoma Z85.828 Nevus D22.9 Intertrigo L30.4 Current Outpatient Medications on File Prior to Visit Medication Sig Dispense Refill CALCIUM-MAGNESIUM ORAL Take by mouth daily. multivitamin (VITAMIN A DAY ORAL) Take by mouth. cholecalciferol, Vitamin D3, 50 mcg (2,000 unit) Capsule Take by mouth. ascorbic acid, vitamin C, (Vitamin C) 100 mg Tablet Take 100 mg by mouth daily. losartan (Cozaar) 25 mg Tablet Garlic 100 mg Tablet Take by mouth. Victoza 3-Frankie 0.6 mg/0.1 mL (18 mg/3 mL) Pen Injector daily. fish oil-omega-3 fatty acids 500 mg Capsule Take by mouth. OneTouch Verio test strips Strip TEST TWO TIMES A DAY OneTouch Verio Flex meter Misc TEST TWO TIMES A DAY DIRECTED celecoxib (CeleBREX) 200 mg Capsule TAKE 1 CAPSULE BY MOUTH TWICE DAILY NEEDED FOR PAIN OneTouch Delica Plus Lancet 33 gauge Misc TEST TWO TIMES A DAY metFORMIN XR (Glucophage XR) 500 mg Tablet Sustained Release 24 hr daily. rosuvastatin (Crestor) 5 mg Tablet venlafaxine XR (Effexor-XR) 75 mg Capsule, Sust. Release 24 hr daily. VYVANSE 10 mg Capsule levothyroxine (SYNTHROID) 75 mcg tablet Take 50 mcg by mouth daily. hydrochlorothiazide (HYDRODIURIL) 25 mg tablet Take 25 mg by mouth daily. propranolol (INDERAL) 20 mg tablet Take 160 mg by mouth daily. No current facility-administered medications on file prior to visit. Allergies: Multivitamin, Sertraline, and Milk containing products (dairy) Surgical History: No past surgical history on file. Family and Social History Family History: No family history on file. Social History: [place] [facility] [address] Social History Socioeconomic History Marital status: Spouse name: Not on file Number of children: Not on file Years of education: Not on file Highest education level: Not on file Occupational History Not on file Tobacco Use Smoking status: Never Smokeless tobacco: Never Vaping Use Vaping Use: Never used Substance and Sexual Activity Alcohol use: Not on file Drug use: Not on file Sexual activity: Not on file Other Topics Concern Not on file Social History Narrative Not on file Social Determinants of Health Financial Resource Strain: Not on file Food Insecurity: Not on file Transportation Needs: Not on file Physical Activity: Not on file Housing Stability: Not on file Physical Exam Temperature: Heart Rate: Blood Pressure: Respiratory Rate: SpO2: General: Alert and oriented. No acute distress. Head and Face: Head is normocephalic, atraumatic. Facial resting tone symmetric. Eyes: Conjugate gaze, ocular motility intact bilaterally. No spontaneous or gaze evoked nystagmus. Neurologic: Cranial Nerves II-XII grossly intact and symmetric. Ears: External ears without deformity. See documentation of otomicroscopy below. Tuning forks: Ramirez midline; air conduction greater than bone conduction bilaterally. Psych: Normal mood and affect. Labs and Imaging Significant lab values are as follows: n/a I reviewed the following imaging studies: MRI brain without contrast 03/24/2022 Indication new onset headaches. Normal findings. Procedures Ears examined and cleaned with aid of binocular microscopy. Right Ear: Auricle normal. Meatus and external auditory canal clear with minimal dry scaling. Partially obstructing dry cerumen and modest desquamated debris cleared with otologic instrumentation. Canal otherwise clear. Drum is intact with normal mobility via pneumatic otoscopy. Middle ear is well aerated. Negative fistula test. Left Ear: Auricle normal. Meatus and external auditory canal clear with minimal dry scaling. Partially obstructing dry cerumen and modest desquamated debris cleared with otologic instrumentation. Canal otherwise clear. Drum is intact with normal mobility via pneumatic otoscopy. Middle ear is well aerated. Negative fistula test. ASSESSMENT & RECOMMENDATIONS Cheryl Zarate is a 72 y.o. female history of HTN, HPL, hypothyroidism, DM II, chronic LBP, tremor, depression and anxiety who initially presented with left greater than right hearing loss concerns.Longstanding history of slowly progressive hearing decline over many years. Past history of asymmetric sensorineural hearing loss, with asymmetry possibly correlating with considerations to acute acoustic trauma left ear with suctioning during routine ear cleaning through outside facility for history of chronic eczematous otitis externa (ALCIDES ) bilaterally. Was treated empirically with course of oral prednisone at time of onset. Hearing loss left ear subjectively improved, but did not entirely return back to baseline. ALCIDES generally well controlled with topical Elocon and regular cleanings. Stable exam findings. Stable audiogram. Hearing aid candidacy discussed. Patient medically cleared for such. Patient to consider. Relevant educational materials and associated resources provided to patient today. Recommended continued otologic surveillance with ear cleaning. Will continue with topical Elocon for ears as previously directed. Hearing aid candidacy discussed. Patient medically cleared for hearing aids bilaterally. Patient will continue to consider her options. Will plan follow-up approximately 6 months. Recommended continued annual audiogram for hearing surveillance. Patient verbally expressed understanding and was in agreement with the plan as outlined above. Trish Pruett PA-C Resident Otology / Neurotology Otolaryngology - Head & Neck Surgery 01/17/23 7:57 AM Otolaryngology Attending Physician Addendum I shared the visit with CHAZ Alanis due to the complexity of the patient's problem and needfor surgical opinion. I have seen and examined the patient and reviewed the documented history and exam findings and I agree with the details as written. The assessment and plan were formulated in discussion with me and Iagree with them as documented. Total time personally spent counseling and coordinating patient care 40 minutes. Eliseo Ambrocio MD Otology / Neurotology Otolaryngology-Head & Neck Surgery [facility] documented in this encounter Plan of Treatment Upcoming Encounters Date Type Department Care Team (Late st Contact Info) Description 03/18/2025 2:30 PM EDT Office Visit Dermatology at [facility] [address] [place] [address] Candi Suh MD [facility] [place] [address] [place] [address] documented as of this encounter Visit Diagnoses Diagnosis Asymmetrical sensorineural hearing loss Sensorineural hearing loss, asymmetrical Chronic eczematous otitis externa of both ears documented in this encounter Care Teams Parts Room Clerk Relationship Specialty Start Date End Date April Mason DO [address] [place] [address] PCP - General Family Medicine 05/01/21 documented as of this encounter
--- OUTSIDE RECORDS SUMMARY | 2024-03-12 02:42 | XMS_ITS | Clinical Summary ---
Author Organization [facility] Address [facility] [place] [address] Care Team Providers Care Industry Consultant Name Role Phone April Mason DO Primary Care Provider +1- [phone] Allergies Active Allergy Reactions Criticality Noted Date Comments Milk Containing Products (Dairy) 08/24/2021 Multivitamin High 04/16/2021 Other reaction(s): causes chest pressure Sertraline High 04/16/2021 Other reaction(s): per pt tingling in arm and jaw pain Medications Medication Sig Dispensed Refills Start Date End Date Status levothyroxine (SYNTHROID) 75 mcg tablet Take 50 mcg by mouth daily. Active hydrochlorothiazide (HYDRODIURIL) 25 mg tablet Take 25 mg by mouth daily. Active propranolol (INDERAL) 20 mg tablet Take 160 mg by mouth daily. Active VYVANSE 10 mg Capsule 09/08/2015 Act hilario OneTouch Verio test strips Strip TEST TWO TIMES A DAY 10/30/2019 Active OneTouch Verio Flex meter Misc TEST TWO TIMES A DAY DIRECTED 10/30/2019 Active OneTouch Delica Plus Lancet 33 gauge Misc TEST TWO TIMES A DAY 10/30/2019 Active rosuvastatin (Crestor) 5 mg Tablet 03/12/2020 Act hilario venlafaxine XR (Effexor-XR) 75 mg Capsule, Sust. Release 24 hr daily. 2020 Active Victoza 3-Frankie 0.6 mg/0.1 mL (18 mg/3 mL) Pen Injector daily. 07/05/2021 Active fish oil-omega-3 fatty acids 500 mg Capsule Take by mouth. Active losartan (Cozaar) 25 mg Tablet 01/05/2022 Active Garlic 100 mg Tablet Take by mouth. Active CALCIUM-MAGNESIUM ORAL Take by mouth daily. Active cholecalciferol, Vitamin D3, 50 mcg (2,000 unit) Capsule Take by mouth. Active ascorbic acid, vitamin C, (Vitamin C) 100 mg tablet Take 100 mg by mouth daily. Active gabapentin (Neurontin) 300 mg capsule Take 300 mg by mouth nightly. 07/04/2023 Active Active Problems Problem Noted Date Diagnosed Date Intertrigo 03/27/2018 Seborrheic keratosis 04/07/2014 History of basal cell carcinoma 04/07/2014 Nevus 04/07/2014 Visit for suture removal 07/16/2012 Basal cell carcinoma 07/03/2012 Skin lesion of chest wall 05/15/2012 Seborrheic keratosis, inflamed 05/15/2012 AK (actinic keratosis) 05/15/2012 Encounters Date Type Department Care Team Description 02/22/2024 2:00 PM EDT Office Visit Dermatology at [facility] [address] [place] [address] Virgilio Landry MD Visit for wound check 02/22/2024 Travel 02/06/2024 8:00 AM EDT Procedure visit Dermatology at [facility] [address] [place] [address] Virgilio Landry MD Basal cell carcinoma (BCC) of left ala nasi 02/06/2024 7:45 AM EDT Clinical Support Dermatology at [facility] [address] [place] [address] Virgilio Landry MD Basal cell carcinoma (BCC) of left ala nasi 02/06/2024 Travel 02/05/2024 Telephone Dermatology at [facility] [address] [place] [address] Virgilio Landry MD 01/26/2024 Transcribe Orders Dermatology at [facility] [address] [place] [address] Candi Suh MD Basal cell carcinoma (BCC) of left ala nasi 01/18/2024 10:00 AM EDT Office Visit Dermatology at [facility] [address] [place] [address] aCndi Suh MD Skin cancer screening; History of melanoma; History of nonmelanoma skin cancer; SK (seborrheic keratosis); [place] angioma; Lentigines; Melanocytic nevus, congenital; AK (actinic keratosis); Neoplasm of unspecified behavior of bone, soft tissue, and skin; History of dysplastic nevus 01/18/2024 Travel from Last 3 Months Social History Tobacco Use Types Packs/Day Years Used Date Smoking Tobacco: Never Smokeless Tobacco: Never Tobacco Cessation:Counseling Given: Not Answered Sex and Gender Information Value Date Recorded Sex Assigned at Not on file Gender Identity Not on file Sexual Orientation Not on file Last Filed Vital Signs [...] Mass Index 40.23 01/17/2023 12:10 PM EDT Plan of Treatment Upcoming Encounters Date Type Department Care Team (Late st Contact Info) Description 03/18/2025 2:30 PM EDT Office Visit Dermatology at [facility] [address] [place] [address] Candi Suh MD [facility] [place] [address] Health Maintenance Due Date Last Done Comments CT Colonography 1950 Colonoscopy 1952 Colorectal Cancer Screening 1950 FIT DNA 1952 FIT 1952 Sigmoidoscopy (10 year) with FIT yearly 1950 Sigmoidoscopy 1950 Hepatitis C Screening 1970 Tdap adult 1971 Tetanus vaccine 1971 Breast Cancer Share Decision Needed 1992 Breast Cancer screening 1992 Zoster vaccine (1 of 2) 2002 Advance Directive 2007 Bone Density Scan 2017 Pneumoccocal Vaccine: 65+ (1 of 1 - PCV) 2017 Covid-19 Vaccine (1 - 2022-24 season) 2023 Influenza (Flu) vaccine (1 o f 1 - Influenza standard series) 03/31/2024 Procedures Procedure Name Priority Date/Time Associated Diagnosis Comments SPECIMEN TO PATHOLOGY Routine 01/18/2024 10:51 AM EDT Neoplasm of unspecified behavior of bone, soft tissue, and skin SURGICAL PATHOLOGY REPORT Routine 01/18/2024 10:44 AM EDT from Last 3 Months Results * Specimen to Pathology (01/18/2024 10:51 AM EDT) AP Specimen 01/18/2024 10:5 1 AM EDT 01/18/2024 10:51 AM EDT Narrative [facility] - 01/18/2024 10:51 AM EDT Specimen requisition ordered. ??Separate Pathology report to follow Candi Suh MD PATHOLOGY/CYTOLOGY O RYLAN [facility] [place] [address] * (ABNORMAL) Surgical Pathology Report (01/18/2024 10:44 AM EDT) Final Diagnosis [id number] ? Location: [facility] The signing pathologist has (i) examined the relevant preparation(s) for the specimen(s) and (ii) rendered or confirmed the diagnosis(es). . ?Surgical Pathology DIAGNOSIS L eft nasal ala, skin shave biopsy: - ??Basal cell carcinoma, nodular type, ??present at the peripheral and deep specimen edges Electronically signed by: ?Nga SUMNER, Adan Hicks Verified: ??01/23/2024 12:31 ??Dermatopathol ogist Performed at: ??-[facility] Dept. of Pathology, [place] [address] Paper Slitter: Rebeca Rodriguez MD, FCAP, ??CLIA Certificate: [id number] DISCUSSION THIS RESULT REQUIRES PHYSICIAN/A.P.P . FOLLOW [...] labeled A1. ??sdy(A) 01/23/2024 12:31 PM EDT [facility] SPECIMEN FROM SKIN / Unknown 01/18/2024 10:44 AM EDT 01/18/2024 10:44 AM EDT Candi Suh MD PATHOLOGY/CYTOLOGY O RDERABLES [facility] [place] [id number] from Last 3 Months Care Teams Industry Consultant Relationship Specialty Start Date End Date April Mason DO [address] [place] [id number] PCP - General Family Medicine 05/01/21
--- OUTSIDE RECORDS SUMMARY | 2024-03-12 02:42 | XMS_ITS | Encounter Summary ---
Author Organization [facility] [place] [address] Care Team Providers Care Cigarette Making Machine Catcher Name Role Phone April Mason DO Primary Care Provider +1- [phone] Encounter Details Date Type Department Care Team (Latest Contact Info) Description 08/01/2023 Travel Social History Tobacco Use Types Packs/Day [...] Visit Dermatology at [address] [place] [address] Candi Suh MD [facility] [place] [address] documented as of this encounter Visit Diagnoses Not on filedocumented in this encounter Care Teams Cigarette Making Machine Catcher Relationship Specialty Start Date End Date April Mason DO [address], [place] [id number] PCP - General Family Medicine 05/01/21 documented as of this encounter
--- OUTSIDE RECORDS SUMMARY | 2024-03-12 02:42 | XMS_ITS | Encounter Summary ---
Author Organization [facility] Address [facility] [place] [address] Care Team Providers Care Inspector Set Up And Lay Out Name Role Phone April Mason DO Primary Care Provider +1- [phone] Reason for Visit * Reason Comments Basal Cell Carcinoma Encounter Details Date Type Department Care Team (Latest Contact Info) Description 02/06/2024 7:45 AM EDT Clinical Support Dermatology at [facility] [address] [place] [address] Virgilio Landry MD [facility] DR [place] [address] Basal cell carcinoma (BCC) of left ala [...] Time Taken Comments Blood Pressure 133/79 02/06/2024 7:59 AM EDT Pulse 73 02/06/2024 7:59 AM EDT Temperature - - Respiratory Rate - - Oxygen Saturation - - Inhaled Oxygen Concentration - - Weight - - Height - - Body Mass Index - - documented in this encounter Progress Notes * Cayla Richards LPN - 02/06/2024 7:45 AM EDT Mohs consultation and preoperative note (H&P) Patient Name: Cheryl Zarate Age: 73 y.o. Date of : 1950 Today's Date: 02/06/2024 REFERRING PROVIDER: Dr. Suh CC: Mohs micrographic [...] implantable devices (e.g. Cochlear implant)- Yes Knee 2019 Do you take a blood thinner-No History [...] 2:30 PM EDT Office Visit Dermatology at [facility] [address] [place] [address] Candi Suh MD [facility] [place] [address] documented as of this encounter Visit Diagnoses Diagnosis Basal cell carcinoma (BCC) of left ala nasi documented in this encounter Care Teams Inspector Set Up And Lay Out Relationship Specialty Start Date End Date April Mason DO [address] [place] [address] PCP - General Family Medicine 05/01/21 documented as of this encounter
--- OUTSIDE RECORDS SUMMARY | 2024-03-12 02:42 | XMS_ITS | Encounter Summary ---
Author Organization [facility] [place] [address] Care Team Providers Care Pricing Manager Name Role Phone April Mason DO Primary Care Provider +1- [phone] Encounter Details Date Type Department Care Team (Latest Contact Info) Description 01/17/2023 Travel Social History Tobacco Use Types Packs/Day [...] Visit Dermatology at [address] [place] [address] Candi Suh MD [facility] [place] [address] documented as of this encounter Visit Diagnoses Not on filedocumented in this encounter Care Teams Pricing Manager Relationship Specialty Start Date End Date April Mason DO [address], [place] [id number] PCP - General Family Medicine 05/01/21 documented as of this encounter
--- OUTSIDE RECORDS SUMMARY | 2024-03-12 02:42 | XMS_ITS | Encounter Summary ---
Author Organization Formerly [facility] Address [facility] [place] [address] Care Team Providers Care Food And Beverage Assistant Manager Name Role Phone April Mason DO Primary Care Provider +1- [phone] Reason for Visit * Consultation (Routine) - Closed Specialty Diagnoses / Procedures Referred By Olivier mccracken Referred To Contact Dermatology Diagnoses Pilar cyst of scalp Candi Suh MD [facility] [place] [address] Margarita Winslow RN Referral ID Status Reason Start Date Expiration Date V isits Requested Visits Authorized [id number] Closed Consult, Test & Treat 01/17/2023 01/17/2024 1 1 Encounter Details Date Type Department Care Team (Latest Contact Info) Description 08/01/2023 1:00 PM EST Procedure visit Dermatology at [facility] [address] [place] [address] Travon Ramirez MD [facility] [address] [place] [address] Pilar cyst (Primary Dx) Social History Tobacco Use Types Packs/Day Years Used Date Smoking Tobacco: Never Smokeless Tobacco: Never Sex and Gender Information Value Date Recorded Sex Assigned at Not on file Gender Identity Not on file Sexual Orientation Not on file documented as of this encounter Progress Notes * Virgilio Zarate MD - 08/01/2023 1:00 PM EST Images from the original note were not included. Dermatologic Surgery Operative Report (Procedure: Excision with intermediate layered Closure) I directly supervised Dr. Ruiz in the care of this patient. I saw and evaluated this patient with Dr. Ruiz. He presented the history and physical exam detailsto me, then we saw the patient together and I confirmed these findings. I agree with details as written. My physical examination confirms his findings. I was in the room > 50% of the procedure andat all the critical points of removal and repair. The assessment and plan were formulated in discussion with me at the time of visit and I agree withthem as documented. Travon Ramirez MD Staff Physician Department of Dermatology Patient Name: Cheryl Zarate Date of : 1950 Visit date: 08/01/2023 STAFF SURGEON: Travon Ramirez MD RESIDENT SURGEON: Frederick Ruiz MD ASSISTANTS: [] Diamond Veras [] Jaki Day [x] Radha Barone [] Reyna Hallegand-Stephen [] Juan José Tyson [] Gabriela Celeste Preoperative Diagnosis: Pilar cyst Postoperative Diagnosis: Same as above Pathology: Submitted for permanent pathology. Pending. Lesion Site (location): left occipital scalp Pre-operative size (cm): 4.0 cm Circumferential Margins Obtained: 0 cm Final Defect size or Total Excision Diameter (the lesion plus margins): 3.6 cm Final Length of closure: 4.1 cm Total anesthesia volume used for today: 6.0 cc INDICATION REMOVAL. PROCEDURE >Excision with intermediate layered closure. PREOPERATIVE MEDICATION: [x] None Prior to the procedure, final verification of the patient identity and correct marked surgical sitewas performed. Timeout was performed. Anesthesia used was 1% lidocaine with 1:100,000 epinephrine. The skin was prepped in a sterile fashion with 2% chlorhexidine. The lesion was excised with clinically tumor-free margins in a fusiform fashion through the skin and through the subcutaneous tissue. The wound edges were trimmed as needed,and hemostasis was obtained with electrocoagulation. Due to wound size, the wound edges were closed in a layered fashion with 3-0 Monocryl subcutaneous sutures and 4-0 Prolene skin sutures. Postoperative length: 3.6 cm. Estimated blood loss: Minimal. Complications: None. Wound care: Routine. Specimen sent to Dermatopathology. Biopsy report is pending. Suture removal in 14 days (at PCP office, per pt preference) POST-OPERATIVE MEDICATIONS: [x] NONE Pre- and Post-Operative Photographs: * Frederick Ruiz MD - 08/01/2023 1:00 PM EST Benign biopsy result discussed with patient. No further treatment recommended. documented in this encounter Plan of Treatment Upcoming Encounters Date Type Department Care Team (Late st Contact Info) Description 03/18/2025 2:30 PM EDT Office Visit Dermatology at [facility] [address] [place] [address] Candi Suh MD [facility] [place] [address] documented as of this encounter Procedures Procedure Name Priority Date/Time Associated Diagnosis Comments SPECIMEN TO PATHOLOGY Routine 08/01/2023 1:43 PM EST Pilar cyst SURGICAL PATHOLOGY REPORT Routine 08/01/2023 1:42 PM EST documented in this encounter Results * Specimen to Pathology (08/01/2023 1:43 PM EST) AP Specimen 08/01/2023 1:43 PM EST 08/01/2023 1:43 PM EST Narrative [facility] - 08/01/2023 1:43 PM EST Specimen requisition ordered. ??Separate Pathology report to follow Travon Ramirez MD PATHOLOGY/CYTOLOGY O RDERABLES [facility] [place] [address] * Surgical Pathology Report (08/01/2023 1:42 PM EST) Final Diagnosis [id number] ? Location: [facility] The signing pathologist has (i) examined the relevant preparation(s) for the specimen(s) and (ii) rendered or confirmed the diagnosis(es). . ?Surgical Pathology DIAGNOSIS Left occipital scalp, skin excision: - Pilar cyst Electronically signed by: ?Nga SUMNER, Adan Hicks Verified: ??08/08/2023 12:41 ??Dermatopathol ogist Performed at: ??-[facility] Dept. of Pathology, [place] [address] Assurance Manager Insurance: Rebeca Rodriguez MD, AP, ??CLIA Certificate: [id number] SPECIMEN(S) SUBMITTED A - left occipital scalp, skin excision (1) CLINICAL INFORMATION Excision of pilar cyst SPECIMEN PROCESSING A - Labeled/Fixativ e: Left occipital scalp, formalin. Quantity/Size: Single, 2.3 x 2.0 x 1.7 cm. Tissue Description: Disrupted vilchis-pink cyst with scant pasty pink-white cyst contents. Sections/Proces sing: Eye Surgeon sections in 1 cassette labeled A1. ??ajw 08/08/2023 12:41 PM EST [facility] EPIDERMOID CYST / Unknown 08/01/2023 1:42 PM EST 08/01/2023 1:42 PM EST Frederick Ruiz MD PATHOLOGY/CYTOLOGY O RDERABLES [facility] [place] [id number] [facility] [place] [address] documented in this encounter Visit Diagnoses Diagnosis Pilar cyst- Primary documented in this encounter Care Teams Food And Beverage Assistant Manager Relationship Specialty Start Date End Date April Mason DO [address] [place] [address] PCP - General Family Medicine 05/01/21 documented as of this encounter
--- OUTSIDE RECORDS SUMMARY | 2024-03-12 02:42 | XMS_ITS | Encounter Summary ---
Author Organization [facility] [place] [address] Care Team Providers Care Teller Coordinator Name Role Phone April Mason DO Primary Care Provider +1- [phone] Encounter Details Date Type Department Care Team (Latest Contact Info) Description 01/17/2023 9:30 AM EDT Office Visit Audiology at [address] [address] Kaye Garcia AUD [facility] [place] [address] Asymmetrical sensorineural hearing loss; Negative middle ear pressure of right ear with type C tympanogram curve Social History Tobacco Use Types Packs/Day Years Used Date Smoking Tobacco: Never Smokeless Tobacco: Never Sex and Gender Information Value Date Recorded Sex Assigned at Not on file Gender Identity Not on file Sexual Orientation Not on file documented as of this encounter Progress Notes * Kaye Garcia AUD - 01/17/2023 9:30 AM EDT AUDIOLOGIC EVALUATION Cheryl Zarate was seen on 01/17/2023 for an audiologic evaluation as medically indicated in conjunction with Dr Ambrocio in otolaryngology. Note: Today's evaluation was completed by Yolanda Alegria MS, Doctoral C Winforms Developer, under the full supervision of Jonathan Lunsford. Please refer to the scanned audiogram listed under Procedures for findings, impressions and recommendations. Jareth Gomes [employer] Certified [facility] [place] [address] documented in this encounter Plan of Treatment Upcoming Encounters Date Type Department Care Team (Late st Contact Info) Description 03/18/2025 2:30 PM EDT Office Visit Dermatology at [facility] [address] [place] [address] Candi Suh MD [facility] [place] [address] documented as of this encounter Procedures Procedure Name Priority Date/Time Associated Diagnosis Comments COMPREHENSIVE HEARING TEST Routine 01/17/2023 9:33 AM EDT documented in this encounter Results * Comprehensive hearing test (01/17/2023 9:33 AM EDT) 01/17/2023 9:33 AM EDT Narrative [facility] - 01/17/2023 9:33 AM EDT Information regarding today's test results was provided. Consider trial of amplification, literature provided. Follow-up as scheduled with Dr. Ambrocio in ENT. Procedure Note Unknown - 01/17/2023 Information regarding today's test results was provided. Consider trial ofamplification, literature provided. Follow-up as scheduled with Dr. Ambrocio in ENT. Kaye [facility] ORDERABLES [facility] documented in this encounter Visit Diagnoses Diagnosis Asymmetrical sensorineural hearing loss Sensorineural hearing loss, asymmetrical Negative middle ear pressure of right ear with type C tympanogram curve documented in this encounter Care Teams Teller Coordinator Relationship Specialty Start Date End Date April Mason DO [address] [place] [address] PCP - General Family Medicine 05/01/21 documented as of this encounter
--- OUTSIDE RECORDS SUMMARY | 2024-03-12 02:42 | XMS_ITS | Encounter Summary ---
Author Organization [facility] [place] [address] Care Team Providers Care Shoes Hand Sewer Name Role Phone April Mason DO Primary Care Provider +1- [phone] Encounter Details Date Type Department Care Team (Latest Contact Info) Description 02/22/2024 Travel Social History Tobacco Use Types Packs/Day [...] Visit Dermatology at [address] [place] [address] Candi Suh MD [facility] [place] [address] documented as of this encounter Visit Diagnoses Not on filedocumented in this encounter Care Teams Shoes Hand Sewer Relationship Specialty Start Date End Date April Mason DO [address] [place], [place] [id number] PCP - General Family Medicine 05/01/21 documented as of this encounter
--- OUTSIDE RECORDS SUMMARY | 2024-03-12 02:42 | XMS_ITS | Encounter Summary ---
Author Organization [facility] Address [facility] [place] [address] Care Team Providers Care Fellmongering Machine Operator Name Role Phone April Mason DO Primary Care Provider +1- [phone] Encounter Details Date Type Department Care Team (Latest Contact Info) Description 08/01/2023 12:45 PM EST Clinical Support Dermatology at [facility] [address] [place] [address] Travon Ramirez MD [facility] [address] [place] [address] Pilar cyst of scalp Social History Tobacco Use Types Packs/Day Years Used Date Smoking Tobacco: Never Smokeless Tobacco: Never Sex and Gender Information Value Date Recorded Sex Assigned at Not on file Gender Identity Not on file Sexual Orientation Not on file documented as of this encounter Last Filed Vital Signs Vital Sign Reading Time Taken Comments Blood Pressure 136/91 08/01/2023 1:00 PM EST Pulse 84 08/01/2023 1:00 PM EST Temperature - - Respiratory Rate - - Oxygen Saturation - - Inhaled Oxygen Concentration - - Weight - - Height - - Body Mass Index - - documented in this encounter Progress Notes * Radha Jacobo CMA - 08/01/2023 12:45 PM EST Patient Name: Cheryl Zarate Age: 73 y.o. Date of : 1950 Today's Date: 08/01/2023 REFERRING PROVIDER: Candi Suh MD HPI: Cheryl Zarate is a 73 y.o. female presenting for excision of cyst location on the left occipital scalp. The dermatologic preoperative information sheet was reviewed with pertinent positive and negative as below. DERMATOLOGIC PRE-OPERATIVE EVALUATION AND REVIEW OF SYSTEMS Pacemaker/Defibrillator? no Joint replacement or other implantable devices (e.g. Cochlear implant)? If yes then when? yes left knee December 2018 Do you take a blood thinner? No History of artificial valve or stroke? no History of liver disease or bleeding disorder? no Do you have any medical problems that may affect your upcoming surgery? no ALLERGIES: Allergies reviewed MEDICATIONS: Medications reviewed Signed: Radha Jacobo CMA documented in this encounter Plan of Treatment Upcoming Encounters Date Type Department Care Team (Late st Contact Info) Description 03/18/2025 2:30 PM EDT Office Visit Dermatology at [facility] [address] [place] [address] Candi Suh MD [facility] [place] [address] documented as of this encounter Visit Diagnoses Diagnosis Pilar cyst of scalp documented in this encounter Care Teams Fellmongering Machine Operator Relationship Specialty Start Date End Date April Mason DO [address] [place] [address] PCP - General Family Medicine 05/01/21 documented as of this encounter
--- OUTSIDE RECORDS SUMMARY | 2024-03-12 02:42 | XMS_ITS | Encounter Summary ---
Author Organization [facility] Address [facility] [place] [address] Care Team Providers Care Operations Asst Name Role Phone April Mason DO Primary Care Provider +1- [phone] Reason for Referral * Consultation (Routine) - Closed Specialty Diagnoses / Procedures Referred By Olivier mccracken Referred To Contact Dermatology Diagnoses Basal cell carcinoma (BCC) of left ala nasi Candi Suh MD [facility] [place] [address] Virgilio Landry MD [facility] [address] [place] [address] Referral ID Status Reason Start Date Expiration Date V isits Requested Visits Authorized [id number] Closed Consult, Test & Treat 01/26/2024 01/25/2025 1 1 Encounter Details Date Type Department Care Team (Latest Contact Info) Description 01/26/2024 Transcribe Orders Dermatology at [facility] [address] [place] [address] Candi Suh MD [facility] [place] [address] Basal cell carcinoma (BCC) of left ala [...] 2:30 PM EDT Office Visit Dermatology at [facility] [address] [place] [address] Candi Suh MD [facility] [place] [address] Scheduled Referrals Name Type Priority Associated Diagnoses Order Schedule Referral to Dermatology Outpatient Referral Routine Basal cell carcinoma (BCC) of left ala nasi Ordered: 01/26/2024 documented as of this encounter Visit Diagnoses Diagnosis Basal cell carcinoma (BCC) of left ala nasi documented in this encounter Care Teams Operations Asst Relationship Specialty Start Date End Date April Mason DO [address] [place] [address] PCP - General Family Medicine 05/01/21 documented as of this encounter
--- OUTSIDE RECORDS SUMMARY | 2024-03-12 02:42 | XMS_ITS | Encounter Summary ---
Author Organization [facility] Address [facility] [place] [address] Care Team Providers Care Back Sizer Name Role Phone April Mason DO Primary Care Provider +1- [phone] Encounter Details Date Type Department Care Team (Late st Contact Info) Description 02/22/2024 2:00 PM EDT Office Visit Dermatology at [facility] [address] [place] [address] Virgilio Landry MD [facility] [address] [place] [address] Visit for wound check Social History Tobacco Use Types Packs/Day Years Used Date Smoking Tobacco: Never Smokeless Tobacco: Never Sex and Gender Information Value Date Recorded Sex Assigned at Not on file Gender Identity Not on file Sexual Orientation Not on file documented as of this encounter Progress Notes * Virgilio Landry MD - 02/22/2024 2:00 PM EDT Dermatologic Surgery Post-Operative Follow Up Visit Patient: Cheryl Zarate Today's Date: 02/22/2024 Date of : 1950 Chief complaint: Wound check History of Present Illness: Cheryl Zarate is a 73 y.o. female presents today for status post Mohs micrographic surgery for: Tumor type: Nodular Basal Cell Carcinoma Site: Left nasal ala Repair: Granulation Surgery date: 02/06/24 Today, the patient reports she has been keeping it bandaged, and that the wound is doing well. She states that this morning, the scab came off on accident, but that the wound was not bleeding. Patient denies post-operative course complications and had an uneventful post-op course. Examination: Focused examination performed of the surgical site. This reveals healthy granulation tissue withoutevidence of infection or recurrence. Assessment: 1. Normal healing post-surgical site without any signs/symptoms of infection. Healthy granulation tissue. Plan: 1. Apply petroleum jelly and an adhesive bandage daily for the next 14 days. Note initiated by YARELIS Cornejo CMA has performed the documentation for this encounter in the presence of and acting as a scribe for Dr. Landry I performed the above scribed service and agree with the accuracy of the documentation in this encounter. Reviewed and signed by: Virgilio Landry Dermatology [facility] Virgilio Landry MD PhD Mohs Micrographic Surgery and Dermatologic Oncology Department of Dermatology documented in this encounter Plan of Treatment Upcoming Encounters Date Type Department Care Team (Late st Contact Info) Description 03/18/2025 2:30 PM EDT Office Visit Dermatology at [facility] [address] [place] [address] Cnadi Suh MD [facility] [place] [address] documented as of this encounter Visit Diagnoses Diagnosis Visit for wound check Encounter for other specified aftercare documented in this encounter Care Teams Back Sizer Relationship Specialty Start Date End Date April Mason DO [address] [place] [address] PCP - General Family Medicine 05/01/21 documented as of this encounter
--- OUTSIDE RECORDS SUMMARY | 2024-03-12 02:43 | XMS_ITS | Encounter Summary ---
[place] [address] Care Team Providers Care Administrative Sales Assistant Name Role Phone April Mason DO Primary Care Provider [phone] Reason for Visit * Diagnostic Test (Routine) - Closed Specialty Diagnoses / Procedures Referred By Olivier t Referred To Contact Radiology Diagnoses Lung nodule Procedures NM PET CT Skull Base to Mid-thigh Beverley Maria MD [address] [place] [address] [place] [address] Referral ID Status Reason Start Date Expiration Date V isits Requested Visits Authorized [id number] Closed Specialty Service Requested 08/05/2022 02/03/2024 1 1 Encounter Details Date Type Department Care Team (Latest Contact Info) Description 09/16/2022 9:58 AM EST - 09/16/2022 11:59 PM [facility] Hospital Encounter [place] [id number] Beverley Maria MD [address] [place] [address] Discharge Disposition: Home Social History Tobacco Use Types Packs/Day Years Used Date Smoking Tobacco: Never Smokeless Tobacco: Never Sex and Gender Information Value Date Recorded Sex Assigned at Not on file Gender Identity Not on file Sexual Orientation Not on file documented as of this encounter Medications at Time of Discharge Medication Sig Dispensed Refills Start Date End Date CALCIUM-MAGNESIUM ORAL Take by mouth daily. cholecalciferol, Vitamin D3, 50 mcg (2,000 unit) Capsule Take by mouth. ascorbic acid, vitamin C, (Vitamin C) 100 mg tablet Take 100 mg by mouth daily. losartan (Cozaar) 25 mg Tablet 01/05/2022 Garlic 100 mg Tablet Take by mouth. Victoza 3-Frankie 0.6 mg/0.1 mL (18 mg/3 mL) Pen Injector daily. 07/05/2021 fish oil-omega-3 fatty acids 500 mg Capsule Take by mouth. OneTouch Verio test strips Strip TEST TWO TIMES A DAY 10/30/2019 OneTouch Verio Flex meter Misc TEST TWO TIMES A DAY DIRECTED 10/30/2019 OneTouch Delica Plus Lancet 33 gauge Misc TEST TWO TIMES A DAY 10/30/2019 rosuvastatin (Crestor) 5 mg Tablet 03/12/2020 venlafaxine XR (Effexor-XR) 75 mg Capsule, Sust. Release 24 hr daily. 2020 VYVANSE 10 mg Capsule 09/08/2015 levothyroxine (SYNTHROID) 75 mcg tablet Take 50 mcg by mouth daily. hydrochlorothiazide (HYDRODIURIL) 25 mg tablet Take 25 mg by mouth daily. propranolol (INDERAL) 20 mg tablet Take 160 mg by mouth daily. multivitamin (VITAMIN A DAY ORAL) Take by mouth. 08/01/2023 celecoxib (CeleBREX) 200 mg Capsule TAKE 1 CAPSULE BY MOUTH TWICE DAILY NEEDED FOR PAIN 01/16/2020 08/01/2023 metFORMIN XR (Glucophage XR) 500 mg Tablet Sustained Release 24 hr daily. 03/23/202008/2023 documented as of this encounter Plan of Treatment Upcoming Encounters Date Type Department Care Team (Late st Contact Info) Description 03/18/2025 2:30 PM EDT Office Visit Dermatology at [address] [place] [address] Candi Suh MD [facility] [place] [address] documented as of this encounter Procedures Procedure Name Priority Date/Time Associated Diagnosis Comments NM PET CT SKULL BASE TO MID-THIGH ([facility]) Routine 09/16/2022 11:23 AM EST Lung nodule documented in this encounter Results * NM PET CT Skull Base to Mid-thigh (09/16/2022 11:23 AM EST) Anatomical Region Laterality Modality Positron Emissio n Tomography (PET) Impressions 09/20/2022 1:17 PM EST 1. ??The left lower lobe mass is mildly FDG avid. Although this may represent a hamartoma, a low-grade malignancy is not excluded. 2. ??There is a 9 mm right lower lobe nodule that is unchanged and not FDG avid favoring a benign etiology such as interpolar lymph node, granuloma or hamartoma. 3. ??Sub-6 mm non-FDG avid pulmonary nodules are present in the right lower lobe and are unchanged in appearance. These are too small to be characterized by FDG PET. 4. ??Please consider follow-up imaging with noncontrast CT in 6-12 months to evaluate stability. Thank you for letting us participate in the care of this patient. ??If you are a health care provider and have any questions regarding this report, please contact the number below. ??For patients who have questions please contact the health animal care technician that requested your imaging first. ? Electronically signed by: Wong Spence MD, [facility] ([phone]), at 09/20/2022 1:17 PM Narrative 09/20/2022 1:17 PM EST EXAMINATION: NM PET CT STANDARD SKULL BASE TO MID-THIGH CLINICAL HISTORY: lll nodule 2.7 cm incidental ?hamartoma TECHNIQUE: Following IV injection of 54-dnysuh-0-deoxyglucose (FDG) a standard uptake of approximately 60 minutes, a noncontrast CT scan followed by a PET scan were acquired from the base of the skull to mid thighs. The noncontrast CT was used for anatomic localization and photon attenuation correction of the PET scan. Blood glucose level: 140 (mg/dL) FDG dose: 16.1 mCi COMPARISON: CT scan August 02, 2022 FINDINGS: HEAD/NECK: Normal activity in all soft tissue regions of the neck and visualized lower head. Mucoperiosteal thickening of the maxillary sinuses is likely due to chronic sinusitis. CHEST: There is an ovoid lobular mass in the left lower lobe measuring approximately 3 cm in its long axial dimension. Its size is unchanged since the previous study. This mass contains FDG activity slightly above blood pool background. A 3 mm nodule in the right lower lobe (image 84), a 9 mm nodule in the right lower lobe (image 90) and a 5 mm nodule in the medial base of the right lower lobe (image 101) are unchanged and not FDG avid. No lymphadenopathy is present. There is calcification in the mitral annulus. A small amount of coronary artery calcification is seen. ABDOMEN/PELVIS: Normal activity in all soft tissue regions. Cholelithiasis without evidence of acute cholecystitis. SKELETON/EXTREMITIES: Normal activity in all regions of the axial and visualized appendicular skeleton. L4-L5 degenerative disc disease with grade 1 anterolisthesis of L4 and L5. Procedure Note Wong Spence MD - 09/20/2022 EXAMINATION: NM PET CT STANDARD SKULL BASE TO MID-THIGH CLINICAL HISTORY: lll nodule 2.7 cm incidental ?hamartoma TECHNIQUE: Following IV injection of 37-glnfxo-9-deoxyglucose (FDG) astandard uptake of approximately 60 minutes, a noncontrast CT scan followed by aPET scan were acquired from the base of the skull to mid thighs. The noncontrast CTwas used for anatomic localization and photon attenuation correction of thePET scan. Blood glucose level: 140 (mg/dL) FDG dose: 16.1 mCi COMPARISON: CT scan August 02, 2022 FINDINGS: HEAD/NECK: Normal activity in all soft tissue regions of the neck and visualizedlower head. Mucoperiosteal thickening of the maxillary sinuses is likely due tochronic sinusitis. CHEST: There is an ovoid lobular mass in the left lower lobe measuringapproximately 3 cm in its long axial dimension. Its size is unchanged since the previousstudy. This mass contains FDG activity slightly above blood pool background. A 3 mm nodule in the right lower lobe (image 84), a 9 mm nodule in theright lower lobe (image 90) and a 5 mm nodule in the medial base of the rightlower lobe (image 101) are unchanged and not FDG avid. No lymphadenopathy is present. There is calcification in the mitral annulus. A small amount of coronaryartery calcification is seen. ABDOMEN/PELVIS: Normal activity in all soft tissue regions. Cholelithiasis without evidence of acute cholecystitis. SKELETON/EXTREMITIES: Normal activity in all regions of the axial and visualized appendicular skeleton. L4-L5 degenerative disc disease with grade 1 anterolisthesis of L4 andL5. IMPRESSION 1. The left lower lobe mass is mildly FDG avid. Although this mayrepresent a hamartoma, a low-grade malignancy is not excluded. 2. There is a 9 mm right lower lobe nodule that is unchanged and not FDGavid favoring a benign etiology such as interpolar lymph node, granuloma or hamartoma. 3. Sub-6 mm non-FDG avid pulmonary nodules are present in the right lowerlobe and are unchanged in appearance. These are too small to be characterizedby FDG PET. 4. Please consider follow-up imaging with noncontrast CT in 6-12 monthsto evaluate stability. Thank you for letting us participate in the care of this patient. If youare a health care provider and have any questions regarding this report,please contact the number below. For patients who have questions please contactthe health animal care technician that requested your imaging first. Electronically signed by: Wong Spence MD, [facility]([phone]), at 09/20/2022 1:17 PM Beverley Maria MD IMG PET ORDERABLES documented in this encounter Visit Diagnoses Not on filedocumented in this encounter Care Teams Administrative Sales Assistant Relationship Specialty Start Date End Date April Mason DO [address] [place] [address] PCP - General Family Medicine 05/01/21 documented as of this encounter
--- OUTSIDE RECORDS SUMMARY | 2024-03-12 02:43 | XMS_ITS | Encounter Summary ---
Author Organization [facility] [place] [address] Care Team Providers Care Nurse Navigator Name Role Phone Sada Martinez MD Primary Care Provider [phone] Reason for Visit * Reason Comments Follow-up Encounter Details Date Type Department Care Team (Late Contact Info) Description 07/16/2012 2:45 PM EST Office Visit Dermatology [facility] [address] [place], [place] [id number] Farhad Moncada MD [address] [facility] [place] [address] Visit for suture removal (Primary Dx) Social History Tobacco Use Types Packs/Day Years Used Date Smoking Tobacco: Never Sex and Gender Information Value Date Recorded Sex Assigned at Not on file Gender Identity Not on file Sexual Orientation Not on file documented as of this encounter Progress Notes * Farhad Moncada MD - 07/16/2012 3:16 PM [...] Visit Dermatology at [address] [place] [address] Candi Suh MD [facility] [place] [address] documented as of this encounter Visit Diagnoses Diagnosis Visit for suture removal- Primary Encounter for removal of sutures documented in this encounter Care Teams Nurse Navigator Relationship Specialty Start Date End Date Sada Martinez MD [address] [place] [address] PCP - General 08/25/10 09/23/15 documented as of this encounter
--- OUTSIDE RECORDS SUMMARY | 2024-03-12 02:43 | XMS_ITS | Encounter Summary ---
Author Organization [facility] Address [facility] [place] [address] Care Team Providers Care Inventory Management Specialist Name Role Phone Diamond Hahn APRN Primary Care Provider [phone] Reason for Visit * Reason Comments Skin Check * Consultation (Routine) - Closed Specialty Diagnoses / Procedures Referred By Contac t Referred To Contact Dermatology Diagnoses Keratosis on back - CA? Skin lesions concerning for non-melanoma skin cancer Semi urgent (within 2 weeks) - past pt Pt has seen Dr. Moncada before - please schedule with him. Lucius Ness MD [address] [place] [address] [address] Farhad Moncada MD [address] [place] [address], [facility] [place] [address] Referral ID Status Reason Start Date Expiration Date V isits Requested Visits Authorized [id number] Closed Consult, [facility] 09/08/2015 09/07/2016 1 1 Encounter Details Date Type Department Care Team (Late st Contact Info) Description 09/24/2015 2:45 PM EST Office Visit Dermatology at [address] [address] Farhad Moncada MD [address] [facility], [facility] [place] [address] Seborrheic keratosis Social History Tobacco Use Types Packs/Day Years Used Date Smoking Tobacco: Never Sex and Gender Information Value Date Recorded Sex Assigned at Not on file Gender Identity Not on file Sexual Orientation Not on file documented as of this encounter Progress Notes * Farhad Moncada MD - 09/24/2015 3:36 PM [...] half an hour appointment. COPY: Diamond Hahn NMaria Isabel documented in this encounter Plan of Treatment Upcoming Encounters Date Type Department Care Team (Late st Contact Info) Description 03/18/2025 2:30 PM EDT Office Visit Dermatology at [facility] [address] [place] [address] Candi Suh MD [facility] [place] [address] documented as of this encounter Visit Diagnoses Diagnosis Seborrheic keratosis Other seborrheic keratosis documented in this encounter Care Teams Inventory Management Specialist Relationship Specialty Start Date End Date Diamond Hahn APRN PCP - General Family Medicine 09/24/15 03/30/20 documented as of this encounter
--- OUTSIDE RECORDS SUMMARY | 2024-03-12 02:43 | XMS_ITS | Encounter Summary ---
Author Organization [facility] Address [facility] [place] [address] Care Team Providers Care Retail Selling Floor Leader Name Role Phone April Mason DO Primary Care Provider [phone] Reason for Visit * Consultation (Routine) - Closed Specialty Diagnoses / Procedures Referred By Olivier mccracken Referred To Contact Dermatology Diagnoses Personal history of other malignant neoplasm of skin SKIN EVAL, HX REMOVAL OF LESION AT CHEEK April Mason DO [address] [place] [address] [facility] [address] [place] [address] Referral ID Status Reason Start Date Expiration Date V isits Requested Visits Authorized [id number] Closed Consult, [facility] PCP Updated and/or Approved 04/26/2021 04/26/2022 6 6 Encounter Details Date Type Department Care Team (Late st Contact Info) Description 07/14/2021 9:30 AM EST Office Visit Dermatology at [facility] [address] [place] [address] Candi Suh MD [facility] [place] [address] History of nonmelanoma skin cancer; Pilar cyst; Seborrheic keratoses; Multiple benign nevi of upper extremity, lower extremity, and trunk; Neoplasm of unspecified behavior of bone, soft tissue, and skin; Actinic keratoses; Inflamed seborrheic keratosis; Skin cancer screening Social History Tobacco Use Types Packs/Day Years Used Date Smoking Tobacco: Never Smokeless Tobacco: Never Sex and Gender Information Value Date Recorded Sex Assigned at Not on file Gender Identity Not on file Sexual Orientation Not on file documented as of this encounter Progress Notes * Candi Suh MD - 07/14/2021 9:30 AM [...] while however she believes it is growing insize which applies pressure. - Scaly spots on [...] desired; quoted $100 for tx of 1-10 lesions;$200 for tx of 11-20 lesions # Benign [...] brow x 1, nose x 3, right bahai x 2, upper cutaneous lip x 2. [...] waxy papule with erythema located on the leftforehead x 1 - Reassured of the benign [...] was reviewed. Lesion(s) were treated with LN2 [id number] freeze-thaw cycle. The patient tolerated the procedure [...] to improve, for FSE. []Note routed to paralegal secretary [x]Recall placed in scheduling system []Appointment scheduled at checkout Scribe attestation: DIANA Chen has performed the documentation for this encounter in thepresence of and acting as a scribe for Candi Suh MD. I performed the above scribed service and agree with the accuracy of the documentation in this encounter. Reviewed and signed by: Candi Suh MD Dermatology [facility] documented in this encounter Plan of Treatment Upcoming Encounters Date Type Department Care Team (Late st Contact Info) Description 03/18/2025 2:30 PM EDT Office Visit Dermatology at [facility] [address] [place] [address] Candi Suh MD [facility] [place] [address] documented as of this encounter Procedures Procedure Name Priority Date/Time Associated Diagnosis Comments SPECIMEN TO PATHOLOGY Routine 07/14/2021 10:09 AM EST Neoplasm of unspecified behavior of bone, soft tissue, and skin SURGICAL PATHOLOGY REPORT Routine 07/14/2021 9:57 AM EST documented in this encounter Results * Specimen to Pathology (07/14/2021 10:09 AM EST) AP Specimen 07/14/2021 10:0 9 AM EST 07/14/2021 10:09 AM EST Narrative [facility] - 07/14/2021 10:09 AM EST Specimen requisition ordered. ??Separate Pathology report to follow Candi Suh MD PATHOLOGY/CYTOLOGY Yareli FAGAN Performing Organization Address City/State/[facility] Co de Phone Number [facility] [place] [address] * Surgical Pathology Report (07/14/2021 9:57 AM EST) Final Diagnosis [id number] ? Location: [facility] The signing pathologist has (i) examined the relevant preparation(s) for the specimen(s) and (ii) rendered or confirmed the diagnosis(es). . ?Surgical Pathology DIAGNOSIS Right upper back, skin shave biopsy: - ??Melanoma, predominantly ??in situ, with focal superficial invasion, 0.3 mm, without ulceration (see synoptic) - Associated features of compound dysplastic nevus Electronically signed by: ?Laura Gordon MD Verified: ??07/27/2021 12:16 ??Dermatopatholog ist Performed at: ??-[facility] [place] Dept. of Pathology, [place], [place] SYNOPTIC Specimen ? Procedure: ??Biopsy, shave ? Specimen Laterality: ??Right Tumor ? Tumor Site: ??Skin of trunk - Right upper back ? Histologic Type: ??Superficial spreading type ? Maximum Tumor (Breslow) Thickness (Millimeters): ??0.3 mm ? Ulceration: ??Not identified ? Regression: Present ? Mitotic Rate: ??None identified ? Microsatellite(s) : ??Cannot be determined ? Lymphovascular Invasion: ??Not identified ? Neurotropism: ??Not identified ? Margins ?Margin Status for Invasive Melanoma: ??Not involved ?Margin Status for Melanoma in situ: ??Atypical junctional melanocytes with ? PRAME expression focally extend to the peripheral tissue edge ? Pathologic Stage Classification (pTNM, AJCC 8th Edition) ?pT Category: ??pT1a CAP eCC December 2020 Release ADDITIONAL STUDIES Interpretation of multiple step-leveled slide sections, a Melan-A stain and a PRAME stain confirms the diagnosis above. ?? Lesional ??melanocytes show positive staining with PRAME. SPECIMEN(S) SUBMITTED A - Right upper back, skin shave biopsy (1) CLINICAL INFORMATION 1.1 cm bright pink and brown irregular plaque. DDX: Irritated nevus R/O atypia SPECIMEN PROCESSING A - Labeled/Fixative: Patient demographics, formalin. Quantity/Size: ??Single, 1.3 x 1.0 cm. Tissue Description: Nonoriented, ovoid white skin shave of a 0.8 x 0.7 cm vilchis irregular macule with scattered, peripheral 0.1 cm foci of darker brown pigmentation. Sections/Processi ng: Inked, serially sectioned and entirely submitted in 2 cassettes as follows: ?A1: ??Tips . SPECIMEN PROCESSING ?A2: ??Central macule ??shb 07/27/2021 12:16 PM EST [facility] SPECIMEN FROM SKIN / Unknown 07/14/2021 9:57 AM EST 07/14/2021 9:57 AM EST Candi Suh MD PATHOLOGY/CYTOLOGY [place] [address] documented in this encounter Visit Diagnoses Diagnosis History of nonmelanoma skin cancer Personal history of other malignant neoplasm of skin Pilar cyst Seborrheic keratoses Multiple benign nevi of upper extremity, lower extremity, and trunk Neoplasm of unspecified behavior of bone, soft tissue, and skin Actinic keratoses Actinic keratosis Inflamed seborrheic keratosis Skin cancer screening Screening for malignant neoplasm of the skin documented in this encounter Care Teams Retail Selling Floor Leader Relationship Specialty Start Date End Date April Mason DO [address] [place] [address] PCP - General Family Medicine 05/01/21 documented as of this encounter
--- OUTSIDE RECORDS SUMMARY | 2024-03-12 02:43 | XMS_ITS | Referral Summary ---
Author Organization [facility] Address [address] [place] [address] Care Team Providers Care Parking Worker Name Role Phone Sada Martinez MD Primary Care Provider [phone] Social History Tobacco Use Types Packs/Day Years Used Date Smoking Tobacco: Never Assessed Sex and Gender Information Value Date Recorded Sex Assigned at Not on file Gender Identity Not on file Sexual Orientation Not on file Plan of Treatment Not on file Care Teams Parking Worker Relationship Specialty Start Date End Date Sada Martinez MD [address] [place], [place] [address] PCP - General 01/05/11
--- OUTSIDE RECORDS SUMMARY | 2024-03-12 02:43 | XMS_ITS | Encounter Summary ---
Author Organization [facility] Address [address] [place] [address] Care Team Providers Care [employer] Executive Director Name Role Phone Sada Martinez MD Primary Care Provider [phone] Encounter Details Date Type Department Care Team (Late st Contact Info) Description 01/02/2023 Lab Requisition [facility] Pathology & Laboratory Medicine - [address] [address] Outr Resulting Lab, Provider Social History Tobacco Use Types Packs/Day Years Used Date Smoking Tobacco: Never Assessed Sex and Gender Information Value Date Recorded Sex Assigned at Not on file Gender Identity Not on file Sexual Orientation Not on file documented as of this encounter Plan of Treatment Not on file documented as of this encounter Procedures Procedure Name Priority Date/Time Associated Diagnosis Comments LYME AB Routine 01/01/2023 12:40 EDT documented in this encounter Results * LYME AB (01/01/2023 12:40 EDT) Lyme Ab Negative Negative 01/03/2023 10:39 EDT [facility] Blood VENOUS BLOOD / Unknown 01/01/2023 12:40 EDT 01/02/2023 16:43 EDT Provider Outr Resulting Lab IMMUNOLOGY A ND SEROLOGY ORDERABLES [facility] [address] [place] [address] documented in this encounter Visit Diagnoses Not on filedocumented in this encounter Care Teams [employer] Executive Director Relationship Specialty Start Date End Date Sada Martinez MD [address] [place] [address] PCP - General 01/05/11 documented as of this encounter
--- OUTSIDE RECORDS SUMMARY | 2024-03-12 02:43 | XMS_ITS | Encounter Summary ---
Author Organization [facility] Address [facility] [place] [address] Care Team Providers Care Research Affiliate Name Role Phone April Mason DO Primary Care Provider [phone] Encounter Details Date Type Department Care Team (Late st Contact Info) Description 10/26/2021 11:15 AM EDT Office Visit Dermatology at [facility] [address] [place] [address] Candi Suh MD [facility] [place] [address] History of melanoma; Seborrheic keratoses; Actinic keratoses; Huntley angioma; Intertrigo; Skin cancer screening; History of nonmelanoma skin cancer; Pilar cyst Social History Tobacco Use Types Packs/Day Years Used Date Smoking Tobacco: Never Smokeless Tobacco: Never Sex and Gender Information Value Date Recorded Sex Assigned at Not on file Gender Identity Not on file Sexual Orientation Not on file documented as of this encounter Progress Notes * Candi Suh MD - 10/26/2021 11:15 AM EDT Images from the original note were not included. DEPARTMENT OF DERMATOLOGY Medical Dermatology Clinic Provider: Candi Suh MD Patient's preferred name Cheryl Preferred contact method for results [x]?Phone []?myD-H []?Letter Detailed phone message OK? Yes Are there [...] Patient returns to clinic today for a 3 month FSE. - Spot on chest that she would like examined - Small red spots on left forearm that have been growing Last visit at Dermatology: 09/07/2021 Last visit with this provider: Dr. Suh Medications: Reviewed in eD-H Allergies: Reviewed in [...] submandibular, submental, supraclavicular, axillary LAD Assessment/Plan #. History of Melanoma - Well healed scar on the right upper back with NER and no LAD as above - Continue diligent sun protection - Continue clinical monitoring with 3 month full skin exams. # Seborrheic keratoses - vilchis/brown waxy stuck-on papules and plaques on the trunk and extremities. - Reassured of the benign nature of these lesions - No treatment needed # Huntley angiomas - scattered on the trunk and extremities are bright red smooth papules. - Reassured of the benign nature of these lesions. No treatment needed. #. Actinic keratoses - ill-defined scaly pink papules on the right forearm x 2, left brow x 1, nasal dorsum x 1. - Reviewed diagnosis with patient, premalignant potential, and treatment options including clinicalmonitoring (risks include progression), LN2 (risks including discoloration, discomfort, and possible recurrence), and field therapy - Joint decision to proceed with LN2. [...] the procedure well. Wound care was reviewed. #. Intertrigo - Slightly erythematous and macerated plaques of the bilateral inframammary creases and inguinal folds. - Intertrigo is a chronic inflammatory condition of approximating or opposing skin surfaces (intertriginous skin) such as the axillae, groin, inframammary folds, abdominal folds, and/or labiocrural folds.Clinically, there is erythema and sometimes maceration, erosions, or fissuring. - Ensure intertriginous areas are completely dry after bathing - Avoid excessive heat and/or sweating as friction and moisture can exacerbate disease - Can trial tucking cotton or linen towels or cloths between the opposing skin folds. - Avoid clothing that is too tight or that chafes. #. Pilar Cyst - Soft subcutaneous nodule measuring 2cm on the left occipital scalp - Discussed benign nature of cyst. No further intervention required unless symptomatic - Pt will call to be scheduled for surgery if she would like to have cyst excised. Other: ??? N/A RTC: 3 month FSE, Hx of Melanoma & BCC []Note routed to typing bookkeeper []Recall placed in scheduling system [x]Appointment scheduled at checkout Scribe attestation: DIANA Chen has performed the documentation for this encounter in thepresence of and acting as a scribe for Candi Suh MD. I performed the above scribed service and agree with the accuracy of the documentation in this encounter. Reviewed and signed by: Candi Suh MD Dermatology [facility] documented in this encounter Plan of Treatment Upcoming Encounters Date Type Department Care Team (Pat Contact Info) Description 03/18/2025 2:30 PM EDT Office Visit Dermatology at [facility] [address] [place] [address] Candi Suh MD [facility] [place] [address] documented as of this encounter Visit Diagnoses Diagnosis History of melanoma Personal history of malignant melanoma of skin Seborrheic keratoses Actinic keratoses Actinic keratosis Huntley angioma Nevus, non-neoplastic Intertrigo Other specified erythematous condition Skin cancer screening Screening for malignant neoplasm of the skin History of nonmelanoma skin cancer Personal history of other malignant neoplasm of skin Pilar cyst documented in this encounter Care Teams Research Affiliate Relationship Specialty Start Date End Date April Mason DO [address] [place] [address] PCP - General Family Medicine 05/01/21 documented as of this encounter
--- OUTSIDE RECORDS SUMMARY | 2024-03-12 02:43 | XMS_ITS | Encounter Summary ---
Author Organization [facility] [place] [address] Care Team Providers Care It Integration Architect Name Role Phone April Mason DO Primary Care Provider [phone] Encounter Details Date Type Department Care Team (Latest Contact Info) Description 07/19/2022 Travel Social History Tobacco Use Types Packs/Day [...] Visit Dermatology at [address] [place] [address] Candi Suh MD [facility] [place] [address] documented as of this encounter Visit Diagnoses Not on filedocumented in this encounter Care Teams It Integration Architect Relationship Specialty Start Date End Date April Mason DO [address] [place], [place] [id number] PCP - General Family Medicine 05/01/21 documented as of this encounter
--- OUTSIDE RECORDS SUMMARY | 2024-03-12 02:43 | XMS_ITS | Encounter Summary ---
Author Organization [facility] [place] [address] Care Team Providers Care Supervisor Lump Room Name Role Phone Sada Powell MD Primary Care Provider [phone] Reason for Visit * Reason Comments Skin Check Encounter Details Date Type Department Care Team (Late st Contact Info) Description 05/15/2012 11:15 AM EDT [place] [address] Rehan Damon III, MD [facility] [address] [place] [address] Neoplasm of unspecified nature of bone, soft tissue, and skin (Primary Dx); Skin lesion of chest wall; Seborrheic keratosis, inflamed; AK (actinic keratosis) Discharge Disposition: Home Social History Tobacco Use Types Packs/Day Years Used Date Smoking Tobacco: Never Assessed Sex and Gender Information Value Date Recorded Sex Assigned at Not on file Gender Identity Not on file Sexual Orientation Not on file documented as of this encounter Progress Notes * Rehan Damon III, MD - 05/15/2012 11:40 AM EDT DERMATOLOGY CONSULT NOTE Date of service: 05/15/2012 Romel Zarate : 1950 Provider: Rehan Damon MD PROBLEM: spot check The patient is seen at the request of SADA POWELL MD, who instructed the patient to be seen for evaluation of above HPI Romel Zarate is a 62 y.o. year old female. She had a new lesion that formed on her upper arm, itwas itchy and raised. After a few days it became very dry and flaky and came off. There is no skye left as to where exactly it was. It is her only spot of concern. She has a number of irritated , crusted areas on the trunk and would like to have them checked. PAST MEDICAL HX: There is no problem list on file for this patient. healthy SOCIAL HX: FAMILY HX: neg ADR: Not on File MEDS: No current outpatient prescriptions on file prior to encounter. ROS General: feeling well Skin: denies other skin complaints EXAM General: NAD, pleasant, cooperative Skin: Examination of skin from the waist up was performed. This includes examination of the skin ofthe face, ears, neck, chest, axillae, left and right upper extremities, hands, back, and abdomen. Significant skin findings: A. Multiple 0.4-1 cm brown-black papules/plaques with waxy, stuck-on appearance on back, left side of face. Some are excoriated and inflamed B. 6 mm erythematous lesion with rolled borders - right mid chest C. 0.2-0.3cm scaly irregular pink papule(s) upper lip, ASSESSMENT/PLAN: A. Irritated seborrheic keratosis - surrounded with erythema from rubbing on clothing. I discussed this condition with the patient and explored therapeutic options. I recommended liq N2. Procedure(s): Destruction of lesion(s) with cryotherapy. Number: 5 Location: as above Discussed procedure and expectations including risks (including risk of hypopigmentation) and benefits. Verbal consent obtained. Frozen with LN2, 15-30 second thaw time, TWICE. There were no complications; the patient tolerated the procedure well. Post-procedure expectations and wound care were reviewed. B. Probable BCC- mid, right chest. I discussed this condition with the patient and explored therapeutic options. I recommended getting a shave biopsy for a firm diagnosis and she agreed. Procedure: Skin biopsy. Location: right mid chest Discussed indications for procedure and expectations including risks and benefits. Verbal consent obtained. Skin prep with alcohol. Local anesthesia with 1% xylocaine, 1/100,000 epinephrine, 0.1 mEq/mL bicarbonate. A sample of the lesion was removed by shave technique to the level of the dermis andsubmitted to Pathology. Hemostasis obtained (AlCl and/or electrocautery). There were no complications; the pt. tolerated the procedure well. The wound was dressed. Post-procedure expectations, wound care and activity restrictions were reviewed. Follow-up based on pathology results. C. actinic keratosis right upper lip -. I discussed this condition with the patient and explored therapeutic options. I recommended treating this with LN2 and she agreed. Procedure(s): Destruction of lesion(s) with cryotherapy. Number: 1 Location: as above Discussed procedure and expectations including risks (including risk of hypopigmentation) and benefits. Verbal consent obtained. Frozen with LN2, 15-30 second thaw time, TWICE. There were no complications; the patient tolerated the procedure well. Post-procedure expectations and wound care were reviewed. Note Initiated by: .April Benedict LPN Reviewed and signed by: Rehan Damon MD Section of Dermatology [facility] documented in this encounter Plan of Treatment Upcoming Encounters Date Type Department Care Team (Late st Contact Info) Description 03/18/2025 2:30 PM EDT Office Visit Dermatology at [address] [address] Candi Suh MD [facility] [place] [address] documented as of this encounter Procedures Procedure Name Priority Date/Time Associated Diagnosis Comments SURGICAL PATHOLOGY REPORT Routine 05/15/2012 2:56 PM EDT SPECIMEN TO PATHOLOGY (NON-OR) Routine 05/15/2012 11:42 AM EDT Neoplasm of unspecified nature of bone, soft tissue, and skin documented in this encounter Results * SURGICAL PATHOLOGY REPORT (05/15/2012 2:56 PM EDT) Surgical Pathology Report ? [facility] ? Provider: ?? REHAN DAMON III Pt. Name: ?? CHRISS, ROMEL A ?A ? Acc #: ?[id number] ? Pt. ? Col Date: ?? 05/15/2012 ?/Sex: ?1950,(62 years),Female ? Rec Date: ?? 05/15/2012 ?LOC: ?4M ? SURGICAL PATHOLOGY ? ---Pathologic Diagnosis--- ? Skin, right mid chest, shave biopsy: ? Basal cell carcinoma, sclerosing/infiltrati ve type, involving deep ? biopsy edges. ? Dictated by: ??Teodora Pope MD ? Dermatopathology Fellow ? As the attending physician, I attest that I examined the histologic slides, ? and confirm Dr. Teodora Pope's diagnosis. ? CR-0 ? 05/15/12 ? VMS ? 05/16/12 Verified by: ? Aftab SUMNER, Ira Hurtado ? Dermatopathologist ? (Electronic Signature) ? The attending pathologist whose signature appears on this report has ? reviewed all diagnostic slides and has edited the gross and/or ? microscopic portion of the report in rendering the final pathologic ? diagnosis. ? ---Microscopic Description--- ? Slides reviewed, microscopic description not recorded. ? ---Gross Description--- ? Labeled/Fixative: ? Labeled with the patient's name, formalin. ? Qty/Size/Weight: ?Single shave, 1.0 cm in greatest dimension, pink. ? Sections/Processing: ??Inked and quadrisected. ??(T1) vms/SNS ? ---Clinical Information--- ? Specimen Submitted: ? A - Skin, right mid chest, shave biopsy (1) ? Clinical History/Diagnosis: ? 6-mm erythematous lesion with rolled border / probable BCC CERNER LORENZAENNIUM 05/15/2012 2:56 PM EDT Rehan Damon III, MD PATHOLOGY/CYTOL OGY ORDERABLES Performing Organization Address [facility] Co de Phone Number AMARILYS ORNELAS * Specimen to Pathology (NON-OR) (05/15/2012 11:42 AM EDT) AP Specimen 05/15/2012 11:4 2 AM EDT 05/15/2012 11:44 AM EDT Narrative AMARILYS BRITTENNIUM - 05/15/2012 11:44 AM EDT Specimen requisition ordered. ??Separate Pathology report to follow Rehan Damon III, MD PATHOLOGY/CYTOL OGY ORDERABLES Performing Organization Address [facility] Co de Phone Number AMARILYS ORNELAS documented in this encounter Visit Diagnoses Diagnosis Neoplasm of unspecified nature of bone, soft tissue, and skin- Primary Skin lesion of chest wall Unspecified disorder of skin and subcutaneous tissue Seborrheic keratosis, inflamed Inflamed seborrheic keratosis AK (actinic keratosis) Actinic keratosis documented in this encounter Care Teams Supervisor Lump Room Relationship Specialty Start Date End Date Sada Powell MD [address] [place] [address] PCP - General 08/25/10 09/23/15 documented as of this encounter
--- OUTSIDE RECORDS SUMMARY | 2024-03-12 02:43 | XMS_ITS | Clinical Summary ---
Author Organization [facility] Address [address] [place] [address] Care Team Providers Care Cost Estimator Name Role Phone Sada Martinez MD Primary Care Provider [phone] Social History Tobacco Use Types Packs/Day Years Used Date Smoking Tobacco: Never Assessed Sex and Gender Information Value Date Recorded Sex Assigned at Not on file Gender Identity Not on file Sexual Orientation Not on file Plan of Treatment Health Maintenance Due Date Last Done Comments Hepatitis C Screen 1950 RSV Immunization ( o r 60+ Years) (1 - 1-dose 60+ series) 2012 Fall Risk Screening 2017 COVID-19 Vaccine (2022- season) 2023 Care Teams Cost Estimator Relationship Specialty Start Date End Date Sada Martinez MD [address] [place], [place] [address] PCP - General 01/05/11
--- OUTSIDE RECORDS SUMMARY | 2024-03-12 02:43 | XMS_ITS | Encounter Summary ---
Author Organization [facility] [place] [address] Care Team Providers Care Heavy Rail Train Operator Name Role Phone April Mason DO Primary Care Provider [phone] Encounter Details Date Type Department Care Team (Late st Contact Info) Description 01/21/2022 3:30 PM EDT Office Visit Dermatology at [facility] [address] [place] [address] Candi Suh MD [facility] [place] [address] History of melanoma; History of basal cell carcinoma (BCC); Seborrheic keratosis; Skin tag; Huntley angioma; Melanocytic nevus, unspecified location; Lentigines; Pilar cyst; Seborrheic dermatitis; Skin cancer screening Social History Tobacco Use Types Packs/Day Years Used Date Smoking Tobacco: Never Smokeless Tobacco: Never Sex and Gender Information Value Date Recorded Sex Assigned at Not on file Gender Identity Not on file Sexual Orientation Not on file documented as of this encounter Progress Notes * Candi Suh MD - 01/21/2022 3:30 PM [...] returns to clinic today for a fullskin cancer screening. Patient denies any specific skin [...] Blue with Selinum sulfide, leave on for 5minutes prior to rinsing - OK to uset [...] month FSE or PRN []Note routed to accredited legal secretary []Recall placed in scheduling system [x]Appointment scheduled at checkout Scribe attestation: Tonya Mora LPN performed the documentation for this encounter in the presence of and acting as a scribe for Candi Suh MD. I performed the above scribed service and agree with the accuracy of the documentation in this encounter. Reviewed and signed by: Candi Suh MD Dermatology [facility] documented in this encounter Plan of Treatment Upcoming Encounters Date Type Department Care Team (Late st Contact Info) Description 03/18/2025 2:30 PM EDT Office Visit Dermatology at [address] [place] [address] Candi Suh MD [facility] [place] [address] documented as of this encounter Visit Diagnoses Diagnosis History of melanoma Personal history of malignant melanoma of skin History of basal cell carcinoma (BCC) Seborrheic keratosis Other seborrheic keratosis Skin tag Unspecified hypertrophic and atrophic condition of skin Huntley angioma Nevus, non-neoplastic Melanocytic nevus, unspecified location Lentigines Other dyschromia Pilar cyst Seborrheic dermatitis Seborrheic dermatitis, unspecified Skin cancer screening Screening for malignant neoplasm of the skin documented in this encounter Care Teams Heavy Rail Train Operator Relationship Specialty Start Date End Date April Mason DO [address] [facility] [place] [address] PCP - General Family Medicine 05/01/21 documented as of this encounter
--- OUTSIDE RECORDS SUMMARY | 2024-03-12 02:43 | XMS_ITS | Encounter Summary ---
Author Organization [facility] Address [facility] [place] [address] Care Team Providers Care Liquid Flavor Compounder Name Role Phone April Mason DO Primary Care Provider [phone] Reason for Referral * Consultation (Routine) - Closed Specialty Diagnoses / Procedures Referred By Olivier mccracken Referred To Contact Otolaryngology Diagnoses Sensorineural hearing loss, bilateral April Mason DO [address] [place] [address] Eliseo Ambrocio MD [facility] [place] [address] Referral ID Status Reason Start Date Expiration Date V isits Requested Visits Authorized [id number] Closed Consult, Test & Treat PCP Updated and/or Approved 06/11/2022 06/11/2023 1 1 Encounter Details Date Type Department Care Team (Latest Contact Info) Description 06/11/2022 Transcribe Orders eDH Incoming Referrals [phone] April Mason DO [address] [place] [address] Sensorineural hearing loss, bilateral Social History Tobacco Use Types Packs/Day Years [...] Visit Dermatology at [address] [place] [address] Candi Suh MD [facility] [place] [address] Scheduled Referrals Name Type Priority Associated Diagnoses Orde r Schedule Referral to ENT Outpatient Referral Routine Sensorineural hearing loss, bilateral Ordered: 06/11/2022 documented as of this encounter Visit Diagnoses Diagnosis Sensorineural hearing loss, bilateral documented in this encounter Care Teams Liquid Flavor Compounder Relationship Specialty Start Date End Date April Mason DO [address] [place] [address] PCP - General Family Medicine 05/01/21 documented as of this encounter
--- OUTSIDE RECORDS SUMMARY | 2024-03-12 02:43 | XMS_ITS | Encounter Summary ---
Author Organization [facility] Address [address] [place] [address] Care Team Providers Care Application Counselor Name Role Phone Unavailable Primary Care Provider Unavailabl e Encounter Details Date Type Department Care Team (Late st Contact Info) Description 01/03/2011 Results Only [facility] [address] [place], [place] [id number] Mark Grossman MD [address] [place], [place] [id number] Social History Tobacco Use Types Packs/Day Years Used Date Smoking Tobacco: Never Assessed Sex and Gender Information Value Date Recorded Sex Assigned at Not on file Gender Identity Not on file Sexual Orientation Not on file documented as of this encounter Plan of Treatment Not on file documented as of this encounter Procedures Procedure Name Priority Date/Time Associated Diagnosis Comments SURGICAL PATHOLOGY Routine 01/03/2011 0:00 EDT documented in this encounter Results * SURGICAL PATHOLOGY (01/03/2011 0:00 EDT) Pathology Report: SURGICAL PATHOLOGY REPORT ? Reports generated via electronic interface contain original data; ? however they are lacking the format of the original report. ? Caution should be taken when reading/interpreti ng unformatted reports. ? Name: ? ROMEL ZARATE A ? Accession #: ? [id number] ? : ? 1950 (Age: 60) ??F ? Collect Date: ? 01/03/2011 ? Location: ? [facility] ? Receive Date: ? 01/03/2011 ? Provider: MARK GROSSMAN MD ? Copy to: DEMARCUS POWELL MD ? Final Pathologic Diagnosis: ? A. ?Colon, ascending, polyp, biopsy: ? 1. ?? Colonic mucosa with no specific histopathologic features. ??See ? comment. ? B. ?Colon, sigmoid, polyp, biopsy: ? 1. ?? Colonic mucosa with lymphoid aggregate. ??See comment. ? Comment: ? Deeper levels were examined on parts (A) and (B). ??(Dr. Erickson)/lgk ? Document reviewed and electronically signed by: ? KUMARASEN IRMA MBCHB ? Report ??Date: 01/05/2011 15:42 ? By the signature above, the attending physician certifies that he/she has ? personally conducted a gross and/or microscopic examination of the described ? specimens and rendered or confirmed the above diagnosis. ? Specimen(s) Received: ? A. ?Ascending colon polyp vs lymphoid aggregate (#1) ? B. ?Sigmoid polyp (#2) ? Clinical History: ? H/O colon adenoma, F/H colon cancer ? Gross Description: ? Received in formalin labelled Elliot, Romel and #1 ? ascending colon ?? polyp vs lymphoid aggregate is a light vilchis biopsy measuring 0.3 x 0.2 x 0.2 cm. The specimen is submitted intact as (A). ? Received in formalin labelled Elliot, Romel and #2 ? sigmoid polyp is a ? light vilchis biopsy measuring 0.4 x 0.3 x 0.2 cm. ??The specimen is submitted intact as (B). (Florence Ac)/mpl ? End of Report ? SAM CHATTERJEE 01/03/2011 01/03/2011 8:2 3 EDT Mark Grossman MD PATHOLOGY ORDERABLES [facility] [address] [place] [address] documented in this encounter Visit Diagnoses Not on filedocumented in this encounter
--- OUTSIDE RECORDS SUMMARY | 2024-03-12 02:43 | XMS_ITS | Encounter Summary ---
Author Organization [facility] [place] [address] Care Team Providers Care Senior Director Of Global Commercial Technology Solutions Name Role Phone Sada Martinez MD Primary Care Provider [phone] Encounter Details Date Type Department Care Team (Late st Contact Info) Description 08/25/2010 3:00 PM EST Office Visit Dermatology [address] [facility] [address] [place], [place] [id number] Farhad Moncada MD [address] [place] [address], [facility] [place] [address] Social History Tobacco Use Types Packs/Day Years [...] 2:30 PM EDT Office Visit Dermatology at [facility] [address] [place] [address] Candi Suh MD [facility] [place] [place] [address] documented as of this encounter Visit Diagnoses Not on filedocumented in this encounter Care Teams Senior Director Of [employer] Relationship Specialty Start Date End Date Sada Martinez MD [address] [place] [address] PCP - General 08/25/10 09/23/15 documented as of this encounter
--- OUTSIDE RECORDS SUMMARY | 2024-03-12 02:43 | XMS_ITS | Encounter Summary ---
Author Organization [facility] Address [facility] [place] [address] Care Team Providers Care Digital Marketing Analyst Name Role Phone April Mason DO Primary Care Provider [phone] Reason for Visit * Reason Comments Hearing Loss 2nd opinion on heari ng loss on mostly the left side * Consultation (Routine) - Closed Specialty Diagnoses / Procedures Referred By Contlynne t Referred To Contact Otolaryngology Diagnoses Sensorineural hearing loss, bilateral April Mason DO [address] [place] [address] [facility] [place] [address] Referral ID Status Reason Start Date Expiration Date V isits Requested Visits Authorized [id number] Closed Consult, Test & Treat PCP Updated and/or Approved 06/11/2022 06/11/2023 1 1 Encounter Details Date Type Department Care Team (Latest Contact Info) Description 07/19/2022 9:00 AM EST Office [place] [address] [facility] [address] [place] [address] Asymmetrical sensorineural hearing loss; Chronic eczematous otitis [...] - Inhaled Oxygen Concentration - - Weight 107 kg (236 lb) 07/19/2022 8:58 AM EST Height 162.6 cm (5' 4) 07/19/2022 8:58 AM EST Body Mass Index 40.51 07/19/2022 8:58 AM EST documented in this encounter Progress Notes * Eliseo Ambrocio MD - 07/19/2022 9:00 AM EST [facility] Otolaryngology - Head and Neck Surgery Eliseo Ambrocio MD 07/19/22 7:46 AM [place] [id number] Office Patient Name: Cheryl Zarate Date of : 1950 PCP: April Mason DO Chief Complaint: hearing loss History of Present Illness: Cheryl Zarate is a 72 y.o. year old female with history of HTN, HPL, hypothyroidism, DM II, chronic LBP, tremor, depression and anxiety who was seen today at the request of April Mason in consultation for hearing loss. Patient reporting past history of chronic eczematous [...] left ear and had some associated pain. [place] asubjective decline in hearing. Denies any associated [...] SNHL hearing loss bilaterally. Threshold asymmetry from 5950-3927 Hz, and at 4K Hz, worse left. [...] History Patient Active Problem List Diagnosis Code ??? Skin lesion of chest wall L98.9 ??? Seborrheic keratosis, inflamed L82.0 ??? AK (actinic keratosis) L57.0 ??? Basal cell carcinoma C44.91 ??? Visit for suture removal Z48.02 ??? Seborrheic keratosis L82.1 ??? History of basal cell carcinoma Z85.828 ??? Nevus D22.9 ??? Intertrigo L30.4 Current Outpatient Medications on File Prior to Visit Medication Sig Dispense Refill ??? losartan (Cozaar) 25 mg Tablet ??? Garlic 100 mg Tablet Take by mouth. ??? Victoza 3-Frankie 0.6 mg/0.1 mL (18 mg/3 mL) Pen Injector daily. ??? fish oil-omega-3 fatty acids 500 mg Capsule Take by mouth. ??? OneTouch Verio test strips Strip TEST TWO TIMES A DAY ??? OneTouch Verio Flex meter Misc TEST TWO TIMES A DAY DIRECTED ??? celecoxib (CeleBREX) 200 mg Capsule TAKE 1 CAPSULE BY MOUTH TWICE DAILY NEEDED FOR PAIN ??? OneTouch Delica Plus Lancet 33 gauge Misc TEST TWO TIMES A DAY ??? metFORMIN XR (Glucophage XR) 500 mg Tablet Sustained Release 24 hr daily. ??? rosuvastatin (Crestor) 5 mg Tablet ??? venlafaxine XR (Effexor-XR) 75 mg Capsule, Sust. Release 24 hr daily. ??? VYVANSE 10 mg Capsule ??? levothyroxine (SYNTHROID) 75 mcg tablet Take 75 mcg by mouth daily. ??? hydrochlorothiazide (HYDRODIURIL) 25 mg tablet Take 25 mg by mouth daily. ??? propranolol (INDERAL) 20 mg tablet Take 160 mg by mouth daily. No current facility-administered medications on file prior to visit. Allergies: Milk containing products Surgical History: No past surgical history on file. Family and Social History Family History: No family history on file. Social History: [place] in [place] [address] Social History Socioeconomic History ??? Marital status: Spouse name: Not on file ??? Number of children: Not on file ??? Years of education: Not on file ??? Highest education level: Not on file Occupational History ??? Not on file Tobacco Use ??? Smoking status: Never ??? Smokeless tobacco: Never Substance and Sexual Activity ??? Alcohol use: Not on file ??? Drug use: Not on file ??? Sexual activity: Not on file Other Topics Concern ??? Not on file Social History Narrative ??? Not on file Social Determinants of Health [...] air conduction greater than bone conduction bilaterally. Nose: External nose is midline without deformity or lesion. Normal exam of the septum and turbinates. Oral: There are no visible or palpable buccal, gingival, lingual, or palatal lesions. The floor of mouth is soft and flat. Oropharynx: Normal exam of the tonsils, tonsillar fossa, soft palate, and posterior pharynx. Salivary: Normal exam of the parotid and submandibular glands. Hem/Lymph/Imm: Neck supple without cervical mass or lymphadenopathy. Skin: Skin survey of the head and neck is without concerning lesion. MSK: Normal neck range of motion. No trismus. Resp: Breathing comfortably without stridor or retractions. Normal respirations. CV: Normal carotid pulses. Psych: Normal mood and affect. Labs and Imaging Significant lab values are as follows: n/a I reviewed the following imaging studies: MRI brain without contrast 03/24/2022 Indication new onset headaches. Normal findings. Procedures Ears examined and cleaned with aid of binocular microscopy. Right Ear: Auricle normal. Meatus and external auditory canal clear with minimal dry scaling. No accumulated cerumen. Canal otherwise clear. Drum is intact with normal mobility via pneumatic otoscopy. Middle ear is well aerated. Negative fistula test. Left Ear: Auricle normal. Meatus and external auditory canal clear with minimal dry scaling. No accumulated cerumen. Canal otherwise clear. Drum is intact with normal mobility via pneumatic otoscopy.Middle ear is well aerated. Negative fistula test. ASSESSMENT & RECOMMENDATIONS Cheryl Zarate is a 72 y.o. female history of HTN, HPL, hypothyroidism, DM II, chronic LBP, tremor, depression and anxiety who presents with left greater than right hearing loss concerns. Longstanding history of slowly progressive hearing decline over many years. Past history of asymmetric sensorineural hearing loss, with asymmetry possibly correlating with considerations to acute acoustic trauma left ear with suctioning during routine cleaning for history of chronic eczematous otitis externa bilaterally. Was treated empirically with course of oral prednisone at time of onset. Hearing loss left ear subjectively improved from previous, but not entirely back to baseline. ALCIDES generally well controlled with topical Elocon and regular cleanings. Audiogram 07/19/2022 reviewed. Mild sloping to moderate SNHL hearing loss bilaterally. Approximate 15dB threshold asymmetry from 0304-1690 Hz, and at 4K Hz, worse left. Well preserved bilateral discrimination. Examination findings, audiometric testing results and recent MRI findings reviewed. No acute treatment recommendations. Advised recommendation for continued close hearing surveillance. Plan f/u 6 months with repeat audiogram, with repeat ear cleaning. Early return precautions reviewed. Consider yield to dedicated MRI IACs with contrast for any progressive worsening of hearing. Will continue with topical Elocon for ears as previously directed. Hearing aid candidacy discussed. Patient medically cleared for hearing aids bilaterally. Patient will continue to consider her options. Patient verbally expressed understanding and was in agreement with the plan as outlined above. Our contact information was provided should any significant questions, concerns or problems arise prior to planned follow-up. Thank you for this interesting consultation and for allowing us to participate in this patient's care. The total time spent for chart review, history, examination, counseling, education, and documentation was 60 minutes. Eliseo Ambrocio MD Otology / Neurotology Otolaryngology - Head & Neck Surgery 07/19/22 7:46 AM documented in this encounter Plan of Treatment Upcoming Encounters Date Type Department Care Team (Late st Contact Info) Description 03/18/2025 2:30 PM EDT Office Visit Dermatology at [facility] [address] [place] [address] [facility] [place] [address] documented as of this encounter Visit Diagnoses Diagnosis Asymmetrical sensorineural hearing loss Sensorineural hearing loss, asymmetrical Chronic eczematous otitis externa of both ears documented in this encounter Care Teams Digital Marketing Analyst Relationship Specialty Start Date End Date April Mason DO [address] [place] [address] PCP - General Family Medicine 05/01/21 documented as of this encounter
--- OUTSIDE RECORDS SUMMARY | 2024-03-12 02:43 | XMS_ITS | Encounter Summary ---
Author Organization [facility] [place] [address] Care Team Providers Care Cotton Grower Name Role Phone Sada Martinez MD Primary Care Provider [phone] Reason for Visit * Reason Comments Procedure Encounter Details Date Type Department Care Team (Late st Contact Info) Description 05/19/2014 2:00 PM EDT Office Visit Dermatology at [address] [address] Farhad Moncada MD [address] [facility] [place] [address] Nevus (Primary Dx) Discharge Disposition: Home Social History Tobacco Use Types Packs/Day Years Used Date Smoking Tobacco: Never Sex and Gender Information Value Date Recorded Sex Assigned at Not on file Gender Identity Not on file Sexual Orientation Not on file documented as of this encounter Progress Notes * Farhad Moncada MD - 05/19/2014 2:38 PM [...] for suture removal by Dr. Moncada in [place]. COPY: Sada Martinez M.D. documented in this encounter Plan of Treatment Upcoming Encounters Date Type Department Care Team (Late st Contact Info) Description 03/18/2025 2:30 PM EDT Office Visit Dermatology at [facility] [address] [place] [address] Candi Suh MD [facility] [place] [address] documented as of this encounter Visit Diagnoses Diagnosis Nevus- Primary Benign neoplasm of skin, site unspecified documented in this encounter Care Teams Cotton Grower Relationship Specialty Start Date End Date Sada Martinez MD [address] [place] [address] PCP - General 08/25/10 09/23/15 documented as of this encounter
--- OUTSIDE RECORDS SUMMARY | 2024-03-12 02:43 | XMS_ITS | Encounter Summary ---
Author Organization [facility] [place] [address] Care Team Providers Care Storeroom Attendant Name Role Phone Sada Martinez MD Primary Care Provider [phone] Reason for Visit * Reason Comments Follow-up Encounter Details Date Type Department Care Team (Late st Contact Info) Description 07/03/2012 1:30 PM EST Office Visit Dermatology Count includes the [facility] [address] [place], [place] [address] Farhad Moncada MD [address] [facility] [place] [address] Basal cell carcinoma (Primary Dx) Social History Tobacco Use Types Packs/Day Years Used Date Smoking Tobacco: Never Sex and Gender Information Value Date Recorded Sex Assigned at Not on file Gender Identity Not on file Sexual Orientation Not on file documented as of this encounter Progress Notes * Farhad Moncada MD - 07/03/2012 1:53 PM [...] 2:30 PM EDT Office Visit Dermatology at [place] [address] [place] [address] Candi Suh MD [facility] [place] [address] documented as of this encounter Visit Diagnoses Diagnosis Basal cell carcinoma- Primary Basal cell carcinoma of skin, site unspecified documented in this encounter Care Teams Storeroom Attendant Relationship Specialty Start Date End Date Sada Martinez MD [address] [place] [address] PCP - General 08/25/10 09/23/15 documented as of this encounter
--- OUTSIDE RECORDS SUMMARY | 2024-03-12 02:43 | XMS_ITS | Encounter Summary ---
Author Organization [facility] [place] [address] Care Team Providers Care Drafter Structural Name Role Phone Sada Martinez MD Primary Care Provider [phone] Encounter Details Date Type Department Care Team (Late st Contact Info) Description 05/26/2014 3:00 PM EDT Office Visit Dermatology at [address] [place] [address] Farhad Moncada MD [address] [facility] [place] [place] [address] Visit for suture removal (Primary Dx) Discharge Disposition: Home Social History Tobacco Use Types Packs/Day Years Used Date Smoking Tobacco: Never Sex and Gender Information Value Date Recorded Sex Assigned at Not on file Gender Identity Not on file Sexual Orientation Not on file documented as of this encounter Progress Notes * Farhad Moncada MD - 05/26/2014 3:56 PM EDT Problem: 1. Followup for suture removal and biopsy results. 2. 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 Cheryl follows up and the biopsy did come back from her left malar prominence as an interdermal nevus, margins were clear. Physical examination shows good healing of the biopsy site. She notes she had no postoperative problems or complications. Assessment and Plan: Status post excision interdermal nevus, left malar prominence. a. Sutures removed. b. Discussed may wound care precautions, however, cleanse and dry area carefully for one more month. Return to clinic here will now be p.r.n. for new lesions/concerns. documented in this encounter Plan of Treatment Upcoming Encounters Date Type Department Care Team (Late st Contact Info) Description 03/18/2025 2:30 PM EDT Office Visit Dermatology at [facility] [address] [place] [address] Candi Suh MD [facility] [place] [address] documented as of this encounter Visit Diagnoses Diagnosis Visit for suture removal- Primary Encounter for removal of sutures documented in this encounter Care Teams Drafter Structural Relationship Specialty Start Date End Date Sada Martinez MD [address] [place] [address] PCP - General 08/25/10 09/23/15 documented as of this encounter
--- OUTSIDE RECORDS SUMMARY | 2024-03-12 02:43 | XMS_ITS | Encounter Summary ---
Author Organization [facility] Address [facility] [place] [address] Care Team Providers Care Charger Name Role Phone April Mason DO Primary Care Provider [phone] Encounter Details Date Type Department Care Team (Latest Contact Info) Description 09/07/2021 11:45 AM EST Clinical Support Dermatology [facility] [address] [place] [address] Candi Suh MD [facility] [place] [address] Visit for suture removal Social History Tobacco Use Types Packs/Day Years Used Date Smoking Tobacco: Never Smokeless Tobacco: Never Sex and Gender Information Value Date Recorded Sex Assigned at Not on file Gender Identity Not on file Sexual Orientation Not on file documented as of this encounter Progress Notes * Tonya Mora LPN - 09/07/2021 11:45 AM EST Images from the original note were not included. DEPARTMENT OF DERMATOLOGY Procedural Dermatology Clinic Provider: Candi Suh MD at Dermatology at [facility] History of Present Illness: Cheryl Zarate is [...] daily. Remove steristrips, if still present in 7days, remove remaining steristrips. Follow-up: as previously discussed. Return sooner as needed for suspicious lesion, new or worseningdermatitis. [x] Recall placed [] Forwarded to renewal specialist [] Patient scheduled before exiting Figure 1 Photo(s) taken and charted with patient's verbal consent. Note initiated and completed by Tonya Mora LPN Reviewed and signed by: Candi Suh MD Dermatology [facility] documented in this encounter Plan of Treatment Upcoming Encounters Date Type Department Care Team (Late st Contact Info) Description 03/18/2025 2:30 PM EDT Office Visit Dermatology at [facility] [address] [place] [address] Candi Suh MD [facility] [place] [address] documented as of this encounter Visit Diagnoses Diagnosis Visit for suture removal Encounter for removal of sutures documented in this encounter Care Teams Charger Relationship Specialty Start Date End Date April Mason DO [address] [place] [address] PCP - General Family Medicine 05/01/21 documented as of this encounter
--- OUTSIDE RECORDS SUMMARY | 2024-03-12 02:43 | XMS_ITS | Encounter Summary ---
Author Organization [facility] Address [facility] [place] [address] Care Team Providers Care Ecotherapist Name Role Phone April Mason DO Primary Care Provider [phone] Encounter Details Date Type Department Care Team (Latest Contact Info) Description 08/24/2021 10:30 AM EST Procedure visit Dermatology at [facility] [address] [place] [address] Candi Suh MD [facility] [address] Malignant melanoma, unspecified site Social History Tobacco Use Types Packs/Day Years Used Date Smoking Tobacco: Never Smokeless Tobacco: Never Sex and Gender Information Value Date Recorded Sex Assigned at Not on file Gender Identity Not on file Sexual Orientation Not on file documented as of this encounter Patient Instructions * Patient Instructions* Sylvester Gonzales CCMA - 08/24/2021 10:30 AM EST Post-Operative [...] normal healing process. The wound is not considered healed until the drainage stops. It may take up to 3-4 weeks depending on the surgical site. Signsof infection include: increasing redness, drainage, swelling, tenderness, or pain. If you notice any of those symptoms, please contact the clinic. For bleeding or discomfort: If bleeding should occur, hold firm, constant pressure against the wound for 15- 20 minutes (with nopeeking). If bleeding continues, repeat for another 15-20 minutes. If that does not stop the bleeding, call the clinic or go to your local emergency department. For discomfort, you may take acetaminophen (Tylenol), according to package directions. For the first 48 hours, avoid aspirin and ibuprofen (Advil, Motrin), [...] or concerns, please call the clinic at [phone] on weekdays from 8 AMto 5 PM After 5 PM, and on weekends and holidays, please call the hospital at [phone] and ask for the Employee Benefits Specialist On-Call. Provider: Candi Suh MD Combat Control: DIANA Verdugo documented in this encounter Progress Notes * Candi Suh MD - 08/24/2021 10:30 AM EST Images from the original note were not included. Dermatologic Surgery Operative Report (Procedure: Excision with Intermediate Layered Closure) Patient Name: Cheryl Zarate Date of : 1950 Visit date: 08/24/2021 STAFF SURGEON: Candi Suh MD, SIRI ASSISTANTS: Sylvester Gonzales Preoperative Diagnosis: Melanoma, predominantly ??in situ, with focal superficial invasion, 0.3 mm,without??ulceration (see prior bx [id number]) Postoperative Diagnosis: Same as above Pathology: Submitted [...] Candi Suh MD, SIRI Department of Dermatology [facility] documented in this encounter Plan of Treatment Upcoming Encounters Date Type Department Care Team (Late st Contact Info) Description 03/18/2025 2:30 PM EDT Office Visit Dermatology at [facility] [address] [place] [address] Candi Suh MD [facility] [address] [phone] (work) documented as of this encounter Procedures Procedure Name Priority Date/Time Associated Diagnosis Comments SPECIMEN TO PATHOLOGY Routine 08/24/2021 11:50 AM EST Malignant melanoma, unspecified site SURGICAL PATHOLOGY REPORT Routine 08/24/2021 10:30 AM EST documented in this encounter Results * Specimen to Pathology (08/24/2021 11:50 AM EST) AP Specimen 08/24/2021 11:5 0 AM EST 08/24/2021 11:50 AM EST Narrative [facility] - 08/24/2021 11:50 AM EST Specimen requisition ordered. ??Separate Pathology report to follow Candi Suh MD PATHOLOGY/CYTOLOGY O CHELLEERASPARKLE [facility] [place] [address] * Surgical Pathology Report (08/24/2021 10:30 AM EST) Final Diagnosis [id number] ? Location: [facility] The signing pathologist has (i) examined the relevant preparation(s) for the specimen(s) and (ii) rendered or confirmed the diagnosis(es). . ?Surgical Pathology DIAGNOSIS Right upper back, skin excision: - Negative for residual melanoma - ??Dermal scar and procedure site changes Electronically signed by: ?Nga SUMNER, Adan Hicks Verified: ??08/31/2021 13:48 ??Dermatopathol ogist Performed at: ??-[facility] Dept. of Pathology, [place], [place] SPECIMEN(S) SUBMITTED A - Right upper back, skin excision (1) CLINICAL INFORMATION Healing biopsy scar of melanoma (see previous path [id number]) SPECIMEN PROCESSING A - Labeled/Fixativ e: Patient demographics, formalin. Quantity/Size: ??Single, 7.5 x 2.3 x 1.4 cm. Tissue Description: Wrinkled, vilchis-white, unoriented elliptical skin excision with a 0.8 x 0.5 x 0.2 cm centrally brown and crusted scar/previous biopsy site. A single suture is present at one end. No designation for the suture is provided, and subsequently prosector designated as 12 o'clock. Inkin-3-6 o'clock is marked black. ??6-9-12 o'clock is marked blue. Sections/Proces sing: Serially sectioned and entirely submitted in 14 cassettes as follows: ?A1: ??12 o'clock tip ?A2-A13: ??Body, 12-6 o'clock (A6-A10 = central scar/previous biopsy site) ?A14: ??6 o'clock tip ??shb 08/31/2021 1:48 PM EST [facility] SPECIMEN FROM SKIN / Unknown 08/24/2021 10:30 AM EST 08/24/2021 10:30 AM EST Candi Suh MD PATHOLOGY/CYTOLOGY O RDERABLES [facility] [place] [address] documented in this encounter Visit Diagnoses Diagnosis Malignant melanoma, unspecified site documented in this encounter Care Teams Ecotherapist Relationship Specialty Start Date End Date April Mason DO [address] [place] [address] PCP - General Family Medicine 05/01/21 documented as of this encounter
--- OUTSIDE RECORDS SUMMARY | 2024-03-12 02:43 | XMS_ITS | Encounter Summary ---
Author Organization [facility] Address [facility] [place] [address] Care Team Providers Care Bullet Maker Name Role Phone April Mason DO Primary Care Provider [phone] Encounter Details Date Type Department Care Team (Late st Contact Info) Description 09/03/2021 Telephone Dermatology at [facility] [address] [place] [address] Candi Suh MD [facility] [place] [address] Social History Tobacco Use Types Packs/Day Years Used Date Smoking Tobacco: Never Smokeless Tobacco: Never Sex and Gender Information Value Date Recorded Sex Assigned at Not on file Gender Identity Not on file Sexual Orientation Not on file documented as of this encounter Miscellaneous Notes * Telephone Encounter - Candi Suh MD - 09/03/2021 11:12 AM EST Called patient to check in post-operatively and report excision pathology (below). No further tx needed. Patient reports small amount of redness at excision site but no pain, drainage, or warmth. Prior symptoms have resolved. Scheduled for suture removal 09/07 and FSE 10/26. [id number] ? Location: [facility] The signing pathologist has [...] 2:30 PM EDT Office Visit Dermatology at [facility] [address] [place] [address] Candi Suh MD [facility] [place] [address] documented as of this encounter Visit Diagnoses Not on filedocumented in this encounter Care Teams Bullet Maker Relationship Specialty Start Date End Date April Mason DO [address] [facility] [place] [address] PCP - General Family Medicine 05/01/21 documented as of this encounter
--- OUTSIDE RECORDS SUMMARY | 2024-03-12 02:43 | XMS_ITS | Encounter Summary ---
Author Organization Formerly [facility] [place] [address] Care Team Providers Care Computer Tester Name Role Phone April Mason DO Primary Care Provider +1- [phone] Encounter Details Date Type Department Care Team (Late st Contact Info) Description 07/10/2022 Ancillary Procedure Radiology [place] [address] April Mason DO [address] [place], [place] [address] Social History Tobacco Use Types Packs/Day Years [...] PM EDT Office Visit Dermatology at [facility] [address] [place] [address] Candi Suh MD [facility] [place] [address] documented as of this encounter Procedures Procedure Name Priority Date/Time Associated Diagnosis Comments FILM LIBRARY STORAGE ONLY CT ABDOMEN AND PELVIS Routine 07/10/2022 12:00 AM EST documented in this encounter Results * Film Library- Storage Only CT Abdomen & Pelvis (07/10/2022 12:00 AM EST) Narrative RAD - 07/18/2022 11:36 PM EST This exam is auto-finalizing. It's purpose is for storage only. April Mason DO IMG FILM LIBRARY O RDERABLES [place], [place] documented in this encounter Visit Diagnoses Not on filedocumented in this encounter Care Teams Computer Tester Relationship Specialty Start Date End Date April Mason DO [address] [place] [address] PCP - General Family Medicine 05/01/21 documented as of this encounter
--- OUTSIDE RECORDS SUMMARY | 2024-03-12 02:43 | XMS_ITS | Encounter Summary ---
Author Organization [facility] [place] [address] Care Team Providers Care Beef Farmer Name Role Phone April Mason DO Primary Care Provider +1- [phone] Encounter Details Date Type Department Care Team (Late st Contact Info) Description 03/24/2022 4:30 PM EDT Ancillary Procedure [place] [address] April Mason, DO [address] [place] [address] Social History Tobacco Use Types Packs/Day Years [...] PM EDT Office Visit Dermatology at [facility] [address] [place] [address] Candi Suh MD [facility] [place] [address] documented as of this encounter Procedures Procedure Name Priority Date/Time Associated Diagnosis Comments FILM LIBRARY STORAGE ONLY MR HEAD Routine 03/24/2022 4:27 PM EDT documented in this encounter Results * Film Library- Storage Only MR Head (03/24/2022 4:27 PM EDT) Narrative RAD - 03/24/2022 4:27 PM EDT This exam is auto-finalizing. It's purpose is for storage only. April Mason DO IMG FILM LIBRARY O RDERABLES Performing Organization Address City/State/[facility] Co de Phone Number [place], [place] documented in this encounter Visit Diagnoses Not on filedocumented in this encounter Care Teams Beef Farmer Relationship Specialty Start Date End Date April Mason DO [address] [place] [address] PCP - General Family Medicine 05/01/21 documented as of this encounter
--- OUTSIDE RECORDS SUMMARY | 2024-03-12 02:43 | XMS_ITS | Encounter Summary ---
Author Organization [facility] Address [facility] [place] [address] Care Team Providers Care Peanut Shaker Name Role Phone April Mason DO Primary Care Provider +1- [phone] Encounter Details Date Type Department Care Team (Late st Contact Info) Description 01/21/2022 3:45 PM EDT Office Visit Dermatology at [facility] [address] [place] [address] [facility] [address] Encounter for cosmetic procedure; Seborrheic keratosis Social History Tobacco Use Types Packs/Day Years Used Date Smoking Tobacco: Never Smokeless Tobacco: Never Sex and Gender Information Value Date Recorded Sex Assigned at Not on file Gender Identity Not on file Sexual Orientation Not on file documented as of this encounter Progress Notes * Candi Suh MD - 01/21/2022 3:45 PM [...] and signed by: Candi Suh MD Dermatology [facility] documented in this encounter Plan of Treatment Upcoming Encounters Date Type Department Care Team (Late st Contact Info) Description 03/18/2025 2:30 PM EDT Office Visit Dermatology at [facility] [address] [place] [address] [facility] [place] [address] documented as of this encounter Visit Diagnoses Diagnosis Encounter for cosmetic procedure Seborrheic keratosis Other seborrheic keratosis documented in this encounter Care Teams Peanut Shaker Relationship Specialty Start Date End Date April Mason DO [address] [place] [address] PCP - General Family Medicine 05/01/21 documented as of this encounter
--- OUTSIDE RECORDS SUMMARY | 2024-03-12 02:43 | XMS_ITS | Encounter Summary ---
Author Organization [facility] [place] [address] Care Team Providers Care Store Receiving Specialist Name Role Phone April Mason DO Primary Care Provider +1- [phone] Encounter Details Date Type Department Care Team (Late st Contact Info) Description 07/19/2022 11:30 AM EST Office Visit Dermatology at [facility] [address] [place] [address] Candi Suh MD [facility] [place] [address] History of melanoma; History of basal cell carcinoma (BCC); Seborrheic keratoses; Lentigines; Huntley angioma; Melanocytic nevus, unspecified location; History of dysplastic nevus; Pilar cyst; Seborrheic dermatitis; Skin cancer screening Social History Tobacco Use Types Packs/Day Years Used Date Smoking Tobacco: Never Smokeless Tobacco: Never Sex and Gender Information Value Date Recorded Sex Assigned at Not on file Gender Identity Not on file Sexual Orientation Not on file documented as of this encounter Progress Notes * Candi Suh MD - 07/19/2022 11:30 AM EST Images from the original note were not included. DEPARTMENT OF DERMATOLOGY Medical Dermatology Clinic Provider: Candi Suh MD Patient's preferred name Cheryl Preferred contact method for results [x]?Phone []?myD-H []?Letter Detailed phone message OK? Yes Are there any other people with whom we may discuss your care? Son, Vasquez Zarate ?? Past Medical History Date, location, treatment Melanoma 07/14/2021,??Right upper back, Melanoma, predominantly ??in situ, with focal superficial invasion, 0.3 mm; WLE 08/24/21 Dysplastic nevi 04/26/2022: central back, DN with mild atypia SCC N BCC Right forearm and chest - BCC AKs Y UV Exposure & Protection N ?? Seborrheic dermatitis Pilar cyst Family History Details [...] to clinic today for a fullskin cancer screening and she reports no spots of concern. Last visit at Dermatology: 04/26/2022 Last visit with this provider: 04/26/2022 Medications: Reviewed in eD-H Allergies: Reviewed in eD-H Skin Examination: Full skin examination: Patient asked to undress to their comfort level. Verbalized that the provider???s preference is that the patient remove all clothing and that the provider will not examine areas patient elects to keep covered. Patient elects to keep underwear on and have the following examined: scalp, hair, face, ears, neck, chest, axillae, abdomen, back, and upper and lower extremities. Genitalia and buttocks were not examined. - Lymph nodes: no occipital, pre- or post auricular, cervical, submandibular, submental, supraclavicular, axillary LAD Assessment/Plan # History of Melanoma - Well healed scar on the??right upper back??with NER and no LAD as above?? -??Continue diligent sun protection - Continue clinical monitoring with 3 month full skin exams.? # History of BCC & DN - Well healed scar(s) as listed above. - NER; will continue to clinically monitor #.Seborrheic dermatitis - scattered yellow greasy scaly plaques on the left parietal scalp and conchal bowls -advised this is a chronic condition 2nd to P. [place] that can be controlled. If worsens or becomes more symptomatic can offer alternative treatments - Can try OTC antidandruff shampoo, leave on for 5 minutes prior to rinsing -Patient has Mometasone Furoate solution 0.1% at home - ok to use for up to 1 week for flares # Pilar Cyst -??Soft subcutaneous??nodule??measuring 2cm??on the left occipital??scalp - Discussed benign nature of cyst. No further intervention required unless symptomatic - Pt will call to be??scheduled for surgery??if she??would like to have cyst excised. #. Favor bites - Crusted 1mm pink papules on the right volar wrist - cat with possible fleas - no tx needed, can try topical steroid if needed for symptoms # Solar lentigines - 0.3-0.6cm light-brown evenly [...] nature of these lesions. No treatment needed. Other: ??? N/A RTC: 6 months for FSE, sooner as needed []Note routed to personal secretary []Recall placed in scheduling system [x]Appointment scheduled at checkout Scribe attestation: Sandy Souza LPN has performed the documentation for this encounter in thepresence of and acting as a scribe for Candi Suh MD. I performed the above scribed service and agree with the accuracy of the documentation in this encounter. Reviewed and signed by: Candi Suh MD Dermatology [facility] documented in this encounter Plan of Treatment Upcoming Encounters Date Type Department Care Team (Late st Contact Info) Description 03/18/2025 2:30 PM EDT Office Visit Dermatology at [facility] [address] [place] [address] Candi Suh MD [facility] [place] [address] documented as of this encounter Visit Diagnoses Diagnosis History of melanoma Personal history of malignant melanoma of skin History of basal cell carcinoma (BCC) Seborrheic keratoses Lentigines Other dyschromia Huntley angioma Nevus, non-neoplastic Melanocytic nevus, unspecified location History of dysplastic nevus Personal history of diseases of skin and subcutaneous tissue Pilar cyst Seborrheic dermatitis Seborrheic dermatitis, unspecified Skin cancer screening Screening for malignant neoplasm of the skin documented in this encounter Care Teams Store Receiving Specialist Relationship Specialty Start Date End Date April Mason DO [address] [place] [address] PCP - General Family Medicine 05/01/21 documented as of this encounter
--- OUTSIDE RECORDS SUMMARY | 2024-03-12 02:43 | XMS_ITS | Encounter Summary ---
Author Organization [facility] [place] [address] Care Team Providers Care Field Crop Harvest Worker Name Role Phone April Mason DO Primary Care Provider +1- [phone] Encounter Details Date Type Department Care Team (Late st Contact Info) Description 08/02/2022 Ancillary Procedure [place] [address] April Mason DO [address] [place], [place] [address] Social History Tobacco Use Types Packs/Day Years [...] 2:30 PM EDT Office Visit Dermatology at [facility] [address] [place] [address] Candi Suh MD [facility] [place] [address] documented as of this encounter Procedures Procedure Name Priority Date/Time Associated Diagnosis Comments FILM LIBRARY STORAGE ONLY CT CHEST Routine 08/02/2022 12:00 AM EST documented in this encounter Results * Film Library- Storage Only CT Chest (08/02/2022 12:00 AM EST) Narrative RAD - 08/03/2022 6:17 AM EST This exam is auto-finalizing. It's purpose is for storage only. April Mason DO IMG FILM LIBRARY O RDERABLES [place], [place] documented in this encounter Visit Diagnoses Not on filedocumented in this encounter Care Teams Field Crop Harvest Worker Relationship Specialty Start Date End Date April Mason DO [address] [place] [address] PCP - General Family Medicine 05/01/21 documented as of this encounter
--- OUTSIDE RECORDS SUMMARY | 2024-03-12 02:43 | XMS_ITS | Encounter Summary ---
[place] [address] Care Team Providers Care Waste Reclaimer Name Role Phone April Mason DO Primary Care Provider +1- [phone] Reason for Referral * Diagnostic Test (Routine) - Closed Specialty Diagnoses / Procedures Referred By Contac t Referred To Contact Radiology Diagnoses Lung nodule Procedures NM PET CT Skull Base to Mid-thigh Beverley Mraia MD [address] [place] [address] [place] [address] Referral ID Status Reason Start Date Expiration Date V isits Requested Visits Authorized [id number] Closed Specialty Service Requested 08/05/2022 02/03/2024 1 1 Reason for Visit * Diagnostic Test (Routine) - Closed Specialty Diagnoses / Procedures Referred By Contac t Referred To Contact Radiology Diagnoses Lung nodule Procedures NM PET CT Skull Base to Mid-thigh Beverley Maria MD [address] [place] [address] [place] [address] Referral ID Status Reason Start Date Expiration Date V isits Requested Visits Authorized [id number] Closed Specialty Service Requested 08/05/2022 02/03/2024 1 1 Encounter Details Date Type Department Care Team (Latest Contact Info) Description 09/16/2022 9:55 AM EST - 09/16/2022 9:57 AM EST Hospital Encounter [place] [address] Beverley Maria MD [address] [place] [address] Lung nodule Discharge Disposition: Home Social History Tobacco Use [...] 2:30 PM EDT Office Visit Dermatology at [facility] [address] [place] [address] Candi Suh MD [facility] [place] [address] documented as of this encounter Procedures Procedure Name Priority Date/Time Associated Diagnosis Comments NM PET CT SKULL BASE TO MID-THIGH (LCSR) Routine 09/16/2022 11:23 AM EST Lung nodule POCT GLUCOSE Routine 09/16/2022 10:05 AM EST documented in this encounter Results * NM [...] who have questions please contact the health post acute care nurse practitioner that requested your imaging first. ? Electronically signed by: Wong Spence MD, [facility] ([phone]), at 09/20/2022 1:17 PM Narrative 09/20/2022 1:17 PM EST EXAMINATION: NM PET CT STANDARD SKULL BASE TO MID-THIGH CLINICAL HISTORY: lll nodule 2.7 cm incidental ?hamartoma TECHNIQUE: Following IV injection of 37-sknjdn-4-deoxyglucose (FDG) a standard uptake of approximately 60 [...] incidental ?hamartoma TECHNIQUE: Following IV injection of 59-jtaxdw-3-deoxyglucose (FDG) astandard uptake of approximately 60 minutes, [...] patients who have questions please contactthe health post acute care nurse practitioner that requested your imaging first. Beverley Maria MD IMG PET ORDERABLES * POCT Glucose (09/16/2022 10:05 AM EST) [facility] Signature Glucose, POC 140 65 - 199 mg/dL [facility] Comment: Supplemental ranges: <140 mg/dL before meals <180 mg/dL all other times of the day Blood 09/16/2022 10:0 5 AM EST 09/16/2022 10:05 AM EST Beverley Maria MD POINT OF CARE TEST O RDERABLES Performing Organization Address City/State/[facility] Co de Phone Number [facility] [place] [address] documented in this encounter Visit Diagnoses Diagnosis Lung nodule Solitary pulmonary nodule documented in this encounter Administered Medications Inactive Administered Medications - up to 3 most recent administrations Medication Order MAR Action Action Date Dose Rate Site fludeoxyglucose (F-18) FDG injection 0-20 mCi 0-20 mCi, Intravenous, ONCE PRN, 1 dose, Starting on Mon09/16/22 at 1019, Until Mon09/16/22 at 1014, Per Protocol, Radiology Contrast, Routine Given 09/16/2022 10:14 AM EST 16.1 mCi Right Arm documented in this encounter Care Teams Waste Reclaimer Relationship Specialty Start Date End Date April Msaon DO [address] [place] [address] PCP - General Family Medicine 05/01/21 documented as of this encounter
--- OUTSIDE RECORDS SUMMARY | 2024-03-12 02:43 | XMS_ITS | Encounter Summary ---
Author Organization [facility] [place] [address] Care Team Providers Care Podiatric Medicine Professor Name Role Phone Sada Martinez MD Primary Care Provider [phone] Encounter Details Date Type Department Care Team (Late st Contact Info) Description 04/07/2014 2:30 PM EDT Office Visit Dermatology at [address] [place] [address] Farhad Olivas MD [address] [facility] [place] [address] Seborrheic keratosis (Primary Dx); History of basal cell carcinoma; Nevus Discharge Disposition: Home Social History Tobacco Use Types Packs/Day Years Used Date Smoking Tobacco: Never Sex and Gender Information Value Date Recorded Sex Assigned at Not on file Gender Identity Not on file Sexual Orientation Not on file documented as of this encounter Progress Notes * Farhad Olivas MD - 04/07/2014 2:38 PM [...] M.D. documented in this encounter Miscellaneous Notes * Addendum Note - Farhad Olivas MD - 04/08/2014 5:55 PM EDTAddended by: FARHAD OLIVAS on: 04/08/2014 05:55 PM Modules accepted: Level of Service documented in this encounter Plan of Treatment Upcoming Encounters Date Type Department Care Team (Late st Contact Info) Description 03/18/2025 2:30 PM EDT Office Visit Dermatology at [address] [address] Candi Suh MD [facility] [place] [address] documented as of this encounter Visit Diagnoses Diagnosis Seborrheic keratosis- Primary Other seborrheic keratosis History of basal cell carcinoma Personal history of other malignant neoplasm of skin Nevus Benign neoplasm of skin, site unspecified documented in this encounter Care Teams Podiatric Medicine Professor Relationship Specialty Start Date End Date Sada Martinez MD [address] [place] [address] PCP - General 08/25/10 09/23/15 documented as of this encounter
--- OUTSIDE RECORDS SUMMARY | 2024-03-12 02:43 | XMS_ITS | Encounter Summary ---
Author Organization [facility] Address [facility] [place] [address] Care Team Providers Care Instrument Fitter Name Role Phone Diamond Hahn APRN Primary Care Provider [phone] Encounter Details Date Type Department Care Team (Late st Contact Info) Description 10/16/2015 9:30 AM EDT Procedure visit Dermatology at [place] [address] [facility] [place] [address] Farhad Moncada MD [address] [facility] [place] [address] Seborrheic keratosis, inflamed Social History Tobacco Use Types Packs/Day Years Used Date Smoking Tobacco: Never Sex and Gender Information Value Date Recorded Sex Assigned at Not on file Gender Identity Not on file Sexual Orientation Not on file documented as of this encounter Patient Instructions * Patient Instructions* Rafia Olvera LPN - 10/16/2015 9:48 AM EDT Treatment [...] or concerns, please call the office at [phone]. documented in this encounter Progress Notes * Farhad Moncada MD - 10/16/2015 10:05 AM [...] 2:30 PM EDT Office Visit Dermatology at [facility] [address] [place] [address] Candi Suh MD [facility] [place] [address] documented as of this encounter Visit Diagnoses Diagnosis Seborrheic keratosis, inflamed Inflamed seborrheic keratosis documented in this encounter Care Teams Instrument Fitter Relationship Specialty Start Date End Date Diamond Hahn APRN PCP - General Family Medicine 09/24/15 03/30/20 documented as of this encounter
--- OUTSIDE RECORDS SUMMARY | 2024-03-12 02:43 | XMS_ITS | Encounter Summary ---
Author Organization [facility] [place] [address] Care Team Providers Care Electronic Design Engineer Name Role Phone Adeel Robertson MD Primary Care Provider [phone] Reason for Visit * Reason Comments Skin Check Encounter Details Date Type Department Care Team (Late st Contact Info) Description 03/31/2020 10:15 AM EDT Office Visit Dermatology at [address] [place] [address] Farhad Moncada MD [address] [facility] [place] [address] History of SCC (squamous cell carcinoma) of skin; Seborrheic keratosis Social History Tobacco Use Types Packs/Day Years Used Date Smoking Tobacco: Never Smokeless Tobacco: Never Sex and Gender Information Value Date Recorded Sex Assigned at Not on file Gender Identity Not on file Sexual Orientation Not on file documented as of this encounter Progress Notes * Farhad Moncada MD - 03/31/2020 10:15 AM EDT Problem: 1. Skin lesion of concern left antecubital fossa 2. 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 It is been red and has nothealed now for many months. Physical examination shows excellent healing and no evidence of recurrence at the right mid dorsal forearm SCCA treatment site from February 2018. This came back as a squamous cell carcinoma in site 2.She has an elongated erythematous linear macule on the left antecubital fossa 3 x 7 mm in size which might also represent squamous of carcinoma in situ. Otherwise examination of the head and neck thechest the back the hands the arms forearms [...] 2:30 PM EDT Office Visit Dermatology at [place] [address] [place] [address] Candi Suh MD [facility] [place] [address] documented as of this encounter Visit Diagnoses Diagnosis History of SCC (squamous cell carcinoma) of skin Personal history of other malignant neoplasm of skin Seborrheic keratosis Other seborrheic keratosis documented in this encounter Care Teams Electronic Design Engineer Relationship Specialty Start Date End Date Adeel Robertson MD PCP - General General Internal Medicine 03/31/2004/02 documented as of this encounter
--- OUTSIDE RECORDS SUMMARY | 2024-03-12 02:43 | XMS_ITS | Encounter Summary ---
Author Organization [facility] [place] [address] Care Team Providers Care Barking Machine Feeder Name Role Phone April Mason DO Primary Care Provider [phone] Encounter Details Date Type Department Care Team (Late st Contact Info) Description 06/13/2022 Telephone [place] [address] Leah Corbin Social History Tobacco Use Types Packs/Day Years Used Date Smoking Tobacco: Never Smokeless Tobacco: Never Sex and Gender Information Value Date Recorded Sex Assigned at Not on file Gender Identity Not on file Sexual Orientation Not on file documented as of this encounter Miscellaneous Notes * Telephone Encounter - Leah Corbin - 06/13/2022 10:18 AM EST Patient called today to schedule for referral. Patient does not wear hearing aids Patient has not had any imaging done Patient has seen Dr. Soriano in the past - mr request sent Patient requested appt be scheduled for 07/19 when she will be down for another appt. Appts scheduled for 07/19 per patient request. Reviewed pcp, demographics and insurance. documented in this encounter Plan of Treatment Upcoming Encounters Date Type Department Care Team (Late st Contact Info) Description 03/18/2025 2:30 PM EDT Office Visit Dermatology at [facility] [address] [place] [address] Candi Suh MD [facility] [place] [address] documented as of this encounter Visit Diagnoses Not on filedocumented in this encounter Care Teams Barking Machine Feeder Relationship Specialty Start Date End Date April Mason DO [address] [place] [address] PCP - General Family Medicine 05/01/21 documented as of this encounter
--- OUTSIDE RECORDS SUMMARY | 2024-03-12 02:43 | XMS_ITS | Encounter Summary ---
Author Organization [facility] [place] [address] Care Team Providers Care Line Pilot Name Role Phone April Mason DO Primary Care Provider [phone]- [phone] Encounter Details Date Type Department Care Team (Late st Contact Info) Description 02/03/2022 Ancillary Procedure [place] [address] April Mason DO [address] [place], [place] [address] Social History Tobacco Use Types Packs/Day Years [...] 2:30 PM EDT Office Visit Dermatology at [facility] [address] [place] [address] Candi Suh MD [facility] [place] [address] documented as of this encounter Procedures Procedure Name Priority Date/Time Associated Diagnosis Comments FILM LIBRARY STORAGE ONLY MR SPINE Routine 02/03/2022 12:00 AM EDT documented in this encounter Results * Film Library- Storage Only MR Spine (02/03/2022 12:00 AM EDT) Narrative RAD - 02/08/2022 10:12 AM EDT This exam is auto-finalizing. It's purpose is for storage only. April Mason DO IMG FILM LIBRARY O RDERABLES [place], [place] documented in this encounter Visit Diagnoses Not on filedocumented in this encounter Care Teams Line Pilot Relationship Specialty Start Date End Date April Mason DO [address] [place] [address] PCP - General Family Medicine 05/01/21 documented as of this encounter
--- OUTSIDE RECORDS SUMMARY | 2024-03-12 02:43 | XMS_ITS | Encounter Summary ---
Author Organization [facility] Address [address] [place] [address] Care Team Providers Care Wet Roaster Name Role Phone Sada Martinez MD Primary Care Provider [phone] Encounter Details Date Type Department Care Team (Late st Contact Info) Description 08/19/2023 Lab Requisition [facility] Pathology & Laboratory Medicine - [address] [address] Abel Kwon MD [address] [place] [address], [address] [place], [place] [id number] Calculus of bile duct without cholangitis or cholecystitis without obstruction Social History Tobacco Use Types Packs/Day Years Used Date Smoking Tobacco: Never Assessed Sex and Gender Information Value Date Recorded Sex Assigned at Not on file Gender Identity Not on file Sexual Orientation Not on file documented as of this encounter Plan of Treatment Not on file documented as of this encounter Procedures Procedure Name Priority Date/Time Associated Diagnosis Comments SURGICAL PATHOLOGY Today 08/18/2023 12 :33 EST Calculus of bile duct without cholangitis or cholecystitis without obstruction documented in this encounter Results * SURGICAL PATHOLOGY (08/18/2023 12:33 EST) Note to Patient The following pathology results have been interpreted by your pathologist and may be available to you before your health provider has had the opportunity to review them. Please allow time for your provider to receive these results and explore management options, if applicable. 08/23/2023 10:15 [facility] Final Diagnosis A. GALLBLADDER, CHOLECYSTECTOMY: - Mild chronic cholecystitis. - Cholelithiasis. 08/23/2023 10:15 [facility] Attestation There was significant resident/fellow involvement in the diagnostic evaluation of this case. By the signature below, the attending physician certifies that they have personally conducted a gross and/or microscopic examination of the described specimens and rendered or confirmed the above diagnosis. 08/23/2023 10:15 [facility] at 1015 Clinical History Biliary colic 08/23/2023 10:15 [facility] Gross Description A. Received in formalin labelled with proper patient identification (initials D, C) and gallbladder is an intact gallbladder with an attached segment of cystic duct (0.7 x 0.5 x 0.5 cm). A cystic duct lymph node is not present. The serosa is smooth amaya green. The mucosa is velvety green and the wall is 0.1 cm in thickness. The cystic duct lumen is patent and measures 0.3 cm in diameter. The cystic duct margin is inked black. There are numerous (3.0 x 3.0 x 0.3 cm in aggregate) black calculi with is an average size of 0.3 x 0.3 x 0.3 cm. Two employee representative sections and the en face cystic duct margin are submitted in A1. PIEDAD NEUMANN MD 08/21/2023 8:54 08/23/2023 10:15 [facility] Resident/Lonnie w: Piedad Neumann MD 08/23/2023 10:15 [facility] Performing Lab [facility] 08/23/2023 10:15 [facility] Scanned Images 08/23/2023 10:15 [facility] Tissue GALLBLADDER STRUCTURE / Unknown 08/18/2023 12:33 EST 08/19/2023 9:40 EST Abel Kwon MD PATHOLOGY ORDERABLES [facility] [address] [place] [address] documented in this encounter Visit Diagnoses Diagnosis Calculus of bile duct without cholangitis or cholecystitis without obstruction Calculus of bile duct without mention of cholecystitis or obstruction documented in this encounter Care Teams Wet Roaster Relationship Specialty Start Date End Date Sada Martinez MD [address] [place] [address] PCP - General 01/05/11 documented as of this encounter
--- OUTSIDE RECORDS SUMMARY | 2024-03-12 02:43 | XMS_ITS | Encounter Summary ---
Author Organization [facility] [place] [address] Care Team Providers Care Associate Professor Of Art History Name Role Phone Isabella Apriljoshua Ponce DO Primary Care Provider [phone] Encounter Details Date Type Department Care Team (Late st Contact Info) Description 07/22/2022 Orders [place] [address] Afua Loya MD [facility] [place] [address] Social History Tobacco Use Types Packs/Day Years Used Date Smoking Tobacco: Never Smokeless Tobacco: Never Sex and Gender Information Value Date Recorded Sex Assigned at Not on file Gender Identity Not on file Sexual Orientation Not on file documented as of this encounter Progress Notes * Afua Loya MD - 07/22/2022 8:42 PM EST Images from the original note were not included. Radiology CT lung biopsy requested. Patient had CT abdomen pelvis 07/10/2022. Lobulated 1.6 x 2.8 cm LLL mass. No calcification. Patient needs dedicated CT scan of the chest for full evaluation before proceeding to lung biopsy. May require PET scan and/or pulmonologic opinion but needs Chest CT to initiate. documented in this encounter Plan of Treatment Upcoming Encounters Date Type Department Care Team (Late st Contact Info) Description 03/18/2025 2:30 PM EDT Office Visit Dermatology at [facility] [address] [place] [address] Candi Suh MD [facility] [place] [address] documented as of this encounter Visit Diagnoses Not on filedocumented in this encounter Care Teams Associate Professor Of Art History Relationship Specialty Start Date End Date April Mason DO [address] [place] [address] PCP - General Family Medicine 05/01/21 documented as of this encounter
--- OUTSIDE RECORDS SUMMARY | 2024-03-12 02:43 | XMS_ITS | Encounter Summary ---
Author Organization [facility] Address [facility] [place] [address] Care Team Providers Care Chicle Grinder Feeder Name Role Phone April Mason DO Primary Care Provider [phone] Encounter Details Date Type Department Care Team (Late st Contact Info) Description 04/26/2022 2:45 PM EDT Office Visit Dermatology at [facility] [address] [place] [address] Candi Suh MD [facility] [place] [place] [address] History of melanoma; History of basal cell carcinoma (BCC); Seborrheic keratoses; Lentigines; Multiple benign nevi of upper extremity, lower extremity, and trunk; Huntley angioma; Verruca vulgaris; Neoplasm of unspecified behavior of bone, soft tissue, and skin; Actinic keratoses; Inflamed seborrheic keratosis Social History Tobacco Use Types Packs/Day Years Used Date Smoking Tobacco: Never Smokeless Tobacco: Never Sex and Gender Information Value Date Recorded Sex Assigned at Not on file Gender Identity Not on file Sexual Orientation Not on file documented as of this encounter Progress Notes * Candi Suh MD - 04/26/2022 2:45 PM EDT Images from the original note were not included. DEPARTMENT OF DERMATOLOGY Medical Dermatology Clinic Provider: Candi Suh MD Patient's preferred name Cheryl Preferred contact method for results [x]???Phone []???myD-H []???Letter Detailed phone message OK? Yes Are there [...] to clinic today for a fullskin cancer screening: - Patient denies of any pruritic, painful, bleeding, nonhealing, or growing/changing lesions of concern today. Last visit at Dermatology: 01/21/2022 Last visit with this provider: 01/21/2022 Medications: Reviewed in eD-H Allergies: Reviewed in [...] clinical monitoring with 3 month full skin exams.?? # History of BCC - Well healed scar(s) as listed above. - NER; will continue to clinically monitor #. Carbon Tattoo - 1mm blue macule on left upper arm - Discussed benign nature of lesion and provided reassurance. Will continue to monitor. #. Seborrheic Keratoses - Stuck on, waxy papules on the trunk and extremities. - Discussed benign nature of lesions and provided reassurance. No treatment necessary at this time. # Melanocytic nevi - Scattered medium-brown macules [...] Discussed warning signs of skin cancer #. Huntley Angiomas - Multiple bright red, well-demarcated papules on the trunk and extremities. - Discussed benign nature of lesions and provided reassurance. No treatment necessary at this time. #. Wart (Verruca Vulgaris) - Verrucous papule on the left upper back x1 with pin-point vascular pattern noted on dermoscopy. - Discussed dx and tx options including clinical monitoring and LN2 - [place] decision to proceed with cryotherapy in the clinic today. Patient is aware that multiple treatments may be required. Procedure: Destruction of lesion(s) with cryotherapy (LN2). Location(s): As noted above Number: 1 Discussed procedure and expectations including risks (especially hypopigmentation) and benefits. Verbal consent obtained. Frozen with LN2, 15-30 second thaw time, twice. There were no complications; patient tolerated the procedure well. Post-procedure expectations and wound care reviewed. #. DDx: SK r/o Malignancy - 1cm pink slightly scaly plaque with dots of pigment (figure 1-3) - joint decision to pursue shave biopsy today to clarify nature of lesion - Shave biopsy procedure note: Location: Central back The patient's consent was obtained. Risk [...] complications; the patient tolerated the procedure well. #. Actinic keratoses - ill-defined scaly pink papule(s) on the nose x2, right brow x1, left brow x1 - Reviewed diagnosis with patient, premalignant [...] lesions that do not resolve with treatment # Favor ISK vs. AK - stuck-on brown/amaya waxy papule with erythema located on the right thigh x1. - Reassured of the benign nature of these lesions - Given irritated nature, joint decision to proceed with treatment with LN2 today - Procedure: Destruction with Liquid Nitrogen Cryotherapy Number of lesions - 1 The patient's verbal consent for liquid nitrogen was obtained. Risks and benefits were explained. The possible need for additional liquid nitrogen was reviewed. Lesion(s) were treated with LN2 [id number] freeze-thaw cycle. The patient tolerated the procedure well. Wound care was reviewed. Figure 1 Figure 2 Figure 3 Photo(s) taken and charted with patient's verbal consent. Other: ??? N/A RTC: Pending pathology, 3 month FSE, Hx of Melanoma & BCC []Note routed to escrow secretary []Recall placed in scheduling system [x]Appointment scheduled at checkout Scribe attestation: DIANA Chen has performed the documentation for this encounter in thepresence of and acting as a scribe for Candi Suh MD. I performed the above scribed service and agree with the accuracy of the documentation in this encounter. Reviewed and signed by: Candi Suh MD Dermatology [facility] * Candi Suh MD - 04/26/2022 2:45 PM EDT Skin bx results reviewed. Mild DN. Continue to monitor but no further tx needed. [place]. [id number] ? Location: [facility] The signing pathologist has (i) examined the relevant preparation(s) for the specimen(s) and (ii) rendered or confirmed the diagnosis(es). ? Surgical Pathology DIAGNOSIS A - Central back, skin shave biopsy: - ??Compound dysplastic ??melanocytic nevus with mild atypia, ??close to the specimen edges ??in the examined planes of section documented in this encounter Plan of Treatment Upcoming Encounters Date Type Department Care Team (Late st Contact Info) Description 03/18/2025 2:30 PM EDT Office Visit Dermatology at [place] [address] [place] [address] Candi Suh MD [facility] [place] [address] documented as of this encounter Procedures Procedure Name Priority Date/Time Associated Diagnosis Comments SURGICAL PATHOLOGY REPORT Routine 04/26/2022 3:36 PM EDT SPECIMEN TO PATHOLOGY Routine 04/26/2022 3:36 PM EDT Neoplasm of unspecified behavior of bone, soft tissue, and skin documented in this encounter Results * Surgical Pathology Report (04/26/2022 3:36 PM EDT) Final Diagnosis [id number] ? Location: [facility] The signing pathologist has (i) examined the relevant preparation(s) for the specimen(s) and (ii) rendered or confirmed the diagnosis(es). . ?Surgical Pathology DIAGNOSIS A - Central back, skin shave biopsy: - ??Compound dysplastic ??melanocytic nevus with mild atypia, ??close to the specimen edges in the examined planes of section Electronically signed by: ?Xiomy Clayton MD Verified: ??05/03/2022 10:37 ??Dermatopathol ogist Performed at: ??-[facility] Dept. of [place]ology, [place], [place] SPECIMEN(S) SUBMITTED A - Central back, skin shave biopsy (1) CLINICAL INFORMATION DX: SK rule out malignancy-1 cm pink slightly scaly plaque with dots of pigment SPECIMEN PROCESSING A - Labeled/Fixativ e: Patient demographics, formalin. Quantity/Size: ??Single, 1.6 x 0.9 cm. Tissue Description: Deng-pink skin shave with a 1.1 x 0.7 cm pink-yellow plaque. Sections/Proces sing: Inked, serially sectioned and entirely submitted in 2 cassettes as follows: ?A1: ??Tips ?A2: ??Body ??ajw 05/03/2022 10:37 AM EDT [facility] SPECIMEN FROM SKIN / Unknown 04/26/2022 3:36 PM EDT 04/26/2022 3:36 PM EDT Candi Suh MD PATHOLOGY/CYTOLOGY O RDERABLES [facility] [place] [address] * Specimen to Pathology (04/26/2022 3:36 PM EDT) AP Specimen 04/26/2022 3:36 PM EDT 04/26/2022 3:36 PM EDT Narrative [facility] - 04/26/2022 3:36 PM EDT Specimen requisition ordered. ??Separate Pathology report to follow Candi Suh MD PATHOLOGY/CYTOLOGY [facility] [place] [address] documented in this encounter Visit Diagnoses Diagnosis History of melanoma Personal history of malignant melanoma of skin History of basal cell carcinoma (BCC) Seborrheic keratoses Lentigines Other dyschromia Multiple benign nevi of upper extremity, lower extremity, and trunk Huntley angioma Nevus, non-neoplastic Verruca vulgaris Viral warts, unspecified Neoplasm of unspecified behavior of bone, soft tissue, and skin Actinic keratoses Actinic keratosis Inflamed seborrheic keratosis documented in this encounter Care Teams Chicle Grinder Feeder Relationship Specialty Start Date End Date April Mason DO [address] [facility] [place] [address] PCP - General Family Medicine 05/01/21 documented as of this encounter
--- OUTSIDE RECORDS SUMMARY | 2024-03-12 02:43 | XMS_ITS | Encounter Summary ---
Author Organization [facility] [place] [address] Care Team Providers Care Biological Sciences Professor Name Role Phone April Mason DO Primary Care Provider +1- [phone] Encounter Details Date Type Department Care Team (Latest Contact Info) Description 08/24/2021 10:00 AM EST Clinical Support Dermatology at [facility] [address] [place] [address] Candi Suh MD [facility] [address] Encounter for preoperative examination for general surgical procedure Social History Tobacco Use Types Packs/Day Years [...] documented in this encounter Progress Notes * Lluvia Muhammad CCMA - 08/24/2021 10:00 AM EST Pre Procedure Nurse Intake: Provider: MD Cheryl Lucero is a 71 y.o. female presents to the clinic today for a procedure visit. Pre surgery Vital signs: Patient Vitals for the past 24 hrs: Pulse BP 01/25/22 1037 86 (!) 133/92 Reviewed surgery expectations and after visit wound care instructions with patient. Patient verbalized understanding. Confirmed location with patient. Prepared patient for surgery. Candi Suh MD documented in this encounter Plan of Treatment Upcoming Encounters Date Type Department Care Team (Late st Contact Info) Description 03/18/2025 2:30 PM EDT Office Visit Dermatology at [facility] [address] [place] [address] Candi Suh MD [facility] [place] [address] documented as of this encounter Visit Diagnoses Diagnosis Encounter for preoperative examination for general surgical procedure documented in this encounter Care Teams Biological Sciences Professor Relationship Specialty Start Date End Date April Mason DO [address] [place] [address] PCP - General Family Medicine 05/01/21 documented as of this encounter
--- OUTSIDE RECORDS SUMMARY | 2024-03-12 02:43 | XMS_ITS | Encounter Summary ---
Author Organization [facility] [place] [address] Care Team Providers Care Truss Builder Name Role Phone Diamond Hahn APRN Primary Care Provider +1- [phone] Reason for Visit * Reason Comments Follow-up Skin Check Encounter Details Date Type Department Care Team (Late st Contact Info) Description 03/27/2018 3:30 PM EDT Office Visit Dermatology at [address] [address] Farhda Moncada MD [address] [facility] [place] [address] Seborrheic keratosis, inflamed; History of basal cell carcinoma; Intertrigo Social History Tobacco Use Types Packs/Day Years Used Date Smoking Tobacco: Never Smokeless Tobacco: Never Sex and Gender Information Value Date Recorded Sex Assigned at Not on file Gender Identity Not on file Sexual Orientation Not on file documented as of this encounter Progress Notes * Farhad Moncada MD - 03/27/2018 3:30 PM [...] breast dermatitis underneath her left breast which isexacerbated by several seborrheic keratoses in this location. She been using clotrimazole cream forabout 5 weeks to this with only partial [...] scalp and facial involvement. Cc: Diamond Hahn APRN documented in this encounter Plan of Treatment Upcoming Encounters Date Type Department Care Team (Late st Contact Info) Description 03/18/2025 2:30 PM EDT Office Visit Dermatology at [address] [address] Candi Suh MD [facility] [place] [address] documented as of this encounter Visit Diagnoses Diagnosis Seborrheic keratosis, inflamed Inflamed seborrheic keratosis History of basal cell carcinoma Personal history of other malignant neoplasm of skin Intertrigo Other specified erythematous condition documented in this encounter Care Teams Truss Builder Relationship Specialty Start Date End Date Diamond Hahn APRN PCP - General Family Medicine 09/24/15 03/30/20 documented as of this encounter
--- OUTSIDE RECORDS SUMMARY | 2024-03-12 02:43 | XMS_ITS | Encounter Summary ---
Author Organization [facility] [place] [address] Care Team Providers Care Pediatric Lpn Name Role Phone April Mason DO Primary Care Provider +1- [phone] Encounter Details Date Type Department Care Team (Late st Contact Info) Description 06/13/2022 Telephone Otolaryngology at [facility] [place] [address] Leah Corbin Social History Tobacco Use Types Packs/Day Years Used Date Smoking Tobacco: Never Smokeless Tobacco: Never Sex and Gender Information Value Date Recorded Sex Assigned at Not on file Gender Identity Not on file Sexual Orientation Not on file documented as of this encounter Miscellaneous Notes * Telephone Encounter - Leah Corbin - 06/13/2022 10:15 AM EST From: Leah Corbin Sent: Monday, June 13, 2022 10:15 AM To: '[email or web address]' <[email or web address]> Subject: Urgent Record Request Patient: Cheryl Zarate : 1950 Z[birth year], The above patient was referred to our ENT clinic at [facility]. Patient hadpreviously been seen at your facility [facility] for their care. We are requesting your records for proper transition. Please forward all records MARTINE including office notes, audiology reports and graphs, any operative reports, and any imaging and reports. Please forward these records to [facility] to the attention of Dr. Eliseo Ambrocio at [phone] If you are unable to fax the records, please send them via mail to: [facility] Department of Otolaryngology [address] [place] [id number] Thank you, Leah Corbin Sr. Clinical Director [employer], Oral & Maxillofacial Surgery, Otolaryngology, and Audiology [email or web address] documented in this encounter Plan of Treatment Upcoming Encounters Date Type Department Care Team (Late st Contact Info) Description 03/18/2025 2:30 PM EDT Office Visit Dermatology at [facility] [address] [place] [address] Candi Suh MD [facility] [address] documented as of this encounter Visit Diagnoses Not on filedocumented in this encounter Care Teams Pediatric Lpn Relationship Specialty Start Date End Date April Mason DO [address] [place] [address] PCP - General Family Medicine 05/01/21 documented as of this encounter
--- OUTSIDE RECORDS SUMMARY | 2024-03-12 02:43 | XMS_ITS | Encounter Summary ---
Author Organization [facility] [place] [address] Care Team Providers Care Environmental Conservation Officer Name Role Phone Sada Martinez MD Primary Care Provider [phone] Reason for Visit * Reason Comments Follow-up Encounter Details Date Type Department Care Team (Late st Contact Info) Description 07/09/2012 2:45 PM EST Office Visit Dermatology [facility] [address] [place], [place] [id number] Farhad Moncada MD [address] [facility] [place] [address] Basal cell carcinoma (Primary Dx) Social History Tobacco Use Types Packs/Day Years Used Date Smoking Tobacco: Never Sex and Gender Information Value Date Recorded Sex Assigned at Not on file Gender Identity Not on file Sexual Orientation Not on file documented as of this encounter Progress Notes * Farhad Moncada MD - 07/09/2012 3:42 PM [...] for suture removal by Dr. Moncada in [facility]. documented in this encounter Procedure Notes * Provider, Scanning - 07/17/2012 9:45 AM ESTAssociated Order(s): SCAN DOC: SURGICAL PATHOLOGY documented in this encounter Plan of Treatment Upcoming Encounters Date Type Department Care Team (Late st Contact Info) Description 03/18/2025 2:30 PM EDT Office Visit Dermatology at [facility] [address] [place] [address] Candi Suh MD [facility] [place] [address] documented as of this encounter Procedures Procedure Name Priority Date/Time Associated Diagnosis Comments SURGICAL PATHOLOGY SCAN 07/17/2012 9:45 AM EST documented in this encounter Results * SCAN DOC: SURGICAL PATHOLOGY (07/17/2012 9:45 AM EST) Narrative Transcriptions Provider, Scanning - 07/17/2012 9:45 AM EST Scanning Provider MEDIA MGR SCAN EXT O RDR/RSLT documented in this encounter Visit Diagnoses Diagnosis Basal cell carcinoma- Primary Basal cell carcinoma of skin, site unspecified documented in this encounter Care Teams Environmental Conservation Officer Relationship Specialty Start Date End Date Sada Martinez MD [address] [place] [address] PCP - General 08/25/10 09/23/15 documented as of this encounter
--- OUTSIDE RECORDS SUMMARY | 2024-03-12 02:43 | XMS_ITS | Encounter Summary ---
Author Organization Formerly [facility] [place] [address] Care Team Providers Care Pulp Screen Operator Name Role Phone Diamond Hahn APRN Primary Care Provider [phone] Encounter Details Date Type Department Care Team (Late st Contact Info) Description 10/15/2019 Ancillary Procedure [place] [address] April Mason, DO [address] [place] [address] Social History Tobacco Use Types Packs/Day Years [...] at [facility] [address] [place] [address] Candi Suh MD [facility] [place] [address] documented as of this encounter Procedures Procedure Name Priority Date/Time Associated Diagnosis Comments FILM LIBRARY STORAGE ONLY MR SPINE Routine 10/15/2019 12:00 AM EDT documented in this encounter Results * Film Library- Storage Only MR Spine (10/15/2019 12:00 AM EDT) Narrative RAD - 02/08/2022 10:06 AM EDT This exam is auto-finalizing. It's purpose is for storage only. April Mason DO IMG FILM LIBRARY O RDERABLES [place], [place] documented in this encounter Visit Diagnoses Not on filedocumented in this encounter Care Teams Pulp Screen Operator Relationship Specialty Start Date End Date Diamond Hahn APRN PCP - General Family Medicine 09/24/15 03/30/20 documented as of this encounter
--- OUTSIDE RECORDS SUMMARY | 2024-03-12 02:43 | XMS_ITS | Encounter Summary ---
Author Organization [facility] [place] [address] Care Team Providers Care Radiology Assistant Name Role Phone April Mason DO Primary Care Provider [phone] Encounter Details Date Type Department Care Team (Latest Contact Info) Description 07/19/2022 8:15 AM EST Office Visit Audiology at [address] [address] Diamond Botello AUD [facility] [place] [address] Asymmetrical sensorineural hearing loss Social History Tobacco Use Types Packs/Day Years Used Date Smoking Tobacco: Never Smokeless Tobacco: Never Sex and Gender Information Value Date Recorded Sex Assigned at Not on file Gender Identity Not on file Sexual Orientation Not on file documented as of this encounter Progress Notes * Diamond Botello AUD - 07/19/2022 8:15 AM [place] [address] PPE used during visit: Goggles, Level 2 mask Cheryl Zarate, 72 y.o., was seen on 07/19/2022 for an audiologic evaluation in conjunction with Dr. Ambrocio in Otolaryngology. Please refer to the electronic audiogram listed under Procedures in Chart Review for findings, impressions and recommendations. Enclosure: Audi[place] [address] documented in this encounter Plan of Treatment Upcoming Encounters Date Type Department Care Team (Late st Contact Info) Description 03/18/2025 2:30 PM EDT Office Visit Dermatology at [facility] [address] [place] [address] Candi Suh MD [facility] [place] [address] documented as of this encounter Procedures Procedure Name Priority Date/Time Associated Diagnosis Comments COMPREHENSIVE HEARING TEST Routine 07/19/2022 8:02 AM EST documented in this encounter Results * Comprehensive hearing test (07/19/2022 8:02 AM EST) 07/19/2022 8:02 AM EST Narrative AUDBASE COMP - 07/19/2022 8:02 AM EST Seen in conjunction with Dr. Ambrocio in ENT. She has been followed by Dr. Soriano for otitis externa and cerumen impaction. Due to eczema and narrow ear canals, she has been followed every few months for over 20 years for ear care. There was an issue during her last ear cleaning on 04/14/22 where she noticed a change in hearing. The sound quality became like Benson and the Chipmunks. When she returned to the ENT four days later to discuss her new onset symptoms, he held a tuning fork to each ear and she noted a sharp difference in sound quality between the two ears. She denied concern for asymmetric loss prior to the ear cleaning event. Results: Significant dry, flaky skin around nesha and opening of EACs. Borderline normal hearing slopnig to a moderately severe asymmetric SNHL, L>R by 10-20 dB. Recorded MEEI. QuickSIN: +3.5 dB SNR loss binaurally at 75 dB HL. Negative middle ear pressure on the right. Rec: Follow up per ENT. Consider trial with amplification pending medical clearance. Procedure Note Unknown - 07/19/2022 Seen in conjunction with Dr. Ambrocio in ENT. She has been followed by for otitis externa and cerumen impaction. Due to eczema and narrow ear canals, halima been followed every few months for over 20 years for ear care. There was an issue during herlast ear cleaning on 04/14/22 where she noticed a change in hearing. The sound quality becamelike Benson and the Chipmunks. When she returned to the ENT four days later to discuss her newonset symptoms, he held a tuning fork to each ear and she noted a sharp difference in soundquality between the two ears. She denied concern for asymmetric loss prior to the ear cleaningevent. Results: Significant dry, flaky skin around nesha and opening of EACs.Borderline normal hearing slopnig to a moderately severe asymmetric SNHL, L>R by 10-20 dB.Recorded MEEI. QuickSIN: +3.5 dB SNR loss binaurally at 75 dB HL. Negative middle earpressure on the right. Rec: Follow up per ENT. Consider trial with amplification pending medicalclearance. Diamond Botello AUD AUDIOLOGY [facility] documented in this encounter Visit Diagnoses Diagnosis Asymmetrical sensorineural hearing loss Sensorineural hearing loss, asymmetrical documented in this encounter Care Teams Radiology Assistant Relationship Specialty Start Date End Date April Mason DO [address] [place] [address] PCP - General Family Medicine 05/01/21 documented as of this encounter
--- OUTSIDE RECORDS SUMMARY | 2024-03-12 02:43 | XMS_ITS | Encounter Summary ---
Author Organization [facility] Address [address] [place] [address] Care Team Providers Care Administrative Volunteer Name Role Phone Sada Martinez MD Primary Care Provider [phone] Encounter Details Date Type Department Care Team (Late st Contact Info) Description 08/20/2021 Lab Requisition [facility] Pathology & Laboratory Medicine - [facility] [address] [place] [address] Judy Kim, DO [address] [facility] [address] [place], [place] [id number] Encounter for screening for malignant neoplasm of colon Social History Tobacco Use Types Packs/Day Years Used Date Smoking Tobacco: Never Assessed Sex and Gender Information Value Date Recorded Sex Assigned at Not on file Gender Identity Not on file Sexual Orientation Not on file documented as of this encounter Plan of Treatment Not on file documented as of this encounter Procedures Procedure Name Priority Date/Time Associated Diagnosis Comments SURGICAL PATHOLOGY Today 08/20/2021 11 :10 EST Encounter for screening for malignant neoplasm of colon documented in this encounter Results * SURGICAL PATHOLOGY (08/20/2021 11:10 EST) Note to Patient The following pathology results have been interpreted by your pathologist and may be available to you before your health provider has had the opportunity to review them. Please allow time for your provider to receive these results and explore management options, if applicable. 08/24/2021 9:24 EST [facility] Final Diagnosis A. RECTUM, POLYP, BIOPSY: - Hyperplastic polyp. B. COLON, 20 CMS, POLYP, BIOPSY: - Hyperplastic polyp. C. COLON, 90 CMS, POLYP, BIOPSY: - Inflammatory polyp, completely excised. - Mild epithelial inflammatory atypia; negative for dysplasia. 08/24/2021 9:24 [facility] Attestation By the signature below, the attending physician certifies that they have 1) personally conducted a gross and/or microscopic examination of the described specimen(s), and/or personally interpreted the results of laboratory testing of the described specimen(s), and 2) personally rendered or confirmed the above diagnosis. 08/24/2021 9:24 [facility] at 0923 Clinical History Family history of colon cancer; screening; gibbs diverticula 08/24/2021 9:24 [facility] Gross Description A. Received in formalin labelled with proper patient identification (initials D, C) and rectal polyp is a vilchis nodular tissue, 0.3 x 0.2 x 0.1 cm. Entirely submitted in A1. B. Received in formalin labelled with proper patient identification (initials D, C) and 20 cm polyp is a vilchis elongated tissue, 0.8 x 0.1 x 0.1 cm. Entirely submitted in B1. C. Received in formalin labelled with proper patient identification (initials D, C) and 90 cm polyp are two vilchis red polyps, 0.3 x 0.2 x 0.2 cm and 0.5 x 0.4 x 0.4 cm. Entirely submitted in C1. CHAZ BERMEO(ASCP) 08/20/2021 16:35 08/24/2021 9:24 [facility] Performing Lab [facility] 08/24/2021 9:24 [facility] Scanned Images 08/24/2021 9:24 [facility] Tissue ENTIRE COLON / Unknown 08/20/2021 11:10 EST 08/20/2021 16:17 EST Tissue specimen (specimen) COLON STRUCTURE / Unknown 08/20/2021 11:10 EST 08/20/2021 16:17 EST Tissue specimen (specimen) COLON STRUCTURE / Unknown 08/20/2021 11:10 EST 08/20/2021 16:17 EST Judy Kim DO PATHOLOGY ORDERABLES [facility] [address] [place] [address] documented in this encounter Visit Diagnoses Diagnosis Encounter for screening for malignant neoplasm of colon Special screening for malignant neoplasms, colon documented in this encounter Care Teams Administrative Volunteer Relationship Specialty Start Date End Date Sada Martinez MD [address] [place] [address] PCP - General 01/05/11 documented as of this encounter
--- OUTSIDE RECORDS SUMMARY | 2024-03-12 02:43 | XMS_ITS | Encounter Summary ---
Author Organization [facility] Address [facility] [place] [address] Care Team Providers Care Manufacturing Planner Name Role Phone April Mason DO Primary Care Provider [phone] Encounter Details Date Type Department Care Team (Late st Contact Info) Description 08/26/2021 Telephone Dermatology at [facility] [address] [place] [address] Candi Suh MD [facility] [address] [place] [address] Social History Tobacco Use Types Packs/Day Years Used Date Smoking Tobacco: Never Smokeless Tobacco: Never Sex and Gender Information Value Date Recorded Sex Assigned at Not on file Gender Identity Not on file Sexual Orientation Not on file documented as of this encounter Miscellaneous Notes * Telephone Encounter - Mechelle Hart Rosario, JARETT - 08/27/2021 11:43 AM EST I called [...] had a brief fever or so she thinks last evening, Very little to no drainage. Needle type of pain when moves a certain way. Message from Dr. Suh below. I reviewed the picture and I do not see evidence of infection however I am more than happy to see her today if she would like to confirm this before we hit the weekend. It looks like she is having some reaction to the bandage and sutures. However, I don???t like the pain she is having. josé Min mind reaching out to her to ask if she has any fevers or if there is any drainage or other concerns that would suggest otherwise? Also can you make sure she is only using Vaseline and not Neosporin/bacitracin? She can take acetaminophen (follow instructions on label) for her pain and use a coldcompress as needed. * Telephone Encounter - Mechelle Hart LPN - 08/27/2021 11:31 AM EST Called and spoke with Cheryl. She mentioned the dressing was changed today and it looks better. I mentioned to her there is still no photo's yet. She said she sent it to the site. Nothing in the media of the chart as of this time and day. * Telephone Encounter - Mechelle Hart LPN - 08/26/2021 2:00 PM EST Reached out to Cheryl. She mentioned her cousin came over and they changed the dressing on her back and a photo was taken. She said the area is sore when moving it is high on the # scale from 0-10. She does not get bothered with it when sitting. She did say it is red and slightly swollen. There isno drainage. She is going to send in the photo though the site. * Telephone Encounter - Sada Valdez - 08/26/2021 1:29 PM EST Cheryl Zarate called to let Dr Suh know that her incision is sore, red and very swollen was told to call with concerns. Best number to reach the patient back is [phone]. documented in this encounter Plan of Treatment Upcoming Encounters Date Type Department Care Team (Late st Contact Info) Description 03/18/2025 2:30 PM EDT Office Visit Dermatology at [facility] [address] [place] [address] Candi Suh MD [facility] [place] [address] documented as of this encounter Visit Diagnoses Not on filedocumented in this encounter Care Teams Manufacturing Planner Relationship Specialty Start Date End Date April Mason DO [address] [place] [address] PCP - General Family Medicine 05/01/21 documented as of this encounter
[2024-03-12 11:09] LABS: Anion Gap 9.3 mmol/L (3-11); BUN 11 mg/dL (7-18); CO2 26.7 mmol/L (21.0-32.0); CREATININE 0.7 mg/dL (0.55-1.02); Calcium 8.8 mg/dL (8.5-10.1); Calculated LDL 50 mg/dL (<100); Chloride 106 mmol/L (98-107); Cholesterol 137 mg/dL (<200); Estimated GFR 92.41 (mL/min/1.73m2); Glucose 124 mg/dL (74-106); HDL Cholesterol 51 mg/dL (40-60); Potassium 4.2 mmol/L (3.5-5.1); Sodium 142 mmol/L (136-145); TSH (W/Ref FT4) 2.13 uIU/mL (0.36-3.74); Triglyceride 182 mg/dL (<150); Vitamin D 25 Total 24.7 ng/mL (30-100)
== END 2024-03-12 02:42 | disposition home or self-care (01) ==
LOC: LBO 02:41
PROVIDERS: PCP Student in an Organized Health Care Education/Training Program; Visit Provider Student in an Organized Health Care Education/Training Program
DX: K90.9 Intestinal malabsorption, unspecified (principal); I10 Essential (primary) hypertension; Z13.220 Encounter for screening for lipoid disorders; E03.9 Hypothyroidism, unspecified
CPT/HCPCS: 36415; 80048; 80061; 82306; 84443

== ENCOUNTER → 2024-04-11 12:46 | Outpatient (BNVA) | payer MEDICARE, SELFPAY | PROVIDERS: PCP Student in an Organized Health Care Education/Training Program; Visit Provider Psychiatry & Neurology Neurology | DX: G25.0 Essential tremor (principal); M48.062 Spinal stenosis, lumbar region with neurogenic claudication | CPT/HCPCS: 99213 ==

== ENCOUNTER 2024-07-16 03:06 | Outpatient (CLI) | payer MEDICARE, SELFPAY ==
[2024-07-16 10:24] LABS: ALT 15 U/L (14-59); AST 16 U/L (15-37); Albumin 3.9 g/dL (3.4-5.0); Alkaline Phosphatase 74 U/L (46-116); BUN 8 mg/dL (7-18); Bilirubin, Total 0.99 mg/dL (0.2-1.0); CREATININE 0.8 mg/dL (0.55-1.02); Calculated LDL 52 mg/dL (<100); Chloride 107 mmol/L (98-107); Cholesterol 149 mg/dL (<200); Estimated GFR 78.24 (mL/min/1.73m2); Glucose 114 mg/dL (74-106); HDL Cholesterol 56 mg/dL (40-60); Potassium 4.1 mmol/L (3.5-5.1); Sodium 143 mmol/L (136-145); Total Protein 6.9 g/dL (6.4-8.2); Triglyceride 208 mg/dL (<150)
== END 2024-07-16 03:07 | disposition home or self-care (01) ==
LOC: LBO 03:06
PROVIDERS: PCP Student in an Organized Health Care Education/Training Program; Referring Provider Student in an Organized Health Care Education/Training Program; Visit Provider Student in an Organized Health Care Education/Training Program
DX: E11.9 Type 2 diabetes mellitus without complications (principal); Z79.4 Long term (current) use of insulin; K57.30 Diverticulosis of large intestine without perforation or abscess without bleeding; Z80.0 Family history of malignant neoplasm of digestive organs; K90.9 Intestinal malabsorption, unspecified; Z13.220 Encounter for screening for lipoid disorders; Z91.89 Other specified personal risk factors, not elsewhere classified
CPT/HCPCS: 36415; 80053; 80061; 82306; 83735

== ENCOUNTER → 2024-09-02 11:11 | Outpatient (BNVA) | payer MEDICARE, SELFPAY | PROVIDERS: PCP Student in an Organized Health Care Education/Training Program; Referring Provider Student in an Organized Health Care Education/Training Program; Visit Provider Physician Assistant Surgical | DX: R91.1 Solitary pulmonary nodule (principal) | CPT/HCPCS: 99214 ==

== ENCOUNTER 2024-10-10 01:10 | Outpatient (CLI) | payer MEDICARE, SELFPAY ==
--- NOTE | 2024-10-10 07:30 | DI.MAMMO_ITS ---
Exam(s) MAMMO SCREENING EXAM: MAMMO SCREENING CLINICAL HISTORY: screening,z12.39 TECHNIQUE: Bilateral full field digital CC and MLO mammographic images were obtained with 3D tomosyn thesis and utilizing computer aided detection (CAD). COMPARISON: Available for comparison. FINDINGS: Masses/Architectural Distortion: None seen. Microcalcifications: No suspicious pleomorphic-type are seen. Skin Thickening/Nipple Retraction: None. IMPRESSION: 1. No significant interval change with no specific features of malignancy noted. 2. Unless there is more urgent need, screening mammography is recommended, as per [employer] guidelines. BI-RADS Category 1 - Negative Breast Density - Category A - Almost entirely fatty Breast density category C or D implies that the patient has dense breast tissue. Dense breast tissue is very common and is not abnormal but dense breast tissue can make it harder to find cancer on a ma mmogram. Also, dense breast tissue may increase their breast cancer risk. This information about the result of the mammogram report was provided to the patient to raise their awareness. Use this report when you speak with the patient about their risks for breast cancer, which includes their family hist ory. At that time, you may recommend for more screening tests (Ultrasound or MRI) as they might be us eful based on their risk. A negative radiographic report should not delay biopsy if a dominant or clinically suspicious mass is present. Up to ten percent of cancers are not identified on mammography. A negative report may reinforce clinical impression. Adenosis and dense breasts may obscure an underlying neoplasm. False positive reports average 6 to 10%. Patient will receive a letter notifying them of these results.
== END 2024-10-10 01:30 ==
LOC: DI 01:10
PROVIDERS: PCP Nurse Practitioner Family; Visit Provider Student in an Organized Health Care Education/Training Program
DX: Z12.31 Encounter for screening mammogram for malignant neoplasm of breast (principal); R92.313 Mammographic fatty tissue density, bilateral breasts
CPT/HCPCS: 77063; 77067

== ENCOUNTER 2024-12-27 00:51 | Outpatient (CLI) | payer MEDICARE, SELFPAY ==
[2024-12-27 11:17] LABS: HCT 41.2 % (36.0-46.0); HGB 13.9 g/dL (11.2-15.7); MCH 28.5 pg (27.0-33.0); MCHC 33.7 % (32.0-36.0); MCV 84 fL (80-95); MPV 9.1 fL (8.0-11.0); Platelet Count 202 10^3/uL (130-400); RBC 4.88 10^6/uL (3.93-5.22); RDW 12.3 % (11.7-14.6); RDW-SD 37.2 fL
[2024-12-27 12:06] LABS: Iron 68 ug/dL (50-170); Total Iron Binding Capacity 339 ug/dL (250-450); Transferrin Sat 20 % (15-50)
[2024-12-27 12:10] LABS: ALT 16 U/L (14-59); AST 22 U/L (15-37); Albumin 4.2 g/dL (3.4-5.0); Alkaline Phosphatase 73 U/L (46-116); Anion Gap 9.6 mmol/L (3-11); BUN 12 mg/dL (7-18); Bilirubin, Total 0.9 mg/dL (0.2-1.0); CO2 26.4 mmol/L (21.0-32.0); CREATININE 0.7 mg/dL (0.55-1.02); Calcium 9.3 mg/dL (8.5-10.1); Chloride 103 mmol/L (98-107); Estimated GFR 91.83 (mL/min/1.73m2); Glucose 130 mg/dL (74-106); Potassium 4.3 mmol/L (3.5-5.1); Sodium 139 mmol/L (136-145); Total Protein 7.1 g/dL (6.4-8.2); Vitamin D 25 Total 31 ng/mL (30-100)
[2024-12-28 04:02] LABS: Hepatitis C Ab w Rflx HCV PCR Negative (Negative)
== END 2024-12-27 00:52 | disposition home or self-care (01) ==
LOC: LBO 00:51
PROVIDERS: PCP Nurse Practitioner Family; Referring Provider Nurse Practitioner Family; Visit Provider Nurse Practitioner Family
DX: R14.0 Abdominal distension (gaseous) (principal); E11.9 Type 2 diabetes mellitus without complications; K76.0 Fatty (change of) liver, not elsewhere classified; E55.9 Vitamin D deficiency, unspecified
CPT/HCPCS: 36415; 80053; 82306; 85027; 86803; 83036; 83540; 83550

== ENCOUNTER 2025-01-14 03:42 | Outpatient (CLI) | payer MEDICARE, SELFPAY ==
--- NOTE | 2025-01-15 12:44 | W.DIABETESNO ---
Date of service: 01/14/25 Time of Service: 11:00 Diabetes Note Reason for Visit: Fatty Liver Nutrition Therapy, Diabetes NOTE: A: Ms. Zarate presents for nutritional counseling regarding fatty liver as well as meal planning for diabetes. She has recently restarted Ozempic and she continues to lose weight. She has lost at least 30 pounds. Her most recent A1C is 5.8. Her dietary recall shows that she has recently changed her eating habits to be healthier. She still does crave sweets and asks for ways to mitigate those cravings. Her father a few months ago just shy of his 100th birthday. 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 She states she was not eating well but has since changed. She eats eggs and toast and peanut butter for breakfast. May or may not have a midday meal. In the evening she has meat, starch, and some vegetables. She admits that she is low on vegetables related to not having top front teeth. She also states that she has not gotten back into physical activity in quite a few years. Nutrition Diagnosis: Nutrition related conditions including fatty liver and type 2 diabetes. Intervention: Acknowledged Ms. Zarate's excellent efforts at improving her diet. Suggested adding some complex carb and protein mid-day as it may help with the sweet cravings. Also suggested reintroducing some gentle movement after breakfast as it will help keep her blood sugars down as well as help with cravings. She likes to do activity inside. Suggested some [employer] exercise channels for seniors. Ms. Zarate verbalized an excellent understanding and motivation to make these small changes. Monitoring and Evaluation: She will monitor her intake, weight, and blood sugars. We can evaluate her nutrition care plan as needed and adjust accordingly. Thank you for this referral. Time Spent in Nutritional Counseling and Treatment: 40 minutes
--- NOTE | 2025-01-21 11:29 | W.NUTRFU ---
Date of service: 01/14/25 Time of Service: 11:00 Nutrition Note NOTE: met with Zoey regarding steatosis of liver. Current diet assessed as low in fiber and high in refined starches and added sugar. Reviewed suggestions to increase fiber to a minumum of 30g each day and limit add sugars to max of 30 most days. Reviewed how to find added sugars on labels and account for 1tsp=4g added sugar from adding it at home to items (in all forms) highlighted exercise and avoiding fructose outside of whole/intact fruit. - avoid juices and all SSB's Suggested milk thistle to help support healthy hepatocytes and help prevent scarring. printed out suggested menu samples Heather has my card/contact to reach out with any questions or need for follow up Time Spent in Nutritional Counseling and Treatment: 25 min
== END 2025-01-14 03:43 | disposition home or self-care (01) ==
LOC: DS 03:42
PROVIDERS: PCP Nurse Practitioner Family; Visit Provider Dietitian, Registered
DX: E11.9 Type 2 diabetes mellitus without complications (principal); K76.0 Fatty (change of) liver, not elsewhere classified
CPT/HCPCS: 123; 97802; 00123

== ENCOUNTER 2025-01-28 01:45 | Outpatient (CLI) | payer MEDICARE, SELFPAY ==
--- NOTE | 2025-01-28 06:00 | DI.US_ITS ---
Exam(s) US ABDOMEN LIMITED EXAM: US ABDOMEN LIMITED CLINICAL HISTORY: RUQ pain, s/p stephane,r10.11 TECHNIQUE: Ultrasound abdomen performed using standard protocol. COMPARISON: CT CT ABDOMEN PELVIS W from 07/10/2022 FINDINGS: LIVER: 18.7 cm in length. Mildly increased echogenicity, consistent with mild hepatic steatosis.. No focal liver lesions are seen.. GALLBLADDER: Cholecystectomy. BILIARY SYSTEM: No intrahepatic or extrahepatic biliary ductal dilation. RIGHT KIDNEY: Normal size. Question of a stone versus artifact in the mid right kidney. No evidence of hydronephrosis. No suspicious renal mass. No cyst identified. PANCREAS: Normal where visualized. ABDOMINAL AORTA AND IVC: Visualized portions normal caliber. ASCITES: None seen. IMPRESSION: Mild hepatic steatosis. Question of stone versus artifact in the mid right kidney. DATA REPOSITORY:
== END 2025-01-28 02:05 ==
PROVIDERS: PCP Nurse Practitioner Family; Visit Provider Nurse Practitioner Family
DX: R10.11 Right upper quadrant pain (principal); K76.0 Fatty (change of) liver, not elsewhere classified
CPT/HCPCS: 76705

== ENCOUNTER 2025-01-28 04:01 | Outpatient (CLI) | payer MEDICARE, SELFPAY ==
[2025-01-28 10:52] LABS: TSH (W/Ref FT4) 1.84 uIU/mL (0.36-3.74)
== END 2025-01-28 04:02 | disposition home or self-care (01) ==
PROVIDERS: PCP Nurse Practitioner Family; Referring Provider Nurse Practitioner Family; Visit Provider Nurse Practitioner Family
DX: E03.9 Hypothyroidism, unspecified (principal)
CPT/HCPCS: 36415; 84443

== ENCOUNTER → 2025-04-10 12:49 | Outpatient (BNVA) | payer MEDICARE, SELFPAY | PROVIDERS: PCP Nurse Practitioner Family; Referring Provider Nurse Practitioner Family; Visit Provider Psychiatry & Neurology Neurology | DX: G25.0 Essential tremor (principal); R51.9 Headache, unspecified | CPT/HCPCS: 99214 ==

== ENCOUNTER 2025-06-04 12:51 | Outpatient (REF) | payer MEDICARE, SELFPAY ==
[2025-06-05 12:41] LABS: Campylobacter PCR Negative (Negative); Shiga Toxin PCR Negative (Negative); Shigella/Enteroinvasive Ecoli Negative (Negative)
[2025-06-06 13:58] LABS: Helicobacter pylori Ag, Feces Negative (Negative)
== END 2025-06-04 12:52 | disposition home or self-care (01) ==
LOC: LBN 12:51
PROVIDERS: PCP Nurse Practitioner Family; Visit Provider Nurse Practitioner Family
DX: R19.7 Diarrhea, unspecified (principal)
CPT/HCPCS: 87015; 87269; 87272; 87338; 87505; 82272; 83630

== ENCOUNTER 2025-06-20 19:48 | Emergency (ER) | payer MEDICARE, SELFPAY ==
[2025-06-20] VITALS (12 sets, daily range): BP systolic 163–186; BP diastolic 73–96; PULSE 73–89; RESP 14–24; TEMP 36.5; O2SAT 93–97
--- NOTE | 2025-06-20 20:00 | DI.RAD_ITS ---
Exam(s) XR CHEST 2V PA LATERAL EXAM: XR CHEST 2V PA LATERAL CLINICAL HISTORY: cold symptoms TECHNIQUE: 2D digital imaging was performed. Two views. COMPARISON: CR CHEST 2 VIEWS PA,LAT from 05/07/[address] ABDOMEN PELVIS W from 07/10/[address] CHEST WO from 09/14/2023 FINDINGS: HEART: Mildly enlarged. Aorta: Mildly tortuous. PULMONARY VASCULATURE: Normal. MEDIASTINUM: Unremarkable. LUNGS: Nodular density again noted at the left lung base corresponding to previously noted benign mass. No evidence of infiltrate or pulmonary edema. PLEURAL SPACE: No pleural effusion or pneumothorax. BONE:Unremarkable for age. SOFT TISSUES: Unremarkable. IMPRESSION: No acute abnormality. The preliminary [facility] report was reviewed. DATA REPOSITORY: RADIATION DOSE DELIVERED:
--- NOTE | 2025-06-20 20:43 | DI.[facility]_ITS ---
PROCEDURE INFORMATION: Exam: XR Chest Exam date and time: 06/20/2025 8:19 PM Age: 75 years old Clinical indication: Cough and shortness of breath TECHNIQUE: Imaging protocol: Radiologic exam of the chest. Views: 2 views. COMPARISON: CT CHEST WO 09/14/2023 10:31 AM FINDINGS: Lungs: Unremarkable. No consolidation. Pleural spaces: Unremarkable. No pleural effusion. No pneumothorax. Heart/Mediastinum: Unremarkable. No cardiomegaly. Bones/joints: Unremarkable. IMPRESSION: No acute findings. Dictated and Authenticated by: Robles Chung MD. Orderin David Bowling MD
[2025-06-20 20:47] LABS: RSV PCR Negative (Negative)
--- NOTE | 2025-06-20 20:49 | ED.GENADUL_ITS ---
Discharge Plan Disposition Patient Disposition: Home Discharge Details Clinical Impression: SARS-CoV-2 positive Primary Care Provider: Rosa Ham ED Provider: Dash Hernandez Home Meds and New Rx's Prescriptions: New Paxlovid 300 mg (150 mg x 2)-100 mg tablets,dose pack See Rx Instructions .ROUTE .COMPLEX Qty: 30 0RF Rx Instructions: take TWO 150 mg tablets of nirmatrelvir with ONE 100 mg tablet of ritonavir twice daily for 5 days acetaminophen [Tylenol] 325 mg tablet 975 mg PO ONCE PRNQty: 60 0RF ibuprofen 600 mg tablet 600 mg PO Q6H PRNQty: 30 0RF acetaminophen [Tylenol] 325 mg tablet 975 mg PO ONCE PRNQty: 60 0RF ibuprofen 600 mg tablet 600 mg PO Q6H PRNQty: 30 0RF Paxlovid 300 mg (150 mg x 2)-100 mg tablets,dose pack See Rx Instructions .ROUTE .COMPLEX Qty: 30 0RF Rx Instructions: take TWO 150 mg tablets of nirmatrelvir with ONE 100 mg tablet of ritonavir twice daily for 5 days No Action mometasone 0.1 % solution 1 applic Topical DAILY PRN (Reason: skin irritation) Qty: 1 1RF hydroxyzine HCl 25 mg tablet 25 mg PO QHS PRN Rx Instructions: Trial @ bedtime to help sleep gabapentin 300 mg capsule See Rx Instructions .ROUTE .COMPLEX Qty: 90 3RF Dose Instruction: Take 1 capsule by mouth at bedtime Rx Instructions: Take 1 capsule by mouth at bedtime topiramate 25 mg tablet 25 mg PO BID Qty: 120 3RF Rx Instructions: 25mg qday x1wk, then BID x 1wk, then 25mg am and 50mg HS x 1wk, then 50mg BID thereafter cholecalciferol (vitamin D3) [Vitamin D3] 25 mcg (1,000 unit) capsule 2,000 unit PO DAILY One-Per-Day [place]-3 1 EACH capsule,delayed release(DR/EC) 1 ea PO DAILY Qty: 1 (DME) pen needle, diabetic [Comfort EZ Pen [place]] 31 gauge x 5/16 needle See Rx Instructions .Route Qty: 100 3RF Rx Instructions: to administer victoza injections daily, please use only needle pt prefers or insurance pays for. DX DM E11.9 clotrimazole 1 % cream 1 applic Topical BID PRN (Reason: tessy dermatitis) Qty: 90 1RF Rx Instructions: Apply dime sized amount to left breast fold twice a day (DME) Blood Glucose Test Strip See Rx Instructions .ROUTE .MEDSUPPLY Qty: 200 3RF Rx Instructions: Twice daily, for A1C <7, Dx E11.9 TO MATCH ONE TOUCH GLUCOMETER Verio Flex (or is she eligible for new set from [employer]?) (DME) One Touch Verio glucose monitor See Rx Instructions .Route .MEDSUPPLY Qty: 1 0RF Rx Instructions: Check blood sugars twice a day. DX: E11.9. Keep A1c below 7 rosuvastatin 5 mg tablet See Rx Instructions .ROUTE .COMPLEX Qty: 90 0RF Dose Instruction: TAKE 1 TABLET DAILY Rx Instructions: TAKE 1 TABLET DAILY levothyroxine 50 mcg tablet See Rx Instructions .ROUTE .COMPLEX Qty: 90 3RF Dose Instruction: Take 1 tablet by mouth once daily Rx Instructions: Take 1 tablet by mouth once daily propranolol 40 mg tablet 40 mg PO BID Qty: 180 3RF Rx Instructions: along with 60mg tab for total 100mg BID propranolol 60 mg tablet 60 mg PO BID Qty: 180 3RF Rx Instructions: along with 40mg BID for total 100mg BID acetaminophen 500 mg tablet 500 mg PO Q6H PRN (Reason: pain) Qty: 60 2RF ibuprofen 600 mg tablet 600 mg PO TID PRN (Reason: pain) Qty: 60 0RF Discharge Instructions Instructions: COVID-19 in adults - Discharge instructions Additional Instructions: You tested positive for SARS-CoV-2, the virus which causes COVID-19. Thankf ully, you show no current signs of severe disease and your screening blood work was all normal (including your electrolytes). Given your medical problems, treatment to prevent severe disease may be helpful for you. Please take the prescribed Paxlovid as directed to hoepfully reduce your risk of developing severe COVID infection. Similarly, please take the prescribed acetaminophen and ibuprofen to improve your symptoms. Return to the Emergency Department if you develop new or worsening symptoms. Stand Alone Forms: Portal Information HPI General Date/Time Provider Initiated Documentation: 06/20/25 20:00 . HPI Narrative: MDM/Narrative: 75 year old female presents for flu-like symptoms, hx of obesity/DM/fatty liver. Vitals unremarkable, however given hx of BB usage, will obtain labs to assess for evidence of severe infection/metabolic derangement. Will test for COVID/FLU and obtain CXR as well. ED Course: Labs notbale for COVID +, no leukocytosis or metabolic derangements. CXR shows no abnormalities. Given patient has mild disease with know risk factors will prescribe paxlovid for outpatient management of COVID. Return precautions discussed. Disposition: Home HPI: 74-year-old female with a past medical history diabetes, chronic pain, hypertension, presents for evaluation of bodyaches, cough productive of clear sputum, runny nose, 6 episodes of nonbloody nonmelanotic diarrhea today. Ayleen guillen also notes myalgias. Suspect she has a fever although she did not take her temperature. Denies any other concerning symptoms. ROS: Negative besides as mentioned above Exam: Gen: A&O NAD HEENT: NCAT, EOMI, not icteric. External ears normal. No rhinorrhea. Moist mucous membranes. Neck: Supple, full range of motion, no observable masses, No meningeal sign. Lungs: No Respiratory distress. CV: RRR, no edema. Abdomen: Soft, nondistended, No rebound tenderness. MSK: No joint swelling, no redness. Skin: No rashes, petechiae, lesions. Normal color per patient. Neuro: Normal Gait, Grossly intact. Psych: Appropriate for situation. Labs: Laboratory Tests Range/Units 06/20/25 06/20/25 20:00 20:05 WBC (4.4-10.8) 10^3/uL 8.00 RBC (3.93-5.22) 10^6/uL 4.76 Hgb (11.2-15.7) g/dL 13.4 Hct (36.0-46.0) % 39.2 MCV (80-95) fL 82 MCH (27.0-33.0) pg 28.2 MCHC (32.0-36.0) % 34.2 RDW (11.7-14.6) % 11.9 Plt Count (130-400) 10^3/uL 194 MPV (8.0-11.0) fL 9.2 Immature Gran % % 0.4 Neutrophils % % 81.5 Lymphocytes % % 8.6 Monocytes % % 8.0 Eosinophils % % 0.9 Basophils % % 0.6 Nucleated RBC % (0.0-0.3) % 0.0 Absolute Neutrophils (1.2-6.7) 10^3/uL 6.52 Absolute Lymphocytes (1.2-3.4) 10^3/uL 0.69 L Absolute Monocytes (0.1-0.8) 10^3/uL 0.64 Absolute Eosinophils (0.0-0.7) 10^3/uL 0.07 Absolute Basophils (0.0-0.2) 10^3/uL 0.05 VBG Lactate (<or=2.0) mmol/L 1.7 Sodium (136-145) mmol/L 136 Potassium (3.5-5.1) mmol/L 3.6 Chloride (98-107) mmol/L 104 Carbon Dioxide (20.0-31.0) mmol/L 26.4 Anion Gap (3-11) mmol/L 5.6 BUN (9-23) mg/dL 10 Creatinine (0.55-1.02) mg/dL 0.60 Est GFR (CKD-EPI 2020) (mL/min/1.73m2) 97.93 Glucose (74-106) mg/dL 143 H Calcium (8.3-10.6) mg/dL 8.9 Magnesium (1.6-2.6) mg/dL 1.9 Total Bilirubin (0.2-1.2) mg/dL 0.80 AST (<34) U/L 16 ALT (10-49) U/L 11 Alkaline Phosphatase (46-116) U/L 69 Total Protein (5.7-8.2) g/dL 7.1 Albumin (3.4-5.0) g/dL 4.4 COVID-19 Source Nasopharynx SARS-CoV-2 (PCR) (Negative) Positive A Influenza Type A (PCR) (Negative) Negative Influenza Type B (PCR) (Negative) Negative RSV (PCR) (Negative) Negative Radiology: PROCEDURE INFORMATION: Exam: XR Chest Exam date and time: 06/20/2025 8:19 PM Age: 75 years old Clinical indication: Cough and shortness of breath TECHNIQUE: Imaging protocol: Radiologic exam of the chest. Views: 2 views. COMPARISON: CT CHEST WO 09/14/2023 10:31 AM FINDINGS: Lungs: Unremarkable. No consolidation. Pleural spaces: Unremarkable. No pleural effusion. No pneumothorax. Heart/Mediastinum: Unremarkable. No cardiomegaly. Bones/joints: Unremarkable. IMPRESSION: No acute findings. Thank you for allowing us to participate in the care of your patient. Dictated and Authenticated by: Robles Chung MD 06/20/2025 8:42 PM Eastern Time ([place] & [place]) Related Data Home Medications Medication Instructions Recorded Confirmed omega-3 fatty acids-fish oil 684 1 ea PO DAILY ##1 06/20/25 mg-1,200 mg capsule,delayed release (One-Per-Day [place]-3) acetaminophen 500 mg tablet 500 mg PO Q6H PRN pain #60 tabs 09/28/21 06/20/25 ibuprofen 600 mg tablet 600 mg PO TID PRN pain #60 t abs 09/28/21 06/20/25 pen needle, diabetic 31 gauge x #100 ea 04/13/2306/20 (Comfort EZ Pen [place]) clotrimazole 1 % topical cream 1 applic topical BID HI N tessy 08/24/23 06/20/25 dermatitis #90 grams mometasone 0.1 % topical solution 1 applic topical DESTINY LY PRN skin 09/15/23 06/20/25 irritation #1 mL Blood Glucose Test (blood sugar #200 ea 04/15/2406/20 diagnostic) One Touch Verio glucose monitor #1 ea 05/17/24 5 hydroxyzine HCl 25 mg tablet 25 mg PO QHS PRN 09/02/24 06/20/25 rosuvastatin 5 mg tablet See Rx Instructions .Route 0 12/17/24 06/20/25 .COMPLEX #90 tabs levothyroxine 50 mcg tablet See Rx Instructions .Route 02/21/25 06/20/25 .COMPLEX #90 tabs cholecalciferol (vitamin D3) 25 2,000 unit PO DAILY 06/20/25 mcg (1,000 unit) capsule (Vitamin D3) propranolol 40 mg tablet 40 mg PO BID #180 tabs 04/0106/20/25 propranolol 60 mg tablet 60 mg PO BID #180 tabs 04/0106/20/25 gabapentin 300 mg capsule See Rx Instructions .Route 0 04/10/25 06/20/25 .COMPLEX #90 caps topiramate 25 mg tablet 25 mg PO BID #120 tabs 04/1006/20/25 acetaminophen 325 mg tablet 975 mg (3 x 325 mg) PO ONC E PRN 06/20/25 (Tylenol) #60 tabs acetaminophen 325 mg tablet 975 mg (3 x 325 mg) PO ONC E PRN 06/20/25 (Tylenol) #60 tabs ibuprofen 600 mg tablet 600 mg PO Q6H PRN #30 tabs 1 08/20/24 ibuprofen 600 mg tablet 600 mg PO Q6H PRN #30 tabs 1 08/20/24 nirmatrelvir 300 mg (150 mg See Rx Instructions PO .CO MPLEX 06/20/25 x2)-ritonavir 100 mg tablet,dose #30 tabs pack (Paxlovid) nirmatrelvir 300 mg (150 mg See Rx Instructions PO .CO MPLEX 06/20/25 x2)-ritonavir 100 mg tablet,dose #30 tabs pack (Paxlovid) Previous Rx's Medication Instructions Recorded acetaminophen 500 mg tablet 500 mg PO Q6H PRN pain #60 tabs 09/28/21 ibuprofen 600 mg tablet 600 mg PO TID PRN pain #60 t abs 09/28/21 pen needle, diabetic 31 gauge x #100 ea 04/13/2312/13 (Comfort EZ Pen [place]) clotrimazole 1 % topical cream 1 applic topical BID HI N tessy 08/24/23 dermatitis #90 grams mometasone 0.1 % topical solution 1 applic topical DESTINY LY PRN skin 09/15/23 irritation #1 mL Blood Glucose Test (blood sugar #200 ea 04/15/24 diagnostic) One Touch Verio glucose monitor #1 ea 05/17/24 rosuvastatin 5 mg tablet See Rx Instructions .Route 0 12/17/24 .COMPLEX #90 tabs levothyroxine 50 mcg tablet See Rx Instructions .Route 02/21/25 .COMPLEX #90 tabs propranolol 40 mg tablet 40 mg PO BID #180 tabs 04/01 propranolol 60 mg tablet 60 mg PO BID #180 tabs 04/01 gabapentin 300 mg capsule See Rx Instructions .Route 0 04/10/25 .COMPLEX #90 caps topiramate 25 mg tablet 25 mg PO BID #120 tabs 04/10 acetaminophen 325 mg tablet 975 mg (3 x 325 mg) PO ONC E PRN 06/20/25 (Tylenol) #60 tabs acetaminophen 325 mg tablet 975 mg (3 x 325 mg) PO ONC E PRN 06/20/25 (Tylenol) #60 tabs ibuprofen 600 mg tablet 600 mg PO Q6H PRN #30 tabs 1 08/20/24 ibuprofen 600 mg tablet 600 mg PO Q6H PRN #30 tabs 1 08/20/24 nirmatrelvir 300 mg (150 mg See Rx Instructions PO .CO MPLEX 06/20/25 x2)-ritonavir 100 mg tablet,dose #30 tabs pack (Paxlovid) nirmatrelvir 300 mg (150 mg See Rx Instructions PO .CO MPLEX 06/20/25 x2)-ritonavir 100 mg tablet,dose #30 tabs pack (Paxlovid) Allergies Allergy/AdvReac Type Severity Reaction Status Date / Time primidone Allergy Itching Verified 06/20/25 19:54 and loud banging noise in head venlafaxine Allergy Other (See Verified 06/20/25 19:54 Comment) milk AdvReac Intermediate Diarrhea Verified 06/20/25 19:54 sertraline AdvReac Intermediate per pt Verified 06/20/25 19:54 tingling in arm and jaw pain goldenrod Allergy Other (See Uncoded 06/20/25 19:54 Comment) multivitamin AdvReac Intermediate causes Uncoded 06/20/25 19:54 chest pressure General Stated Complaint: RespSymp BRIDGET: 3 Course Vital Signs Vital signs: Vital Signs Temperature 36.5 C 06/20/25 19:50 Pulse 89 06/20/25 19:50 Respiratory Rate 18 06/20/25 19:50 Blood Pressure 163/96 H 06/20/25 19:50 Pulse Oximetry 96 06/20/25 19:50 Temperature 36.5 C 06/20/25 20:05 Pulse 76 06/20/25 20:40 Pulse 76 06/20/25 20:40 Respiratory Rate 24 06/20/25 20:40 Respiratory Effort Normal 06/20/25 20:05 Respiratory Depth Normal 06/20/25 20:05 Blood Pressure 163/96 H 06/20/25 20:05 Pulse Oximetry 93 06/20/25 20:40 Pain Level 0 06/20/25 20:05 Lab/Test Results Lab/Test Results: Laboratory Tests Range/Units 06/20/25 20:00 VBG Lactate (<or=2.0) mmol/L 1.7 Medical Decision Making Quality:SDOH Health Related Social Needs: Health related social needs details support with johnathan phillip (hh-->hospice) PFSH All Active Problems (Updated 06/20/25 @ 21:08 by Dash Hernandez MD) SARS-CoV-2 positive (Acute) Acute diarrhea (Acute) Essential tremor (Acute) BMI 35.0-35.9,adult (Acute) Fatigue (Acute) Hepatic steatosis (Acute) Vitamin D deficiency (Acute) Neoplasm of unspecified behavior of bone, soft tissue, and skin (Acute ~01/18/24) [facility] [place] 01/18/24 note, shave bx done. [facility] Mohs 02/06/24 cc Tremor (Acute) Cervical radiculopathy (Acute) presumed 2' flutter discomfort/tightness .. numbness? Acute pain of both shoulders (Acute) Neck pain (Acute) Sensorineural hearing loss, bilateral (Acute) [facility] [place] 01/17/23 Lung nodule seen on imaging study (Acute) per PET 08/2022, possible hemartoma; per CT 07/2022 Nail dystrophy (Acute) Spinal stenosis of lumbar region (Acute) MRI shows yarelis @ L3-L4, with mod-sev CTL SP CANAL STENOSIS (09/2019).. Rt L4 nerve root compression. Lumbar stenosis with neurogenic claudication (Acute) Sacroiliac joint dysfunction of both sides (Acute) Hypothyroidism (Chronic 03/13/13) Type 2 diabetes mellitus (Chronic ~04/2017) Essential hypertension (Chronic 06/14/13) Low BPs noted.. holding losartan Diverticulosis of colon (Chronic) Family history of colon cancer in mother (Acute) Mo rectal ca @ 60yo... Medical History Weight loss Abdominal bloating Biliary colic s/p cholecystectomy, Jul 2023 Gallstones s/p cholecystectomy, Jul 2023 Colicky RUQ abdominal pain s/p cholecystectomy, Jul 2023 Caregiver burden Primary caregiver for her father, who remains independent .. 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 Hyperplastic colon polyp Generalized anxiety disorder Major depressive disorder ADHD, predominantly inattentive type Binge eating disorder (10/05/15) Pilar cyst of scalp Soft subcutaneous nodule measuring 2cm on left occipital scalp-pt elects for excision of cyst--[facility] [place] [place] 01/17/23 Excision with intermediate layered closure at [facility] 08/01/23 Allergies Chronic eczematous otitis externa of both ears Per 07/19/22 [facility] [place]ology note History of skin cancer in adulthood BCC. Melanoma in situ. Hx lesion removed from cheek, [ ] notes/path. Hx multiple benign nevi Actinic keratoses Ill defined scaly pink papules on each orthodox--[id number]--[facility] Derm note01/17/23 Melanoma Abnormal auditory function study [facility] [place] note 01/17/23 Negative middle easr pressure of right ear w/ type C tympanogram curve.HE History of basal cell carcinoma (BCC) Mohs procedure 02/06/24, left nafisa ala Impairment of speech discrimination Asymmetrical sensorineural hearing loss Frequent headaches SARS-CoV-2 positive (~12/03/21) Actinic keratitis Left forehead, nose .. s/p Cryo. Blistered, but improving. Independent for activity Cheryl values her independence .. discussed @ 10/01/21 OV 2' CTR surgery (urged her to cont with plan for rt hand now that lft is done.. mild, so she was wondering) .. back pain with (+) mri findings show eval/Tx is worthwhile earlier than later .. Exercising despite pain (stairs ok) helps DM, Vasc, HTN ++ Cubital tunnel syndrome on left Melanoma in situ of back (07/2021) Actinic keratosis (~06/2021) 07/14/21 liquid nitrogen treament - forearms,R orthodox,face Seborrheic keratoses Pilar cyst Ulnar neuropathy at elbow of left upper extremity Diabetic retinopathy of right eye (04/29/21) Occipital headache New headache .. due to back pain? pillow? Medication side effects SNRI increase (2020) seems to have brought on halluc (visual/audit).. [ ] add antipsych? mood stblzr? Chronic low back pain Hyperlipidemia (03/13/13) Conductive hearing loss, external ear (10/03/13) Surgical History S/P Mohs surgery for basal cell carcinoma (02/06/24) Hx of cholecystectomy (~07/2023) H/O melanoma excision (08/24/21) right upper back Carpal tunnel syndrome of right wrist S/P right ECTR: 07/29/2022 Carpal tunnel syndrome of left wrist s/p left ECTR DOS: 09/28/2021 S/P colonoscopy (08/20/21) 06/14/16 S/P cataract surgery (08/14/17) S/P FREDY-BSO (total abdominal hysterectomy and bilateral salpingo-oophorectomy) S/P appendectomy Status post total left knee replacement (01/01/19) Family History Mother , at 58 Colon cancer Hypertension Father Depression Sister Alcohol abuse Brother , at 58 Pancreatic cancer metastasized to liver Brother Low back pain Alcohol abuse Son No problems noted. Daughter No problems noted. Daughter No problems noted. Daughter Type 1 diabetes mellitus Bipolar disorder Maternal Grandmother , at 80 Stroke Heart disease Maternal Grandfather , at 53 Heart disease Myocardial infarction Paternal Grandfather , at 87 No problems noted. Paternal Grandmother , at 80 of P.E. Pulmonary embolism Rheumatoid arthritis Maternal Aunt Colon cancer Diabetes Social History Smoking/Tobacco Use Status: Never Second Hand Exposure: Yes Smoking risk assessment performed?: Yes Alcohol Intake: never Drug use: Never Substance use type: does not use Adopted: No Caregiver/Support person: No Foster care: No Household members: family and other Details: 2 Housing: house Number of Children: 4 number of grandchildren: 9 Communication Needs: Hard of Hearing Education Level: college Details: Bachelor's Degree Do you need help understanding health information?: Rarely current occupation: Retired Pets and animals: Yes (1 cat) Pets and animals: cat(s) Sexually active: No Do you think of yourself as: straight/heterosexual Current gender identity: female What is your relationship status?: How often do you talk on the phone with friends or family?: three or more times per week How often do you get together with friends or relatives?: twice per week How often do you attend hinduism or roman catholic services?: 4 or more times per year Do you belong to any clubs or organized social groups?: yes Panel score (0-1 are the most socially isolated patients): 3 What type of physical activity do you participate in: none Frequency: does not exercise Mamie/Latter-Day: Religious Special mamie needs: No Seatbelt use: sometimes Drive 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 w/intox charter coach driver: No Do you feel safe at home: Yes (lives with 98 year old dad) Do you feel safe in your relationship?: Yes Victim of physical abuse: No Victim of emotional abuse: Yes Victim of sexual abuse: No Would you like helpful sources: No
[2025-06-20 20:50] LABS: COVID-19 PCR Positive (Negative)
[2025-06-20 20:51] LABS: Abs Immature Grans 0.03 10^3/uL (0.0-0.06); HCT 39.2 % (36.0-46.0); HGB 13.4 g/dL (11.2-15.7); Immature Grans % 0.4 %; MCH 28.2 pg (27.0-33.0); MCHC 34.2 % (32.0-36.0); MCV 82 fL (80-95); MPV 9.2 fL (8.0-11.0); Platelet Count 194 10^3/uL (130-400); RBC 4.76 10^6/uL (3.93-5.22); RDW 11.9 % (11.7-14.6); RDW-SD 36.1 fL; WBC 8.00 10^3/uL (4.4-10.8)
[2025-06-20 21:02] LABS: Magnesium 1.9 mg/dL (1.6-2.6)
[2025-06-20 21:03] LABS: ALT 11 U/L (10-49); AST 16 U/L (<34); Albumin 4.4 g/dL (3.4-5.0); Alkaline Phosphatase 69 U/L (46-116); Anion Gap 5.6 mmol/L (3-11); BUN 10 mg/dL (9-23); Bilirubin, Total 0.80 mg/dL (0.2-1.2); CO2 26.4 mmol/L (20.0-31.0); Calcium 8.9 mg/dL (8.3-10.6); Chloride 104 mmol/L (98-107); Glucose 143 mg/dL (74-106); Potassium 3.6 mmol/L (3.5-5.1); Sodium 136 mmol/L (136-145); Total Protein 7.1 g/dL (5.7-8.2)
== END 2025-06-20 21:16 | disposition home or self-care (01) ==
PROVIDERS: Emergency Provider General Practice; PCP Nurse Practitioner Family
DX: U07.1 COVID-19 (principal); Z11.52 Encounter for screening for COVID-19
CPT/HCPCS: 99283; 99284; 36415; 80053; 87637; 71046; 83605; 83735; 85025

== ENCOUNTER → 2025-07-01 09:22 | Outpatient (BNVA) | payer MEDICARE, SELFPAY | PROVIDERS: PCP Nurse Practitioner Family; Referring Provider Nurse Practitioner Family; Visit Provider Student in an Organized Health Care Education/Training Program | DX: R19.4 Change in bowel habit (principal); K57.92 Diverticulitis of intestine, part unspecified, without perforation or abscess without bleeding; K76.0 Fatty (change of) liver, not elsewhere classified; Z86.0109 Personal history of other colon polyps | CPT/HCPCS: 99214 ==